=== PATIENT | male | born 1960 | race Caucasian/White ===

== ENCOUNTER → 2018-02-15 17:11 | Outpatient (REF) | payer MEDICARE, SELFPAY ==
[2018-02-15 19:05] LABS: Microalb ug/mg Crea 31.3 ug/mg Cr
== END ==
LOC: NCHCN 17:11
PROVIDERS: PCP Family Medicine; Visit Provider Family Medicine
DX: E11.9 Type 2 diabetes mellitus without complications (principal)
CPT/HCPCS: 82043; 82570

== ENCOUNTER 2018-12-16 14:02 | Outpatient (REF) | payer MEDICARE, MEDICAID, SELFPAY ==
[2018-12-16 18:29] LABS: HCT 45.8 % (40.0-50.0); HGB 15.9 g/dL (13.5-17.5); Mean Corp. HGB Concentration 34.7 g/dL (32.0-36.0); Mean Corpuscular Hemoglobin 29.3 pg (27.0-33.0); Mean Corpuscular Volume 84.3 fL (80-95); Mean Platelet Volume 11.3 fL (8.0-11.0); Platelet Count 185 x1000/uL (130-400); RBC 5.43 m/cumm (4.50-6.00); White Blood Cell Count 8.17 k/cumm (4.4-10.8)
[2018-12-16 18:45] LABS: ALT 53 U/L (12-78); AST 24 U/L (15-37); Albumin 3.6 g/dL (3.4-5.0); Alkaline Phosphatase 86 U/L (46-116); Anion Gap 10.3 mmol/L (3-11); BUN 19 mg/dL (7-18); Bilirubin, Total 0.3 mg/dL (0.2-1.0); CO2 30.7 mmol/L (21.0-32.0); CREATININE 0.88 mg/dL (0.70-1.30); Calcium 9.5 mg/dL (8.5-10.1); Chloride 99 mmol/L (98-107); Glucose 187 mg/dL (70-100); Potassium 4.5 mmol/L (3.5-5.1); Sodium 140 mmol/L (136-145); Total Protein 7.4 g/dL (6.4-8.2)
== END 2018-12-16 14:22 ==
LOC: NCHCN 14:02
PROVIDERS: PCP Family Medicine; Visit Provider Family Medicine
DX: R19.7 Diarrhea, unspecified (principal); R53.83 Other fatigue
CPT/HCPCS: 80053; 85027

== ENCOUNTER 2019-01-17 12:24 | Outpatient (REF) | payer MEDICARE, MEDICAID, SELFPAY ==
[2019-01-17 13:50] LABS: Hemoglobin A1C 7.6 % (4.5-6.2)
== END 2019-01-17 12:44 ==
LOC: NCHCN 12:24
PROVIDERS: PCP Family Medicine; Visit Provider Family Medicine
DX: E11.9 Type 2 diabetes mellitus without complications (principal)
CPT/HCPCS: 83036

== ENCOUNTER 2019-01-25 01:27 | Outpatient (CLI) | payer MEDICARE, MEDICAID, SELFPAY ==
--- NOTE | 2019-01-25 12:00 | DIABASSESS_ITS ---
DESCRIPTION/ASSESSMENT: Reese Muñiz presents for diabetes self management with focus on nutrition and weight loss. His weight goal is 250 pounds He states he doesn't feel good. He has a strong family history of diabetes. He states he has started to stay away from processed food. He is eating goat cheese, tuna, avocado, hamburg, brown rice, sweet potato, splenda, uses potassium salt substitute. He had shredded wheat for supper last night; peanut butter and bread for lunch; 2 glazed donuts for breakfast. States he sleeps poorly. He was up urinating 4 times last night. He enjoys walking and is looking forward to getting a bike next month when his check comes. His car is not inspected at this time so has no transportation. States he does suffer from depression secondary to family problems . He is not testing his blood sugar at this time. He is waiting for the mail order to be completed. INTERVENTION: Discussed food choices and reviewed diabetes food guide. Gave him information regarding [employer] but feels he can't get here easily. Discussed physical activity and his desire to get a bike and ride during the day. He also is willing to try waking at night. Discussed medication to help with weight loss and reviewed Trulicity and Victoza; brief description of SGLT2 inhibitors however he is not interested in increased urination. PLAN: Reese will begin walking at night. He will get a bike next month He will discuss additional medication to help with weight loss. He will increase meat and vegetables and decrease bread and potato. He will attempt to write his food down for 1 at least a couple of days He will call as soon as he gets his glucometer for instructions Individual MNT __4__ units billed TIME IN: OUT: No DM group education series being offered at this time.
== END 2019-01-25 01:47 ==
PROVIDERS: PCP Family Medicine; Visit Provider Dietitian, Registered
DX: E11.9 Type 2 diabetes mellitus without complications (principal); Z71.3 Dietary counseling and surveillance
CPT/HCPCS: 97802

== ENCOUNTER 2019-01-31 16:54 | Outpatient (REF) | payer MEDICARE, MEDICAID, SELFPAY ==
[2019-01-31 19:03] LABS: Microalb ug/mg Crea 11.8 ug/mg Cr
== END 2019-01-31 17:14 ==
LOC: NCHCN 16:54
PROVIDERS: PCP Family Medicine; Visit Provider Family Medicine
DX: E11.9 Type 2 diabetes mellitus without complications (principal)
CPT/HCPCS: 82043; 82570

== ENCOUNTER 2019-03-21 15:03 | Outpatient (REF) | payer MEDICARE, MEDICAID, SELFPAY ==
--- NOTE | 2019-03-21 14:36 | SKI_PTH ---
PATIENT: Reese Muñiz LOC: [facility] U#:[id number] AGE/SX: 59/M ROOM: RE03/21/[address]: Augusto Philippe DO : 1960 BED: DIS: 03/21/2019 SPEC #: [id number] RECD: 03/21/19 18:16 STATUS: FREIDA REQ #: [id number] SHAHLA: 03/21/19 14:[address]: Augusto Philippe DEPT: Surgical Specimen RECD BY: Marva Concepcion ENTERED: 03/21/19 18:16 SP TYPE: NAV OT DR: Tracey Mueller Tissues: 1 - SKIN BIOPSY(SHAVE/PUNCH) Procedures: SKIN LEVEL 4 Comments: [id number]
== END 2019-03-21 15:23 ==
LOC: LBN 15:03
PROVIDERS: PCP Family Medicine; Visit Provider Otolaryngology Otolaryngology/Facial Plastic Surgery
DX: L28.0 Lichen simplex chronicus (principal); L30.0 Nummular dermatitis
CPT/HCPCS: 88305

== ENCOUNTER 2019-05-10 13:50 | Emergency (ER) | payer MEDICARE, MEDICAID, SELFPAY ==
[2019-05-10 13:53] VITALS: BP 146/71; PULSE 76; RESP 18; TEMP 36.5; O2SAT 96
--- NOTE | 2019-05-10 14:06 | DI.RAD_ITS ---
EXAM: XR THUMB RT INDICATION: pain. COMPARISON: RIGHT HAND COMPLETE from 12/08/2012 TECHNIQUE: 2D digital imaging was performed. FINDINGS: No acute fracture or dislocation is present. There are mild degenerative changes seen in the right t humb. The bones are normally mineralized. The soft tissues are unremarkable. IMPRESSION: No acute abnormality.
--- NOTE | 2019-05-10 14:23 | ED.GENADUL_ITS ---
Discharge Plan Disposition Patient Disposition: HOME Condition: Good Discharge Details Chief Complaint: Orthopedic Clinical Impression: Thumb tendonitis Primary Care Provider: Tracey Mueller ED Provider: Zoë Beltre Home Meds and New Rx's Prescriptions: No Action losartan 25 MG tablet 50 mg PO DAILY RF: 0 bupropion HCl [Wellbutrin] 75 MG tablet 150 mg PO DAILY RF: 0 pantoprazole 40 MG tablet,delayed release (DR/EC) 40 mg PO DAILY RF: 0 acetaminophen [Mapap Extra Strength] 500 MG tablet 500 mg PO PRN PRNRF: 0 aspirin [Aspirin Low-Strength] 81 MG tablet,chewable 1 tab PO PRN PRNRF: 0 atorvastatin 40 mg Tablet 40 mg PO QHS RF: 0 triamcinolone acetonide 0.1 % Cream 1 applic TOPICAL BID RF: 0 nitroglycerin [Nitrostat] 0.4 mg Tablet, Sublingual 0.4 mg SUBLINGUAL Q5-15M PRNRF: 0 mupirocin 2 % Ointment 1 applic TOPICAL BID RF: 0 furosemide 20 mg Tablet 20 mg PO DAILY RF: 0 albuterol sulfate [ProAir HFA] 90 mcg/actuation Hfa Aerosol Inhaler 2 puff INHALATION Q6H PRNRF: 0 metformin 500 mg Tablet Extended Release 24hr 1,000 mg PO BID RF: 0 metoprolol succinate 25 mg Capsule,Sprinkle,Er 24hr 25 mg PO DAILY RF: 0 Discharge Instructions Instructions: Tendinitis (ED) Additional Instructions: Ice to your thumb 3-5 times a day for 5 to 15 minutes per icing. Rest activities as tolerated. Use your splint for 1 week for comfort. Tylenol for soreness if needed. Follow-up with orthopedic/hand specialist for reevaluation. Return for any worsening or concerns sooner if needed. Your x-ray results today are normal Referrals: Moises Coleman MD [ [facility] STAFF PHYSICIAN] - Medical Decision Making 59-year-old gentleman with complaints of left thumb pain. Patient reports he injured his thumb approximately 3 years ago. He has had intermittent issues with his thumb since. Patient describes what sounds like a trigger finger of his thumb where the thumb is in a flexed position is stuck and he has to forced extension. Patient reports jamming his thumb frequently which causes significant pain. Patient reports now appearing seeing a stiffness of his thumb with range of motion and limited due to pain. X-ray evaluation today reveals no significant abnormality FINDINGS: No acute fracture or dislocation is present. There are mild degenerative changes seen in the right thumb. The bones are normally mineralized. The soft tissues are unremarkable. IMPRESSION: No acute abnormality. Encouraged rice, conservative treatment and follow-up with orthopedic or hand specialist for further management of what is likely tendon related pain. The patient was stable and requested discharge. Prior to discharge, my usual and customary return precautions were reviewed with the patient - this included follow-up instructions and reasons to return to the Emergency Department if con ditions worsens, does not improve as expected, or other new concerns arise. HPI General Date/Time Provider Initiated Documentation: 05/10/19 13:59 . HPI Narrative: Patient presents for complaints of right thumb pain. Patient reports right thumb pain for the last several weeks which is worsening. Patient does report a history of a injury to his thumb approximately 3 years ago where he questions a dislocation of his thumb never evaluated by medical practitioners. Patient reports occasional pain, popping and snapping of his right thumb. Patient reports his thumb occasionally gets stuck in a flexed position and he has to force it straight which is quite painful. Sounds like he is describing a trigger thumb. Patient denies numbness, tingling or weakness. No open wounds. No redness or swelling. Related Data Home Medications Medication Instructions Recorded Confirmed bupropion HCl [Wellbutrin] 150 mg PO DAILY 10/14/12 05/10/19 losartan 50 mg PO DAILY 10/14/12 05/10/19 pantoprazole 40 mg PO DAILY 12/08/12 05/10/19 acetaminophen [Tylenol Extra 500 mg PO PRN PRN 02/11/13 05/10/19 Strength] aspirin [Aspirin Low-Strength] 1 tab PO PRN PRN 06/07/16 05/10/19 albuterol sulfate [ProAir HFA] 2 puff INHALATION Q6H PRN 05/10/19 05/10/19 atorvastatin 40 mg PO QHS 05/10/19 05/10/19 furosemide 20 mg PO DAILY 05/10/19 05/10/19 metformin 1,000 mg PO BID 05/10/19 05/10/19 metoprolol succinate 25 mg PO DAILY 05/10/19 05/10/19 mupirocin 1 applic TOPICAL BID 05/10/19 05/10/19 nitroglycerin [Nitrostat] 0.4 mg SUBLINGUAL Q5-15M PRN 05/10/19 05/10/19 triamcinolone acetonide 1 applic TOPICAL BID 05/10/19 05/10/19 Allergies Allergy/AdvReac Type Severity Reaction Status Date / Time Penicillins Allergy Unknown Hives Unverified 05/10/19 13:56 codeine AdvReac Mild Nausea Unverified 05/10/19 13:56 hydrocodone bitartrate AdvReac Mild Nausea Unverified 05/10/19 13:56 [From Vicodin] General Stated Complaint: Orthopedic LISANDRA: 4 Review of Systems All systems reviewed & are unremarkable except as noted in HPI and below Constitutional Constitutional: Denies chills and Denies fever(s) Musculoskeletal Musculoskeletal: Denies deformity, Reports limited range of motion, Denies numbness, Reports stiffness and Denies tingling Integumentary/Breasts Skin/Breast: Denies rash and Denies wounds Neurologic Neurologic: Denies numbness and Denies tingling [facility] Social History Smoking/Tobacco Use Status: Former Tobacco Use Alcohol Intake: former Drug use: Never Do you feel safe at home: Yes Do you feel safe in your relationship?: Yes Exam Narrative Exam Narrative: CONST: Healthy appearing patient, in no acute distress. Well hydrated. Alert and alert. MUSCULOSKELETAL: Normal Gait. Full elbow pain with palpation, forearm pain with palpation or wrist pain with palpation. Full range of motion of wrist. Patient has mild pain with palpation of the thenar eminence as well as at the IP joint of the thumb. Patient with limited flexion extension due to pain. No obvious swelling of the thumb or erythema. No indication of infection. SKIN: Normal. Dry. No rashes. NEURO: Alert and awake. Speech clear. PSYCH: Normal affect. Cooperative. Course Vital Signs Vital signs: Vital Signs Temperature 36.5 C 05/10/19 13:53 Pulse 76 05/10/19 13:53 Respiratory Rate 18 05/10/19 13:53 Blood Pressure 146/71 H 05/10/19 13:53 Pulse Oximetry 96 05/10/19 13:53 Temperature 36.5 C 05/10/19 13:53 Temperature Source Temporal Artery Scan 05/10/19 13:53 Pulse 76 05/10/19 13:53 Respiratory Rate 18 05/10/19 13:53 Respiratory Effort 05/10/19 13:55 Blood Pressure 146/71 H 05/10/19 13:53 Blood Pressure Position Sitting 05/10/19 13:53 Pulse Oximetry 96 05/10/19 13:53 Oxygen Delivery Method Room Air 05/10/19 13:53 Oxygen Flow Rate 0 05/10/19 13:53 Pain Level 8 05/10/19 13:53
== END 2019-05-10 15:20 | disposition home or self-care (01) ==
PROVIDERS: Emergency Provider Physician Assistant; PCP Family Medicine
DX: M65.311 Trigger thumb, right thumb (principal)
CPT/HCPCS: 99283; 73140; 99282

== ENCOUNTER 2019-08-09 13:57 | Outpatient (REF) | payer MEDICARE, MEDICAID, SELFPAY ==
[2019-08-09 14:31] LABS: ALT 35 U/L (16-63); AST 15 U/L (15-37); Albumin 3.7 g/dL (3.4-5.0); Alkaline Phosphatase 64 U/L (46-116); Anion Gap 11.7 mmol/L (3-11); BUN 14 mg/dL (7-18); Bilirubin, Total 0.4 mg/dL (0.2-1.0); CO2 26.3 mmol/L (21.0-32.0); CREATININE 0.86 mg/dL (0.70-1.30); Calcium 9.1 mg/dL (8.5-10.1); Calculated LDL 48 mg/dL (<100); Chloride 106 mmol/L (98-107); Cholesterol 118 mg/dL (<200); Glucose 131 mg/dL (74-106); HDL Cholesterol 44 mg/dL (40-60); Potassium 4.2 mmol/L (3.5-5.1); Sodium 144 mmol/L (136-145); Triglyceride 133 mg/dL (<150)
[2019-08-09 14:32] LABS: Hemoglobin A1C 6.1 % (3.8-5.6)
[2019-08-09 16:04] LABS: HCT 46.2 % (40.0-50.0); HGB 16.2 g/dL (13.5-17.5); Mean Corp. HGB Concentration 35.1 g/dL (32.0-36.0); Mean Corpuscular Hemoglobin 30.1 pg (27.0-33.0); Mean Corpuscular Volume 85.9 fL (80-95); Mean Platelet Volume 11.2 fL (8.0-11.0); Platelet Count 185 x1000/uL (130-400); RBC 5.38 m/cumm (4.50-6.00); RBC Distribution Width 12.8 % (11.8-14.1); White Blood Cell Count 8.52 k/cumm (4.4-10.8)
== END 2019-08-09 14:17 ==
LOC: NCHCN 13:57
PROVIDERS: PCP Family Medicine; Visit Provider Family Medicine
DX: E11.9 Type 2 diabetes mellitus without complications (principal); E78.5 Hyperlipidemia, unspecified; I10 Essential (primary) hypertension; I25.2 Old myocardial infarction
CPT/HCPCS: 80053; 80061; 85027; 83036

== ENCOUNTER 2019-08-15 13:41 | Outpatient (REF) | payer MEDICARE, MEDICAID, SELFPAY ==
[2019-08-15 18:46] LABS: Amylase 52 U/L (25-115); Lipase 121 U/L (73-393)
== END 2019-08-15 14:01 ==
LOC: NCHCN 13:41
PROVIDERS: PCP Family Medicine; Visit Provider Family Medicine
DX: R10.10 Upper abdominal pain, unspecified (principal); R11.0 Nausea
CPT/HCPCS: 83690; 82150

== ENCOUNTER 2019-10-24 16:20 | Outpatient (CLI) | payer MEDICARE, MEDICAID, SELFPAY ==
[2019-10-26 09:39] LABS: COVID-19 RT-PCR Result Not Detected (NotDetected)
== END 2019-10-24 16:40 ==
PROVIDERS: PCP Family Medicine; Visit Provider Nurse Practitioner Family
DX: R50.9 Fever, unspecified (principal)
CPT/HCPCS: U0003

== ENCOUNTER 2020-04-27 14:30 | Outpatient (REF) | payer MEDICARE, MEDICAID, SELFPAY ==
[2020-04-27 19:29] LABS: HCT 46.3 % (40.0-50.0); HGB 15.8 g/dL (13.5-17.5); MCH 29.5 pg (27.0-33.0); MCHC 34.1 % (32.0-36.0); MCV 86.5 fL (80-95); Platelet Count 172 10^3/uL (130-400); RBC 5.35 10^6/uL (4.36-5.78); RDW 12.6 % (11.8-14.1); WBC 7.09 10^3/uL (4.4-10.8)
[2020-04-27 19:55] LABS: Hemoglobin A1C 8.1 % (<5.7)
[2020-04-27 20:12] LABS: ALT 66 U/L (16-63); AST 34 U/L (15-37); Albumin 3.9 g/dL (3.4-5.0); Alkaline Phosphatase 69 U/L (46-116); BUN 16 mg/dL (7-18); Bilirubin, Total 0.3 mg/dL (0.2-1.0); CREATININE 0.91 mg/dL (0.70-1.30); Calcium 9.1 mg/dL (8.5-10.1); Chloride 101 mmol/L (98-107); Ferritin 246 ng/mL (26-388); Folate 12.7 ng/mL (8.6-20.0); Glucose 182 mg/dL (74-106); Magnesium 1.8 mg/dL (1.8-2.4); Sodium 140 mmol/L (136-145); TSH (W/Ref FT4) 1.71 uIU/mL (0.36-3.74); Total Protein 7.2 g/dL (6.4-8.2)
[2020-04-27 20:13] LABS: COMMENT (LAB VIEW ONLY) 46.62 mg/dL; Microalb ug/mg Crea 27.7 ug/mg Cr
== END 2020-04-27 14:50 ==
LOC: NCHCN 14:30
PROVIDERS: PCP Family Medicine; Visit Provider Family Medicine
DX: I10 Essential (primary) hypertension (principal); E11.9 Type 2 diabetes mellitus without complications; R63.5 Abnormal weight gain; R53.83 Other fatigue; R25.2 Cramp and spasm
CPT/HCPCS: 80053; 85027; 82043; 82570; 82728; 82746; 83036; 83735; 84443

== ENCOUNTER 2020-05-04 16:57 | Outpatient (REF) | payer MEDICARE, MEDICAID, SELFPAY ==
[2020-05-07 02:27] LABS: Patient Race White; SARS-CoV-2 RNA Undetected (Undetected); SARS-CoV-2 Specimen Source Nasal
== END 2020-05-04 17:17 ==
LOC: NCHCN 16:57
PROVIDERS: PCP Family Medicine; Visit Provider Nurse Practitioner Family
DX: Z11.59 Encounter for screening for other viral diseases (principal)
CPT/HCPCS: U0003

== ENCOUNTER 2021-02-11 15:15 | Outpatient (REF) | payer MEDICARE, MEDICAID, SELFPAY ==
[2021-02-11 17:28] LABS: Abs Immature Grans 0.09 10^3/uL (0.0-0.06); Absolute Basophil Count 0.05 10^3/uL (0.0-0.2); Absolute Eosinophil Count 0.12 10^3/uL (0.0-0.7); Absolute Lymphocyte Count 2.69 10^3/uL (1.2-3.4); Absolute Monocyte Count 0.59 10^3/uL (0.1-0.8); Absolute Neutrophil Count 6.53 10^3/uL (1.2-6.7); Basophils % 0.5; Eosinophils % 1.2; HCT 49.5 % (40.0-50.0); HGB 16.7 g/dL (13.5-17.5); Immature Grans % 0.9; Lymphocytes % 26.7; MCH 29.8 pg (27.0-33.0); MCHC 33.7 % (32.0-36.0); MCV 88.2 fL (80-95); MPV 10.5 fL (8.0-11.0); Monocytes % 5.9; Neutrophils % 64.8; Nucleated RBC 0 %; Platelet Count 243 10^3/uL (130-400); RBC 5.61 10^6/uL (4.36-5.78); RDW 12.3 % (11.8-14.1); RDW-SD 39.9 fL; WBC 10.07 10^3/uL (4.4-10.8)
[2021-02-11 17:33] LABS: ALT 51 U/L (16-63); AST 30 U/L (15-37); Alkaline Phosphatase 70 U/L (46-116); Anion Gap 13.7 mmol/L (3-11); BUN 12 mg/dL (7-18); Bilirubin, Total 0.5 mg/dL (0.2-1.0); CO2 24.3 mmol/L (21.0-32.0); CREATININE 0.9 mg/dL (0.70-1.30); Calcium 9.5 mg/dL (8.5-10.1); Chloride 101 mmol/L (98-107); Glucose 165 mg/dL (74-106); Potassium 4.2 mmol/L (3.5-5.1); Sodium 139 mmol/L (136-145); Total Protein 7.8 g/dL (6.4-8.2)
[2021-02-11 18:32] LABS: Hemoglobin A1C 7.6 % (<5.7)
== END 2021-02-11 15:16 | disposition home or self-care (01) ==
LOC: LBN 15:15
PROVIDERS: PCP Family Medicine; Visit Provider Nurse Practitioner Family
DX: I10 Essential (primary) hypertension (principal); E11.9 Type 2 diabetes mellitus without complications
CPT/HCPCS: 80053; 83036; 85025

== ENCOUNTER 2021-08-15 13:52 | Outpatient (REF) | payer MEDICARE, MEDICAID, SELFPAY ==
[2021-08-15 15:37] LABS: COMMENT (LAB VIEW ONLY) 9.75 mg/dL; Microalb ug/mg Crea 139.5 ug/mg Cr
== END 2021-08-15 13:53 | disposition home or self-care (01) ==
LOC: NCHCN 13:52
PROVIDERS: PCP Family Medicine; Visit Provider Family Medicine
DX: E11.9 Type 2 diabetes mellitus without complications (principal)
CPT/HCPCS: 82043; 82570

== ENCOUNTER 2021-11-29 06:25 | Emergency (ER) | payer MEDICARE, MEDICAID, SELFPAY ==
[2021-11-29] VITALS (30 sets, daily range): BP systolic 131–174; BP diastolic 67–100; PULSE 77–106; RESP 14–31; TEMP 37.3; O2SAT 83–95
--- NOTE | 2021-11-29 06:44 | ED.GENADUL_ITS ---
Discharge Plan Disposition Patient Disposition: HOME Condition: Improving Discharge Details Clinical Impression: Left lower lobe pneumonia Primary Care Provider: Tracey Mueller ED Provider: Hever Robertson Home Meds and New Rx's Prescriptions: New cefdinir 300 mg capsule 300 mg PO Q12H 10 Days Qty: 20 0RF Continued metformin 500 mg tablet extended release 24hr 500 mg PO BID Lantus Solostar U-100 Insulin 100 unit/mL (3 mL) insulin pen 20 unit subcut QPM Rx Instructions: inject 10-50 units subcutaneously once a day Victoza 2-Shad 0.6 mg/0.1 mL (18 mg/3 mL) pen injector 1.8 mg subcut Q24H naproxen 500 mg tablet 500 mg PO BID vitamin B complex Capsule 1 cap PO DAILY Marianne-C with Bioflavonoids 1,000-200 mg tablet 1 tab PO DAILY losartan 25 MG tablet 50 mg PO DAILY pantoprazole 40 MG tablet,delayed release (DR/EC) 40 mg PO DAILY acetaminophen [Mapap Extra Strength] 500 MG tablet 500 mg PO PRN PRN aspirin [Aspirin Low-Strength] 81 MG tablet,chewable 1 tab PO PRN PRN atorvastatin 40 mg Tablet 40 mg PO QHS triamcinolone acetonide 0.1 % Cream 1 applic TOPICAL BID nitroglycerin [Nitrostat] 0.4 mg Tablet, Sublingual 0.4 mg SUBLINGUAL Q5-15M PRN mupirocin 2 % Ointment 1 applic TOPICAL BID furosemide 20 mg Tablet 20 mg PO DAILY albuterol sulfate [ProAir HFA] 90 mcg/actuation Hfa Aerosol Inhaler 2 puff INHALATION Q6H PRN metoprolol succinate 25 mg Capsule,Sprinkle,Er 24hr 25 mg PO DAILY diclofenac sodium [Voltaren Arthritis Pain] 1 % Gel TOPICAL Discharge Instructions Instructions: Pneumonia (ED) Additional Instructions: A prescription for antibiotics was sent to your [facility] [place]. Please start this medication tomorrow morning as you received a dose of antibiotics for today in the ER. Continue small, frequent sips of fluids. You may use the provided Zofran if needed for distant nausea. Return to the ER if you feel you have worsened. As we discussed, your COVID, influenza, RSV swab was negative today. Continue your routine medications. Medical Decision Making <Levi Madison DO - Last Filed: 11/29/21 06:49> This is a 61-year-old male with a past medical history of appendectomy, reactive airway disease, insulin-dependent type 2 diabetic, fibromyalgia, GERD, previous NSTEMI, BMI of 49, who presents today for generalized feelings of unwellness and vomiting. Patient states that 1 to 2 weeks ago he had an episode of vomiting nausea and malaise, improved from that, and then for the last 2 days he again has felt notably poor, he has had cough, fever, multiple episodes of vomiting. He states he cannot keep any fluids down at all. He denies any diarrhea. He denies chest pain. Admits to generalized abdominal achiness. He denies any head or neck pain. He has not had his COVID- vaccine. He has not had his flu vaccine. He denies any other sick contacts. He states he feels very parched and dry. No other complaints at this time. No other modifying factors. Exam demonstrates notably dry mucous membranes, generalized achiness throughout the abdomen on palpation with no signs of an acute surgical abdomen. Patient does have scattered crackle and rhonchi's throughout his lung ahn. Differential is broad but includes COVID-pneumonia, influenza, gastroenteritis, or obstruction. We will rehydrate, get a CT scan for further assessment of his abdominal vomiting, evaluate radiographically his chest to rule out pneumonia, monitor closely and reassess. <Hever Robertson MD - Last Filed: 11/29/21 09:54> Medical Records Medical records reviewed: Yes I reviewed the patient's medical records. Medical records narrative: Received signout from Dr. Madison. Please see his note regarding details of the initial presentation, exam and plan of care. Patient's laboratories returned with reassuring CBC, chemistry is noted sodium 134, potassium 3.9, BUN 12, creatinine 1.0, glucose 201. LFTs unremarkable. Co. V2 SARS/influenza/RSV screen was negative. Patient CT scan does not show abdominal pathology but notes left lower lung infiltrate. The patient will note a recent cough and therefore was given ceftriaxone and was placed on oral cephalosporin. Improved after 2 L of fluid, able to eat toast with peanut butter. He was given his morning long-acting insulin and felt improved. Will offer ondansetron for home. We will ask that he follow-up for read improving. Lab Data Lab results reviewed: Yes I reviewed the patient's lab results. Lab results narrative: Laboratory Results - last 24 hr 11/29/21 11/29/21 11/29/21 06:40 06:45 06:45 WBC 8.90 RBC 5.33 Hgb 15.9 Hct 45.8 MCV 86 MCH 29.8 MCHC 34.7 RDW 12.4 Plt Count 181 MPV 9.9 Immature Gran % 0.3 Neutrophils % 77.4 Lymphocytes % 15.1 Monocytes % 6.9 Eosinophils % 0.1 Basophils % 0.2 Nucleated RBC % 0.0 Absolute Neutrophils 6.89 H Absolute Lymphocytes 1.34 Absolute Monocytes 0.61 Absolute Eosinophils 0.01 Absolute Basophils 0.02 VBG pH VBG pCO2 VBG pO2 VBG HCO3 VBG Total CO2 VBG O2 Saturation VBG Base Excess Sodium 134 L Potassium 3.9 Chloride 97 L Carbon Dioxide 26.3 Anion Gap 10.7 BUN 12 Creatinine 1.0 Estimated GFR/1.73 m2 >= 60.00 Glucose 201 H Calcium 8.5 Total Bilirubin 0.8 AST 16 ALT 38 Alkaline Phosphatase 70 Total Protein 7.7 Albumin 3.5 Lipase 46 COVID-19 Source Nasopharynx SARS-CoV-2 (PCR) Negative Influenza Type A (PCR) Negative Influenza Type B (PCR) Negative RSV (PCR) Negative 11/29/21 06:45 WBC RBC Hgb Hct MCV MCH MCHC RDW Plt Count MPV Immature Gran % Neutrophils % Lymphocytes % Monocytes % Eosinophils % Basophils % Nucleated RBC % Absolute Neutrophils Absolute Lymphocytes Absolute Monocytes Absolute Eosinophils Absolute Basophils VBG pH 7.43 H VBG pCO2 40 L VBG pO2 36 VBG HCO3 26 VBG Total CO2 23 L VBG O2 Saturation 68 VBG Base Excess 2 Sodium Potassium Chloride Carbon Dioxide Anion Gap BUN Creatinine Estimated GFR/1.73 m2 Glucose Calcium Total Bilirubin AST ALT Alkaline Phosphatase Total Protein Albumin Lipase COVID-19 Source SARS-CoV-2 (PCR) Influenza Type A (PCR) Influenza Type B (PCR) RSV (PCR) HPI <Levi Madison DO - Last Filed: 11/29/21 06:49> General Date/Time Provider Initiated Documentation: 11/29/21 06:27 . HPI Narrative: This is a 61-year-old male with a past medical history of reactive appendectomy, airway disease, insulin-dependent type 2 diabetic, fibromyalgia, G ERD, previous NSTEMI, BMI of 49, who presents today for generalized feelings of unwellness and vomiting. Patient states that 1 to 2 weeks ago he had an episode of vomiting nausea and malaise, improved from that, and then for the last 2 days he again has felt notably poor, he has had cough, fever, multiple episodes of vomiting. He states he cannot keep any fluids down at all. He denies any diarr hea. He denies chest pain. Admits to generalized abdominal achiness. He denies any head or neck pain. He has not had his COVID-vaccine. He has not had his flu vaccine. He denies any other sick contacts. He states he feels very parched and dry. No other complaints at this time. No other modifying factors. Related Data Home Medications Medication Instructions Recorded Confirmed losartan 25 mg tablet 50 mg PO DAILY 10/14/12 11/29/21 pantoprazole 40 mg tablet,delayed 40 mg PO DAILY 12/08/12 11/29/21 release acetaminophen 500 mg tablet (Mapap 500 mg PO PRN PRN 02/11/13 11/29/21 Extra Strength) aspirin 81 mg chewable tablet 1 tab PO PRN PRN 06/07/16 11/29/21 (Aspirin Low-Strength) albuterol sulfate 90 mcg/actuation 2 puff inhalation Q6H PRN 05/10/19 11/29/21 aerosol inhaler (ProAir HFA) atorvastatin 40 mg tablet 40 mg PO QHS 05/10/19 11/29/21 furosemide 20 mg tablet 20 mg PO DAILY 05/10/19 11/29/21 metoprolol succinate 25 mg capsule 25 mg PO DAILY 05/10/19 11/29/21 sprinkle, ext. release 24 hr mupirocin 2 % topical ointment 1 applic topical BID 05/10/19 05/10/19 nitroglycerin 0.4 mg sublingual 0.4 mg sublingual Q5-15M PRN 05/10/19 11/29/21 tablet (Nitrostat) triamcinolone acetonide 0.1 % 1 applic topical BID 05/10/19 05/10/19 topical cream ascorbate calcium-bioflavonoid 1 tab PO DAILY 08/29/21 11/29/21 1,000 mg-200 mg tablet (Marianne-C with Bioflavonoids) insulin glargine 100 unit/mL (3 20 unit subcut QPM 08/29/21 11/29/21 mL) subcutaneous pen (Lantus Solostar U-100 Insulin) liraglutide 0.6 mg/0.1 mL (18 mg/3 1.8 mg subcut Q24H 08/29/21 11/29/21 mL) subcutaneous pen injector (Victoza 2-Shad) metformin 500 mg tablet,extended 500 mg PO BID 08/29/21 11/29/21 release 24hr naproxen 500 mg tablet 500 mg PO BID 08/29/21 11/29/21 vitamin B complex 1 cap PO DAILY 08/29/21 11/29/21 cefdinir 300 mg capsule 300 mg PO Q12H 10 days #20 caps 11/29/21 diclofenac sodium 1 % topical gel topical 11/29/21 (Voltaren Arthritis Pain) Previous Rx's Medication Instructions Recorded cefdinir 300 mg capsule 300 mg PO Q12H 10 days #20 caps 11/29/21 Allergies Allergy/AdvReac Type Severity Reaction Status Date / Time Penicillins Allergy Unknown Hives Unverified 11/29/21 09:06 codeine AdvReac Mild Nausea Unverified 11/29/21 09:06 hydrocodone bitartrate AdvReac Mild Nausea Unverified 11/29/21 09:06 [From Vicodin] General Stated Complaint: Nausea/Vomit/Diar LISANDRA: 3 Review of Systems <Levi Madison DO - Last Filed: 11/29/21 06:49> All systems reviewed & are unremarkable except as noted in HPI and below PFSH <Levi Madison DO - Last Filed: 11/29/21 06:49> All Active Problems (Updated 11/29/21 @ 09:49 by Hever Robertson MD) Left lower lobe pneumonia (Acute) Hypertension (Chronic) Hyperlipidemia (Acute) Diabetes mellitus (Chronic) Diarrhea (Acute) Tinnitus, bilateral (Acute) Sensorineural hearing loss of both ears (Acute) Neoplasm of unspecified behavior of bone, soft tissue, and skin (Acute) Cellulitis (Acute) Medical History Abdominal pain Adenomatous colon polyp Edema Family history of colon cancer brother and sister Family history of colon cancer in mother Fibromyalgia GERD (gastroesophageal reflux disease) H/O lichenification and lichen simplex chronicus History of non-ST elevation myocardial infarction (NSTEMI) Insomnia Metabolic syndrome Morbid obesity Nausea Quit using tobacco in remote past Sarcoidosis Situational anxiety Social History Smoking/Tobacco Use Status: Former Tobacco Use Smoking risk assessment performed?: Yes Alcohol Intake: former Drug use: Never Do you feel safe at home: Yes Do you feel safe in your relationship?: Yes Exam <Levi Madison DO - Last Filed: 11/29/21 06:49> Narrative Exam Narrative: 1.Const: Well-nourished, Well-developed, appearing stated age 2.Eyes: PERRL, no conjunctival injection, and symmetrical lids. 3.ENT: Atraumatic external nose and ears. Notably dry MM. Neck: Symmetric, trachea midline, No thyromegaly. 4.CVS: +S1/S2, No murmurs or gallops. Peripheral pulses 2+ and equal in all extremities. Brisk capillary refill in all extremities. 5.RESP: Unlabored respiratory effort. Scattered crackles and rhonchi throughout 6.GI: Soft,Nondistended, generalized abdominal achiness on palpation. No hepatosplenomegaly. No guarding or rebound. No evidence of surgical abdomen 7.MSK: Normocephalic/Atraumatic, Extremities w/o deformity or ttp No cyanosis or clubbing, Normal movement of all extremities 8.Skin: Warm, Dry. No rashes or lesions. 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 Sensation grossly intact, no focal neurologic deficits. 10.Psych: (AAO) x3. Appropriate mood and affect Course <Levi Madison DO - Last Filed: 11/29/21 06:49> Vital Signs Vital signs: Vital Signs Temperature 37.3 C 11/29/21 06:35 Pulse 100 H 11/29/21 06:35 Respiratory Rate 22 11/29/21 06:35 Blood Pressure 131/73 11/29/21 06:35 Pulse Oximetry 93 11/29/21 06:35 Temperature 37.3 C 11/29/21 06:35 Temperature Source Skin 11/29/21 06:35 Pulse 100 H 11/29/21 06:35 Respiratory Rate 22 20/22 06:35 Respiratory Effort 11/29/21 06:40 Blood Pressure 131/73 11/29/21 06:35 Blood Pressure Position Supine 11/29/21 06:35 Pulse Oximetry 93 11/29/21 06:35 Oxygen Delivery Method Room Air 11/29/21 06:35 Oxygen Flow Rate 0 11/29/21 06:35 Pain Level 4 11/29/21 06:35 Sign Out <Levi Madison DO - Last Filed: 11/29/21 06:49> Sign Out Data: Sign Out Comment: Follow-up on labs and imaging. Vomiting, viral-like illness Last updated by Levi Madison DO at 11/29/21 07:16
[2021-11-29] MEDS: Normal Saline 1,000 ML 1000 ML IV ×2 (06:55→08:18)
[2021-11-29] MEDS: Ondansetron 4 MG/2 ML VIAL IVP (06:55)
[2021-11-29 07:03] LABS: BE (Venous) 2 mmol/L (-2-3); HCO3 (Venous) 26 mmol/L (23-28); O2 Sat (Venous) 68 %; TCO2 (Venous) 23 mmol/L (24-29); pCO2 (Venous) 40 mmHg (41-51); pH (Venous) 7.43 (7.31-7.41); pO2 (Venous) 36 mmHg
[2021-11-29 07:04] LABS: Abs Immature Grans 0.03 10^3/uL (0.0-0.06); Absolute Basophil Count 0.02 10^3/uL (0.0-0.2); Absolute Eosinophil Count 0.01 10^3/uL (0.0-0.7); Absolute Lymphocyte Count 1.34 10^3/uL (1.2-3.4); Absolute Monocyte Count 0.61 10^3/uL (0.1-0.8); Absolute Neutrophil Count 6.89 10^3/uL (1.2-6.7); Basophils % 0.2; Eosinophils % 0.1; HCT 45.8 % (40.0-50.0); HGB 15.9 g/dL (13.5-17.5); Immature Grans % 0.3; Lymphocytes % 15.1; MCH 29.8 pg (27.0-33.0); MCHC 34.7 % (32.0-36.0); MCV 86 fL (80-95); MPV 9.9 fL (8.0-11.0); Monocytes % 6.9; Neutrophils % 77.4; Platelet Count 181 10^3/uL (130-400); RBC 5.33 10^6/uL (4.36-5.78); RDW 12.4 % (11.8-14.1); RDW-SD 38.5 fL
[2021-11-29 07:19] LABS: ALT 38 U/L (16-63); AST 16 U/L (15-37); Albumin 3.5 g/dL (3.4-5.0); Alkaline Phosphatase 70 U/L (46-116); Anion Gap 10.7 mmol/L (3-11); BUN 12 mg/dL (7-18); Bilirubin, Total 0.8 mg/dL (0.2-1.0); CO2 26.3 mmol/L (21.0-32.0); Calcium 8.5 mg/dL (8.5-10.1); Chloride 97 mmol/L (98-107); Glucose 201 mg/dL (74-106); Lipase 46 U/L (73-393); Potassium 3.9 mmol/L (3.5-5.1); Sodium 134 mmol/L (136-145); Total Protein 7.7 g/dL (6.4-8.2)
[2021-11-29 07:36] LABS: COVID-19 PCR Negative (Negative); Influenza A PCR Negative (Negative); Influenza B PCR Negative (Negative); RSV PCR Negative (Negative)
[2021-11-29 07:37] LABS: Source Nasopharynx
--- NOTE | 2021-11-29 07:37 | DI.CT_ITS ---
Exam(s) CT CHEST/ABD/PEL WO EXAM: CT CHEST/ABD/PEL WO CLINICAL HISTORY: vomiting, epigastric abd pain,cough, sob, fever TECHNIQUE: Imaging Protocol: Axial computed tomography images with coronal and sagittal reformatted images were created and reviewed COMPARISON: CT CHEST WITH CONTRAST from 07/24/2010 FINDINGS: The examination is limited due to patient motion artifact. CHEST: Tracheobronchial tree: Patent where visualized. Pulmonary parenchyma: There is a reticular nodular infiltrate in left upper and left lower lobes. Th ere is a small linear area of consolidation in the left lower lobe. No architectural distortion. Mediastinum and Bobbi: No dominant adenopathy or fluid collection. The esophagus is unremarkable. Thyroid gland: Unremarkable. Pleura: No effusion or pneumothorax. Heart: The heart is not dilated. Coronary artery calcifications are present. No pericardial effusion . Aorta: Thoracic aorta non-dilated. Mild atherosclerosis. Lymph nodes: Within normal limits. Bones:Within normal limits for the patient's age. Soft tissues: Unremarkable. ABDOMEN: Liver: Normal density. No measurable mass. The liver measures a 20 cm in length. Gallbladder and Biliary Tract: No radiodense calculus or dilation. Pancreas: Normal density, no abnormal calcifications or inflammatory process. Spleen: Normal. Adrenals: No masses seen. Kidneys: Normal size, contour and axis. No radiodense stones or obstructive uropathy. No masses seen. Abdominal Aorta: Abdominal portion non-dilated. Mild atherosclerosis. Bowel: No obstruction or bowel wall thickening. No evidence of appendicitis. Peritoneal Cavity: No ascites, collection or mesenteric inflammatory response. No free air. Lymph Nodes: Within normal limits. Bones: Unremarkable. Soft Tissues: Unremarkable. PELVIS: Bladder: Symmetric distention, no gross wall thickening. Reproductive Organs: Unremarkable as visualized. Lymph Nodes: Within normal limits. Bones: Within normal limits. IMPRESSION: 1. There is a reticular nodular infiltrate seen in the left lower lobe and left upper lobe suspicious for pneumonia. Please correlate clinically. A follow-up chest x-ray may be obtained for to documen t resolution. 2. No acute abdominal or pelvic process. 3. Results of this exam have been verbally communicated with provider. RADIATION DOSE DELIVERED: 2,314.36mGy.cm Total DLP DATA REPOSITORY: All CT scans at this facility are submitted to the National Radiology Data Registry (NRDR) Dose Index Registry (DIR) with the [employer] ([employer]). RADIATION OPTIMIZATION: All CT scans at this facility use at least one of these dose optimization te chniques: automated exposure control; mA and/or kV adjustment per patient size (includes targeted exa ms where dose is matched to clinical indication); or iterative reconstruction.
[2021-11-29] MEDS: Insulin Glargine 100 UNITS/ML UNIT 10 UNITS SC (09:05)
[2021-11-29] MEDS: cefTRIAXone 1 GM/50 ML BAG IVPB (10:00)
[2021-11-29] MEDS: Ondansetron O.D.T. 4 MG TABEF, 3 TABS/BTL PO (10:34)
== END 2021-11-29 10:34 | disposition home or self-care (01) ==
PROVIDERS: Student in an Organized Health Care Education/Training Program; Emergency Provider Emergency Medicine; PCP Family Medicine
DX: J18.9 Pneumonia, unspecified organism (principal); R06.02 Shortness of breath; R50.9 Fever, unspecified; R10.13 Epigastric pain; Z20.822 Contact with and (suspected) exposure to COVID-19
CPT/HCPCS: 36415; 71250; 80053; 82805; 83690; 87637; 96361; 96365; 96375; 99284; 74176; 85025; J0696; J1815; J2405

== ENCOUNTER 2022-01-01 11:42 | Emergency (ER) | payer MEDICARE, MEDICAID, SELFPAY ==
[2022-01-01 11:50] VITALS: BP 140/77; PULSE 71; RESP 20; TEMP 36.6; O2SAT 95
--- NOTE | 2022-01-01 12:00 | DI.RAD_ITS ---
Exam(s) XR PORTABLE CHEST AP EXAM: XR PORTABLE CHEST AP CLINICAL HISTORY: Cough, recent PNA TECHNIQUE: 2D digital imaging was performed of the chest. One image was obtained. An AP view was ob tained. COMPARISON: CR CHEST 2 VIEWS PA,LAT from 06/07/2016 CR LEFT SHOULDER COMPLETE from 07/17/2017 FINDINGS: MEDIASTINUM: Normal. HEART: Normal. PULMONARY VASCULATURE: Normal. LUNGS: Clear. PLEURAL SPACE: No pleural effusion or pneumothorax. BONE:Within normal limits for the patient's age. OTHER FINDINGS:Normal. IMPRESSION: No acute pulmonary findings. DATA REPOSITORY: RADIATION DOSE DELIVERED:
--- NOTE | 2022-01-01 12:14 | ED.GENADUL_ITS ---
Discharge Plan Disposition Patient Disposition: HOME Condition: Improving Discharge Details Clinical Impression: Cough, persistent Primary Care Provider: Tracey Mueller ED Provider: Hever Robertson Home Meds and New Rx's Prescriptions: New doxycycline hyclate 100 mg capsule 100 mg PO BID 10 Days Qty: 20 0RF famotidine 20 mg tablet 20 mg PO DAILY 14 Days Qty: 14 0RF Continued insulin glargine [Lantus Solostar U-100 Insulin] 100 unit/mL (3 mL) insulin pen 20 unit subcut QPM Rx Instructions: inject 10-50 units subcutaneously once a day Victoza 2-Shad 0.6 mg/0.1 mL (18 mg/3 mL) pen injector 1.8 mg subcut Q24H naproxen 500 mg tablet 500 mg PO BID vitamin B complex Capsule 1 cap PO DAILY Marianne-C with Bioflavonoids 1,000-200 mg tablet 1 tab PO DAILY losartan 25 MG tablet 50 mg PO DAILY pantoprazole 40 MG tablet,delayed release (DR/EC) 40 mg PO DAILY acetaminophen [Mapap Extra Strength] 500 MG tablet 500 mg PO PRN PRN aspirin [Aspirin Low-Strength] 81 MG tablet,chewable 1 tab PO PRN PRN atorvastatin 40 mg Tablet 40 mg PO QHS triamcinolone acetonide 0.1 % Cream 1 applic TOPICAL BID nitroglycerin [Nitrostat] 0.4 mg Tablet, Sublingual 0.4 mg SUBLINGUAL Q5-15M PRN mupirocin 2 % Ointment 1 applic TOPICAL BID furosemide 20 mg Tablet 20 mg PO DAILY albuterol sulfate [ProAir HFA] 90 mcg/actuation Hfa Aerosol Inhaler 2 puff INHALATION Q6H PRN metoprolol succinate 25 mg Capsule,Sprinkle,Er 24hr 25 mg PO DAILY diclofenac sodium [Voltaren Arthritis Pain] 1 % Gel TOPICAL Discharge Instructions Instructions: Acute Cough (ED) Additional Instructions: Continue your routine medications. As discussed, please complete the course of antibiotics. The medication doxycycline can make you sensitive to the sun so be wary of sun exposure/burn while on this medication. Please take famotidine for 2 weeks as prescribed. Follow-up regular doctor if not improved in 10 days time Medical Decision Making This is a pleasant 61-year-old male who was evaluated in emergency room at the end of November for pneumonia for which he was placed on cefdinir. He completed treatment approximately 1 week ago. Now with recurrent cough and congestion, stated worried that he fears his pneumonia is recurrent. Note of negative COVID testing at the time of the previous visit on November 29. Patient arrives to the ER afebrile and oxygenating normally. His exam is reassuring. Patient referred for follow-up chest x-ray: No acute finding. Patient may have a persistent cough or atypical infection. I will place him on further anti biotics to cover for atypical infection. I do feel he benefit from some mild increase in antacid and will add to his PPI. Patient stable for outpatient management HPI General Mode of arrival: ambulatory . Date/Time Provider Initiated Documentation: 01/01/22 11:43 . Limitations to Documentation: no limitations . Information obtained by: patient . History of Present Illness 61 year old M presents to the emergency department with the chief complaint of Cough, recent pneumonia, described as mild and similar to prior episodes, and is localized to the chest. Patient reports no radiation. Patient started experiencing this day(s) and it has been intermittent. No relieving factors improve symptom(s), No exacerbating factors reported . Patient notes denies fever/chills, nausea/vomiting, shortness of breath, syncope and weakness. Patient did receive the following treatments prior to arrival, none Related Data Home Medications Medication Instructions Recorded Confirmed losartan 25 mg tablet 50 mg PO DAILY 10/14/12 01/01/22 pantoprazole 40 mg tablet,delayed 40 mg PO DAILY 12/08/12 01/01/22 release acetaminophen 500 mg tablet (Mapap 500 mg PO PRN PRN 02/11/13 01/01/22 Extra Strength) aspirin 81 mg chewable tablet 1 tab PO PRN PRN 06/07/16 01/01/22 (Aspirin Low-Strength) albuterol sulfate 90 mcg/actuation 2 puff inhalation Q6H PRN 05/10/19 01/01/22 aerosol inhaler (ProAir HFA) atorvastatin 40 mg tablet 40 mg PO QHS 05/10/19 01/01/22 furosemide 20 mg tablet 20 mg PO DAILY 05/10/19 01/01/22 metoprolol succinate 25 mg capsule 25 mg PO DAILY 05/10/19 01/01/22 sprinkle, ext. release 24 hr mupirocin 2 % topical ointment 1 applic topical BID 05/10/19 05/10/19 nitroglycerin 0.4 mg sublingual 0.4 mg sublingual Q5-15M PRN 05/10/19 01/01/22 tablet (Nitrostat) triamcinolone acetonide 0.1 % 1 applic topical BID 05/10/19 01/01/22 topical cream ascorbate calcium-bioflavonoid 1 tab PO DAILY 08/29/21 01/01/22 1,000 mg-200 mg tablet (Marianne-C with Bioflavonoids) insulin glargine 100 unit/mL (3 20 unit subcut QPM 08/29/21 01/01/22 mL) subcutaneous pen (Lantus Solostar U-100 Insulin) liraglutide 0.6 mg/0.1 mL (18 mg/3 1.8 mg subcut Q24H 08/29/21 01/01/22 mL) subcutaneous pen injector (Symetricaza 2-Shad) naproxen 500 mg tablet 500 mg PO BID 08/29/21 01/01/22 vitamin B complex 1 cap PO DAILY 08/29/21 01/01/22 diclofenac sodium 1 % topical gel topical 11/29/21 (Voltaren Arthritis Pain) doxycycline hyclate 100 mg capsule 100 mg PO BID 10 days #20 caps 01/01/22 famotidine 20 mg tablet 20 mg PO DAILY 2 weeks #14 tabs 01/01/22 Previous Rx's Medication Instructions Recorded doxycycline hyclate 100 mg capsule 100 mg PO BID 10 days #20 caps 01/01/22 famotidine 20 mg tablet 20 mg PO DAILY 2 weeks #14 tabs 01/01/22 Allergies Allergy/AdvReac Type Severity Reaction Status Date / Time Penicillins Allergy Unknown Hives Unverified 01/01/22 11:55 codeine AdvReac Mild Nausea Unverified 01/01/22 11:55 hydrocodone bitartrate AdvReac Mild Nausea Unverified 01/01/22 11:55 [From Vicodin] General Stated Complaint: RespSymp LISANDRA: 4 Review of Systems Narrative: Notes mild GERD symptoms. Finished antibiotics approximately 1 week ago. Eating and drinking normally. Otherwise well. Some production of sputum. 8 systems reviewed and otherwise negative PFSH All Active Problems (Updated 01/01/22 @ 12:57 by Hever Robertson MD) Cough, persistent (Acute) Hypertension (Chronic) Hyperlipidemia (Acute) Diabetes mellitus (Chronic) Diarrhea (Acute) Tinnitus, bilateral (Acute) Sensorineural hearing loss of both ears (Acute) Neoplasm of unspecified behavior of bone, soft tissue, and skin (Acute) Cellulitis (Acute) Medical History Abdominal pain Adenomatous colon polyp Edema Family history of colon cancer brother and sister Family history of colon cancer in mother Fibromyalgia GERD (gastroesophageal reflux disease) H/O lichenification and lichen simplex chronicus History of non-ST elevation myocardial infarction (NSTEMI) Insomnia Metabolic syndrome Morbid obesity Nausea Quit using tobacco in remote past Sarcoidosis Situational anxiety Social History Smoking/Tobacco Use Status: Former Tobacco Use Smoking risk assessment performed?: Yes Alcohol Intake: former Drug use: Never Substance use type: does not use Do you feel safe at home: Yes Do you feel safe in your relationship?: Yes Exam Narrative Exam Narrative: GEN: awake, alert, oriented 3. Pleasant, well groomed, interactive. HEAD: Normocephalic, atraumatic ENT: Mucous membranes moist, oropharynx unremarkable, External ear exam unremarkable EYES: PERRL, EOMI NECK: Full ROM, no LG, no menigismus CHEST/RESP: Distant sounds, nontender, clear to auscultation bilateral, cough noted CARDIOVASCULAR: RRR, no murmur, rub erendira. 2+ Rad pulse bilateral ABDOMEN: Soft, nontender, no mass. +Bowel sounds EXT: Full ROM, no edema, no rash Neuro: Grossly normal neurologic exam, conversant, interactive. Psych: Speech fluent, thoughts congruent, affect normal Course Vital Signs Vital signs: Vital Signs Temperature 36.6 C 01/01/22 11:50 Pulse 71 01/01/22 11:50 Respiratory Rate 20 01/01/22 11:50 Blood Pressure 140/77 01/01/22 11:50 Pulse Oximetry 95 01/01/22 11:50 Temperature 36.6 C 01/01/22 11:50 Temperature Source Temporal Artery Scan 01/01/22 11:50 Pulse 71 01/01/22 11:50 Respiratory Rate 20 01/01/22 11:50 Respiratory Effort 01/01/22 11:58 Respiratory Depth Normal 01/01/22 11:58 Blood Pressure 140/77 01/01/22 11:50 Blood Pressure Position Sitting 01/01/22 11:50 Pulse Oximetry 95 01/01/22 11:50 Oxygen Delivery Method Room Air 01/01/22 11:50 Oxygen Flow Rate 0 01/01/22 11:50 Pain Level 5 01/01/22 11:50
== END 2022-01-01 13:02 | disposition home or self-care (01) ==
PROVIDERS: Emergency Provider Emergency Medicine; PCP Family Medicine
DX: R05.3 Chronic cough (principal)
CPT/HCPCS: 99283; 71045

== ENCOUNTER 2022-05-23 16:25 | Outpatient (REF) | payer MEDICARE, MEDICAID, SELFPAY ==
[2022-05-23 20:01] LABS: COMMENT (LAB VIEW ONLY) 14.24 mg/dL; Microalb ug/mg Crea 12.6 ug/mg Cr
== END 2022-05-23 16:26 | disposition home or self-care (01) ==
LOC: NCHCN 16:25
PROVIDERS: PCP Family Medicine; Visit Provider Family Medicine
DX: E11.9 Type 2 diabetes mellitus without complications (principal)
CPT/HCPCS: 82043; 82570

== ENCOUNTER 2022-06-17 08:42 | Emergency (ER) | payer MEDICARE, MEDICAID, SELFPAY ==
[2022-06-17 08:50] VITALS: BP 145/114; PULSE 54; RESP 18; TEMP 37; O2SAT 97
--- NOTE | 2022-06-17 09:05 | ED.GENADUL_ITS ---
Discharge Plan Disposition Patient Disposition: Home Discharge Details Clinical Impression: Sinusitis, Upper respiratory infection Primary Care Provider: Tracey Mueller ED Provider: Arjun Richardson Home Meds and New Rx's Prescriptions: New doxycycline hyclate 100 mg tablet 100 mg PO BID Qty: 20 0RF Continued insulin glargine [Lantus Solostar U-100 Insulin] 100 unit/mL (3 mL) insulin pen 20 unit subcut QPM Rx Instructions: inject 10-50 units subcutaneously once a day Victoza 2-Shad 0.6 mg/0.1 mL (18 mg/3 mL) pen injector 1.8 mg subcut Q24H naproxen 500 mg tablet 500 mg PO BID vitamin B complex Capsule 1 cap PO DAILY Marianne-C with Bioflavonoids 1,000-200 mg tablet 1 tab PO DAILY losartan 25 MG tablet 50 mg PO DAILY pantoprazole 40 MG tablet,delayed release (DR/EC) 40 mg PO DAILY acetaminophen [Mapap Extra Strength] 500 MG tablet 500 mg PO PRN PRN aspirin [Aspirin Low-Strength] 81 MG tablet,chewable 1 tab PO PRN PRN atorvastatin 40 mg Tablet 40 mg PO QHS triamcinolone acetonide 0.1 % Cream 1 applic TOPICAL BID nitroglycerin [Nitrostat] 0.4 mg Tablet, Sublingual 0.4 mg SUBLINGUAL Q5-15M PRN mupirocin 2 % Ointment 1 applic TOPICAL BID furosemide 20 mg Tablet 20 mg PO DAILY albuterol sulfate [ProAir HFA] 90 mcg/actuation Hfa Aerosol Inhaler 2 puff INHALATION Q6H PRN metoprolol succinate 25 mg Capsule,Sprinkle,Er 24hr 25 mg PO DAILY diclofenac sodium [Voltaren Arthritis Pain] 1 % Gel TOPICAL Discharge Instructions Instructions: Sinusitis (ED), Upper Respiratory Infection (ED) Additional Instructions: follow up with your primary care provider within 1 week if you feel more ill, have worsening trouble breathing or persistent vomiting return to the emergency department Medical Decision Making 62 yo male with hx of dm, previous smoker that has used albuterol intermittently in the past, htn, who comes in with 2 weeks of sinus pressure, cough and low grade fevers to 100. HE denies chest pain/pressure, headache, abdomen pain, n/v, rashes. He arrives appearing well speaking in full sentences in no respiratory distress. He has clear rhinorrhea, apical wheezing bilaterally otherwise clear lungs, normal posterior pharynx and normal tm's, no abdomen tenderness, no jvd, no leg swelling, no murmurs. Given his well appearance and reassuring exam doubt sepsis and do not feel blood work indicated. Will treat his cough and wheezing with neb and prednisone, and also obtain cxr and fluvid test. He also states 3 days ago he was opening a door and his right arm slipped and he hit his posterior right elbow on a wall and has had pain since. He has no visible or palpable deformity of the elbow, full rom, normal intact distal sensation and pulses, does have pain with palpation to the olecranon, will obtain xray to further evaluate, suspect contusion pt declined to have neb or prednisone and has decision making capacity, fluvid and imaging negative. He is stable for d/c, will streat for possible bacterial sinusitis given 2 weeks of symptoms with doxy given penicillin allergy. He declines prednisone prescription. He is going to f/u with his pcp, return precautions given Differential Diagnosis Differential Diagnosis: copd, asthma, sinusitis, pneumonia Medical Records Medical records reviewed: Yes I reviewed the patient's medical records. Imaging Data Radiologic Study: Attestation: I personally reviewed and interpreted this imaging study as follows: Imaging: X-Ray My impression: negative elbow xray Radiologic Study #2: Attestation: I personally reviewed and interpreted this imaging study as follows: Imaging: X-Ray My impression: negative chest xray Sign Out No HPI General Mode of arrival: ambulatory . Date/Time Provider Initiated Documentation: 06/17/22 08:43 . Limitations to Documentation: no limitations . Information obtained by: patient . History of Present Illness 62 year old M presents to the emergency department with the chief complaint of cough, described as moderate, Patient started experiencing this week(s) (2) and it has been intermittent. No relieving factors improve symptom(s), No exacerbating factors reported . Patient notes other (nasal congestion). Patient did receive the following treatments prior to arrival, none Related Data Home Medications Medication Instructions Recorded Confirmed losartan 25 mg tablet 50 mg PO DAILY 10/14/12 06/17/22 pantoprazole 40 mg tablet,delayed 40 mg PO DAILY 12/08/12 06/17/22 release acetaminophen 500 mg tablet (Mapap 500 mg PO PRN PRN 02/11/13 06/17/22 Extra Strength) aspirin 81 mg chewable tablet 1 tab PO PRN PRN 06/07/16 06/17/22 (Aspirin Low-Strength) albuterol sulfate 90 mcg/actuation 2 puff inhalation Q6H PRN 05/10/19 06/17/22 aerosol inhaler (ProAir HFA) atorvastatin 40 mg tablet 40 mg PO QHS 05/10/19 06/17/22 furosemide 20 mg tablet 20 mg PO DAILY 05/10/19 06/17/22 metoprolol succinate 25 mg capsule 25 mg PO DAILY 05/10/19 06/17/22 sprinkle, ext. release 24 hr mupirocin 2 % topical ointment 1 applic topical BID 05/10/19 06/17/22 nitroglycerin 0.4 mg sublingual 0.4 mg sublingual Q5-15M PRN 05/10/19 06/17/22 tablet (Nitrostat) triamcinolone acetonide 0.1 % 1 applic topical BID 05/10/19 06/17/22 topical cream ascorbate calcium-bioflavonoid 1 tab PO DAILY 08/29/21 06/17/22 1,000 mg-200 mg tablet (Marianne-C with Bioflavonoids) insulin glargine 100 unit/mL (3 20 unit subcut QPM 08/29/21 06/17/22 mL) subcutaneous pen (Lantus Solostar U-100 Insulin) liraglutide 0.6 mg/0.1 mL (18 mg/3 1.8 mg subcut Q24H 08/29/21 06/17/22 mL) subcutaneous pen injector (Victoza 2-Shad) naproxen 500 mg tablet 500 mg PO BID 08/29/21 06/17/22 vitamin B complex 1 cap PO DAILY 08/29/21 06/17/22 diclofenac sodium 1 % topical gel topical 11/29/21 (Voltaren Arthritis Pain) doxycycline hyclate 100 mg tablet 100 mg PO BID #20 tabs 06/17/22 Previous Rx's Medication Instructions Recorded doxycycline hyclate 100 mg tablet 100 mg PO BID #20 tabs 06/17/22 Allergies Allergy/AdvReac Type Severity Reaction Status Date / Time Penicillins Allergy Unknown Hives Unverified 06/17/22 08:53 codeine AdvReac Mild Nausea Unverified 06/17/22 08:53 hydrocodone bitartrate AdvReac Mild Nausea Unverified 06/17/22 08:53 [From Vicodin] General Stated Complaint: RespSymp LISANDRA: 3 Review of Systems All systems reviewed & are unremarkable except as noted in HPI and below Constitutional Constitutional: Denies chills and Denies weakness ENT Ears, Nose, Mouth, and Throat: Denies change in voice Cardiovascular Cardiovascular: Denies chest pain and Denies dyspnea Respiratory Respiratory: Denies dyspnea Gastrointestinal Gastrointestinal: Denies abdominal pain, Denies nausea and Denies vomiting Integumentary/Breasts Skin/Breast: Denies rash Neurologic Neurologic: Denies weakness PFSH All Active Problems (Updated 06/17/22 @ 10:24 by Arjun Richardson MD) Sinusitis (Acute) Upper respiratory infection (Acute) Morbid obesity (Acute) History of non-ST elevation myocardial infarction (NSTEMI) (Acute) Family history of colon cancer in mother (Acute) Adenomatous colon polyp (Acute) Family history of colon cancer (Acute) brother and sister Diabetes mellitus (Chronic) Diarrhea (Acute) Medical History (Updated 06/17/22 @ 10:24 by Arjun Richardson MD) Abdominal pain Cellulitis Cough, persistent Edema Fibromyalgia GERD (gastroesophageal reflux disease) H/O lichenification and lichen simplex chronicus Hyperlipidemia Hypertension Insomnia Metabolic syndrome Nausea Neoplasm of unspecified behavior of bone, soft tissue, and skin Quit using tobacco in remote past Sarcoidosis Sensorineural hearing loss of both ears Situational anxiety Tinnitus, bilateral Social History Smoking/Tobacco Use Status: Former Tobacco Use Smoking risk assessment performed?: Yes Alcohol Intake: former Drug use: Never Substance use type: does not use Do you feel safe at home: Yes Do you feel safe in your relationship?: Yes Exam Const General: no acute distress Orientation: alert HENMT Head: normal to inspection Ears: external ears normal General nose exam: external nose normal Mouth: moist mucous membranes Eyes General: appearance normal, both eyes and all related structures Neck Neck: normal visual inspection Resp Effort & Inspection: normal respiratory effort, able to speak in complete sentences and cough Cardio Rate: regular rate Heart Sounds: no murmurs Skin General skin exam: no rashes or lesions noted Neuro General: patient alert and patient oriented x3 Extrem General: normal to inspection Psych Mental Status: mental status grossly normal Course Vital Signs Vital signs: Vital Signs Temperature 37.0 C 06/17/22 08:50 Pulse 54 L 06/17/22 08:50 Respiratory Rate 18 06/17/22 08:50 Blood Pressure 145/114 H 06/17/22 08:50 Pulse Oximetry 97 06/17/22 08:50 Temperature 37.0 C 06/17/22 08:50 Pulse 54 L 06/17/22 08:50 Respiratory Rate 18 06/17/22 08:50 Respiratory Effort Non-Labored 06/17/22 08:54 Blood Pressure 145/114 H 06/17/22 08:50 Blood Pressure Position Sitting 06/17/22 08:50 Pulse Oximetry 97 06/17/22 08:50 Oxygen Delivery Method Room Air 06/17/22 08:50 Oxygen Flow Rate 0 06/17/22 08:50
--- NOTE | 2022-06-17 09:50 | DI.RAD_ITS ---
Exam(s) XR ELBOW RT COMPLETE EXAM: XR ELBOW RT COMPLETE CLINICAL HISTORY: pain s/p hitting it 3 days ago. TECHNIQUE: 2D digital imaging was performed of the left elbow. Four images were obtained. AP, late ral and oblique views were obtained. COMPARISON: No exams were available for comparison FINDINGS: BONES: No acute fracture is present. No bony destructive lesion is seen. There are well corticated os seous densities associated with both the lateral epicondyle and the tip of the olecranon which appear chronic. There is a tiny chronic spur at the triceps insertion site. JOINTS: The elbow is normally aligned. No joint effusion is seen. SOFT TISSUE: Normal. IMPRESSION: No acute fracture or dislocation. DATA REPOSITORY: RADIATION DOSE DELIVERED:
--- NOTE | 2022-06-17 09:50 | DI.RAD_ITS ---
Exam(s) XR PORTABLE CHEST AP EXAM: XR PORTABLE CHEST AP CLINICAL HISTORY: cough TECHNIQUE: 2D digital imaging was performed of the chest. Two images were obtained. AP views were obtained. COMPARISON: CR XR PORTABLE CHEST AP from 01/01/2022 FINDINGS: MEDIASTINUM: Normal. HEART: Normal. PULMONARY VASCULATURE: Normal. LUNGS: Clear. PLEURAL SPACE: No pleural effusion or pneumothorax. BONE:Within normal limits for the patient's age. OTHER FINDINGS:Normal. IMPRESSION: No acute pulmonary findings. DATA REPOSITORY: RADIATION DOSE DELIVERED:
[2022-06-17 10:09] LABS: COVID-19 PCR Negative (Negative); Influenza A PCR Negative (Negative); Influenza B PCR Negative (Negative); RSV PCR Negative (Negative)
[2022-06-17 10:16] LABS: Source Nasopharynx
== END 2022-06-17 10:34 | disposition home or self-care (01) ==
PROVIDERS: Emergency Provider Emergency Medicine; PCP Family Medicine
DX: J01.90 Acute sinusitis, unspecified (principal); E11.9 Type 2 diabetes mellitus without complications; I10 Essential (primary) hypertension; Z87.891 Personal history of nicotine dependence; Z79.82 Long term (current) use of aspirin; Z79.4 Long term (current) use of insulin; Z20.822 Contact with and (suspected) exposure to COVID-19
CPT/HCPCS: 87637; 99284; 71045; 73080

== ENCOUNTER 2023-07-31 15:32 | Outpatient (REF) | payer MEDICARE, MEDICAID, SELFPAY ==
[2023-07-31 16:22] LABS: ALT 58 U/L (16-63); AST 27 U/L (15-37); Albumin 3.4 g/dL (3.4-5.0); Alkaline Phosphatase 65 U/L (46-116); Anion Gap 11.5 mmol/L (3-11); BUN 10 mg/dL (7-18); Bilirubin, Total 0.5 mg/dL (0.2-1.0); CO2 26.5 mmol/L (21.0-32.0); CREATININE 0.9 mg/dL (0.70-1.30); Calcium 8.9 mg/dL (8.5-10.1); Calculated LDL 64 mg/dL (<100); Chloride 104 mmol/L (98-107); Cholesterol 161 mg/dL (<200); Estimated GFR 95.97 (mL/min/1.73m2); Glucose 191 mg/dL (74-106); HDL Cholesterol 47 mg/dL (40-60); Potassium 4.5 mmol/L (3.5-5.1); Sodium 142 mmol/L (136-145); Total Protein 6.7 g/dL (6.4-8.2); Triglyceride 254 mg/dL (<150)
== END 2023-07-31 15:33 | disposition home or self-care (01) ==
LOC: NCHCN 15:32
PROVIDERS: PCP Family Medicine; Visit Provider Family Medicine
DX: E11.9 Type 2 diabetes mellitus without complications (principal); E78.5 Hyperlipidemia, unspecified
CPT/HCPCS: 80053; 80061; 83036

== ENCOUNTER 2023-09-01 15:52 | Outpatient (CLI) | payer MEDICARE, MEDICAID, SELFPAY ==
--- NOTE | 2023-09-01 09:45 | DI.RAD_ITS ---
Exam(s) XR SHOULDER RT COMPLETE 2+V EXAM: XR SHOULDER RT COMPLETE 2+V CLINICAL HISTORY: RIGHT SHOULDER PAIN. TECHNIQUE: 2D digital imaging was performed. COMPARISON: CR XR SHOULDER LT COMPLETE 2+V from 09/01/2023 FINDINGS: Two views. No evidence of fracture or dislocation nor diminution of the sub acromial space and there are no calc ific density seen within the subacromial space. No degenerative changes in the glenohumeral joint. AC joint mild degenerative changes. Bone density normal. No osseous lesions. IMPRESSION: No significant radiographic findings. DATA REPOSITORY: RADIATION DOSE DELIVERED:
--- NOTE | 2023-09-01 09:45 | DI.RAD_ITS ---
Exam(s) XR SHOULDER LT COMPLETE 2+V EXAM: XR SHOULDER LT COMPLETE 2+V CLINICAL HISTORY: LEFT SHOULDER PAIN. TECHNIQUE: 2D digital imaging was performed. COMPARISON: CR XR SHOULDER RT COMPLETE 2+V from 09/01/2023 FINDINGS: Two views. No evidence of fracture or dislocation nor diminution of the subacromial space. No soft tissue calci fications evident. Minimal degenerative changes. IMPRESSION: No significant osseous findings in the left shoulder. DATA REPOSITORY: RADIATION DOSE DELIVERED:
== END 2023-09-01 15:53 | disposition home or self-care (01) ==
LOC: DIORS 15:52
PROVIDERS: PCP Family Medicine; Referring Provider Family Medicine; Visit Provider Student in an Organized Health Care Education/Training Program
DX: M75.51 Bursitis of right shoulder; M75.52 Bursitis of left shoulder
CPT/HCPCS: 99213; 73030

== ENCOUNTER 2023-12-01 11:12 | Emergency (ER) | payer MEDICARE, MEDICAID, SELFPAY ==
[2023-12-01 11:14] VITALS: BP 131/71; PULSE 58; RESP 24; TEMP 36.8; O2SAT 96
[2023-12-01 11:20] VITALS: BP 131/71; PULSE 58; RESP 24; TEMP 36.8; O2SAT 96
--- NOTE | 2023-12-01 11:44 | ED.GENADUL_ITS ---
Discharge Plan Disposition Patient Disposition: Home Condition: Improving Discharge Details Chief Complaint: RespSymp Clinical Impression: Viral illness Primary Care Provider: Tracey Mueller ED Provider: Leon Gutierrez Home Meds and New Rx's Prescriptions: No Action sertraline 25 mg tablet 25 mg PO DAILY cholecalciferol (vitamin D3) 25 mcg (1,000 unit) capsule 25 mcg PO DAILY insulin glargine [Basaglar KwikPen U-100 Insulin] 100 unit/mL (3 mL) insulin pen 20 unit subcut QAM losartan 25 MG tablet 50 mg PO DAILY pantoprazole 40 MG tablet,delayed release (DR/EC) 40 mg PO DAILY acetaminophen [Mapap Extra Strength] 500 MG tablet 500 mg PO PRN PRN aspirin [Aspirin Low-Strength] 81 MG tablet,chewable 1 tab PO PRN PRN atorvastatin 40 mg Tablet 40 mg PO QHS triamcinolone acetonide 0.1 % Cream 1 applic TOPICAL BID nitroglycerin [Nitrostat] 0.4 mg Tablet, Sublingual 0.4 mg SUBLINGUAL Q5-15M PRN furosemide 20 mg Tablet 20 mg PO DAILY albuterol sulfate [ProAir HFA] 90 mcg/actuation Hfa Aerosol Inhaler 2 puff INHALATION Q6H PRN metoprolol succinate 25 mg Capsule,Sprinkle,Er 24hr 25 mg PO DAILY diclofenac sodium [Voltaren Arthritis Pain] 1 % Gel 2 g TOPICAL PRN Discharge Instructions Instructions: Viral Syndrome (ED) HPI General Date/Time Provider Initiated Documentation: 12/01/23 11:16 . HPI Narrative: 63-year-old male history of diabetes presents feeling generally unwell endorses body aches and chills at home nausea no vomiting does have some loose stool over the past couple of days. Denies cough or shortness of breath. No chest pain. Related Data Home Medications Medication Instructions Recorded Confirmed losartan 25 mg tablet 50 mg PO DAILY 10/14/12 12/01/23 pantoprazole 40 mg tablet,delayed 40 mg PO DAILY 12/08/12 12/01/23 release acetaminophen 500 mg tablet (Mapap 500 mg PO PRN PRN 02/11/13 12/01/23 Extra Strength) aspirin 81 mg chewable tablet 1 tab PO PRN PRN 06/07/16 12/01/23 (Aspirin Low-Strength) albuterol sulfate 90 mcg/actuation 2 puff inhalation Q6H PRN 05/10/19 12/01/23 aerosol inhaler (ProAir HFA) atorvastatin 40 mg tablet 40 mg PO QHS 05/10/19 12/01/23 furosemide 20 mg tablet 20 mg PO DAILY 05/10/19 12/01/23 metoprolol succinate 25 mg capsule 25 mg PO DAILY 05/10/19 12/01/23 sprinkle, ext. release 24 hr nitroglycerin 0.4 mg sublingual 0.4 mg sublingual Q5-15M PRN 05/10/19 12/01/23 tablet (Nitrostat) triamcinolone acetonide 0.1 % 1 applic topical BID 05/10/19 12/01/23 topical cream diclofenac sodium 1 % topical gel 2 g topical PRN 11/29/21 09/01/23 (Voltaren Arthritis Pain) insulin glargine 100 unit/mL (3 20 unit subcut QAM 08/12/23 12/01/23 mL) subcutaneous pen (Basaglar KwikPen U-100 Insulin) cholecalciferol (vitamin D3) 25 25 mcg PO DAILY 09/01/23 12/01/23 mcg (1,000 unit) capsule sertraline 25 mg tablet 25 mg PO DAILY 09/01/23 12/01/23 Allergies Allergy/AdvReac Type Severity Reaction Status Date / Time Penicillins Allergy Unknown Hives Unverified 12/01/23 11:19 codeine AdvReac Mild Nausea Unverified 12/01/23 11:19 hydrocodone bitartrate AdvReac Mild Nausea Unverified 12/01/23 11:19 [From Vicodin] General Stated Complaint: RespSymp LISANDRA: 3 Review of Systems Narrative: Review of Systems Constitutional: negative Eyes: negative ENT: negative Cardiovascular: negative Respiratory: negative Gastrointestinal: Nausea, diarrhea : negative Musculoskeletal: negative Skin: negative Neurologic: negative Psych: negative Exam Narrative Exam Narrative: Physical Examination General: alert, awake, cooperative, resting comfortably, no acute distress HEENT: normocephalic, atraumatic; PERRL, EOM intact, conjunctiva normal; no nasal discharge; moist mucous membranes, oral and pharyngeal mucosa normal, tolerating secretions Neck: supple, trachea midline; full ROM Chest: normal to inspection Respiratory: normal respiratory effort, speaking in full sentences, clear to auscultation, no wheezing, rales or rhonchi Cardiac: regular rate, regular rhythm, S1S2 intact, no murmurs rubs or gallops GI: abdomen soft, non-tender, non-distended; no palpable mass or hepatosplenomegaly Skin: no lesions, rashes or trauma appreciated Neuro: AAOx3, normal speech, moving all extremities Psych: Appropriate mood and affect Course Vital Signs Vital signs: Vital Signs Temperature 36.8 C 12/01/23 11:14 Pulse 58 L 12/01/23 11:14 Respiratory Rate 24 12/01/23 11:14 Blood Pressure 131/71 12/01/23 11:14 Pulse Oximetry 96 12/01/23 11:14 Temperature 36.8 C 12/01/23 11:20 Temperature Source Tympanic 12/01/23 11:20 Pulse 58 L 12/01/23 11:20 Respiratory Rate 24 12/01/23 11:20 Respiratory Effort Normal 12/01/23 11:20 Respiratory Depth Normal 12/01/23 11:20 Blood Pressure 131/71 12/01/23 11:20 Pulse Oximetry 96 12/01/23 11:20 Oxygen Delivery Method Room Air 12/01/23 11:20 Oxygen Flow Rate 0 12/01/23 11:20 Pain Level 0 12/01/23 11:20 Medical Decision Making 63-year-old male presents feeling generally unwell, nausea diarrhea body aches chills. History of diabetes. Hemodynamically stable no acute distress. Consider viral illness versus foodborne illness. Must also consider pneumonia. Lower suspicion for ACS PE or aortic pathology. Patient does not have any abdominal pain no vomiting no fever. Patient has history of appendectomy. Low suspicion for cholecystitis. Lower suspicion for diverticulitis. Will obtain screening labs viral screen, fluids antiemetics tick panel as patient endorses he has had tick bites in the recent past. 14: 38 patient resting actively no acute distress. Labs and imaging unremarkable. Quality:SDOH Health Related Social Needs: No Data to Display PFSH All Active Problems (Updated 12/01/23 @ 14:39 by Leon Gutierrez MD) Viral illness (Acute) Bilateral shoulder bursitis (Acute) Sensorineural hearing loss of both ears (Acute) Morbid obesity (Acute) History of non-ST elevation myocardial infarction (NSTEMI) (Acute) Family history of colon cancer in mother (Acute) Adenomatous colon polyp (Acute) Family history of colon cancer (Acute) brother and sister Diabetes mellitus (Chronic) Diarrhea (Acute) Medical History (Updated 12/01/23 @ 14:39 by Leon Gutierrez MD) Cough, persistent Quit using tobacco in remote past Metabolic syndrome Fibromyalgia Insomnia Sarcoidosis H/O lichenification and lichen simplex chronicus Situational anxiety Edema Hypertension Hyperlipidemia Nausea Abdominal pain GERD (gastroesophageal reflux disease) Tinnitus, bilateral Neoplasm of unspecified behavior of bone, soft tissue, and skin Cellulitis Social History Smoking/Tobacco Use Status: Former Tobacco Use Smoking risk assessment performed?: Yes Alcohol Intake: former Drug use: Never Substance use type: does not use Do you feel safe at home: Yes Do you feel safe in your relationship?: Yes
[2023-12-01] MEDS: Ondansetron 4 MG/2 ML VIAL IVP (11:52)
[2023-12-01] MEDS: Normal Saline 1,000 ML 1000 ML IV (11:52)
[2023-12-01 12:02] LABS: Abs Immature Grans 0.02 10^3/uL (0.0-0.06); Absolute Basophil Count 0.03 10^3/uL (0.0-0.2); Absolute Eosinophil Count 0.11 10^3/uL (0.0-0.7); Absolute Lymphocyte Count 2.21 10^3/uL (1.2-3.4); Absolute Monocyte Count 0.78 10^3/uL (0.1-0.8); Absolute Neutrophil Count 4.52 10^3/uL (1.2-6.7); Basophils % 0.4 %; Eosinophils % 1.4 %; HGB 15.1 g/dL (13.5-17.5); Immature Grans % 0.3 %; Lymphocytes % 28.8 %; MCH 29.9 pg (27.0-33.0); MCHC 34.3 % (32.0-36.0); MCV 87 fL (80-95); Monocytes % 10.2 %; Neutrophils % 58.9 %; Platelet Count 147 10^3/uL (130-400); RBC 5.05 10^6/uL (4.36-5.78); RDW 12.3 % (11.8-14.1); RDW-SD 39.4 fL; WBC 7.67 10^3/uL (4.4-10.8)
--- NOTE | 2023-12-01 12:05 | DI.RAD_ITS ---
Exam(s) XR CHEST 2V PA LATERAL EXAM: XR CHEST 2V PA LATERAL CLINICAL HISTORY: fever chills, nausea TECHNIQUE: 2D digital imaging was performed. Two views. COMPARISON: CR XR PORTABLE CHEST AP from 06/17/2022 FINDINGS: HEART: Normal size. Aorta: Not dilated. PULMONARY VASCULATURE: Normal. LUNGS: Clear. PLEURAL SPACE: No pleural effusion or pneumothorax. BONE:Unremarkable for age. Soft tissues: Unremarkable. IMPRESSION: No acute abnormality. DATA REPOSITORY: RADIATION DOSE DELIVERED:
[2023-12-01 12:19] LABS: ALT 31 U/L (16-63); AST 15 U/L (15-37); Albumin 3.2 g/dL (3.4-5.0); Alkaline Phosphatase 56 U/L (46-116); Anion Gap 6.8 mmol/L (3-11); BUN 13 mg/dL (7-18); Bilirubin, Total 0.6 mg/dL (0.2-1.0); CO2 29.2 mmol/L (21.0-32.0); Calcium 8.8 mg/dL (8.5-10.1); Chloride 103 mmol/L (98-107); Estimated GFR 84.57 (mL/min/1.73m2); Glucose 190 mg/dL (74-106); Lipase 19 U/L (16-77); Potassium 3.6 mmol/L (3.5-5.1); Sodium 139 mmol/L (136-145); Total Protein 7.2 g/dL (6.4-8.2)
[2023-12-01 12:38] LABS: COVID-19 PCR Negative (Negative); Influenza A PCR Negative (Negative); Influenza B PCR Negative (Negative); RSV PCR Negative (Negative)
[2023-12-01 12:39] LABS: Source Nasopharynx
[2023-12-01 14:41] VITALS: BP 127/59; PULSE 62; RESP 16; TEMP 36.9; O2SAT 98
[2023-12-02 10:41] LABS: Lyme Ab w Rflx to Lyme Confirm Negative (Negative)
[2023-12-03 21:49] LABS: Anaplasma phagocytophilum Negative (Negative); B. miyamotoi PCR Negative (Negative); Babesia divergens/MO-1 Negative (Negative); Babesia duncani Negative (Negative); Babesia microti Negative (Negative); Ehrlichia chaffeensis Negative (Negative); Ehrlichia ewingii/canis Negative (Negative); Ehrlichia muris eauclairensis Negative (Negative)
== END 2023-12-01 14:41 | disposition home or self-care (01) ==
PROVIDERS: Emergency Provider Emergency Medicine; PCP Family Medicine
DX: R11.0 Nausea (principal); R19.7 Diarrhea, unspecified; R52 Pain, unspecified; R53.83 Other fatigue; B34.9 Viral infection, unspecified
CPT/HCPCS: 36415; 80053; 83690; 87637; 87798; 96361; 96374; 99284; 71046; 85025; 86618; 99283; J2405

== ENCOUNTER 2023-12-14 18:36 | Outpatient (REF) | payer MEDICARE, MEDICAID, SELFPAY ==
[2023-12-14 19:58] LABS: COMMENT (LAB VIEW ONLY) 57.18 mg/dL; Microalb ug/mg Crea 29.9 ug/mg Cr
== END 2023-12-14 18:37 | disposition home or self-care (01) ==
LOC: NCHCN 18:36
PROVIDERS: PCP Family Medicine; Visit Provider Family Medicine
DX: E11.9 Type 2 diabetes mellitus without complications (principal)
CPT/HCPCS: 82043; 82570

== ENCOUNTER 2024-04-30 10:36 | Emergency (ER) | payer MEDICARE, MEDICAID, SELFPAY ==
--- OUTSIDE RECORDS SUMMARY | 2024-04-30 10:43 | XMS_ITS | Clinical Summary ---
Author Organization [facility] Address [address] [place] [address] Care Team Providers Care Print Developer Name Role Phone Tracey Mueller MD Primary Care Provider [phone] Social History Tobacco Use Types Packs/Day Years Used Date Smoking Tobacco: Never Assessed Interpersonal Safety Answer Date Record ed Physically Hurt Never 02/12/2020 Verbally Threaten Not on file 02/12/2020 Sex and Gender Information Value Date Recorded Sex Assigned at Not on file Gender Identity Not on file Sexual Orientation Not on file Plan of Treatment Health Maintenance Due Date Last Done Comments Hepatitis C Screen 1960 RSV Immunization ( o r 60+ Years) (1 - 1-dose 60+ series) 2020 COVID-19 Vaccine ( season) 2023 Care Teams Print Developer Relationship Specialty Start Date End Date Tracey Mueller MD [facility] [address] [phone] PCP - General 12/17/09
--- OUTSIDE RECORDS SUMMARY | 2024-04-30 10:43 | XMS_ITS | Encounter Summary ---
Author Organization [facility] Address [address] [place] [address] Care Team Providers Care Supervisor Steel Division Name Role Phone Tracey Mueller MD Primary Care Provider [phone] Encounter Details Date Type Department Care Team (Late st Contact Info) Description 10/24/2019 Lab Requisition [facility] Pathology & Laboratory Medicine - [facility] [address] [place] [address] Rina Gonzalez, PLASTICS BENCH MECHANIC [address] [place] [phone] Encounter for other general examination Social History Tobacco Use Types Packs/Day Years Used Date Smoking Tobacco: Never Assessed Sex and Gender Information Value Date Recorded Sex Assigned at Not on file Gender Identity Not on file Sexual Orientation Not on file documented as of this encounter Plan of Treatment Not on file documented as of this encounter Procedures Procedure Name Priority Date/Time Associated Diagnosis Comments COVID-19 TESTING Today 10/24/2019 13:2 5 EDT Encounter for other general examination documented in this encounter Results * COVID-19 TESTING (10/24/2019 13:25 EDT) COVID-19 Result Not Detected 10/26/2019 10:37 EDT [facility] Comment:Assayed by [facility], [place], [place] Swab ENTIRE NASOPHARYNX / Unknown 10/24/2019 13:25 EDT 10/24/2019 20:30 EDT Rina Vitale PLASTICS BENCH MECHANIC MICROBIOLOGY - GENERAL ORDERABLES [facility] [address] [place] [address] documented in this encounter Visit Diagnoses Diagnosis Encounter for other general examination documented in this encounter Care Teams Supervisor Steel Division Relationship Specialty Start Date End Date Tracey Mueller MD [address] [place] [phone] PCP - General 12/17/09 documented as of this encounter
--- OUTSIDE RECORDS SUMMARY | 2024-04-30 10:43 | XMS_ITS | Encounter Summary ---
Author Organization [facility] [place] [address] Care Team Providers Care Electric Organ Inspector And Repairer Name Role Phone Tracey Mueller MD Primary Care Provider [phone] Reason for Visit * Reason Comments Other 5 teeth bothering, h x infections, last took antibx 2wk ago * Consultation (Routine) - Closed Specialty Diagnoses / Procedures Referred By Ashleigh keller Referred To Contact Maxillofacial Surgery Diagnoses evaluate 12 18 for extractions Decay/Abscess Procedures evaluate 12 15 18 for extractions Decay/Abscess [place] [address] [facility] [address] [place] [phone] Referral ID Status Reason Start Date Expiration Date Visits Re quested Visits Authorized [id number] Closed 07/27/2019 07/26/2020 1 1 Encounter Details Date Type Department Care Team (Late st Contact Info) Description 08/31/2019 11:30 AM EST Office Visit [place] [address] Henry Shepherd MD [facility] [place] [address] Dental caries Social History Tobacco Use Types Packs/Day Years Used Date Smoking Tobacco: Former Cigarettes Q uit: 2016 Smokeless Tobacco: Former Chew Sex and Gender Information Value Date Recorded Sex Assigned at Not on file Gender Identity Not on file Sexual Orientation Not on file documented as of this encounter Last Filed Vital Signs Vital Sign Reading Time Taken Comments Blood Pressure - - Pulse - - Temperature - - Respiratory Rate - - Oxygen Saturation - - Inhaled Oxygen Concentration - - Weight 147 kg (324 lb) 08/31/2019 11:19 AM EST Height 175.3 cm (5' 9) 08/31/2019 11:19 AM EST Body Mass Index 47.85 08/31/2019 11:19 AM EST documented in this encounter Progress Notes * Henry Shepherd MD - 08/31/2019 11:30 AM EST Images from the original note were not included. Oral & Maxillofacial Surgery Extraction Consult Reese Muñiz is a 59 y.o. male who is referred to us for consultation regarding dental extractions. A complete history of the Reese 's symptoms and physical signs were reviewed with attention to initial findings and progression, pain, bleeding, swelling, lumps, bumps, drainage, dysphagia, odynophagia, paresthesia, dysarthria and systemic effects. Pertinent notations from today's history: ?? He states he needs 5 teeth removed ?? All of the remaining upper teeth and one lower left molar ?? Having some discomfort with these teeth particularly the lower left molar in the upper left molar ?? At some point wants to get a full upper denture Past Medical and Dental History: No past medical history on file. Patient Active Problem List Diagnosis Code ??? NSTEMI (non-ST elevated myocardial infarction) I21.4 ??? metFORMIN (Glucophage) 500 mg Tablet ??? naproxen sodium (ALEVE) 220 mg Capsule ??? clopidogrel (PLAVIX) 75 mg Tablet ??? acetaminophen (TYLENOL) 325 mg Tablet ??? aspirin 81 mg Tablet, Chewable ??? atorvastatin (LIPITOR) 40 mg Tablet ??? nitroGLYcerin (NITROSTAT) 0.4 mg Tablet, Sublingual ??? meTOPROLOL succinate (TOPROL-XL) 25 mg Tablet Sustained Release 24 hr ??? furosemide (LASIX) 20 mg Tablet ??? buPROPion (WELLBUTRIN XL) 300 mg Tablet Sustained Release 24 hr ??? pantoprazole (PROTONIX) 40 mg Tablet, Delayed Release (E.C.) ??? losartan (COZAAR) 50 mg Tablet States his A1c is down to 6.1 Allergies Allergen Reactions ??? Penicillins ROS with attention to cardiac, pulmonary, hepatic, renal, neurologic and dermatologic systems reviewed with relevant findings as noted. Physical Exam: Extraoral exam conducted including facial symmetry, sensory and motor function, alertness and appropriateness to questions and commands, range of jaw motion, TMJ function and skeletal architecture. Neck exam conducted with attention to normal musculature, vasculature and potential adenopathy. Intraoral exam including evaluation of tongue surface and consistency, floor of mouth, buccal and labial mucosa as well as maxillary and mandibular vestibules, hard and soft palate including soft palate elevation and oropharynx as well as dentition, dental arches, occlusion and salivary flow. Pertinent and remarkable findings include: ??? Carious root tips #12, 13 with caries of 15, 18 ??? Fractured, attrition of tooth #11 with minimal clinical crown otherwise rest of the maxilla is edentulous ??? No oral lesions no lymphadenopathy ??? Radiographic Examination: Panorex reviewed from July 2019 from dentist Caries as mentioned above and attrition of tooth #11, root tip 12, 13, caries 15, 18 Impression: Nonrestorable 11, 12, 13, 15, 18 Recommendations and Plans: We will extract these teeth with local anesthesia the next visit As a precaution since he has used antibiotics prior to dental work will give him clindamycin 600 mgto take 1 hour prior to procedure. I did staff genetic counselor him that he has no cardiac indication to get antibiotic prophylaxis in the future. Anticipated benefits and potential risks of the surgical intervention discussed were carefully reviewed with the patient and including but not limited to bleeding, infection, soft tissue dehiscence, delayed wound healing, nerve paresthesias and palsies, sinus injuries, injuries to adjacent tissues both hard and soft including jaw fracture and possible need for additional surgery. Questions regarding the proposed intervention were encouraged and answered. Henry Shepherd MD, DMD, FACS thex documented in this encounter Plan of Treatment Not on file documented as of this encounter Visit Diagnoses Diagnosis Dental caries Unspecified dental caries documented in this encounter Care Teams Electric Organ Inspector And Repairer Relationship Specialty Start Date End Date Tracey Mueller MD [address] [place] [address] PCP - General 06/04/10 documented as of this encounter
--- OUTSIDE RECORDS SUMMARY | 2024-04-30 10:43 | XMS_ITS | Encounter Summary ---
[place] [address] Care Team Providers Care Embossing Toolsetter Name Role Phone Tracey Mueller MD Primary Care Provider [phone] Encounter Details Date Type Department Care Team (Late st Contact Info) Description 08/15/2019 Telephone [place] [address] Maty Thompson Social History Tobacco Use Types Packs/Day Years Used Date Smoking Tobacco: Never Assessed Sex and Gender Information Value Date Recorded Sex Assigned at Not on file Gender Identity Not on file Sexual Orientation Not on file documented as of this encounter Miscellaneous Notes * Telephone Encounter - Maty Thompson - 08/15/2019 12:34 PM EST Patient called and said he went to ER and that his doctor the ER and his referring dentist won't do nothin' so... after a long conversation of repetition, I tried to communicate with him that this is the best that we can do to have moved him up to 08/26 and that he needs to reach out to his referring dentist for managed care and he wouldn't hear about it and hung up and rudely. documented in this encounter Plan of Treatment Not on file documented as of this encounter Visit Diagnoses Not on filedocumented in this encounter Care Teams Embossing Toolsetter Relationship Specialty Start Date End Date Tracey Mueller MD [address] [place] [address] PCP - General 06/04/10 documented as of this encounter
--- OUTSIDE RECORDS SUMMARY | 2024-04-30 10:43 | XMS_ITS | Encounter Summary ---
Author Organization [facility] Address [address] [place] [address] Care Team Providers Care Senior Clinical Sas Programmer Name Role Phone Tracey Ruiz MD Primary Care Provider [phone] Encounter Details Date Type Department Care Team (Late st Contact Info) Description 03/21/2019 Results Only [facility] [phone] Johanna Gillette, [address] [place] [address] Social History Tobacco Use Types Packs/Day Years Used Date Smoking Tobacco: Never Assessed Sex and Gender Information Value Date Recorded Sex Assigned at Not on file Gender Identity Not on file Sexual Orientation Not on file documented as of this encounter Plan of Treatment Not on file documented as of this encounter Procedures Procedure Name Priority Date/Time Associated Diagnosis Comments SURGICAL PATHOLOGY Routine 03/21/2019 22 :40 EDT documented in this encounter Results * SURGICAL PATHOLOGY (03/21/2019 22:40 EDT) Pathology Report: SURGICAL PATHOLOGY REPORT Reports generated via electronic interface contain original data; however they are lacking the format of the original report. Caution should be taken when reading/interpreting unformatted reports. Name: ? DENILSON HUNTER ? Accession #: ? [id number] ? : ? 1960 (Age: 59) ??M ? Collect Date: ? 03/21/2019 ? Location: ? [facility] ? Receive Date: ? 03/21/2019 ? Provider: JOHANNA GILLETTE DO Copy to: TRACEY RUIZ MD ? Final Pathologic Diagnosis: SKIN OF PRETIBIAL REGION, LEFT PROXIMAL, SHAVE BIOPSY: - Lichen simplex chronicus/prurigo nodularis. ??See comment. Comment: The biopsy primarily shows features of lichenification with epidermal hyperplasia, hyperkeratosis and thickened collagen bundles. ??There is a moderately dense infiltrate with areas of spongiosis. ??Therefore, forms of eczema, including nummular eczema, are also a consideration. ??There is no evidence of malignancy. ??(Dr. Elizondo)/[facility] Microscopic Description: Sections consist of a shave biopsy of skin that transects the lower epidermis and papillary dermis. ??There is marked hyperkeratosis with parakeratosis and scale crust. ??The epidermis is markedly acanthotic with elongate and thickened rete ridges. ??There is a variable degree of spongiosis with lymphocytic exocytosis. ??Focal areas of epidermal ulceration are present. ??The dermis is expanded by a moderately dense lymphomononuclear infiltrate. ??There are occasional eosinophils. ??The papillae have thick bundles of collagen and reactive vessels. ??(Dr. Elizondo)/[facility] Document reviewed and electronically signed by: RICCI ELIZONDO MD Report ??Date: 03/22/2019 21:44 By the signature above, the attending physician certifies that he/she has personally conducted a gross and/or microscopic examination of the described specimens and rendered or confirmed the above diagnosis. Specimen(s) Received: Left proximal pretibial Clinical History: Clinical diagnosis code: ??D49.2 Gross Description: ? Received in formalin labelled with proper patient identification (initials W, S) and left proximal pretibial is a shave biopsy of an irregular colon-white and brown crusted skin lesion (1.1 x 0.9 x 0.1 cm). The margin is inked blue. Trisected and submitted in 1. Austin Snow 03/22/2019 7:[address] [facility] 03/21/2019 22:4 0 EDT 03/21/2019 22:40 EDT Johanna Gillette DO PATHOLOGY ORDER ANTOINETTE [facility] [address] [place] [address] documented in this encounter Visit Diagnoses Not on filedocumented in this encounter Care Teams Senior Clinical Sas Programmer Relationship Specialty Start Date End Date Tracey Ruiz MD [address] [place] [phone] PCP - General 12/17/09 documented as of this encounter
--- OUTSIDE RECORDS SUMMARY | 2024-04-30 10:43 | XMS_ITS | Encounter Summary ---
[place] [address] Care Team Providers Care Corn Sheller Name Role Phone Tracey Mueller MD Primary Care Provider [phone] Encounter Details Date Type Department Care Team (Late st Contact Info) Description 11/06/2021 Telephone Cardiology at [address] [phone] Whitney Warren LNA Social History Tobacco Use Types Packs/Day Years Used Date Smoking Tobacco: Former Cigarettes Q uit: 2016 Smokeless Tobacco: Former Chew Sex and Gender Information Value Date Recorded Sex Assigned at Not on file Gender Identity Not on file Sexual Orientation Not on file documented as of this encounter Miscellaneous Notes * Telephone Encounter - Whitney Warren LNA - 11/07/2021 9:43 AM EDT *Left message asking patient to bring an updated medication list for their upcoming Clinic Visit on11/13/[address] Horn & Dr. Berumen. *Also, if any recent lab work has been completed to please give me a call. *A1c available in notes in Media. documented in this encounter Plan of Treatment Not on file documented as of this encounter Visit Diagnoses Not on filedocumented in this encounter Care Teams Corn Sheller Relationship Specialty Start Date End Date Tracey Mueller MD [address] [place] [address] PCP - General 06/04/10 documented as of this encounter
--- OUTSIDE RECORDS SUMMARY | 2024-04-30 10:43 | XMS_ITS | Encounter Summary ---
Author Organization [facility] Address [address] [place] [address] Care Team Providers Care Prescription Benefit Specialist Name Role Phone Tracey Ruiz MD Primary Care Provider [phone] Encounter Details Date Type Department Care Team (Late st Contact Info) Description 11/13/2004 Results Only [facility] [address] [place] [address] Familia Ackerman MD [address] [place] [phone] Social History Tobacco Use Types Packs/Day Years Used Date Smoking Tobacco: Never Assessed Sex and Gender Information Value Date Recorded Sex Assigned at Not on file Gender Identity Not on file Sexual Orientation Not on file documented as of this encounter Plan of Treatment Not on file documented as of this encounter Procedures Procedure Name Priority Date/Time Associated Diagnosis Comments SURGICAL PATHOLOGY Routine 11/13/2004 0:00 EDT documented in this encounter Results * SURGICAL PATHOLOGY (11/13/2004 0:00 EDT) Pathology Report: SURGICAL PATHOLOGY REPORT Reports generated via electronic interface contain original data; however they are lacking the format of the original report. Caution should be taken when reading/interpreti ng unformatted reports. Name: ? DENILSON HUNTER ? Accession #: ? [id number] ? : ? 1960 (Age: 44) ??M ? Collect Date: ? 11/13/2004 ? Location: ? [facility] ? Receive Date: ? 11/13/2004 ? Provider: MARY ACKERMAN MD Copy to: TRACEY RUIZ MD ? Final Pathologic Diagnosis: A. ?Colon, transverse (left), biopsy: 1. ?Tubular adenoma. B. ?Rectum, biopsy: 1. ?Hyperplastic polyp. Document reviewed and electronically signed by: PIERRE ESTRELLA MD Report ??Date: 11/16/2004 10:25 By the signature above, the attending physician certifies that he/she has personally conducted a gross and/or microscopic examination of the described specimens and rendered or confirmed the above diagnosis. Specimen(s) Received: A. ?Transverse colon bx (left) (#1) B. ?Rectum bx (#2) Clinical History: ? Colonoscopy; PMH, family hx colon Ca; pt rectal bleeding Gross Description: ? Received in [employer] fixative labelled Whitcher and transverse colon bx (left) is a 0.5 x 0.4 x 0.3 cm colon-pink, polypoid soft tissue, bisected and entirely submitted as (A). Received in [employer] fixative labelled Whitcher and rectum bx is a 0.4 x 0.2 x 0.2 cm colon-pink, polypoid soft tissue, submitted in toto as (B). ??(King Marinelli)/lorena End of Report [facility] 11/13/2004 11/13/2004 15: 36 EDT Familia Ackerman MD PATHOLOGY ORDERABLES [facility] [address] [place] [address] documented in this encounter Visit Diagnoses Not on filedocumented in this encounter Care Teams Prescription Benefit Specialist Relationship Specialty Start Date End Date Tracey Ruiz MD [address] [place] [phone] PCP - General 12/17/09 documented as of this encounter
--- OUTSIDE RECORDS SUMMARY | 2024-04-30 10:43 | XMS_ITS | Encounter Summary ---
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 Any of these could cause you to bleed more. You should remain at home, rest, and avoid alcoholic beverages. Discomfort: It is not uncommon for you to have some discomfort following a surgical procedure. Thisdiscomfort may last for three days or more. Pain relievers such as ibuprofen or Tylenol (acetaminophen) may be taken - please follow the directions on the bottle. If a narcotic is prescribed, take this only as needed. Narcotic drugs may cause nausea. DO NOT take them on an empty stomach, and DO NOTdrive or consume alcohol while on narcotics. If prescribed Vicodin, usual dosage is 1-2 tablets every 4-6 hours as needed for pain. Total daily dosage SHOULD NOT EXCEED 8 tablets. If you decide to take the Vicodin, do not take Tylenol (acetaminophen) with it as Vicodin contains Tylenol. Other discomforts you may experience include: slight earache, sore throat, numbness or tingling in the lips or chin, aches in other teeth, and tightness of the jaw muscles. Bleeding: It is normal for the extraction site to bleed post-operatively. If bleeding continues, place gauze directly over the socket and bite down gently, but firmly, for 20 minutes. Repeat this process as needed. If bleeding is heavy, keep head elevated or sit upright, avoid exercise, hot liquids, smoking, and drinking from straws. If the bleeding does not stop with pressure, try a lukewarm, damp tea bag in place of the gauze for another 20 minutes. The tea bag will help to form blood clotsand stop the bleeding. If bleeding continues, call your doctor. Swelling: To reduce immediate swelling after your procedure, apply an ice pack, with pressure, to the face over the area of the procedure. Ice should be applied for 15-20 minutes at a time, for the first 24 hours. After 24 hours, a moist warm compress may be helpful. Most swelling will occur [id number] hours following the procedure. Mouth Rinse: Vigorous mouth washing may cause bleeding to begin again if clots are not formed. DO NOT RINSE on the day of surgery. Begin rinsing one day after the procedure very gently with warm saltwater (1/2 teaspoon per 8 oz. warm water). Continue rinsing 3-6 times a day for several days. This will keep surgical sites clean and will help with healing. Diet: It is best to eat light, soft foods, and drink plenty of liquids following a surgical procedure. Foods like, yogurt, pasta, eggs, soups, and ice cream are good choices. Avoid hot liquids for 24hours after tooth extraction. Avoid foods that are difficult to chew. Once chewing becomes easier, you may return to your normal diet. In General: If stitches are used, they will dissolve or unravel in about three days to one week. Avoid strenuous exercise, such as jogging and contact sports for at least one week following surgery. Swelling is usually most extensive 24- 48 hours following surgery, and usually takes 4-5 days to subside. Sockets can take 4-6 weeks to heal, and often heal from the inside out. It may take 10-14 days before you feel like your normal self again. Infection: Can occur at any time, but it is evident more often 4-7 days after a procedure. Please contact us at the numbers below if you have one or more of the following: ? Temperature elevation greater than 100.5 ? Worsening swelling after the initial 48 hour period ? Severe and worsening pain ? Pus or other foul drainage from the extraction site ? Foul smell or taste coming from the extraction site ? Generalized body chills or fever Dr. Shepherd can be reached at [phone] between the hours of 5PM-10PM and on weekends. During business hours 8am-5pm M-F please call our office at [phone]. documented in this encounter Progress Notes * Henry Shepherd MD - 11/07/2019 11:00 AM EDT Clinic Extraction Procedure of Multiple Teeth Surgical Procedure: Reese Muñiz presents for the scheduled extraction of teeth # 11,12,13,15 with local anesthesia. The patient was brought to the office and the treatment plan, history, and consent was reviewed. Idiscussed with the patient regarding tooth #18 but he only wished to do the upper teeth for now. Indications for procedure: After appropriate topical and local anesthesia was administered the patient underwent the extraction. SURGICAL EXTRACTION requiring incision of surrounding gingiva and reflection of mucoperiosteum flaptogether with removal of bone on all teeth #11, 12, 13, 15 and sectioning of tooth #15 to facilitate their removal. Multiple 3-0 chromic sutures were used There was no evidence of injury to adjacent teeth, nerves or sinuses and hemostasis was obtained. The patient tolerated the procedure well, a complete set of instructions both written and verbal werereviewed with the patient. They were instructed to contact the clinic in the interm if there was any question or concern during the post operative period. Local Anesthesia: 2cc's 4% Septocaine with 1:100k epi given locally 2cc's and 2% Lidocaine with 1:100k epi Postop Medications: Vicodin 5/325 # 15+ Peridex. Use OTC NSAID/Tylenol first being mindful of the Tylenol limits. Follow-up: prn. Patient will discuss moving lower teeth at a later date and consider this. 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
--- OUTSIDE RECORDS SUMMARY | 2024-04-30 10:43 | XMS_ITS | Encounter Summary ---
[place] [address] Care Team Providers Care Boat Canvas Maker And Installer Name Role Phone Tracey Mueller MD Primary Care Provider [phone] Encounter Details Date Type Department Care Team (Late st Contact Info) Description 07/15/2019 Telephone [place] [address] Maty Thompson Social History Tobacco Use Types Packs/Day Years Used Date Smoking Tobacco: Never Assessed Sex and Gender Information Value Date Recorded Sex Assigned at Not on file Gender Identity Not on file Sexual Orientation Not on file documented as of this encounter Miscellaneous Notes * Telephone Encounter - Maty Thompson - 07/15/2019 10:42 AM EST Patient called about cracked teeth needing multiple ext and told him to get general dentist to sendus referral and we will proceed to schedule. documented in this encounter Plan of Treatment Not on file documented as of this encounter Visit Diagnoses Not on filedocumented in this encounter Care Teams Boat Canvas Maker And Installer Relationship Specialty Start Date End Date Tracey Mueller MD [address] [place], [place] [phone] PCP - General 06/04/10 documented as of this encounter
--- OUTSIDE RECORDS SUMMARY | 2024-04-30 10:43 | XMS_ITS | Encounter Summary ---
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 Tachycardic when exercises. Tracey Mueller MD [address] [place] [address] [facility] [address] [place] [phone] Referral ID Status Reason Start Date Expiration Date V isits Requested Visits Authorized [id number] Closed Consult, Test & Treat 10/22/2021 10/22/2022 6 6 Encounter Details Date Type Department Care Team (Latest Contact Info) Description 10/22/2021 Transcribe Orders eDH Incoming Referrals [phone] Tracey Mueller MD [address] [place] [address] Old myocardial infarction Social History Tobacco Use Types Packs/Day Years Used Date Smoking Tobacco: Former Cigarettes Q uit: 2016 Smokeless Tobacco: Former Chew Sex and Gender Information Value Date Recorded Sex Assigned at Not on file Gender Identity Not on file Sexual Orientation Not on file documented as of this encounter Plan of Treatment Scheduled Referrals Name Type Priority Associated Diagnoses Order Schedule Referral to Cardiology Outpatient Referral Routine Old myocardial infarction Ordered: 10/22/2021 documented as of this encounter Visit Diagnoses Diagnosis Old myocardial infarction documented in this encounter Care Teams Mineralogy Professor Relationship Specialty Start Date End Date Tracey Mueller MD [facility] [address] [facility] [address] [place] [address] PCP - General 06/04/10 documented as of this encounter
--- OUTSIDE RECORDS SUMMARY | 2024-04-30 10:43 | XMS_ITS | Encounter Summary ---
Author Organization [facility] [place] [address] Care Team Providers Care Multimedia Educational Specialist Name Role Phone Tracey Mueller MD Primary Care Provider [phone] Encounter Details Date Type Department Care Team (Late st Contact Info) Description 08/11/2019 Telephone [place] [address] Maty Thompson Social History Tobacco Use Types Packs/Day Years Used Date Smoking Tobacco: Never Assessed Sex and Gender Information Value Date Recorded Sex Assigned at Not on file Gender Identity Not on file Sexual Orientation Not on file documented as of this encounter Miscellaneous Notes * Telephone Encounter - Maty Thompson - 08/11/2019 9:13 AM EST Images from the original note were not included. Henry Shepherd MD [place]ga, Mia J ?? Hi, ??no emergency - and if he has pain or swelling then he can go to his dentist or try to look for more local oral surgeon to help him. ??If he wants it done with local anesthesia only you could find him a consult, exraction appt on the same day. ?? The appt on 10/30 at 10:30 - is that to do the procedure or just a consult? ??If he shows up for a consult only at that appt will he be delayed again for months for anesthesia? Thanks. Previous Messages ----- Message ----- From: Maty Thompson Sent: 08/03/2019 ?? 4:30 PM EST To: Henry Shepherd MD, [facility] Maxillofacial Nurse Subject: urgent case? please review & advice me ? Pt referral: Evaluate 06 26 18 for extractions. Decay/Abscess. Pt scheduled for next avail. On schedule which is 10/31/19 @1030am. Let me know if this is an emergency or not and I will follow up with patient. Thank you! documented in this encounter Plan of Treatment Not on file documented as of this encounter Visit Diagnoses Not on filedocumented in this encounter Care Teams Multimedia Educational Specialist Relationship Specialty Start Date End Date Tracey Mueller MD [facility] [address] [place] [address] PCP - General 06/04/10 documented as of this encounter
--- OUTSIDE RECORDS SUMMARY | 2024-04-30 10:43 | XMS_ITS | Encounter Summary ---
Author Organization [facility] Address [address] [place] [address] Care Team Providers Care Principal Accounts Clerk Name Role Phone Tracey Mueller MD Primary Care Provider [phone] Encounter Details Date Type Department Care Team (Late st Contact Info) Description 12/01/2023 Lab Requisition [facility] - [address] [address] Outr Resulting Lab, Provider Social History Tobacco Use Types Packs/Day Years [...] Procedure Name Priority Date/Time Associated Diagnosis Comments LYME AB Routine 12/01/2023 11:54 EDT documented in this encounter Results * LYME AB (12/01/2023 11:54 EDT) Lyme Ab Negative Negative 12/02/2023 10:36 EDT [facility] Blood VENOUS BLOOD / Unknown 12/01/2023 11:54 EDT 12/01/2023 21:46 EDT Provider Outr Resulting Lab IMMUNOLOGY A ND SEROLOGY ORDERABLES [facility] [address] [place] [address] documented in this encounter Visit Diagnoses Not on filedocumented in this encounter Care Teams Principal Accounts Clerk Relationship Specialty Start Date End Date Tracey Mueller MD [address] [place] [phone] PCP - General 12/17/09 documented as of this encounter
--- OUTSIDE RECORDS SUMMARY | 2024-04-30 10:43 | XMS_ITS | Encounter Summary ---
Author Organization [facility] Address [address] [place] [address] Care Team Providers Care Mixer Driver Name Role Phone Unavailable Primary Care Provider Unavailabl e Encounter Details Date Type Department Care Team ([facility] st Contact Info) Description 12/13/2009 Results Only [facility] [place] [address] [place], [place] [address] Anoop Tamez MD [address] [place] [phone] Social History Tobacco Use Types Packs/Day Years Used Date Smoking Tobacco: Never Assessed Sex and Gender Information Value Date Recorded Sex Assigned at Not on file Gender Identity Not on file Sexual Orientation Not on file documented as of this encounter Plan of Treatment Not on file documented as of this encounter Procedures Procedure Name Priority Date/Time Associated Diagnosis Comments SURGICAL PATHOLOGY Routine 12/13/2009 0:00 EDT documented in this encounter Results * SURGICAL PATHOLOGY (12/13/2009 0:00 EDT) Pathology Report: SURGICAL PATHOLOGY REPORT ? Reports generated via electronic interface contain original data; ? however they are lacking the format of the original report. ? Caution should be taken when reading/interpreting unformatted reports. ? Name: ? DALE, DENILSON ? Accession #: ? [id number] ? : ? 1960 (Age: 49) ??M ? Collect Date: ? 12/13/2009 ? Location: ? [facility] ? Receive Date: ? 12/13/2009 ? Provider: ANOOP TAMEZ MD ? Copy to: JOSE RUIZ MD ? Final Pathologic Diagnosis: ? A. ?Colon, 120 cm, polyp, biopsy: ? 1. ?Inflammatory polyp. ? B. ?Duodenum, biopsies: ? 1. ?Duodenal mucosa with no specific pathologic features. ? C. ?Esophagus, 40 cm, biopsies: ? 1. ?Squamous mucosa with rare intraepithelial eosinophils (less than ? five per high power field), consistent with reflux esophagitis. ??See comment. ?? 2. ? Gastric type mucosa with mild chronic and focal acute inflammation. ? 3. ? No Helicobacter pylori microorganisms are identified by ? immunohistochemistry. ??See comment. ? Comment: ? Immunohistochemical staining was performed on the esophageal biopsy ? (specimen C). ??Positive and negative controls stained appropriately. ? Home Office Claims Examiner sections of this case have been reviewed at the intradepartmental consultation conference. ??(Dr. Scott)/mckennan ? Block ?Antibody (Clone) ? Result ? C1, C2 ?H. pylori (polyclonal, [facility]) ?Negative ? NOTE: ??One or more of the reagents used in immunohistochemical testing in this case may not have been cleared or approved by the U.S. Food and Drug ? Administration (FDA). ??The FDA has determined that such clearance or approval is not necessary. ??These tests are used for clinical purposes. ??They should not be regarded as investigational or for research. ??These reagents' ??performance ? characteristics have been determined by [facility]. ??This ? laboratory is certified under the Clinical Laboratory Improvement Amendments of 1988 (CLIA-88) as qualified to perform high complexity clinical laboratory ? testing. ? Document reviewed and electronically signed by: ? LINA SCOTT MD ? Report ??Date: 12/18/2009 15:44 ? By the signature above, the attending physician certifies that he/she has ? personally conducted a gross and/or microscopic examination of the described ? specimens and rendered or confirmed the above diagnosis. ? Specimen(s) Received: ? A. ?Polyp 120 cm ? B. ? Bx duodenum ? C. ? Bx esophagus 40 cm ? Clinical History: ? A ??colo; B+C ??EGD; hx polyps; abd cramps, GERD ? Gross Description: ? Received in [place]'s fixative labelled Denilson Muñiz and #1 polyp ?? 120 cm is a 1.1 x 0.5 x 0.2 cm firm, sessile polyp, which is black inked along a narrow, slit-like resection margin. ??The specimen is sectioned into five ? sections and submitted entirely as (A1) (two pieces with black inked margin) and (A2) remaining three pieces (do not include margin). ? Received in [facility]'s fixative labelled Denilson Muñiz and #2 bx duodenum are three pieces of tissue which range from 0.4 x 0.3 x 0.2 cm to 0.2 x 0.2 x ?? 0.2 cm. ??The specimens are submitted intact as (B). ? Received in [facility]'s fixative labelled Denilson Muñiz and #3 bx esophagus 40 cm are four pieces of tissue which range from 0.3 x 0.3 x 0.2 cm to 0.2 x ?? 0.2 x 0.1 cm. ??Two are submitted as (C1) and the remaining two as (C2). ??(J. ? Tessitornydia)/mckennan ? End of Report ? [facility] 12/13/2009 12/13/2009 16: 37 EDT Anoop Tamez MD PATHOLOGY ORDERABLE S [facility] [address] [place] [address] documented in this encounter Visit Diagnoses Not on filedocumented in this encounter
--- OUTSIDE RECORDS SUMMARY | 2024-04-30 10:43 | XMS_ITS | Encounter Summary ---
Author Organization [facility] Address [address] [place] [address] Care Team Providers Care Waiter/Waitress Head Name Role Phone Tracey Mueller MD Primary Care Provider Encounter Details Date Type Department Care Team (Latest Contact Info) Description 03/21/2019 10:04 EDT - 03/21/2019 23:59 EDT Hospital Encounter [address] [address] Unknown, Provider, Discharge Disposition: Home or Self Care Social History Tobacco Use Types Packs/Day Years Used Date Smoking Tobacco: Never Assessed Sex and Gender Information Value Date Recorded Sex Assigned at Not on file Gender Identity Not on file Sexual Orientation Not on file documented as of this encounter Discharge Disposition Disposition Code Departure Means Destination Home or Self [facility] documented in this encounter Plan of Treatment Not on file documented as of this encounter Visit Diagnoses Not on filedocumented in this encounter Care Teams Waiter/Waitress Head Relationship Specialty Start Date End Date Tracey Mueller MD [address] [place] [phone] PCP - General 12/17/09 documented as of this encounter
--- OUTSIDE RECORDS SUMMARY | 2024-04-30 10:43 | XMS_ITS | Clinical Summary ---
[facility] Address [facility] [place] [address] Care Team Providers Care Jewish History Professor Name Role Phone Tracey Mueller MD Primary Care Provider [phone] Allergies Active Allergy Reactions Criticality Noted Date Comments Codeine Nausea Only 11/07/2019 Penicillins 06/10/2016 Medications Medication Sig Dispensed Refills Start Date End Date Status buPROPion (WELLBUTRIN XL) 300 mg Tablet Sustained Release 24 hr Take 300 mg by mouth daily. Active pantoprazole (PROTONIX) 40 mg Tablet, Delayed Release (E.C.) Take 40 mg by mouth daily. Active losartan (COZAAR) 50 mg Tablet Take 50 mg by mouth daily. Active clopidogrel (PLAVIX) 75 mg Tablet Take 1 tablet by mouth daily. 30 tablet 12 06/11/2016 Active acetaminophen (TYLENOL) 325 mg Tablet Take 2 tablets by mouth every 4 hours as needed for Pain. Do not take more than 4g in a day. 30 tablet 1 06/11/2016 Active aspirin 81 mg Tablet, Chewable Take 81 mg by mouth daily. 30 tablet 12 06/11/2016 Active atorvastatin (LIPITOR) 40 mg Tablet Take 1 tablet by mouth every evening. 30 tablet 3 06/11/2016 Active nitroGLYcerin (NITROSTAT) 0.4 mg Tablet, Sublingual Place 1 tablet under the tongue every 5 minutes as needed for Chest pain. 30 tablet 06/11/2016 Active meTOPROLOL succinate (TOPROL-XL) 25 mg Tablet Sustained Release 24 hr Take 1 tablet by mouth daily. 30 tablet 12 06/11/2016 Active furosemide (LASIX) 20 mg Tablet Take 1 tablet by mouth daily. 30 tablet 06/11/2016 Active metFORMIN (Glucophage) 500 mg Tablet Take 1,500 mg by mouth 2 times daily (with meals). Active naproxen sodium (ALEVE) 220 mg Capsule Take by mouth as needed. Active clindamycin (Cleocin) 150 mg CapsuleIndications: Caries involving multiple surfaces of tooth Take one hour before procedure 4 capsule 08/31/2019 Active Additional Information Patient not taking.Reported on 11/07/2019 metFORMIN XR (Glucophage XR) 500 mg Tablet Sustained Release 24 hr TAKE 2 TABLETS BY MOUTH TWICE A DAY 08/11/2019 Active HYDROcodone-acetami nophen (Pigeon) 5-325 mg Tablet Take 1 tablet by mouth every 6 hours as needed. 15 tablet 11/07/2019 Active Active Problems Problem Noted Date Diagnosed Date Old TX (myocardial infarction) 06/09/2016 Social History Tobacco Use Types Packs/Day Years Used Date Smoking Tobacco: Former Cigarettes Q uit: 2016 Smokeless Tobacco: Former Chew Sex and Gender Information Value Date Recorded Sex Assigned at Not on file Gender Identity Not on file Sexual Orientation Not on file Last Filed Vital Signs Vital Sign Reading Time Taken Comments Blood Pressure 148/80 06/11/2016 12:25 PM EST Pulse 71 06/11/2016 12:25 PM EST Temperature 37.1 ??C (98.8 ??F) 06/11/2016 12:[address] Respiratory Rate 21 06/11/2016 12:25 PM EST Oxygen Saturation 97% 06/11/2016 12:25 PM EST Inhaled Oxygen Concentration - - Weight 151.5 kg (334 lb) 11/07/2019 10:51 AM EDT Height 175.3 cm (5' 9) 11/07/2019 10:51 AM EDT Body Mass Index 49.32 11/07/2019 10:51 AM EDT Plan of Treatment Health Maintenance Due Date Last Done Comments CT Colonography 1960 Colonoscopy 1960 Colorectal Cancer Screening 1960 FIT DNA 1960 FIT 1960 Sigmoidoscopy (10 year) with FIT yearly 1960 Sigmoidoscopy 1960 HIV screen 02/07/1978 Hepatitis C Screening 02/07/1978 Tetanus/Diphtheria/Pertussis Vaccines (1 - Tdap) 02/07/1979 Zoster vaccine (1 of 2) 02/07/2010 Advance Directive 02/07/2015 Covid-19 Vaccine (2022-2 4 season) 2024 Influenza (Flu) vaccine (1 o f 1 - Influenza standard series) 03/13/2024 Diabetes Screening (HgbA1C o r Glucose) Discontinued 06/11/2016, 06/10/2016, 06/09/2016 Procedures Procedure Name Priority Date/Time Associated Diagnosis Comments BASIC METABOLIC PANEL Routine 06/11/2016 3:49 AM EST from Last 3 Months or Most Recently Relevant to Health Maintenance Results * Basic Metabolic Panel (non-fasting) (06/11/2016 3:49 AM EST) Glucose 112 65 - 199 mg/dL [facility] Comment:Diabetes: >=200 mg/d L plus symptoms Blood Urea Nitrogen 11 10 - 20 mg/dL [facility] Creatinine 0.90 0.80 - 1.50 mg/dL [facility] Comment: Please note that the pediatric reference intervals supplied above were not validated at [facility]. Results from pediatric patients should be interpreted in conjunction to the patient's age, height and muscle mass. Sodium 139 135 - 145 mmol/L [facility] Potassium 3.8 3.5 - 5.0 mmol/L [facility] Comment: Please note: ??Patients with WBC >100,000 may have falsely elevated Potassium levels. ??For accurate Potassium quantification in these patients send serum separator tube (gold top) for subsequent determinations. ??Contact the Clinical Chemistry Laboratory if there are any questions. Chloride 100 98 - 107 mmol/L [facility] Carbon Dioxide 24 22 - 31 mmol/L [facility] Anion Gap 15 5 - 15 mmol/L [facility] Calcium 8.9 8.5 - 10.5 mg/dL [facility] Est Glomerular Filtration Rate >60 >=60 [facility] Comment: This estimated GFR (eGFR) value was calculated using the MDRD equation which has been validated on patients between the ages of 18 and 70. The MDRD should not be used to assess kidney function in patients < 18 years of age or in patients with extremes of body mass, or in patients with acute kidney failure. This value should be multiplied by 1.2 for patients. For further information please copy and paste the following links into your internet browser. [email or web address] Blood specimen (specimen) 06/11/2016 3:49 AM EST 06/11/2016 3:59 AM EST Narrative Resulting Agency Comment Spec In Lab Fidel Barakat MD CHEMISTRY ORDERABLE S [facility] [place] [phone] from Last 3 Months or Most Recently Relevant to Health Maintenance Advance Directives * Full Code (Latest Code Status on File) Date Activated Date Inactivated Comments 06/09/2016 4:51 PM 06/11/2016 6:14 PM Question Answer Comments Does patient have capacity to make decision: Yes Care Teams Jewish History Professor Relationship Specialty Start Date End Date Tracey Mueller MD [address] [place] [address] PCP - General 06/04/10
--- OUTSIDE RECORDS SUMMARY | 2024-04-30 10:43 | XMS_ITS | Referral Summary ---
Author Organization [facility] Address [address] [place] [address] Care Team Providers Care Door Technician Name Role Phone Tracey Mueller MD Primary Care Provider [phone] Social History Tobacco Use Types Packs/Day Years Used Date Smoking Tobacco: Never Assessed Interpersonal Safety Answer Date Record ed Physically Hurt Never 02/12/2020 Verbally Threaten Not on file 02/12/2020 Sex and Gender Information Value Date Recorded Sex Assigned at Not on file Gender Identity Not on file Sexual Orientation Not on file Plan of Treatment Not on file Care Teams Door Technician Relationship Specialty Start Date End Date Tracey Mueller MD [phone] [id number] PCP - General 12/17/09
--- OUTSIDE RECORDS SUMMARY | 2024-04-30 10:43 | XMS_ITS | Encounter Summary ---
[place] [address] Care Team Providers Care Aerospace Medicine Physician Name Role Phone Tracey Mueller MD Primary Care Provider [phone] Encounter Details Date Type Department Care Team (Late st Contact Info) Description 08/31/2019 Orders [place] [address] Dorothy Brandt, RN Caries involving multiple surfaces of tooth Social History Tobacco Use Types Packs/Day Years Used Date Smoking Tobacco: Former Cigarettes Q uit: 2016 Smokeless Tobacco: Former Chew Sex and Gender Information Value Date Recorded Sex Assigned at Not on file Gender Identity Not on file Sexual Orientation Not on file documented as of this encounter Plan of Treatment Not on file documented as of this encounter Visit Diagnoses Diagnosis Caries involving multiple surfaces of tooth Other dental caries documented in this encounter Care Teams Aerospace Medicine Physician Relationship Specialty Start Date End Date Tracey Mueller MD [address] [place], [place] [id number] PCP - General 06/04/10 documented as of this encounter
--- OUTSIDE RECORDS SUMMARY | 2024-04-30 10:44 | XMS_ITS | Encounter Summary ---
Author Organization [facility] [place] [address] Care Team Providers Care Manager Location Name Role Phone Tracey Mueller MD Primary Care Provider Reason for Referral * Consultation (Routine) - Specialty Diagnoses / Procedures Referred By Contact Referred To Contact Cardiac Rehabilitation Diagnoses NSTEMI (non-ST elevated myocardial infarction) Fidel Barakat MD [facility] [place] [address] Cardiac Rehab, [address] [place] [address] Referral ID Status Reason Start Date Expiration Date V isits Requested Visits Authorized [id number] Consult, Test & Treat 06/11/2016 12/08/2016 36 36 Reason for Visit * Auth/Cert Specialty Diagnoses / Procedures Referred By Contac t Referred To Contact Diagnoses NSTEMI (non-ST elevated myocardial infarction) CHEST PAIN ?CAD Procedures CARDIAC CATHETERIZATION Referral ID Status Reason Start Date Expiration Date Visits Re quested Visits Authorized [id number] 1 1 Encounter Details Date Type Department Care Team (Late st Contact Info) Description 06/09/2016 4:30 PM EST - 06/11/2016 4:14 PM EST Hospital Encounter Intermediate [place] [address] Arjun Espinosa MD [facility] [place] [address] Fidel Barakat MD [facility] [place] [address] Non-ST elevation myocardial infarction (NSTEMI); NSTEMI (non-ST elevated myocardial infarction) Discharge Disposition: Home Social History Tobacco Use Types Packs/Day Years [...] EST Temperature 37.1 ??C (98.8 ??F) 06/11/2016 1 2:25 PM EST Respiratory Rate 21 06/11/2016 12:2 5 PM EST Oxygen Saturation 97% 06/11/2016 12: 25 PM EST Inhaled Oxygen Concentration - - Weight 147.2 kg (324 lb 8.3 oz) 06/11/2016 6:52 AM EST Height 175.3 cm (5' 9) 06/09/2016 4:40 PM EST Body Mass Index 47.92 06/09/2016 4:40 PM EST documented in this encounter Discharge Summaries * Mallika Edwards MD - 06/11/2016 1:31 PM EST Discharge Summary Patient Name: Denilson Hunter Patient Age: 56 y.o. Language: Prydeinig Race: White Ethnicity: Not nor Admit date: 06/09/2016 Discharge date and time: 06/11/2016 Attending Physician: No att. providers found Discharge Physician: MALLIKA EDWARDS MD (Resident) Follow-up Recommendations for Providers: [ ] PCP: Please check BMP at first hospital discharge follow up appointment due to ARB (losartan) resuming in the setting of recent contrast from cardiac cath. [ ] Follow up peripheral edema. We continued furosemide for patient. LVEDP was elevated suggesting possible diastolic dysfunction. Consider increased dose of furosemide as tolerated and/or compression stockings for peripheral edema. [ ] Discuss with home theater experience expert regarding nabumetone and elevated cardiac risk in the post-NH period. We have told the patient to stop this medication and resume when PCP OR Wire Stripper tells him it is safe. [ ][place] Med Changes: -Aspirin: 81mg daily for life -Metoprolol: 25mg XL daily -Plavix: newly prescribed (needs for at least 1 year) -KAY/ARB: OK to resume losartan Thursday -Atorvastatin: already on adequate dose -SL NTG: newly prescribed for PRN chest pain -Others: discontinued nabumetone #Monitoring: - Monitor for tighter glucose control - Encourage smoking cessation - Aim for BP goal < 130/80 - Encourage diet/exercise/rehab regimen - Encourage weight loss - Watch for recurrent coronary symptoms, heart failure symptoms Inpatient Provider Contact Information: For questions regarding this document or issues relating to this hospitalization, please contact your regular System Sales Consultant or [facility] Cardiology clinic. Issues after hours and on weekends will be handled by the Stonemason Supervisor on-call ([phone] then ask for on-call shirt marker). Discharge Diagnoses (Hospital Problems) and Secondary Diagnoses (Chronic Problems): Active Hospital Problems Diagnosis ??? NSTEMI (non-ST elevated myocardial infarction) Resolved Hospital Problems Diagnosis Date Resolved No resolved problems to display. There are no active non-hospital problems to display for this patient. Operations/Major Procedures: Operations: Procedure(s): CARDIAC CATHETERIZATION 06/10/2016 Other Major Procedures: None History of Presentation (per Dr. Mendoza's Admission H&P on 06/09/2016): Denilson Hunter is a 56 y.o. male with a past medical history significant for HTN, HLD, GERD, DM II, sarcoidosis (last treated with prednisone in ), arthritis who presents as transfer from [facility] ([facility], [place], [place]) for concern of acute coronary syndrome (NSTEMI). ?? He states he was hunting 3 days ago (06/06), and while walking suddenly experienced a sharp squeezing pain, 3/10, located in the right lower sternal border w/o radiation. The episode was transient lasting about 2-3 minutes before spontaneously resolving. At the time, he was not physically exerting himself. He endorses fatigue afterwards but otherwise denied associated dyspnea, lightheadedness, headache, palpitations, N/V. ?? The following day 06/07, he went out hunting once again. He experienced another episode of chest pain, this time 10/10, with radiation to his neck and right arm with associated numbness and tingling.This episode lasted 5 minutes before spontaneously resolving. He returned home, where he had another similar episode, 10/10, radiating to neck and right arm with associated paresthesia, also lasting about 5 minutes. ?? He presented to [facility] ED where he was found to have a normal ECG and troponin of 0.03. He was discharged with no new medications and instructions to contact his PCP to schedule a stress test as an outpatient. The following morning, 06/08 (thursday), around 7:30 am, as he was sitting down at his computer with a cup of coffee, he had another episode of 10/10 chest pain, radiating to the right arm and lasting for 10 minutes. During this episode, he endorses some nausea, which had not been present on prior episodes. ?? He returned to [facility] ED where his ECG was once again unremarkable, but his troponins were noted haverisen to 0.07 with repeat four hours later at 0.08. He was admitted for ACS and started on loading doses of aspirin and Plavix. He was also started on IV heparin, given oral metoprolol and continued on his home dose of losartan. He had a brief episode of chest discomfort overnight but otherwise remained asymptomatic since. [facility] had risen to 0.22. He states he didnot receive sublingual nitroglycerin throughout these events. He was transferred to [facility] for cardiac catheterization. ?? Of note, patient states his legs occasionally get swollen but resolve with elevation. He endorses snoring but has never been evaluated for CORINA. He denies orthopnea or PND. ?? Recent sick contact: niece who has ear infection No recent travel history. ?? Diagnostics at [facility]: Sequential troponins: 0.03 (06/07), 0.07 to 0.08 (06/08), 0.22 (06/09) BUN 14, Cr 0.86, Ca 9.0 Total cholesterol 187, LDL 110, HDL 39, triglycerides 238 Hemoglobin A1c 5.6% INR pretreatment with heparin 1.0 D-Dimer 327 ?? WBC 7200, Hgb 16.4, Hct 45.8, Plt 164K ECG: sinus rhythm, no ischemic of ST-T changes CXR Impression (06/07): Normal CXR Therapy: loading dose ASA, Plavix, Heparin gtt, metoprolol (po), losartan Hospital Course: #NSTEMI Denilson Hunter was admitted to the Cardiac Service on 06/09/2016 in stable condition without complaint of chest pain or shortness of breath with heparin drip infusing. He was placed on telemetry and cardiac enzymes cycled. Cardiac enzymes remained flat. EKG did not demonstrate any ST segment changes. Given the patient's risk factors, positive biomarkers at outside hospital, the patient was taken to cath on 06/10/16. Cath showed long segmental stenosis of 95% in the mid-segment of the LCX lesion (see report below) and LILLIAM x 1 was placed. Post- procedure course was uncomplicated. Cardioprotective med regimen initiated which included metoprolol, clopidogrel, aspirin, atorvastatin. TTE was normal with EF 62% and absence of wall motion abnormalities (see full report below). Smoking cessation was advised & discussed, patient was very interested in quitting smoking and was seen by smokingcessation team during inpatient stay. The patient was evaluated by the cardiac rehab team. The patient tolerated supervised ambulation in the hallway and up/downstairs with no anginal symptoms. It was recommended that the patient return home and participate in a supervised cardiac rehab program. Importance of medication adherence, daily exercise, and good diet were emhasized prior to discharge. Vital Signs at Discharge: BP: 148/80, Heart Rate: 71, Temp: 37.1 ??C (98.8 ??F), Resp: 21, BMI (Calculated): 48.6 Height: 175.3 cm (5' 9) (06/09/16 1640) Weight - Scale: (!) 147.2 kg (324 lb 8.3 oz) (06/11/16 0652) Functional and Cognitive Status: Unchanged from baseline, functional status limited at baseline dueto disability from arthritis, cognitive status normal Important Studies and Lab Data: Labs: Last 3 wbc, hgb, hct plt Recent Labs 06/11/16 0349 06/10/16 0300 WBC 9.3 6.7 HGB 15.4 15.3 HCT 44.2 42.8 PLATELET 139* 151 Last 3 Lytes Recent Labs 06/11/16 0349 06/10/16 0300 NA 139 140 K 3.8 3.8 CL 100 102 CO2 24 23 BUN 11 14 CREATININE 0.90 0.92 Last 3 Coags Recent Labs 06/10/16 1055 06/10/16 0300 06/09/162012 PTT 86* 102* 39* Last 3 ProBNP, Trop, CK Recent Labs 06/11/16 0349 06/10/16 1055 06/10/16 0607 CK 37 40 43 TROPONINT <0.03 <0.03 <0.03 Last 3 TFT Recent Labs 06/10/16 0300 TSH 1.82 Last 3 Lipids Recent Labs 06/10/16 0300 CHLPL 181 HDL 35* LDLCHOL 88 TRIG 291* Last 3 HgbA1C Recent Labs 06/09/162012 HA1C 5.8* Studies: Transthoracic Echocardiogram 06/10/16: SUMMARY: 1. Technically difficult study. Optison contrast (one 3 ml vial) was used to enhance endocardial definition. 2. There is normal global left ventricular systolic function. The quantitative left ventricular ejection fraction by biplane Berg's method is 62%. There are no left ventricular segmental wall motion abnormalities. 3. The right ventricle is probably normal in size. Right ventricular global systolic function is normal. 4. Valvular structures were poorly visualized. There is no Doppler evidence of hemodynamically significant valvular disease. 5. See remainder of report for additional findings. Cardiac Cath 06/10/16: Hemodynamics: LVEDP: 25 ? Coronary Angiography: Dominance: Right ? Left Main - There was mild diffuse disease of the entire vessel segment of the left main artery. The left main was large. ? Left Anterior Descending - There was moderate diffuse disease of the entire vessel segment of the left anterior descending artery (LAD). The LAD was large. There was mild diffuse disease of the entire vessel segment of the first diagonal branch (Diagonal 1) of the LAD. The Diagonal 1 was large. This lesion involved bifurcation. ? Left Circumflex - There was a 95% long segmental stenosis of the mid segment of the left circumflexartery (LCX). The LCX was moderate in size. This lesion involved bifurcation. Distal flow was decreased. There was severe diffuse disease of the entire vessel segment of the first obtuse marginal branch (OM1) of the LCX. The OM1 was small. There was an 85% single discrete stenosis of the ostial segment of the second obtuse marginal branch (OM2) of the LCX. The OM2 was small. Distal flow was decreased. ? Right Coronary Artery - There was mild diffuse disease of the entire vessel segment of the right coronary artery (RCA). The RCA was large. ? Indication for Intervention: Coronary intervention was indicated for treatment of a critical lesionpost a myocardial infarction. Left ventricular Ejection Fraction was estimated at 60 percent. The priority for the procedure was Urgent. The NCDR indication for the procedure was PCI for high risk Non-STEMI or unstable angina. ? Intervention Summary: Left Circumflex Artery - Mid 95% Stent insertion was performed on the 95% stenosis in the mid segment of the LCX. This was a de novolesion. According to the ACC/AHA classification system, this lesion was a type B2 moderate risk lesion. Primary prevention of restenosis was the indication for stent insertion. This was the culprit lesion. Vessel flow pre intervention was JAYLEEN 3. The lesion involves a bifurcation with the OM2. This bifurcation lesion was treated with a single stent, side branch jailed and not treated technique. ? Stent insertion was accomplished through a 6 Fr. EBU 3.5 guide. The lesion was predilated with a 2.00mm EUPHORA 15 MM balloon with a maximum inflation pressure of 12 atmospheres. A premounted 2.25 x 20 mm Promus Premier (LILLIAM) was deployed with a maximum inflation pressure of 18 atmospheres. ? The final outcome was defined as successful. There was no residual stenosis following this intervention. The final JAYLEEN flow was 3. ? Conclusions: * Two vessel coronary artery disease (LAD and LCX) * Elevated left ventricular end diastolic pressure * Successful stent insertion of the mid LCX lesion * Drug eluting stent. ? Complications/Events: The patient had no complications during these procedures. ? Recommendations: Based upon the results of this procedure, it was recommended that the patient have a stent inserted. The patient's medical regimen was changed as follows: Drug eluting stent implanted in treatment ofacute coronary syndrome (ACS) or STEMI. Clopidogrel loaded prior to the medical lab technologist. Recommend continued dual antiplatelet therapy (DAPT) with low dose aspirin (81 mg daily) and clopidogrel 75 mg daily for a minimum 12 months. If overt bleeding or high bleeding risk, it may be reasonable to stop clopidogrel after 6 months. Low dose aspirin to be continued indefinitely unless contraindicated. ? Comments: Right radial artery cannulated with good pulsatile flow but guide wire could not be advanced proximally elected to proceed via right femoral approach. Pending Studies and Lab Data: None Discharge Conditions/Prognosis: good Discharge to: home without services Updated Allergies/ADRs: Allergies Allergen Reactions ??? Penicillins Immunizations Given this Hospitalization: There is no immunization history on file for this patient. Discharge Medications: Your Medications New Medications Dose Details acetaminophen 325 mg Tab Commonly known as: TYLENOL Take 2 tablets by mouth every 4 hours as needed for Pain. Do not take more than 4g in a day. 650 mg Quantity: 30 tablet Refills: 1 aspirin 81 mg Chew Take 81 mg by mouth daily. 81 mg Quantity: 30 tablet Refills: 12 atorvastatin 40 mg Tab Commonly known as: LIPITOR Take 1 tablet by mouth every evening. 40 mg Quantity: 30 tablet Refills: 3 clopidogrel 75 mg Tab Commonly known as: PLAVIX Take 1 tablet by mouth daily. 75 mg Quantity: 30 tablet Refills: 12 furosemide 20 mg Tab Commonly known as: LASIX Take 1 tablet by mouth daily. 20 mg Quantity: 30 tablet Refills: 0 meTOPROLOL succinate 25 mg Tablet sr Commonly known as: TOPROL-XL Take 1 tablet by mouth daily. 25 mg Quantity: 30 tablet Refills: 12 nitroGLYcerin 0.4 mg Subl Commonly known as: NITROSTAT Place 1 tablet under the tongue every 5 minutes as needed for Chest pain. 0.4 mg Quantity: 30 tablet Refills: 0 Continued medications, unchanged Dose Details buPROPion 300 mg Tablet sr Commonly known as: WELLBUTRIN XL Take 300 mg by mouth daily. 300 mg Refills: 0 losartan 50 mg Tab Commonly known as: COZAAR Take 50 mg by mouth daily. 50 mg Refills: 0 pantoprazole 40 mg Tbec Commonly known as: PROTONIX Take 40 mg by mouth daily. 40 mg Refills: 0 STOPPED Medications nabumetone 500 mg Tab Commonly known as: RELAFEN Smoking Status at Discharge: History Smoking Status ??? Not on file Smokeless Tobacco ??? Not on file Instructions Given to Patient at Discharge: Patient Instructions Why you were hospitalized: You were admitted with signs and symptoms indicative of a heart attack or a myocardial infarction. Call your doctor or report to the nearest Emergency Department: if you have chest pain or pressure or symptoms similar or worse to that which initially brought you in to the hospital. If you begin sweating for no reason, have nausea/vomiting, headaches, blurred vision, lightheadedness/ fainting spells, or bleeding from the access site please call your doctor and/or call EMS. Activity: If you are very physically active, then take it easy for the next month, until you are seen in cardiology follow up or given permission by your primary care doctor. It will take time for your heart to recover, so while cardiovascular activity is highly encouraged, over working the heart too soon can be dangerous. Also do not do any heavy lifting for the next 7-10 days, as we accessed your heart via the high pressure femoral artery. We do not want you to begin bleeding. If you do so, apply much pressure and report to the nearest emergency department. Driving: Please refrain from driving for 48 hours after your procedure, as the access site is an area of high pressure and abrupt automobile accident can result in excessive bleeding. Also, it would be difficult to place pressure at the catheterization site if it began to bleed as you were driving. Diet: heart healthy diet including low carbohydrates/refined sugars, and much vegetables, fruits, lean protein and whole grains. Bathing: Showers are ok. Do not submerge your wound into a bath or hot tub for about 7-10 days in order to prevent infection. Sexual activity: You should refrain from sexual activity for 1 month following a heart attack. Wound care: since your femoral artery is in an area of high pressure, if it begins to bleed at all,please place a lot of pressure on this and report to the nearest emergency department. Return to Work: You were hospitalized for a heart attack. It is very important that you abide by the instructions above with regards to activity, and this applies to work. You can return to do desk work within the next 7- 10 days after discharge, but please refrain from intense physical activity for one month and even then after permission from your physician. The importance of your medications: 1. Metoprolol, a beta jolie, lowers your heart rate and blood pressure and is known to decrease mortality rates in the acute post-heart attack setting. 2. Losartan, an ARB, lowers your blood pressure, is anti-inflammatory, and promotes remodeling of the heart which prevents dilation of the gary of your heart. 3. Atorvastatin, a statin, is a lipid-lowering drug. It is also anti- inflammatory and studies show intensive lipid lowering therapy decreases the rate of myocardial events after a heart attack. 4. Aspirin, an anti-platelet drug, is protective against future thrombus formation, especially in the stent. 5. Plavix or clopidogrel, is also an anti-platelet drug, is protective against future thrombus formation, especially in the stent. It is important to take this medication exactly as prescribed. Do not take any omeprazole, lansoprazole or esomeprazole while on this medication as all of these medications can interfere with the ability of plavix to thin the blood adequately. If you need a PPI for GERD, the only safe option is pantoprazole, as it will not interfere with plavix. 6. Sublingual Nitroglycerine, an anti-anginal medication, is to be used only if you have recurrent chest pain; if you use this med, SEEK MEDICAL ATTENTION FOLLOW-UP APPOINTMENTS: Primary care provider- You have an appointment scheduled with Dr. Mueller. Date: Saturday, June 18, 2016 Time: 1:00 pm Location: [place], [place]) System Sales Consultant- You have an appointment scheduled with Dr. Barakat Date: June Time: 12:45 pm Location: [facility] ([place], [place]) Your Inpatient Doctor(s) at [facility] at discharge: Dr. Barakat (attending System Sales Consultant) Dr. Piper (Stonemason Supervisor) Dr. Mendoza (Internal Medicine Residents) General Instructions None Future Appointments and Orders Future Appointments Provider Department Dept Phone 07/10/2016 1:00 PM Fidel Barakat MD Cardiology [phone] Future Orders Complete By Expires Referral to Cardiac Rehab [[id number] Custom] As directed Process Instructions: If no progress note charted, please enter Clinical details in comments. Scheduling Instructions: Questions: My question or request is: NSTEMI, PCI- cardiac rehab at [facility] Discharge References/Attachments None documented in this encounter Discharge Instructions * Patient Instructions* Celestine Mendoza MD - 06/11/2016 11:46 AM EST Why you were hospitalized: You were admitted with signs and symptoms indicative of a heart attack or a myocardial infarction. Call your doctor or report to the nearest Emergency Department: if you have chest pain or pressure or symptoms similar or worse to that which initially brought you in to the hospital. If you begin sweating for no reason, have nausea/vomiting, headaches, blurred vision, lightheadedness/ fainting spells, or bleeding from the access site please call your doctor and/or call EMS. Activity: If you are very physically active, then take it easy for the next month, until you are seen in cardiology follow up or given permission by your primary care doctor. It will take time for your heart to recover, so while cardiovascular activity is highly encouraged, over working the heart too soon can be dangerous. Also do not do any heavy lifting for the next 7-10 days, as we accessed your heart via the high pressure femoral artery. We do not want you to begin bleeding. If you do so, apply much pressure and report to the nearest emergency department. Driving: Please refrain from driving for 48 hours after your procedure, as the access site is an area of high pressure and abrupt automobile accident can result in excessive bleeding. Also, it would be difficult to place pressure at the catheterization site if it began to bleed as you were driving. Diet: heart healthy diet including low carbohydrates/refined sugars, and much vegetables, fruits, lean protein and whole grains. Bathing: Showers are ok. Do not submerge your wound into a bath or hot tub for about 7-10 days in order to prevent infection. Sexual activity: You should refrain from sexual activity for 1 month following a heart attack. Wound care: since your femoral artery is in an area of high pressure, if it begins to bleed at all,please place a lot of pressure on this and report to the nearest emergency department. Return to Work: You were hospitalized for a heart attack. It is very important that you abide by the instructions above with regards to activity, and this applies to work. You can return to do desk work within the next 7- 10 days after discharge, but please refrain from intense physical activity for one month and even then after permission from your physician. The importance of your medications: 1. Metoprolol, a beta jolie, lowers your heart rate and blood pressure and is known to decrease mortality rates in the acute post-heart attack setting. 2. Losartan, an ARB, lowers your blood pressure, is anti-inflammatory, and promotes remodeling of the heart which prevents dilation of the gary of your heart. 3. Atorvastatin, a statin, is a lipid-lowering drug. It is also anti- inflammatory and studies show intensive lipid lowering therapy decreases the rate of myocardial events after a heart attack. 4. Aspirin, an anti-platelet drug, is protective against future thrombus formation, especially in the stent. 5. Plavix or clopidogrel, is also an anti-platelet drug, is protective against future thrombus formation, especially in the stent. It is important to take this medication exactly as prescribed. Do not take any omeprazole, lansoprazole or esomeprazole while on this medication as all of these medications can interfere with the ability of plavix to thin the blood adequately. If you need a PPI for GERD, the only safe option is pantoprazole, as it will not interfere with plavix. 6. Sublingual Nitroglycerine, an anti-anginal medication, is to be used only if you have recurrent chest pain; if you use this med, SEEK MEDICAL ATTENTION FOLLOW-UP APPOINTMENTS: Primary care provider- You have an appointment scheduled with Dr. Mueller. Date: Saturday, June 18, 2016 Time: 1:00 pm Location: [facility] ([place], [place]) System Sales Consultant- You have an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 given anticipated contrast exposure tomorrow # FEN/PPX -Fluid/lytes: as needed for NPO status -Diet: cardiac diet, NPO at midnight -DVT ppx: on heparin gtt -GI ppx: Pantoprazole, 40 mg, po, daily Dispo: ICCU Code Status: Full code Celestine Mendoza MD PGY-1, Internal Medicine Cardiology Service, Pager #[phone] Cardiology Staff - Admission Note This patient was seen and examined upon arrival to (around 5pm). I agree with the findings and plan of care per Dr. Mendoza (medical housestaff). Please refer to his note above for details. Mack[place] aspects of care and updates are as noted below: 56 year old obese male SMOKER with type 2 DM admitted with a NSTEMI #NSTEMI -no cardiac history -borderline positive cardiac enzymes, normal ECG -stuttering chest pain x 1 week -loaded with plavix Patient arrives in transfer from [facility] chest pain free on IV heparin. Has been having episodes of chest pain at rest. Two visits to the ER recently. He is on group home disability due to arthritis. He is morbidly obese with a BMI of 48. Mild edema. Plan for cardiac cath for further risk evaluation on Thursday. Smoking cessation strongly advised. Other details as above. documented in this encounter Miscellaneous Notes * Consult Note - Lexi Burch RN - 06/11/2016 11:18 AM EST Cardiac Rehabilitation Inpatient Evaluation Primary Cardiac Diagnosis: NSTEMI, PCI Cardiac Risk Factors: Smoking: yes Overweight: yes Hyperlipidemia: yes Sedentary: yes HTN: yes Family history: yes DM: yes Stress: yes Patient Education: Reviewed cardiac cath findings, implications of coronary artery disease, managing angina and risk factor modification. Denilson has many risk factors for CAD. He admits that he is addicted to nicotine. He primarily chews but just started smoking ~ 8 weeks ago. He quit chewing for 2 years by using grape leaves. He is working with a tobacco counselor at [facility] and is currently wearinga patch. Enc him to continue to work with his counselor. Discussed weight management. He has poor eating habits and would benefit from more extensive nutrition counseling given his newly diagnosed DM. He will follow up with this in cardiac rehab. Mediterranean diet guidelines briefly reviewed. Given parameters for home exercise. Reviewed managing angina /use of sl nitroglycerin. Phase II Referral: Participation in the outpatient cardiac rehabilitation program at [facility] was discussed. Patient agrees to a referral to this program. The referral will be sent at discharge and the patient should be contacted by the Program within 1- 2 weeks from discharge. Activity Summary: By discharge, patient will be able to perform self care, walk 5-7 minutes and go up and down stairs without signs or symptoms of ischemia. Activity Baseline Response Symptoms/Comments Walk/stairs HR 84 105 Conrad ambulation well ~7 min BP 133/70 146/75 Enc more walks while in house O2 Sat 95% 97% ECG SR SR * Plan of Care - Oscar Tejada RN - 06/11/2016 5:44 AM EST Problem: Patient Care Overview Goal: Plan of Care Review Outcome: Ongoing (Interventions Implemented as Appropriate) 06/10/161999 Coping/Psychosocial Plan Of Care Reviewed With patient OUTCOME EVALUATION NOTE: OUTCOME SUMMARY: Pt had uneventful night. VS WDL, see flow sheet. Denies SOB but some discomfort on cath site, resolved with Tylenol. Small drainage on cath site dressing remained unchanged., no hematoma noted. Tele on SR. Received 40mg IV Lasix. PLAN MOVING FORWARD: Cardiac consult, walk on stairs prior discharge. INDIVIDUALIZED FALL PREVENTION INTERVENTIONS: Patient-specific fall risk factors per assessment: [current deficits]: Assistance [level of assistance required for transfers and ambulation]: Ind Supervision [direct monitoring required during toileting and ADLs]: Ind, call acosta within reach Surveillance [continuous indirect monitoring]: Tele, hourly rounding Patient-specific fall prevention interventions for sensory deficits provided, if applicable: n/a CPG GOAL OUTCOME EVALUATION: ongoing Goal: Fall Prevention-Safe Patient Handling Outcome: Ongoing (Interventions Implemented as Appropriate) 06/10/16 0900 06/10/161999 Gallego Fall Risk History of Falling -- 0 Secondary Diagnosis -- 15 Ambulatory Aids -- 0 Intravenous Therapy/Heparin/Saline Lock -- 20 Gait/Transferring -- 0 Mental Status -- 0 Score -- 35 Activity and Safety Assistive Device None -- OTHER Gallego Fall Risk -- Med Restraint Interventions Safety Promotion/Fall Prevention -- activity supervised;nonskid shoes/slippers when out of bed;safety round/check completed Positioning Body Position -- supine Goal: Infection Control Outcome: Ongoing (Interventions Implemented as Appropriate) 06/10/161999 Safety Interventions Isolation Precautions standard precautions maintained Infection Prevention rest/sleep promoted Coping Strategies Supportive Measures active listening utilized;goal setting facilitated;verbalization of feelings encouraged;self-responsibility promoted;self-care encouraged;positive reinforcement provided * Plan of Care - Ree Jacob RN - 06/10/2016 4:03 PM EST Problem: Patient Care Overview Goal: Plan of Care Review Outcome: Ongoing (Interventions Implemented as Appropriate) 06/10/16753 Coping/Psychosocial Plan Of Care Reviewed With patient OUTCOME EVALUATION NOTE: OUTCOME SUMMARY:Uneventful day. Pt c/o fleeting episode of chest discomfort when getting from the chair to the bed for an echo. Resolved without any intervention. Currently in medical lab technologist. PLAN MOVING FORWARD: Awaiting results of echo and cath INDIVIDUALIZED FALL PREVENTION INTERVENTIONS: Patient-specific fall risk factors per assessment: [current deficits]: IV tubing Assistance [level of assistance required for transfers and ambulation]: independent Supervision [direct monitoring required during toileting and ADLs]: call acosta within reach Surveillance [continuous indirect monitoring]: hourly rounds/ bed side reporting Patient-specific fall prevention interventions for sensory deficits provided, if applicable: CPG GOAL OUTCOME EVALUATION: Goal: Fall Prevention-Safe Patient Handling Outcome: Ongoing (Interventions Implemented as Appropriate) 06/10/1675306/10/16 0900 Gallego Fall Risk History of Falling 0 -- Secondary Diagnosis 15 -- Ambulatory Aids 0 -- Intravenous Therapy/Heparin/Saline Lock 20 -- Gait/Transferring 0 -- Mental Status 0 -- Score 35 -- Activity and Safety Assistive Device -- None OTHER Gal[place]o Fall Risk Med -- Restraint Interventions Safety Promotion/Fall Prevention activity supervised;fall prevention program maintained;muscle strengthening facilitated;nonskid shoes/slippers when out of bed;safety round/check completed -- Positioning Body Position up in chair -- Goal: Infection Control Outcome: Ongoing (Interventions Implemented as Appropriate) 06/10/16753 Safety Interventions Isolation Precautions standard precautions maintained Infection Prevention environmental surveillance performed;rest/sleep promoted;single patient room provided Coping Strategies Supportive Measures self-care encouraged;decision-making supported;relaxation techniques promoted;active listening utilized Goal: Discharge Needs Assessment Outcome: Ongoing (Interventions Implemented as Appropriate) 06/10/16 0114 Discharge Needs Assessment Concerns To Be Addressed denies needs/concerns at this time Readmission Within The Last 30 Days no previous admission in last 30 days Equipment Needed After Discharge none Discharge Disposition home or self-care Current Health Anticipated Changes Related to Illness none Activity/Self Care Review of Systems Equipment Currently Used at Home none Living Environment Transportation Available car;family or friend will provide * Initial Assessments - Kulwant Vu - 06/10/2016 3:30 PM EST Office of Care Management Initial Assessment Kulwant Vu RN reviewed record and discussed patient with Care Team. Source of Information: Per chart review, pt is in medical lab technologist Reason for Hospitalization: NSTEMI No past medical history on file. Hospitalizations Within the Past 30 Days: Pt was transferred to [facility] from [facility] Anticipated Length Of Stay (If known): 2-3 days Current Decision-Making Capacity: Alert and Oriented prior to procedure Advance Care Planning: Not on file at this time Current Coping/Education/Information Needs: Understood need for cardiac cath Current Functional Ability: Independent prior to procedure. Functional Status Prior to Admission: Independent. Pt was hunting when chest pain first occurred. Home Environment: Home environment unknown at this time. Pt is listed as single and living in [facility] Social & Family Supports/Community Resources: Family listed as support Behavioral Health History: Anxiety treated with Buproprion XL Substance Use/Abuse: Has recently started smoking again (07/16 ppd), chews tobacco, quit drinking ETOH in 1992 Other Pertinent/Service Specific Information: None identified at this time Health/Prescription Coverage: Primary Insurance: Medicare A&B Secondary Insurance: Medicaid Prescription Coverage: Yes Preferred Pharmacy: Unknown at this time Other: n/a Primary Care Provider: Tracey Mueller MD [phone] Patient/Caregiver Goals of Treatment: To be determined Potential Needs for Transition of Care: Rehab/SNF: not likely Home Health: Need is to be determined DME: unknown at this time Dialysis: n/a Community Resources: n/a Transportation: Family to transport? Other: n/a Anticipated Barriers to Discharge/Special Considerations: None identified at this time. Will continue to follow. Plan: Steelscope Operator spoke with this afternoon who feels as though pt will likely return home post discharge without any additional needs. A member of the Care Management team will continue to monitor progress, follow for continuity of care and assist with transition of care planning. Kulwant Vu RN Pager: [phone] * Plan of Care - Landon Gonzalez RN - 06/10/2016 1:36 AM EST Problem: Patient Care Overview Goal: Plan of Care Review Outcome: Ongoing (Interventions Implemented as Appropriate) 06/09/161944 Coping/Psychosocial Plan Of Care Reviewed With patient OUTCOME EVALUATION NOTE: OUTCOME SUMMARY: Pt denies SOB or CP. VSS on RA. Pt NSR on tele. Heparin running at 1250 at start of shift. 1999 pttdrawn early and was subtherapeutic. Spoke with MD Nowak r/t orders. Heparin increased to 1750 and bolused per orders. Continued with protocol. Pt remained NPO overnight PLAN MOVING FORWARD: Cath in AM INDIVIDUALIZED FALL PREVENTION INTERVENTIONS: nonskid socks, call acosta within reach Patient-specific fall risk factors per assessment: [current deficits]: Wires, hx of arthritis, unfamiliar environment. Assistance [level of assistance required for transfers and ambulation]: Ind Supervision [direct monitoring required during toileting and ADLs]: Ind Surveillance [continuous indirect monitoring]: Tele, purposeful hourly rounding Patient-specific fall prevention interventions for sensory deficits provided, if applicable: n/a CPG GOAL OUTCOME EVALUATION: Ongoing Goal: Fall Prevention-Safe Patient Handling Outcome: Ongoing (Interventions Implemented as Appropriate) 06/09/161944 Gallego Fall Risk History of Falling 0 Secondary Diagnosis 15 Ambulatory Aids 0 Intravenous Therapy/Heparin/Saline Lock 20 Gait/Transferring 0 Mental Status 0 Score 35 OTHER Gallego Fall Risk Med Restraint Interventions Safety Promotion/Fall Prevention activity supervised;fall prevention program maintained;muscle strengthening facilitated;nonskid shoes/slippers when out of bed;safety round/check completed Positioning Body Position up in chair Goal: Infection Control Outcome: Ongoing (Interventions Implemented as Appropriate) 06/09/161944 Safety Interventions Isolation Precautions standard precautions maintained Infection Prevention rest/sleep promoted;single patient room provided;personal protective equipmentutilized;environmental surveillance performed Coping Strategies Supportive Measures self-care encouraged;decision-making supported;active listening utilized;counseling provided Goal: Discharge Needs Assessment Outcome: Ongoing (Interventions Implemented as Appropriate) 06/10/16113 Discharge Needs Assessment Concerns To Be Addressed denies needs/concerns at this time Readmission Within The Last 30 Days no previous admission in last 30 days Equipment Needed After Discharge none Discharge Disposition home or self-care Current Health Anticipated Changes Related to Illness none Activity/Self Care Review of Systems Equipment Currently Used at Home none Living Environment Transportation Available car;family or friend will provide Goal: Interdisciplinary Rounds/Family Conf Outcome: Ongoing (Interventions Implemented as Appropriate) 06/10/16113 Interdisciplinary Rounds/Family Conf Participants nursing;patient;physician Problem: Pain, Acute (Adult) Goal: Identify Related Risk Factors and Signs and Symptoms Related risk factors and signs and symptoms are identified upon initiation of Human Response Clinical Practice Guideline (CPG) Outcome: Ongoing (Interventions Implemented as Appropriate) 06/10/16113 Pain, Acute Signs and Symptoms (Acute Pain) verbalization of pain descriptors Goal: Acceptable Pain Control/Comfort Level Patient will demonstrate the desired outcomes by discharge/transition of care. Outcome: Ongoing (Interventions Implemented as Appropriate) 06/10/16113 Pain, Acute (Adult) Acceptable Pain Control/Comfort Level making progress toward outcome * Plan of Care - Ree Jacob RN - 06/09/2016 5:48 PM EST Problem: Patient Care Overview Goal: Plan of Care Review Outcome: Ongoing (Interventions Implemented as Appropriate) 06/09/16 3468 Coping/Psychosocial Plan Of Care Reviewed With patient OUTCOME EVALUATION NOTE: OUTCOME SUMMARY: Pt.admitted from [facility]- currently without c/o pain/discomfort. Heparin gtt infusing. PLAN MOVING FORWARD: Cycle enzymes. Echo. NPO after MN for cath INDIVIDUALIZED FALL PREVENTION INTERVENTIONS: Patient-specific fall risk factors per assessment: [current deficits]: IV tubing Assistance [level of assistance required for transfers and ambulation]: independent Supervision [direct monitoring required during toileting and ADLs]: call acosta within reach Surveillance [continuous indirect monitoring]: Hourly rounds/ bedside report Patient-specific fall prevention interventions for sensory deficits provided, if applicable: CPG GOAL OUTCOME EVALUATION: documented in this encounter Plan of Treatment Scheduled Referrals Name Type Priority Associated Diagnoses Orde r Schedule Referral to Cardiac Rehab Outpatient Referral Routine NSTEMI (non-ST elevated myocardial infarction) Ordered: 06/11/2016 documented as of this encounter Procedures Procedure Name Priority Date/Time Associated Diagnosis Comments IMPLANTABLE DEVICES SCAN 06/12/2016 12:00 AM EST SUPPLIER RELATIONSHIP DIRECTOR SCAN 06/12/2016 12:00 AM EST CARDIAC CATH SCAN 06/12/2016 12: 00 AM EST HEMOGRAM Routine 06/11/2016 3:49 AM EST DIFFERENTIAL, AUTOMATED Routine 06/11/20 16 3:49 AM EST CARDIAC ENZYMES ([facility]) Routine 06/11/2016 3:49 AM EST CBC (WITH DIFF) Routine 06/11/2016 3:49 AM EST BASIC METABOLIC PANEL Routine 06/11/2016 3:49 AM EST EKG 12-LEAD Routine 06/10/2016 5:46 PM EST Non-ST elevation myocardial infarction (NSTEMI) CARDIAC CATHETERIZATION Routine 06/10/20 16 5:14 PM EST EKG 12-LEAD STAT 06/10/2016 12:21 PM EST Non-ST elevation myocardial infarction (NSTEMI) CARDIAC ENZYMES ([facility]P) Routine 06/10/2016 10:55 AM EST APTT Routine 06/10/2016 10:55 AM EST ECHO COMPLETE W CONTRAST Routine 06/10/2016 8:41 AM EST NSTEMI (non-ST elevated myocardial infarction) CARDIAC ENZYMES ([facility]P) Routine 06/10/2016 6:07 AM EST HEMOGRAM Routine 06/10/2016 3:00 AM EST DIFFERENTIAL, AUTOMATED Routine 06/10/20 16 3:00 AM EST APTT Routine 06/10/2016 3:00 AM EST CBC (WITH DIFF) Routine 06/10/2016 3:00 AM EST TSH Routine 06/10/2016 3:00 AM EST T4, FREE Routine 06/10/2016 3:00 AM EST LIPID PANEL (REFLEX DIRECT LDL) Routine 06/10/2016 3:00 AM EST BASIC METABOLIC PANEL Routine 06/10/2016 3:00 AM EST CARDIAC ENZYMES ([facility]) Routine 06/09/2016 11:41 PM EST APTT STAT 06/09/2016 8:13 PM EST HEMOGLOBIN A1C Routine 06/09/2016 8:13 PM EST documented in this encounter Results * SCAN DOC: IMPLANTABLE DEVICES (06/12/2016 12:00 AM EST) Scanning Provider MEDIA MGR SCAN EXT O RDR/RSLT * SCAN DOC: CARDIAC CATH (06/12/2016 12:00 AM EST) Anatomical Region Laterality Modality Cardiac Other Scanning Provider MEDIA MGR SCAN EXT O RDR/RSLT * SCAN DOC: SUPPLIER RELATIONSHIP DIRECTOR (06/12/2016 12:00 AM EST) Anatomical Region Laterality Modality Other Scanning Provider MEDIA MGR SCAN EXT O RDR/RSLT * Cardiac Enzymes (06/11/2016 3:49 AM EST) Troponin-T <0.03 <=0.03 ng/mL [facility] Comment: 0.03 ng/mL: Represents the 99th percentile upper reference limit for normals. >0.03 ng/mL: Elevated cardiac troponin T level indicative of myocardial damage. Diagnosis of acute, evolving or recent NH requires a typical rise and gradual fall of cTnT with at least ONE of the following: a) Ischemic symptoms b) Development of pathologic Q waves on the ECG c) ECG changes indicative of eschemia (S-T segment elevation/depression) d) Coronary artery intervention Serial bloods should be obtained for testing on admission, at 6 to 9 hrs and again at 12 to 24 hrs if earlier samples are negative and the clinical index of suspicion is high. Reference: [Myocardial infarction redefined? a consensus document of the Joint Society of Cardiology/[place] College of Cardiology Committee for the redefinition of myocardial infarction. ??Journal of the [place] College of Cardiology 2000; 36: 959-969] Creatine Kinase 37 0 - 200 unit/L [facility] Blood specimen (specimen) Venous Draw / Unknown 06/11/2016 3:49 AM EST 06/11/2016 3:59 AM EST Narrative Resulting Agency Comment Spec In Lab Fidel Barakat MD CHEMISTRY ORDERABLE S Performing Organization Address City/State/[facility] Co de Phone Number [facility] [place] [address] * (ABNORMAL) Differential, Automated (06/11/2016 3:49 AM EST) Neutrophil % 76.1 % [facility] Neutrophil Absolute 7.10(H) 1.70 - 6.10 x10(3)/mc L [facility] Lymph % 16.6 % [facility] Lymphocytes Abs 1.6 0.9 - 3.2 x10(3)/mc L [facility] Monocyte % 6.1 % [facility] Monocyte Abs 0.6 0.3 - 0.9 x10(3)/mc L [facility] Eos % 0.7 % [facility] Eosinophils Abs 0.1 0.0 - 0.4 x10(3)/mc L [facility] Basophil % 0.2 % [facility] Baso Absolute 0.0 0.0 - 0.1 x10(3)/ L [facility] Immature Gran % 0.30 % [facility] Comment: Immature granulocytes(IG's)percentage and absolute count will include metamyelocytes, myelocytes, and promyelocytes. Blood smears from CBCs yielding IG's will be scanned manually for concordance. If this scan disagrees with the automated IG or if promyelocytes are noted, a manual differential will be performed. Immature Gran Absolute 0.03 0.00 - 0.04 x10(3)/mc L [facility] Blood specimen (specimen) 06/11/2016 3:49 AM EST 06/11/2016 3:59 AM EST Narrative Resulting Agency Comment Spec In Lab Fidel Barakat MD HEMATOLOGY ORDERABL ES [facility] [place] [address] * (ABNORMAL) Hemogram (06/11/2016 3:49 AM EST) White Blood Cell 9.3 4.0 - 9.5 x10(3)/ L [facility] Red Blood Cell 5.18 4.58 - 5.54 x10(6)/mc L [facility] Hemoglobin 15.4 13.7 - 16.5 gm/dL [facility] Hematocrit 44.2 40.5 - 48.5 % [facility] Mean Cell Volume 85.3 82.9 - 93.1 fL [facility] Mean Cell Hemoglobin 29.7 27.5 - 32.1 pg [facility] Mean Cell Hemoglobin Concentration 34.8 32.0 - 35.7 gm/dL [facility] Platelet 139(L) 145 - 357 x10(3)/ L [facility] RDW Standard Deviation 38.4 36.0 - 45.0 fL [facility] RDW coefficient of variation 12.3 11.4 - 13.8 % [facility] Mean Platelet Volume 10.9 7.6 - 12.9 fL [facility] NRBC% auto 0.0 % [facility] NRBC Absolute 0.000 0.000 - 0.000 x10(3)/mc L [facility] Blood specimen (specimen) 06/11/2016 3:49 AM EST 06/11/2016 3:59 AM EST Narrative Resulting Agency Comment Spec In Lab Fidel Barakat MD HEMATOLOGY ORDERABL ES [facility] [place] [address] * Basic Metabolic Panel (non-fasting) (06/11/2016 3:49 AM EST) Glucose 112 65 - 199 mg/dL [facility] Comment:Diabetes: >=200 mg/d L plus symptoms Blood Urea Nitrogen 11 10 - 20 mg/dL [facility] Creatinine 0.90 0.80 - 1.50 mg/dL [facility] Comment: Please note that the pediatric reference intervals supplied above were not validated at [facility]. Results from pediatric patients should be interpreted in conjunction to the patient's age, height and muscle mass. Sodium 139 135 - 145 mmol/L [facility] Potassium 3.8 3.5 - 5.0 mmol/L [facility] Comment: Please note: ??Patients with WBC >100,000 may have falsely elevated Potassium levels. ??For accurate Potassium quantification in these patients send serum separator tube (gold top) for subsequent determinations. ??Contact the Clinical Chemistry Laboratory if there are any questions. Chloride 100 98 - 107 mmol/L [facility] Carbon Dioxide 24 22 - 31 mmol/L [facility] Anion Gap 15 5 - 15 mmol/L [facility] Calcium 8.9 8.5 - 10.5 mg/dL [facility] Est Glomerular Filtration Rate >60 >=60 [facility] Comment: This estimated GFR (eGFR) value [...] the following links into your internet browser. [email or web address] Blood specimen (specimen) 06/11/2016 3:49 AM EST 06/11/2016 3:59 AM EST Narrative Resulting Agency Comment Spec In Lab Fidel Barakat MD CHEMISTRY ORDERABLE S Performing Organization Address [facility] Co de Phone Number [facility] [place] [phone] * EKG 12 Lead (06/10/2016 5:46 PM EST) Ventricular rate 56 BPM MUSE SYSTEM Atrial Rate 56 BPM MUSE SYSTEM P-R Interval 164 ms MUSE SYSTEM QRS Duration 86 ms MUSE SYSTEM Q-T Interval 454 ms MUSE SYSTEM QTC Calculated (Bezet) 438 ms MUSE SYSTEM Calculated P [place] 57 degrees MUSE SYSTEM Calculated R [place] 41 degrees MUSE SYSTEM Calculated T [place] 56 degrees MUSE SYSTEM INTERPRETATION Sinus bradycardia Low voltage QRS Borderline ECG When compared with ECG of 10-JUN-2016 12:21, No significant change was found Confirmed by MD Carl, Connor ([id number]) on 06/11/2016 6:05:02 PM MUSE SYSTEM 06/10/2016 5:46 PM EST 06/11/2016 6:05 PM EST Fidel Barakat MD ECG ORDERABLES Performing Organization Address [facility] Co de Phone Number MUSE SYSTEM * CARDIAC CATHETERIZATION (06/10/2016 5:14 PM EST) Anatomical Region Laterality Modality Other Narrative 06/10/2016 5:43 PM EST ?[facility] ? Cardiac Catheterization/Intervention Report ? Patient Name: Denilson Hunter. ? Procedure Date: 06/10/2016 ? A #: [id number] ? Primary Physician: Riley, Ulisses Peterson ? Case #: [id number] ? File Name: [id number] ? Catheterization Order Number: [id number] ? [facility] ? Final Report [place], [place] ? Patient Name: ? Denilson Hunter ?ID#: ?[id number] ? : ?1960 ? Procedure Date: ? June 10, 2016 ?Case #: ? [id number] ? Room: ? 6 ? Case Physician: ? Ulisses Lni M.D. ? Start: ?14:54 ?Fellow: ? Alyssa Diaz M.D. ? Admission: ??06/09/2016 ? Referring ? Jonathan Miranda M.D. ? Physicians: ?Tracey Mueller M.D. ? Procedures: ?* Coronary Angiography ?* Left Heart Catheterization ?* Coronary Stent Insertion ?* Vascular Closure Device Deployment ?* Access Site Angiography ? History ?Denilson Hunter is a 56 year old man. He has hypertension, a family ?history of coronary artery disease and morbid obesity. The patient has a ?history of smoking and is still smoking. He has untreated ?hypercholesterolemia. The patient has untreated diabetes. He has unstable ?angina, positive troponin and a history of chest pain. The patient is ?also status post a recent non-ST elevation myocardial infarction. Prior ?to the initiation of this procedure, the patient was designated as ASA ?Class III. ? Patient Status at Catheterization: ?The patient presented with: non-STEMI (w/i 7 days). [place] ?Cardiovascular Society angina class was III. This patient was on beta ?blockers prior to the procedure. No stress or imaging studies were ?performed prior to this procedure ? Technique: ?A 6Fr sheath was inserted in the right femoral artery utilizing the ?Seldinger technique. The left coronary artery was injected utilizing a ?5Fr JL 4 catheter. A 5Fr JR 4 catheter was used to inject the right ?coronary artery. Left ventricular pressure was performed with a 5Fr ?Angled pigtail catheter. Coronary stent insertion was performed and the ?equipment utilized will be described in the intervention summary section. ?10,000 units of heparin were administered. A total of 200cc of Omnipaque ?were opened, 135cc of Omnipaque were administered and 65cc of Omnipaque ?were wasted. Radiation: Fluoro time was 11.4 minutes, dose area product ?was 119,782 mGYcm2 and air kerma was 1,829 mGY. ?The patient received the following medications prior to and during the ?procedure: Aspirin (any), Clopidogrel and Unfractionated Heparin (any). ? Hemodynamics: ?Left Heart Pressures ? Resting: ? Syst Diast ? EDP ?a ?v ? m ?Ao 110 ?? 69 ?88 ?LV 127 ? 25 ? Post Contrast: ? Syst Diast ? EDP ?a ?v ? m ?Ao 134 ?? 76 ?100 ?LV 134 ? 21 ? Coronary Angiography: ?Dominance: Right ?Left Main ? There was mild diffuse disease of the entire vessel segment of the ? left main artery. ??The left main was large. ?Left Anterior Descending ? There was moderate diffuse disease of the entire vessel segment of ? the left anterior descending artery (LAD). ??The LAD was large. ? There was mild diffuse disease of the entire vessel segment of the ? first diagonal branch (Diagonal 1) of the LAD. ??The Diagonal 1 was ? large. ??This lesion involved bifurcation. ?Left Circumflex ? There was a 95% long segmental stenosis of the mid segment of the ? left circumflex artery (LCX). ??The LCX was moderate in size. ??This ? lesion involved bifurcation. Distal flow was decreased. ? There was severe diffuse disease of the entire vessel segment of the ? first obtuse marginal branch (OM1) of the LCX. ??The OM1 was small. ? There was an 85% single discrete stenosis of the ostial segment of ? the second obtuse marginal branch (OM2) of the LCX. ??The OM2 was ? small. ??Distal flow was decreased. ?Right Coronary Artery ? There was mild diffuse disease of the entire vessel segment of the ? right coronary artery (RCA). ??The RCA was large. ? Indication for Intervention: ?Coronary intervention was indicated for treatment of a critical lesion ?post a myocardial infarction. Left ventricular Ejection Fraction was ?estimated at 60 percent. The priority for the procedure was Urgent. The ?NCDR indication for the procedure was PCI for high risk Non-STEMI or ?unstable angina. ? Intervention Summary: ?Left Circumflex Artery ? Mid 95% ? Stent insertion was performed on the 95% stenosis in the mid ? segment of the LCX. This was a de shad lesion. According to ? the ACC/AHA classification system, this lesion was a type B2 ? moderate risk lesion. Primary prevention of restenosis was the ? indication for stent insertion. This was the culprit lesion. ? Vessel flow pre intervention was JAYLEEN 3. The lesion involves a ? bifurcation with the OM2. This bifurcation lesion was treated ? with a single stent, side branch jailed and not treated ? technique. ? Stent insertion was accomplished through a 6 Fr. EBU 3.5 ? guide. ??The lesion was predilated with a 2.00mm EUPHORA 15 MM ? balloon with a maximum inflation pressure of 12 atmospheres. ? A premounted 2.25 x 20 mm Promus Premier (LILLIAM) was deployed ? with a maximum inflation pressure of 18 atmospheres. ? The final outcome was defined as successful. There was no ? residual stenosis following this intervention. The final JAYLEEN ? flow was 3. ? Vascular Access: ?Vascular Access Angiogram: ? A selective angiogram at the right femoral artery revealed no ? significant obstructive disease. ?Vascular Access Management: ? A 6 Fr Perclose was deployed at the right femoral artery access ? site. This device was successful. ? Conclusions: ?* Two vessel coronary artery disease (LAD and LCX) ?* Elevated left ventricular end diastolic pressure ?* Successful stent insertion of the mid LCX lesion ?* Drug eluting stent. ? Complications/Events: ?The patient had no complications during these procedures. ? Recommendations: ?Based upon the results of this procedure, it was recommended that the ?patient have a stent inserted. The patient's medical regimen was changed ?as follows: Drug eluting stent implanted in treatment of acute coronary ?syndrome (ACS) or STEMI. Clopidogrel loaded prior to the medical lab technologist. ?Recommend continued dual antiplatelet therapy (DAPT) with low dose ?aspirin (81 mg daily) and clopidogrel 75 mg daily for a minimum 12 ?months. If overt bleeding or high bleeding risk, it may be reasonable to ?stop clopidogrel after 6 months. ??Low dose aspirin to be continued ?indefinitely unless contraindicated. ? Comments: ?Right radial artery cannulated wiht good pulsatile flow but guide wire ?could not be advanced proximally elected to proceed via right femoral ?approach, ?The attending physician was present for the entire procedure. ?Dr. Ulisses Lin M.D. performed the coronary angiography, left heart ?catheterization, stent insertion-coronary, access site angiography and ?vascular closure device. ? Ulisses Lin M.D. ? Electronically Signed by: Ulisses Lin M.D. ? Report Finalized: 06/10/2016 ??17:35 ? Procedure Note Ulisses Lin MD - 06/10/2016 [facility] Cardiac Catheterization/Intervention Report Patient Name: Denilson Hunter Procedure Date: 06/10/2016 A #: [id number] Primary Physician: Ulisses Lin Case #: [id number] File Name: [id number] Catheterization Order Number: [id number] [facility] FinalReport [place], [place] Patient Name: Denilson Hunter ID#:[id number] :1960 Procedure Date: June 10, 2016 Case #: [id number] Room: 6 Case Physician: Ulisses Lin M.D. Start: 14:54 Fellow: Alyssa Diaz M.D. Admission:06/09/2016 Referring Jonathan Miranda M.D. Physicians: Tracey Mueller M.D. Procedures: * Coronary Angiography * Left Heart Catheterization * Coronary Stent Insertion * Vascular Closure Device Deployment * Access Site Angiography History Denilson Hunter is a 56 year old man. He has hypertension, afamily history of coronary artery disease and morbid obesity. The patienthas a history of smoking and is still smoking. He has untreated hypercholesterolemia. The patient has untreated diabetes. He hasunstable angina, positive troponin and a history of chest pain. The patientis also status post a recent non-ST elevation myocardial infarction.Prior to the initiation of this procedure, the patient was designated asASA Class III. Patient Status at Catheterization: The patient presented with: non-STEMI (w/i 7 days). [place] Cardiovascular Society angina class was III. This patient was onbeta blockers prior to the procedure. No stress or imaging studies were performed prior to this procedure Technique: A 6Fr sheath was inserted in the right femoral artery utilizing the Seldinger technique. The left coronary artery was injected utilizinga 5Fr JL 4 catheter. A 5Fr JR 4 catheter was used to inject the right coronary artery. Left ventricular pressure was performed with a 5Fr Angled pigtail catheter. Coronary stent insertion was performed andthe equipment utilized will be described in the intervention summarysection. 10,000 units of heparin were administered. A total of 200cc ofOmnipaque were opened, 135cc of Omnipaque were administered and 65cc ofOmnipaque were wasted. Radiation: Fluoro time was 11.4 minutes, dose areaproduct was 119,782 mGYcm2 and air kerma was 1,829 mGY. The patient received the following medications prior to and duringthe procedure: Aspirin (any), Clopidogrel and Unfractionated Heparin(any). Hemodynamics: Left Heart Pressures Resting: Syst Diast EDP a v m Ao 110 69 88 LV 127 25 Post Contrast: Syst Diast EDP a v m Ao 134 76 100 LV 134 21 Coronary Angiography: Dominance: Right Left Main There was mild diffuse disease of the entire vessel segment ofthe left main artery. The left main was large. Left Anterior Descending There was moderate diffuse disease of the entire vessel segmentof the left anterior descending artery (LAD). The LAD was large. There was mild diffuse disease of the entire vessel segment ofthe first diagonal branch (Diagonal 1) of the LAD. The Diagonal 1was large. This lesion involved bifurcation. Left Circumflex There was a 95% long segmental stenosis of the mid segment ofthe left circumflex artery (LCX). The LCX was moderate in size.This lesion involved bifurcation. Distal flow was decreased. There was severe diffuse disease of the entire vessel segmentof the first obtuse marginal branch (OM1) of the LCX. The OM1 wassmall. There was an 85% single discrete stenosis of the ostial segmentof the second obtuse marginal branch (OM2) of the LCX. The OM2was small. Distal flow was decreased. Right Coronary Artery There was mild diffuse disease of the entire vessel segment ofthe right coronary artery (RCA). The RCA was large. Indication for Intervention: Coronary intervention was indicated for treatment of a criticallesion post a myocardial infarction. Left ventricular Ejection Fraction was estimated at 60 percent. The priority for the procedure was Urgent.The NCDR indication for the procedure was PCI for high risk Non-STEMI or unstable angina. Intervention Summary: Left Circumflex Artery Mid 95% Stent insertion was performed on the 95% stenosis in themid segment of the LCX. This was a de shad lesion. Accordingto the ACC/AHA classification system, this lesion was a typeB2 moderate risk lesion. Primary prevention of restenosiswas the indication for stent insertion. This was the culpritlesion. Vessel flow pre intervention was JAYLEEN 3. The lesioninvolves a bifurcation with the OM2. This bifurcation lesion wastreated with a single stent, side branch jailed and not treated technique. Stent insertion was accomplished through a 6 Fr. EBU 3.5 guide. The lesion was predilated with a 2.00mm [id number] MM balloon with a maximum inflation pressure of 12atmospheres. A premounted 2.25 x 20 mm Promus Premier (LILLIAM) wasdeployed with a maximum inflation pressure of 18 atmospheres. The final outcome was defined as successful. There was no residual stenosis following this intervention. The finalTIMI flow was 3. Vascular Access: Vascular Access Angiogram: A selective angiogram at the right femoral artery revealed no significant obstructive disease. Vascular Access Management: A 6 Fr Perclose was deployed at the right femoral artery access site. This device was successful. Conclusions: * Two vessel coronary artery disease (LAD and LCX) * Elevated left ventricular end diastolic pressure * Successful stent insertion of the mid LCX lesion * Drug eluting stent. Complications/Events: The patient had no complications during these procedures. Recommendations: Based upon the results of this procedure, it was recommended thatthe patient have a stent inserted. The patient's medical regimen waschanged as follows: Drug eluting stent implanted in treatment of acutecoronary syndrome (ACS) or STEMI. Clopidogrel loaded prior to the medical lab technologist. Recommend continued dual antiplatelet therapy (DAPT) with low dose aspirin (81 mg daily) and clopidogrel 75 mg daily for a minimum 12 months. If overt bleeding or high bleeding risk, it may bereasonable to stop clopidogrel after 6 months. Low dose aspirin to be continued indefinitely unless contraindicated. Comments: Right radial artery cannulated wiht good pulsatile flow but guidewire could not be advanced proximally elected to proceed via rightfemoral approach, The attending physician was present for the entire procedure. Dr. Ulisses Lin M.D. performed the coronary angiography, leftheart catheterization, stent insertion-coronary, access site angiography and vascular closure device. Ulisses Lin M.D. Electronically Signed by: Ulisses Lin M.D. Report Finalized: 06/10/2016 17:35 Ulisses Lin MD CARDIAC CATH ORDERAB LES * EKG 12 Lead (06/10/2016 12:21 PM EST) Ventricular rate 60 BPM MUSE SYSTEM Atrial Rate 60 BPM MUSE SYSTEM P-R Interval 164 ms MUSE SYSTEM QRS Duration 88 ms MUSE SYSTEM Q-T Interval 444 ms MUSE SYSTEM QTC Calculated (Bezet) 444 ms MUSE SYSTEM Calculated P [place] 57 degrees MUSE SYSTEM Calculated R [place] 36 degrees MUSE SYSTEM Calculated T [place] 40 degrees MUSE SYSTEM INTERPRETATION Normal sinus rhythm Normal ECG No previous ECGs available Confirmed by MD Carl, Connor ([id number]) on 06/11/2016 6:04:59 PM MUSE SYSTEM 06/10/2016 12:2 1 PM EST 06/11/2016 6:04 PM EST Arjun Espinosa MD ECG ORDERABLES MUSE SYSTEM * Cardiac Enzymes (06/10/2016 10:55 AM EST) Troponin-T <0.03 <=0.03 ng/mL [facility] Comment: 0.03 ng/mL: Represents the 99th percentile upper reference limit for normals. >0.03 ng/mL: Elevated cardiac troponin T level indicative of myocardial damage. Diagnosis of acute, evolving or recent NH requires a typical rise and gradual fall of cTnT with at least ONE of the following: a) Ischemic symptoms b) Development of pathologic Q waves on the ECG c) ECG changes indicative of eschemia (S-T segment elevation/depression) d) Coronary artery intervention Serial bloods should be obtained for testing on admission, at 6 to 9 hrs and again at 12 to 24 hrs if earlier samples are negative and the clinical index of suspicion is high. Reference: [Myocardial infarction redefined? a consensus document of the Joint Society of Cardiology/[place] College of Cardiology Committee for the redefinition of myocardial infarction. ??Journal of the [place] College of [employer]iology 2000; 36: 959-969] Creatine Kinase 40 0 - 200 unit/L [facility] Blood specimen (specimen) 06/10/2016 10:55 AM EST 06/10/2016 11:14 AM EST Narrative Resulting Agency Comment Spec In Lab Fidel Barakat MD CHEMISTRY ORDERABLE S Performing Organization Address City/[facility]/ZIP Co de Phone Number [facility] [place] [address] * (ABNORMAL) APTT (06/10/2016 10:55 AM EST) Partial Thromboplastin Time 86(H) 25 - 35 sec [facility] Comment: The recommended therapeutic range for full dose, unfractionated heparin at [facility] is 80 ? 114 seconds. The use of the anti-Xa (heparin) level rather than the PTT is recommended for monitoring anticoagulation intensity in critically ill patients receiving unfractionated heparin by continuous IV infusion. Blood specimen (specimen) 06/10/2016 10:55 AM EST 06/10/2016 11:14 AM EST Narrative Resulting Agency Comment Spec In Lab Fidel Barakat MD HEMATOLOGY ORDERABL ES Performing Organization Address [facility]/State/ZIP Co de Phone Number [facility] [place] [address] * ECHO COMPLETE W CONTRAST (06/10/2016 8:41 AM EST) EF 62 HEARTLAB SYSTEM Anatomical Region Laterality Modality Other 06/10/2016 Narrative 06/10/2016 9:02 AM EST Procedure: ?Transthoracic Echocardiogram Patient: ?DALE OREILLY E ?(Age): 1960(56y) Med Rec#: ? [id number] ?Sex: ?M ? Site Loc: ? [facility] ?Ht / Wt: ??175(cm)/150(kg) Pt. Loc: ?Adult Floor ? BSA: ?2.56 Study Date: ?? 06/10/2016 ?Pt. Type: Inpatient Tape: ? Referring: Jonathan Miranda Referring: Arjun Espinosa ([id number]) Reading: Jonathan Colón ([id number]) Leather Staker: Debra Thomas Diagnosis: *ICD-10-PCS Non-ST elevation (NSTEMI) myocardial infarction (I21.4) CPT Codes: *Echo Full (32253) *Spectral Doppler (44779) *Color Doppler (77491) *Optison (67660UP) BP: ? 127/80 SUMMARY: 1. Technically difficult study. ??Optison contrast (one 3 ml vial) was used to enhance endocardial definition. 2. There is normal global left ventricular systolic function. ??The quantitative left ventricular ejection fraction by biplane Berg's method is 62%. ??There are no left ventricular segmental wall motion abnormalities. 3. The right ventricle is probably normal in size. ??Right ventricular global systolic function is normal. 4. Valvular structures were poorly visualized. ??There is no Doppler evidence of hemodynamically significant valvular disease. 5. See remainder of report for additional findings. Findings ? : Study Quality: ? Technically limited Left Ventricle: ? The left ventricular chamber size is normal. ?Left ventricular wall thickness is normal. ?There is no evidence of LVOT obstruction. ?There is normal global left ventricular systolic function. ?The quantitative left ventricular ejection fraction by biplane Berg's method is 62%. ?There are no left ventricular segmental wall motion abnormalities. ?Doppler assessment is consistent with normal left sided filling pressure. Left Atrium: ? The left atrium is normal in size. 34 ml/m2 by volume index. Right Ventricle: ? The right ventricle is probably normal in size. ?Right ventricular global systolic function is normal. ?The estimated pulmonary artery systolic pressure is 26 mmHg. + RAP. Right Atrium: ? The right atrium appears normal. Aortic Valve: ? The aortic valve is not well visualized. ?The aortic valve is probably tricuspid. ?There is no evidence of aortic valve stenosis. ?There is no evidence of aortic regurgitation. Mitral Valve: ? The mitral valve is not well visualized. ?The mitral valve is probably normal. ?There is trace mitral regurgitation present. Tricuspid Valve: ? The tricuspid valve is not well visualized. ?There is trace tricuspid regurgitation present. Pulmonic Valve: ? The pulmonic valve is not well visualized. Pericardium: ? The pericardium appears normal and there is no evidence of a pericardial effusion. Aorta: ? The aortic root was not well visualized. ?The ascending aorta was not well visualized. Pulmonary Artery: ? The main pulmonary artery is not well visualized. Venous: ? The inferior vena cava is poorly visualized. Misc: ? Technically difficult study. ?See remainder of report for additional findings. ?Two-dimensional echo, spectral Doppler and color Doppler performed. ?Optison contrast (one 3 ml vial) was used to enhance endocardial definition. Excess contrast was discarded. Chambers 2D ?Value ?Units (Range) ? IVSd (2D) ? 0.9 ?cm ? LVPWd (2D) ?1.1 ?cm ? IVS:LVPW ratio (2D) 0.9 ?ratio ? LVIDd (2D) ?5.2 ?cm ? LVIDs (2D) ?3.8 ?cm ? LVIDd (2D) index ?2 ?cm/m2 ? LVIDs (2D) index ?1.5 ?cm/m2 ? LV FS (2D) ?28 ? % ? EF Teichholz (2D) ?? 54 ? % ? Volumes/Mass ?Value ?Units (Range) ? LA Area 4 CH ?24 ? cm2 (<21) ? LA ESV BP (A/L) inde34.3 ? ml/m2 ? RA AREA 4CH ? 14 ? cm2 ? LA ESV SP 4CH (MOD) 77.8 ? ml ? LA ESV SP 2CH (MOD) 83.5 ? ml ? LV ESV SP 4CH (MOD) 42.9 ? ml ? LV ESV SP 2CH (MOD) 53.5 ? ml ? LV EDV BP ? 128.4 ?ml ? LV ESV BP ? 48.7 ? ml ? BP EF (MOD) ? 62 ? % ? LV mass (2D) ?194.4 ?g ? LV mass (2D) index ??75.9 ? g/m2 ? Diastolic/Systolic Function ?Value ?Units (Range) ? MV E-wave Vmax ?0.8 ?m/sec ? MV deceleration ggfx882.6 ?msec ? MV A-wave Vmax ?0.5 ?m/sec ? MV E:A ratio ?1.8 ?ratio ? LV septal e' Vmax ?? 0.1 ?m/sec ? LV lateral e' Vmax ??0.1 ?m/sec ? LV average e' Vmax ??0.1 ?m/sec ? LV E:e' septal ratio7.1 ?ratio ? LV E:e' lateral rati7.7 ?ratio ? LV average E:e' rati7.1 ?ratio ? Tricuspid Valve ?Value ?Units (Range) ? TR Vmax ? 2.5 ?m/sec ? TR peak gradient ?25.5 ? mmHg ? RVSP ?26 ? mmHg ? Measurement Trending Name ? 06/10/2016 ? LV EDV BP ?128.36 LVIDd (2D) ? 5.22 LV ESV BP ?48.71 LVIDs (2D) ? 3.76 Wall Motion: Segment Name ?Rest ? Base-Anteroseptal ?? Normal ? Base-Anterior ? Normal ? Base-Anterolateral ??Normal ? Base-Posterolateral Normal ? Base-Inferior ? Normal ? Base-Inferoseptal ?? Normal ? Mid-Anteroseptal ?Normal ? Mid-Anterior ?Normal ? Mid-Anterolateral ?? Normal ? Mid-Posterolateral ??Normal ? Mid-Inferior ?Normal ? Mid-Inferoseptal ?Normal ? [place]-Septal ? Normal ? [place]-Anterior ? Normal ? [place]-Lateral ?Normal ? [place]-Inferior ? Normal ? [place]-Tip ?Normal ? This report has been electronically signed by: Jonathan Colón M.D. ? 06/10/2016 09:02:12 Images reviewed and interpretation verified [facility] Cardiac Ultrasound Laboratory Procedure Note Jonathan Colón MD - 06/10/2016 Procedure: Transthoracic Echocardiogram Patient: DALE Lagos DOB(Age): 1960(56y) Med Rec#: [id number] Sex: M Site Loc: [facility] Ht / Wt: 175(cm)/150(kg) Pt. Loc: Adult Floor BSA: 2.56 Study Date: 06/10/2016 Pt. Type: Inpatient Tape: Referring: Jonathan Miranda Referring: Arjun Espinosa ([id number]) Reading: Jonathan Colón ([id number]) Leather Staker: Debra Thomas Diagnosis: *ICD-10-PCS Non-ST elevation (NSTEMI) myocardial infarction (I21.4) CPT Codes: *Echo Full (52089) *Spectral Doppler (52155) *Color Doppler (27009) *Optison (98138SU) BP: 127/80 SUMMARY: 1. Technically difficult study. Optison contrast (one 3 ml vial) was used to enhance endocardial definition. 2. There is normal global left ventricular systolic function. The quantitative left ventricular ejection fraction by biplane Berg's method is 62%. There are no left ventricular segmental wall motion abnormalities. 3. The right ventricle is probably normal in size. Right ventricular global systolic function is normal. 4. Valvular structures were poorly visualized. There is no Doppler evidence of hemodynamically significant valvular disease. 5. See remainder of report for additional findings. Findings : Study Quality: Technically limited Left Ventricle: The left ventricular chamber size is normal. Left ventricular wall thickness is normal. There is no evidence of LVOT obstruction. There is normal global left ventricular systolic function. The quantitative left ventricular ejection fraction by biplane Berg's method is 62%. There are no left ventricular segmental wall motion abnormalities. Doppler assessment is consistent with normal left sided filling pressure. Left Atrium: The left atrium is normal in size. 34 ml/m2 by volume index. Right Ventricle: The right ventricle is probably normal in size. Right ventricular global systolic function is normal. The estimated pulmonary artery systolic pressure is 26 mmHg. + RAP. Right Atrium: The right atrium appears normal. Aortic Valve: The aortic valve is not well visualized. The aortic valve is probably tricuspid. There is no evidence of aortic valve stenosis. There is no evidence of aortic regurgitation. Mitral Valve: The mitral valve is not well visualized. The mitral valve is probably normal. There is trace mitral regurgitation present. Tricuspid Valve: The tricuspid valve is not well visualized. There is trace tricuspid regurgitation present. Pulmonic Valve: The pulmonic valve is not well visualized. Pericardium: The pericardium appears normal and there is no evidence of a pericardial effusion. Aorta: The aortic root was not well visualized. The ascending aorta was not well visualized. Pulmonary Artery: The main pulmonary artery is not well visualized. Venous: The inferior vena cava is poorly visualized. Misc: Technically difficult study. See remainder of report for additional findings. Two-dimensional echo, spectral Doppler and color Doppler performed. Optison contrast (one 3 ml vial) was used to enhance endocardial definition. Excess contrast was discarded. Chambers 2D Value Units (Range) IVSd (2D) 0.9 cm LVPWd (2D) 1.1 cm IVS:LVPW ratio (2D) 0.9 ratio LVIDd (2D) 5.2 cm LVIDs (2D) 3.8 cm LVIDd (2D) index 2 cm/m2 LVIDs (2D) index 1.5 cm/m2 LV FS (2D) 28 % EF Teichholz (2D) 54 % Volumes/Mass Value Units (Range) LA Area 4 CH 24 cm2 (<21) LA ESV BP (A/L) inde34.3 ml/m2 RA AREA 4CH 14 cm2 LA ESV SP 4CH (MOD) 77.8 ml LA ESV SP 2CH (MOD) 83.5 ml LV ESV SP 4CH (MOD) 42.9 ml LV ESV SP 2CH (MOD) 53.5 ml LV EDV BP 128.4 ml LV ESV BP 48.7 ml BP EF (MOD) 62 % LV mass (2D) 194.4 g LV mass (2D) index 75.9 g/m2 Diastolic/Systolic Function Value Units (Range) MV E-wave Vmax 0.8 m/sec MV deceleration clwq000.6 msec MV A-wave Vmax 0.5 m/sec MV E:A ratio 1.8 ratio LV septal e' Vmax 0.1 m/sec LV lateral e' Vmax 0.1 m/sec LV average e' Vmax 0.1 m/sec LV E:e' septal ratio7.1 ratio LV E:e' lateral rati7.7 ratio LV average E:e' rati7.1 ratio Tricuspid Valve Value Units (Range) TR Vmax 2.5 m/sec TR peak gradient 25.5 mmHg RVSP 26 mmHg Measurement Trending Name 06/10/2016 LV EDV BP 128.36 LVIDd (2D) 5.22 LV ESV BP 48.71 LVIDs (2D) 3.76 Wall Motion: Segment Name Rest Base-Anteroseptal Normal Base-Anterior Normal Base-Anterolateral Normal Base-Posterolateral Normal Base-Inferior Normal Base-Inferoseptal Normal Mid-Anteroseptal Normal Mid-Anterior Normal Mid-Anterolateral Normal Mid-Posterolateral Normal Mid-Inferior Normal Mid-Inferoseptal Normal [place]-Septal Normal [place]-Anterior Normal [place]-Lateral Normal [place]-Inferior Normal [place]-Tip Normal This report has been electronically signed by: Jonathan Colón M.D. 06/10/2016 09:02:12 Images reviewed and interpretation verified [facility] Cardiac Ultrasound Laboratory Arjun Espinosa MD ECHO ORDERABLES * Cardiac Enzymes (06/10/2016 6:07 AM EST) Troponin-T <0.03 <=0.03 ng/mL [facility] Comment: 0.03 ng/mL: Represents the 99th percentile upper reference limit for normals. >0.03 ng/mL: Elevated cardiac troponin T level indicative of myocardial damage. Diagnosis of acute, evolving or recent NH requires a typical rise and gradual fall of cTnT with at least ONE of the following: a) Ischemic symptoms b) Development of pathologic Q waves on the ECG c) ECG changes indicative of eschemia (S-T segment elevation/depression) d) Coronary artery intervention Serial bloods should be obtained for testing on admission, at 6 to 9 hrs and again at 12 to 24 hrs if earlier samples are negative and the clinical index of suspicion is high. Reference: [Myocardial infarction redefined? a consensus document of the Joint Society of Cardiology/[place] [employer] Committee for the redefinition of myocardial infarction. ??Journal of the [place] College [employer]iology 2000; 36: 959-969] Creatine Kinase 43 0 - 200 unit/L [facility] Blood specimen (specimen) 06/10/2016 6:07 AM EST 06/10/2016 6:14 AM EST Narrative Resulting Agency Comment Spec In Lab Fidel Barakat MD CHEMISTRY ORDERABLE S Performing Organization Address City/[facility] Co de Phone Number [facility] [place] [address] * Differential, Automated (06/10/2016 3:00 AM EST) Neutrophil % 57.5 % [facility] Neutrophil Absolute 3.87 1.70 - 6.10 x10(3)/[facility] Lymph % 31.1 % [facility] Lymphocytes Abs 2.1 0.9 - 3.2 x10(3)/[facility] Monocyte % 8.3 % [facility] Monocyte Abs 0.6 0.3 - 0.9 x10(3)/[facility] Eos % 2.4 % [facility] Eosinophils Abs 0.2 0.0 - 0.4 x10(3)/[facility] Basophil % 0.4 % [facility] Baso Absolute 0.0 0.0 - 0.1 x10(3)/[facility] Immature Gran % 0.30 % [facility] Comment: Immature granulocytes(IG's)percentage and absolute count will include metamyelocytes, myelocytes, and promyelocytes. Blood smears from CBCs yielding IG's will be scanned manually for concordance. If this scan disagrees with the automated IG or if promyelocytes are noted, a manual differential will be performed. Immature Gran Absolute 0.02 0.00 - 0.04 x10(3)/[facility] Blood specimen (specimen) 06/10/2016 3:00 AM EST 06/10/2016 3:17 AM EST Narrative Resulting Agency Comment Spec In Lab Fidel Barakat MD HEMATOLOGY ORDERABL ES [facility] [place] [address] * Hemogram (06/10/2016 3:00 AM EST) [facility] White Blood Cell 6.7 4.0 - 9.5 x10(3)/[facility] Red Blood Cell 4.93 4.58 - 5.54 x10(6)/[facility] Hemoglobin 15.3 13.7 - 16.5 gm/dL [facility] Hematocrit 42.8 40.5 - 48.5 % [facility] Mean Cell Volume 86.8 82.9 - 93.1 fL [facility] Mean Cell Hemoglobin 31.0 27.5 - 32.1 pg [facility] Mean Cell Hemoglobin Concentration 35.7 32.0 - 35.7 gm/dL [facility] Platelet 151 145 - 357 x10(3)/[facility] RDW Standard Deviation 39.4 36.0 - 45.0 [facility] RDW coefficient of variation 12.5 11.4 - 13.8 % [facility] Mean Platelet Volume 10.9 7.6 - 12.9 [facility] NRBC% auto 0.0 % [facility] NRBC Absolute 0.000 0.000 - 0.000 x10(3)/[facility] Blood specimen (specimen) 06/10/2016 3:00 AM EST 06/10/2016 3:17 AM EST Narrative Resulting Agency Comment Spec In Lab Fidel Barakat MD HEMATOLOGY ORDERABL ES [facility] [place] [address] * Basic Metabolic Panel (non-fasting) (06/10/2016 3:00 AM EST) Pathologist [facility] Glucose 108 65 - 199 mg/dL [facility] Comment:Diabetes: >=200 mg/d L plus symptoms Blood Urea Nitrogen 14 10 - 20 mg/dL [facility] Creatinine 0.92 0.80 - 1.50 mg/dL [facility] Comment: Please note that the pediatric reference intervals supplied above were not validated at [facility]. Results from pediatric patients should be interpreted in conjunction to the patient's age, height and muscle mass. Sodium 140 135 - 145 mmol/L [facility] Potassium 3.8 3.5 - 5.0 mmol/L [facility] Comment: Please note: ??Patients with WBC >100,000 may have falsely elevated Potassium levels. ??For accurate Potassium quantification in these patients send serum separator tube (gold top) for subsequent determinations. ??Contact the Clinical Chemistry Laboratory if there are any questions. Chloride 102 98 - 107 mmol/L [facility] Carbon Dioxide 23 22 - 31 mmol/L [facility] Anion Gap 15 5 - 15 mmol/L [facility] Calcium 8.8 8.5 - 10.5 mg/dL [facility] Est Glomerular Filtration Rate >60 >=60 [facility] Comment: This estimated GFR (eGFR) value [...] the following links into your internet browser. [email or web address] Blood specimen (specimen) 06/10/2016 3:00 AM EST 06/10/2016 3:17 AM EST Narrative Resulting Agency Comment Spec In Lab Fidel Barakat MD CHEMISTRY ORDERABLE S [facility] [place] [address] * (ABNORMAL) APTT (06/10/2016 3:00 AM EST) Partial Thromboplastin Time 102(H) 25 - 35 sec [facility] Comment: The recommended therapeutic range for full dose, unfractionated heparin at [facility] is 80 ? 114 seconds. The use of the anti-Xa (heparin) level rather than the PTT is recommended for monitoring anticoagulation intensity in critically ill patients receiving unfractionated heparin by continuous IV infusion. Blood specimen (specimen) 06/10/2016 3:00 AM EST 06/10/2016 3:17 AM EST Narrative Resulting Agency Comment Spec In Lab Fidel Barakat MD HEMATOLOGY ORDERABL ES Performing Organization Address City/[facility]/ZIP Co de Phone Number [facility] [place] [address] * T4, free (06/10/2016 3:00 AM EST) Free T4 1.42 0.93 - 1.70 ng/dL [facility] Blood specimen (specimen) 06/10/2016 3:00 AM EST 06/10/2016 3:17 AM EST Narrative Resulting Agency Comment Spec In Lab Fidel Barakat MD CHEMISTRY ORDERABLE S Performing Organization Address [facility]/ZIP Co de Phone Number [facility] [place] [address] * TSH (06/10/2016 3:00 AM EST) Thyroid Stimulating Hormone 1.82 0.27 - 4.20 mcIU/mL [facility] Blood specimen (specimen) 06/10/2016 3:00 AM EST 06/10/2016 3:17 AM EST Narrative Resulting Agency Comment Spec In Lab Fidel Barakat MD CHEMISTRY ORDERABLE S Performing Organization Address [facility]/ZIP Co de Phone Number [facility] [place] [address] * (ABNORMAL) Lipid panel (fasting) (06/10/2016 3:00 AM EST) [facility] Signature Cholesterol, Total 181 <=199 mg/dL [facility] Comment: Recommendations of the NCEP Adult Treatment Panel for the following risk cutoff thresholds for the [place] population: Desirable: <200 mg/dL Borderline High: 200-239 mg/dL High: > or = 240 mg/dL Triglyceride 291(H) <=149 mg/dL [facility] Comment: Reference Range: Normal triglycerides: ??<150 mg/dL Borderline high: ??150-199 mg/dL High: ??200-499 mg/dL Very high: ??>sb=531 mg/dL AKASH 2001; 285(19):0893-0607 HDL Cholesterol 35(L) >=40 mg/dL [facility] Comment: Reference range: ??Low HDL: ?? < 40 mg/dL ??Normal: ?40-60 mg/dL ??Desirable: > 60 mg/dL AKASH 2001; 285(19):1923-3281 LDL Cholesterol 88 <=99 mg/dL [facility] Comment: Reference range: ?? Optimal: ?<100 mg/dL ?? Near Optimal/Above Optimal: ?? 100-129 mg/dL ?? Borderline high: ?130-159 mg/dL ?? High: ? 160-189 mg/dL ?? Very high: ?>si=218 mg/dL AKASH 2001: 285(19):0635-5967 Cholesterol/HDL Ratio 5.2 ratio [facility] Comment: A Cholesterol to HDL ratio below 4:1 is desirable. ??Studies suggest that increased CAD risk occurs at ratios above 5 for females and above 6 for men. ? [place] [employer] Association ??(http://www.americanheart.org) ? Dominique Int Med, 1994; 121:641 ? AM J Med, 1998; 105(1A):48S Blood specimen (specimen) 06/10/2016 3:00 AM EST 06/10/2016 3:17 AM EST Narrative Resulting Agency Comment Spec In Lab Fidel Barakat MD CHEMISTRY ORDERABLE S Performing Organization Address [facility] Co de Phone Number [facility] [place] [address] * Cardiac Enzymes (06/09/2016 11:41 PM EST) Pathologist [facility] Troponin-T <0.03 <=0.03 ng/mL [facility] Comment: 0.03 ng/mL: Represents the 99th percentile upper reference limit for normals. >0.03 ng/mL: Elevated cardiac troponin T level indicative of myocardial damage. Diagnosis of acute, evolving or recent NH requires a typical rise and gradual fall of cTnT with at least ONE of the following: a) Ischemic symptoms b) Development of pathologic Q waves on the ECG c) ECG changes indicative of eschemia (S-T segment elevation/depression) d) Coronary artery intervention Serial bloods should be obtained for testing on admission, at 6 to 9 hrs and again at 12 to 24 hrs if earlier samples are negative and the clinical index of suspicion is high. Reference: [Myocardial infarction redefined? a consensus document of the Joint Society of Cardiology/[place] [employer]iology Committee for the redefinition of myocardial infarction. ??Journal of the [place] College of Cardiology 2000; 36: 959-969] Creatine Kinase 49 0 - 200 unit/L [facility] Blood specimen (specimen) 06/09/2016 11:41 PM EST 06/09/2016 11:50 PM EST Narrative Resulting Agency Comment Spec In Lab Fidel Barakat MD CHEMISTRY ORDERABLE S Performing Organization Address [facility] Co de Phone Number [facility] [place] [address] * (ABNORMAL) APTT (06/09/2016 8:13 PM EST) Partial Thromboplastin Time 39(H) 25 - 35 sec [facility] Comment: The recommended therapeutic range for full dose, unfractionated heparin at [facility] is 80 ? 114 seconds. The use of the anti-Xa (heparin) level rather than the PTT is recommended for monitoring anticoagulation intensity in critically ill patients receiving unfractionated heparin by continuous IV infusion. Blood specimen (specimen) 06/09/2016 8:13 PM EST 06/09/2016 8:28 PM EST Narrative Resulting Agency Comment Spec In Lab Fidel Barakat MD HEMATOLOGY ORDERABL ES [facility] [place] [address] * (ABNORMAL) Hemoglobin A1c (06/09/2016 8:13 PM EST) Hemoglobin A1c 5.8(H) 4.3 - 5.6 % [facility] Comment: Reference Range: 4.3 - 5.6% 5.7 - 6.4% - Increased Risk of Developing Diabetes Mellitus >= 6.5% - Consistent with diagnosis of Diabetes Mellitus In the absence of hyperglycemia (i.e. plasma glucose > 200 mg/dL) or classic symptoms of hyperglycemia a repeat measurement of HbA1c should be performed on a separate sample to confirm the diagnosis. Diagnosis and Classification of Diabetes Mellitus, Diabetes Care 2013; 36: Suppl. 1, S67-72 Estimated Average Glucose 120 mg/dL [facility] Comment: eAG equivalents for HbA1c percentages: HbA1c(%) ?eAG(mg/dL) 6.0 ?126 6.5 ?140 7.0 ?154 7.5 ?169 8.0 ?183 8.5 ?197 9.0 ?212 9.5 ?226 10.0 ? 240 Limitations: The eAG calculation has not been validated on women, individuals below 18 years old and above 70 years old, and individuals with hemoglobinopathies. Additional resources are available on the ADA website: http://[email or web address] Tutu MILLS, Melany J, Pravin R, et al. ??Translating the A1C assay into estimated average glucose values. ??Diabetes Care 2008:31(8):1396-3393. Blood specimen (specimen) 06/09/2016 8:13 PM EST 06/09/2016 8:28 PM EST Narrative Resulting Agency Comment Spec In Lab Fidel Barakat MD CHEMISTRY ORDERABLE S Performing Organization Address City/State/[facility] Co de Phone Number [facility] [place] [address] documented in this encounter Visit Diagnoses Diagnosis Non-ST elevation myocardial infarction (NSTEMI) Acute myocardial infarction, subendocardial infarction, episode of care unspecified NSTEMI (non-ST elevated myocardial infarction) Acute myocardial infarction, subendocardial infarction, episode of care unspecified NSTEMI (non-ST elevated myocardial infarction) Acute myocardial infarction, subendocardial infarction, episode of care unspecified documented in this encounter Admitting Diagnoses Diagnosis NSTEMI (non-ST elevated myocardial infarction) Acute myocardial infarction, subendocardial infarction, episode of care unspecified documented in this encounter Administered Medications Inactive Administered Medications - up to 3 most recent administrations Medication Order MAR Action Action Date Dose Rate Site acetaminophen (TYLENOL) tablet 650 mg 650 mg, Oral, EVERY 4 HOURS PRN, Starting on Thu06/10/16 at 2103, Until Thu06/11/16 at 1814, Pain, Maximum dose of acetaminophen is 4000 mg from all sources in 24 hours., Routine Given 06/11/2016 3:55 AM EST 650 mg Given 06/10/2016 9:23 PM EST 650 mg aspirin chewable tablet 81 mg 81 mg, Oral, DAILY, First dose on Thu06/10/16 at 0900, Until Discontinued, Routine Given 06/11/2016 10: 18 AM EST 81 mg Given 06/10/2016 9:06 AM EST 81 mg atorvastatin (LIPITOR) tablet 40 mg 40 mg, Oral, EVERY EVENING, First dose on Thu06/09/16 at 1900, Until Discontinued, Routine Given 06/09/2016 6:50 PM EST 40 mg buPROPion (WELLBUTRIN XL) XL tablet 300 mg 300 mg, Oral, DAILY, First dose on Thu06/09/16 at 2030, Until Discontinued, DO NOT CRUSH OR OPEN, Routine Given 06/11/2016 10:19 AM EST 300 mg Given 06/10/2016 11:20 AM EST 300 mg clopidogrel (PLAVIX) tablet 75 mg 75 mg, Oral, DAILY, First dose on Thu06/10/16 at 0900, Until Discontinued, Routine Given 06/11/2016 10: 46 AM EST 75 mg Given 06/10/2016 9:09 AM EST 75 mg diaZEPam (VALIUM) tablet 5 mg 5 mg, Oral, ONCE, 1 dose, On Thu06/10/16 at 1445, Cath (Day of Procedure), Routine Given 06/10/2016 2:25 PM EST 5 mg diphenhydrAMINE (BENADRYL) capsule 25 mg 25 mg, Oral, ONCE, 1 dose, On Thu06/10/16 at 1445, Cath (Day of Procedure), Routine Given 06/10/2016 2:25 PM EST 25 mg furosemide (LASIX) injection 40 mg 40 mg, Intravenous, ONCE, 1 dose, On Thu06/10/16 at 2100, Routine Given 06/10/2016 9:26 PM EST 40 mg furosemide (LASIX) injection 40 mg 40 mg, Intravenous, ONCE, 1 dose, On Thu06/11/16 at 0800, Routine Given 06/11/2016 10:18 AM EST 40 mg heparin (porcine) 25,000 unit/500 mL (50 unit/mL) infusion 1 dose, Starting on Thu06/09/16 at 1631, Until Thu06/09/16 at 1812, DEON DUTTON: cabinet override heparin (porcine) injection 0-8,000 Units 0-8,000 Units, Intravenous, BOLUS PER HEPARIN PROTOCOL, Starting on Thu06/09/16 at 1858, Until Thu06/11/16 at 1814, Per Protocol, START ADJUSTMENT SCHEDULE 6 HOURS AFTER STARTING INFUSION aPTT Between 60 - 79 seconds: Bolus 4,000 units aPTT Less than 60 seconds: Bolus 8,000 units Increase infusion and recheck aPTT in 6 hours. , Routine Given 06/09/2016 9:22 PM EST 8,000 Units heparin 25,000 units in dextrose 5% 500 mL infusion 0-5,000 Units/hr (0-100 mL/hr), Intravenous, CONTINUOUS, Starting on Thu06/09/16 at 1915, Until Thu06/11/16 at 1814, Begin infusion at 1,750 units per hr (15 units/kg/hr). MAX INITIAL infusion rate is 1,750 units/hr Target aPTT = 80 - 114 seconds Start adjustment schedule 6 hours after starting infusion. If aPTT is: - Less than 60 seconds, administer PRN bolus and increase rate by 450 units per hr (4 units/kg/hr) - 60-79 seconds, administer PRN bolus AND increase rate by 250 units per hr (2 units/kg/hr) - 80-114 seconds, no change - 115-129 seconds, decrease rate by 100 units per hr (1 unit/kg/hr) - 130-145 seconds, stop infusion for 30 minutes then decrease rate by 250 units per hr (2 units/kg/hr) - Greater than 145 seconds, stop infusion for 60 minutes then decrease rate by 350 units per hour (3 units/kg/hr) Repeat aPTT 6 hours after initiating heparin. Then 6 hours after each dose adjustment. When 2 consecutive aPTT within target range of 80 - 114 seconds, change aPTT to once every 24 hours with A.M. labs while on heparin. RN to order required aPTT - Per Protocol, Routine, Indication: ACS (STEMI vs NSTEMI vs UA) Rate/Dose Verify 06/10/2016 12:00 PM EST 1,750 Units/hr 35 mL/hr New Bag 06/10/2016 6:47 AM EST 1,750 Units/hr 35 mL/hr Rate/Dose Verify 06/10/2016 3:40 AM EST 1,750 Units/hr 35 mL/hr losartan (COZAAR) tablet 50 mg 50 mg, Oral, DAILY, First dose on Thu06/11/16 at 1100, Until Discontinued, Routine Given 06/11/2016 10:19 AM EST 50 mg meTOPROLOL (LOPRESSOR) tablet 12.5 mg 12.5 mg, Oral, EVERY 12 HOURS SCHEDULED (2 times per day), First dose on Thu06/09/16 at 2100, Until Discontinued, Hold for BP < 90/60, HR <50, Routine Given 06/11/2016 10:32 AM EST 12.5 mg Given 06/10/2016 9:22 PM EST 12.5 mg Given 06/10/2016 9:11 AM EST 12.5 mg nicotine (NICODERM CQ) 14 mg/24 hr patch 14 mg 14 mg, Transdermal, Administer over 24 Hours, DAILY, First dose on Thu06/10/16 at 1300, Until Discontinued, Routine Given 06/11/2016 10:21 AM EST 14 mg 06- Back Upper (Righ t) Given 06/10/2016 2:14 PM EST 14 mg 10 - Arm Upper (Right) nicotine (NICODERM CQ) 14 mg/24 hr patch Patch Removal Transdermal, DAILY, First dose on Thu06/11/16 at 0900, Until Discontinued, Remove nicotine 14 mg/24 hr patch nicotine (NICODERM CQ) 14 mg/24 hr patch Patch Verification Transdermal, 2 TIMES DAILY, First dose on Thu06/11/16 at 0000, Until Discontinued, Verify nicotine 14 mg/24 hr patch. nicotine polacrilex (COMMIT) lozenge 4 mg 4 mg, Buccal, EVERY 2 HOURS PRN, Starting on Thu06/09/16 at 1928, Until Thu06/11/16 at 1814, Smoking cessation, Do not chew or swallow. Place in mouth and allow to slowly dissolve., Routine Given 06/11/2016 10:40 AM EST 4 mg Given 06/10/2016 9:13 AM EST 4 mg pantoprazole (PROTONIX) tablet 40 mg 40 mg, Oral, DAILY, First dose on Thu06/09/16 at 2015, Until Discontinued, DO NOT CRUSH OR OPEN Given 06/11/2016 10:18 AM EST 40 mg Given 06/10/2016 9:14 AM EST 40 mg Given 06/09/2016 8:40 PM EST 40 mg perflutren protein-A microspheres (OPTISON) 0.22 mg/mL injection 1.2 mL 1.2 mL, Intravenous, ONCE PRN, 1 dose, Starting on Thu06/10/16 at 0841, Until Thu06/10/16 at 0815, Per Protocol, Routine Given 06/10/2016 8:15 AM EST 1.2 mLs potassium chloride (K-DUR/KLOR-CON) extended release tablet 40 mEq 40 mEq, Oral, ONCE, 1 dose, On Thu06/11/16 at 1100, 20 mEq tablet may be dissolved in water for administration, Routine Given 06/11/2016 10:45 AM EST 40 mEq sodium chloride 0.9 % flush 5 mL 5 mL, Intravenous, 2 TIMES DAILY, First dose on Thu06/09/16 at 2100, Until Discontinued, Routine Given 06/11/2016 10:19 AM EST 10 mLs Given 06/10/2016 9:27 PM EST 5 mLs Given 06/10/2016 9:15 AM EST 5 mLs sodium chloride 0.9% infusion 100 mL/hr, Intravenous, CONTINUOUS, Starting on Thu06/09/16 at 1815, Until Thu06/10/16 at 1716, Cath (Day of Procedure) Rate/Dose Verify 06/10/2016 9:28 AM EST 100 mL/hr 100 mL/hr New Bag 06/10/2016 7:30 AM EST 100 mL/hr 100 mL/hr sodium chloride 0.9% infusion 100 mL/hr, Intravenous, CONTINUOUS, Starting on Thu06/10/16 at 1745, Until Thu06/11/16 at 1814, Recovery (Recovery-Hospital Unit) New Bag 06/10/2016 5:35 PM EST 100 mL/hr 100 mL /hr documented in this encounter Active and Recently Administered Medications Times are shown in EST. Scheduled Medication Order 06/09/2016 06/10/2016 06/11/2016 aspirin chewable tablet 81 mg 81 mg, Oral, DAILY, First dose on Thu06/10/16 at 0900, Until Discontinued, Routine 0906 (Given - Provider: Ree Jacob RN)1435 (SEP Hold - Provider: Admin Adt - Reason: Transfer to a Procedural area)1813 (SEP Unhold - Provider: Admin Adt) 1018 (Given - Provider: Iram Mendoza RN) atorvastatin (LIPITOR) tablet 40 mg 40 mg, Oral, EVERY EVENING, First dose on Thu06/09/16 at 1900, Until Discontinued, Routine 1850 (Given - Provider: Ree Jacob RN) 1435 (SEP Hold - Provider: Admin Adt - Reason: Transfer to a Procedural area)1700 (Automatically Held - Provider: Admin Adt)1813 (MAR Unhold - Provider: Admin Adt) buPROPion (WELLBUTRIN XL) XL tablet 300 mg 300 mg, Oral, DAILY, First dose on Thu06/09/16 at 2030, Until Discontinued, DO NOT CRUSH OR OPEN, Routine 2030 (Not Given - Provider: Landon Gonzalez RN - Reason: See comment - Comment: Pt states he got that this morning at other hospital) 1120 (Given - Provider: Ree Jacob RN)1435 (SEP Hold - Provider: Admin Adt - Reason: Transfer to a Procedural area)1813 (MAR Unhold - Provider: Admin Adt) 1019 (Given - Provider: Iram Mendoza RN) clopidogrel (PLAVIX) tablet 75 mg 75 mg, Oral, DAILY, First dose on Thu06/10/16 at 0900, Until Discontinued, Routine 0909 (Given - Provider: Ree Jacob RN)1435 (MAR Hold - Provider: Admin Adt - Reason: Transfer to a Procedural area)1813 (MAR Unhold - Provider: Admin Adt) 1046 (Given - Provider: Iram Mendoza RN) diaZEPam (VALIUM) tablet 5 mg (COMPLETED) 5 mg, Oral, ONCE, 1 dose, On Thu06/10/16 at 1445, Cath (Day of Procedure), Routine 1425 (Given - Provider: Ree Jacob RN) diphenhydrAMINE (BENADRYL) capsule 25 mg (COMPLETED) 25 mg, Oral, ONCE, 1 dose, On Thu06/10/16 at 1445, Cath (Day of Procedure), Routine 1425 (Given - Provider: Ree Jacob RN) furosemide (LASIX) injection 40 mg (COMPLETED) 40 mg, Intravenous, ONCE, 1 dose, On Thu06/10/16 at 2100, Routine 2126 (Given - Provider: Oscar Tejada RN) furosemide (LASIX) injection 40 mg (COMPLETED) 40 mg, Intravenous, ONCE, 1 dose, On Thu06/11/16 at 0800, Routine 1018 (Given - Provider: Iram Mendoza RN) losartan (COZAAR) tablet 50 mg 50 mg, Oral, DAILY, First dose on Thu06/11/16 at 1100, Until Discontinued, Routine 1019 (Given - Provider: Iram Mendoza, RN) meTOPROLOL (LOPRESSOR) tablet 12.5 mg 12.5 mg, Oral, EVERY 12 HOURS SCHEDULED (2 times per day), First dose on Thu06/09/16 at 2100, Until Discontinued, Hold for BP < 90/60, HR <50, Routine 2038 (Given - Provider: Landon Gonzalez RN) 0911 (Given - Provider: Ree Jacob, MERY)1435 (SEP Hold - Provider: Admin Adt - Reason: Transfer to a Procedural area)1812 ([facility] Unhold - Provider: Admin Adt)2121 (Given - Provider: Oscar Tejada RN) 103 (Given - Provider: Iram Mendoza RN) nicotine (NICODERM CQ) 14 mg/24 hr patch 14 mg(Linked Group 1) 14 mg, Transdermal, Administer over 24 Hours, DAILY, First dose on Thu06/10/16 at 1300, Until Discontinued, Routine 1414 (Given - Provider: Ree Jacob RN)1435 ([facility] Hold - Provider: Admin Adt - Reason: Transfer to a Procedural area)181 ([facility] Unhold - Provider: Admin Adt) 1021 (Given - Provider: Iram Mendoza RN) nicotine (NICODERM CQ) 14 mg/24 hr patch Patch Removal(Linked Group 1) Transdermal, DAILY, First dose on Thu06/11/16 at 0900, Until Discontinued, Remove nicotine 14 mg/24 hr patch 1435 ([facility] Hold - Provider: Admin Adt - Reason: Transfer to a Procedural area)1812 ([facility] Unhold - Provider: Admin Adt) 0900 (Patch Removed - Provider: Iram Mendoza RN) nicotine (NICODERM CQ) 14 mg/24 hr patch Patch Verification(Linked Group 1) Transdermal, 2 TIMES DAILY, First dose on Thu06/11/16 at 0000, Until Discontinued, Verify nicotine 14 mg/24 hr patch. 1435 ([facility] Hold - Provider: Admin Adt - Reason: Transfer to a Procedural area)181 ([facility] Unhold - Provider: Admin Adt) 0000 (Patch (dose and location) verified - Provider: Oscar Tejada RN)0900 (Patch (dose and location) verified - Provider: Iram Mendoza, MERY) pantoprazole (PROTONIX) tablet 40 mg 40 mg, Oral, DAILY, First dose on Thu06/09/16 at 2015, Until Discontinued, DO NOT CRUSH OR OPEN 2039 (Given - Provider: Landon Gonzalez, MERY) 0914 (Given - Provider: Ree Jacob, RN)1435 (MAR Hold - Provider: Admin Adt - Reason: Transfer to a Procedural area)181 (MAR Unhold - Provider: Admin Adt) 1018 (Given - Provider: Iram Mendoza, MERY) potassium chloride (K-DUR/KLOR-CON) extended release tablet 40 mEq (COMPLETED) 40 mEq, Oral, ONCE, 1 dose, On Thu06/11/16 at 1100, 20 mEq tablet may be dissolved in water for administration, Routine 104 (Given - Provider: Iram Mendoza, MERY) sodium chloride 0.9 % flush 5 mL 5 mL, Intravenous, 2 TIMES DAILY, First dose on Thu06/09/16 at 2100, Until Discontinued, Routine 2041 (Given - Provider: Landon Gonzalez RN) 0915 (Given - Provider: Ree Jacob, MERY)1435 (MAR Hold - Provider: Admin Adt - Reason: Transfer to a Procedural area)1812 (MAR Unhold - Provider: Admin Adt)2126 (Given - Provider: Oscar Tejada RN) 1019 (Given - Provider: Iram Mendoza RN) Continuous Medication Order 06/09/2016 06/10/2016 06/11/2016 heparin 25,000 units in dextrose 5% 500 mL infusion(Linked Group 2) 0-5,000 Units/hr (0-100 mL/hr), Intravenous, CONTINUOUS, Starting on Thu06/09/16 at 1915, Until Thu06/11/16 at 1814, Begin infusion at 1,750 units per hr (15 units/kg/hr). MAX INITIAL infusion rate is 1,750 units/hr Target aPTT = 80 - 114 seconds Start adjustment schedule 6 hours after starting infusion. If aPTT is: - Less than 60 seconds, administer PRN bolus and increase rate by 450 units per hr (4 units/kg/hr) - 60-79 seconds, administer PRN bolus AND increase rate by 250 units per hr (2 units/kg/hr) - 80-114 seconds, no change - 115-129 seconds, decrease rate by 100 units per hr (1 unit/kg/hr) - 130-145 seconds, stop infusion for 30 minutes then decrease rate by 250 units per hr (2 units/kg/hr) - Greater than 145 seconds, stop infusion for 60 minutes then decrease rate by 350 units per hour (3 units/kg/hr) Repeat aPTT 6 hours after initiating heparin. Then 6 hours after each dose adjustment. When 2 consecutive aPTT within target range of 80 - 114 seconds, change aPTT to once every 24 hours with A.M. labs while on heparin. RN to order required aPTT - Per Protocol, Routine, Indication: ACS (STEMI vs NSTEMI vs UA) 1812 (New Bag - Provider: Ree Jacob RN)1900 (Rate/Dose Verify - Provider: Landon Gonzalez RN - Comment: rate running at 1250- rate from outside hospital)2117 (Rate/Dose Change - Provider: Landon Gonzalez RN - Comment: Per MD [place]- increase rate to 1750.) 0002 (Rate/Dose Verify - Provider: Landon Gonzalez RN)0340 (Rate/Dose Verify - Provider: Landon Gonzalez RN)0647 (New Bag - Provider: Landon Gonzalez RN)1200 (Rate/Dose Verify - Provider: Ree Jacob RN)1435 (SEP Hold - Provider: Admin Adt - Reason: Transfer to a Procedural area)1813 (SEP Unhold - Provider: Admin Adt) sodium chloride 0.9% infusion (CANCELED) 100 mL/hr, Intravenous, CONTINUOUS, Starting on Thu06/09/16 at 1815, Until Thu06/10/16 at 1716, Cath (Day of Procedure) 0730 (New Bag - Provider: Ree Jacob RN - Comment: to change order)0928 (Rate/Dose Verify - Provider: Ree Jacob RN) sodium chloride 0.9% infusion 100 mL/hr, Intravenous, CONTINUOUS, Starting on Thu06/10/16 at 1745, Until Thu06/11/16 at 1814, Recovery (Recovery-Hospital Unit) 1735 (New Bag - Provider: Jennifer Perez RN) PRN Medication Order 06/09/2016 06/10/2016 06/11/2016 acetaminophen (TYLENOL) tablet 650 mg 650 mg, Oral, EVERY 4 HOURS PRN, Starting on Thu06/10/16 at 2103, Until Thu06/11/16 at 1814, Pain, Maximum dose of acetaminophen is 4000 mg from all sources in 24 hours., Routine 2122 (Given - Provider: Oscar Tejada RN) 0355 (Given - Provider: Oscar Tejada RN) clopidogrel (PLAVIX) tablet (CANCELED) ONCE PRN, Starting on Thu06/10/16 at 1630, Until Thu06/10/16 at 1711, Intra-Operative (Intra-Procedure), Routine 1630 (Given - Provider: Loan Bhandari RN) fentaNYL 50 mcg/mL multi-dose injection (CANCELED) ONCE PRN, Starting on Thu06/10/16 at 1450, Until Thu06/10/16 at 1711, Cath (Intra-Procedure), Routine 1450 (Given - Provider: Loan Bhandari RN)1514 (Given - Provider: Loan Bhandari RN)1558 (Given - Provider: Loan Bhandari RN)1701 (Given - Provider: Loan Bhandari RN) heparin (porcine) injection 0-8,000 Units(Linked Group 2) 0-8,000 Units, Intravenous, BOLUS PER HEPARIN PROTOCOL, Starting on Thu06/09/16 at 1858, Until Thu06/11/16 at 1814, Per Protocol, START ADJUSTMENT SCHEDULE 6 HOURS AFTER STARTING INFUSION aPTT Between 60 - 79 seconds: Bolus 4,000 units aPTT Less than 60 seconds: Bolus 8,000 units Increase infusion and recheck aPTT in 6 hours. , Routine 2121 (Given - Provider: Landon Gonzalez RN) 1435 (SEP Hold - Provider: Admin Adt - Reason: Transfer to a Procedural area)1813 (SEP Unhold - Provider: Admin Adt) heparin (porcine) injection (CANCELED) ONCE PRN, Starting on Thu06/10/16 at 1626, Until Thu06/10/16 at 1711, Cath (Intra-Procedure), Routine 1626 (Given - Provider: Loan Bhandari RN) heparin (porcine) injection (CANCELED) ONCE PRN, Starting on Thu06/10/16 at 1602, Until Thu06/10/16 at 1713, Cath (Intra-Procedure), Routine 1602 (Given - Provider: Loan Bhandari RN) iohexol (OMNIPAQUE) 350 mg/mL solution (CANCELED) ONCE PRN, Starting on Thu06/10/16 at 1704, Until Thu06/10/16 at 1711, Cath (Intra-Procedure), Routine 1704 (Given - Provider: Ulisses Lin MD) lidocaine (XYLOCAINE) 10 mg/mL (1 %) injection 3 mg 3 mg (0.3 mL), Subcutaneous, ONCE PRN, 1 dose, Starting on Thu06/09/16 at 1658, Until Thu06/11/16 at 1814, for discomfort with PIV insertion, Routine 1435 (MAR Hold - Provider: Admin Adt - Reason: Transfer to a Procedural area)181 (MAR Unhold - Provider: Admin Adt) midazolam (PF) (VERSED) 1 mg/mL multi-dose injection (CANCELED) ONCE PRN, Starting on Thu06/10/16 at 1450, Until Thu06/10/16 at 1711, Cath (Intra-Procedure), Routine 1450 (Given - Provider: Loan Bhandari RN)1514 (Given - Provider: Loan Bhandari RN)1558 (Given - Provider: Loan Bhandari RN)1701 (Given - Provider: Loan Bhandari RN) nicotine polacrilex (COMMIT) lozenge 4 mg 4 mg, Buccal, EVERY 2 HOURS PRN, Starting on Thu06/09/16 at 1928, Until Thu06/11/16 at 1814, Smoking cessation, Do not chew or swallow. Place in mouth and allow to slowly dissolve., Routine 0913 (Given - Provider: Ree Jacob RN)1435 (MAR Hold - Provider: Admin Adt - Reason: Transfer to a Procedural area)1813 (MAR Unhold - Provider: Admin Adt) 1040 (Given - Provider: Iram Mendoza RN) nitroGLYcerin (NITROSTAT) SL tablet 0.4 mg 0.4 mg, Sublingual, EVERY 5 MIN PRN, Starting on Thu06/09/16 at 1658, Until Thu06/11/16 at 1814, Chest pain, May repeat every 5 minutes for a total of three doses. Notify provider if chest pain not relieved with nitroglycerin. Do not administer nitroglycerin if the patinet has received or taken phosphodiesterase (PDE-5) inhibitors such as sildenafil, tadalafil or vardenafil within the last 24 to 72 hours., Routine 1435 (SEP Hold - Provider: Admin Adt - Reason: Transfer to a Procedural area)1812 (SEP Unhold - Provider: Admin Adt) nitroGLYcerin 100 mcg/mL intracoronary dilution (CANCELED) ONCE PRN, Starting on Thu06/10/16 at 1649, Until Thu06/10/16 at 1711, Cath (Intra-Procedure), Routine 1649 (Given - Provider: Ulisses Lin MD) perflutren protein-A microspheres (OPTISON) 0.22 mg/mL injection 1.2 mL (COMPLETED) 1.2 mL, Intravenous, ONCE PRN, 1 dose, Starting on Thu06/10/16 at 0841, Until Thu06/10/16 at 0815, Per Protocol, Routine 0815 (Given - Provider: Debra Thomas) sodium chloride 0.9 % flush 5-20 mL 5-20 mL, Intravenous, EVERY 1 MIN PRN, Starting on Thu06/09/16 at 1658, Until Thu06/11/16 at 1814, flush, Flush pertains to all indwelling lines. Flush per protocol found in the job aid using the link provided on this medication record., Routine 1435 (SEP Hold - Provider: Admin Adt - Reason: Transfer to a Procedural area)1812 (SEP Unhold - Provider: Admin Adt) Linked Groups Order Group 1: nicotine (NICODERM CQ) 14 mg/24 hr patch 14 mgJump to med 14 mg, Transdermal, Administer over 24 Hours, DAILY, First dose on Thu06/10/16 at 1300, Until Discontinued, Routine And nicotine (NICODERM CQ) 14 mg/24 hr patch Patch VerificationJump to med Transdermal, 2 TIMES DAILY, First dose on Thu06/11/16 at 0000, Until Discontinued, Verify nicotine 14 mg/24 hr patch. And nicotine (NICODERM CQ) 14 mg/24 hr patch Patch RemovalJump to med Transdermal, DAILY, First dose on Thu06/11/16 at 0900, Until Discontinued, Remove nicotine 14 mg/24 hr patch Group 2: heparin (porcine) injection 0-8,000 UnitsJump to med 0-8,000 Units, Intravenous, BOLUS PER HEPARIN PROTOCOL, Starting on Thu06/09/16 at 1858, Until Thu06/11/16 at 1814, Per Protocol, START ADJUSTMENT SCHEDULE 6 HOURS AFTER STARTING INFUSION aPTT Between 60 - 79 seconds: Bolus 4,000 units aPTT Less than 60 seconds: Bolus 8,000 units Increase infusion and recheck aPTT in 6 hours. , Routine And heparin 25,000 units in dextrose 5% 500 mL infusionJump to med 0-5,000 Units/hr (0-100 mL/hr), Intravenous, CONTINUOUS, Starting on Thu06/09/16 at 1915, Until Thu06/11/16 at 1814, Begin infusion at 1,750 units per hr (15 units/kg/hr). MAX INITIAL infusion rate is 1,750 units/hr Target aPTT = 80 - 114 seconds Start adjustment schedule 6 hours after starting infusion. If aPTT is: - Less than 60 seconds, administer PRN bolus and increase rate by 450 units per hr (4 units/kg/hr) - 60-79 seconds, administer PRN bolus AND increase rate by 250 units per hr (2 units/kg/hr) - 80-114 seconds, no change - 115-129 seconds, decrease rate by 100 units per hr (1 unit/kg/hr) - 130-145 seconds, stop infusion for 30 minutes then decrease rate by 250 units per hr (2 units/kg/hr) - Greater than 145 seconds, stop infusion for 60 minutes then decrease rate by 350 units per hour (3 units/kg/hr) Repeat aPTT 6 hours after initiating heparin. Then 6 hours after each dose adjustment. When 2 consecutive aPTT within target range of 80 - 114 seconds, change aPTT to once every 24 hours with A.M. labs while on heparin. RN to order required aPTT - Per Protocol, Routine, Indication: ACS (STEMI vs NSTEMI vs UA) documented in this encounter Care Teams Manager Location Relationship Specialty Start Date End Date Tracey Mueller MD [address] [place] [address] PCP - General 06/04/10 documented as of this encounter
--- OUTSIDE RECORDS SUMMARY | 2024-04-30 10:44 | XMS_ITS | Encounter Summary ---
Author Organization [facility] [place] [address] Care Team Providers Care Home Stereo Equipment Installer Name Role Phone Tracey Mueller MD Primary Care Provider [phone] Encounter Details Date Type Department Care Team (Latest Contact Info) Description 06/07/2016 - 06/07/2016 11:59 PM EST Hospital Encounter Radiology Library at [facility] [place] [id number] Arjun Espinosa MD [facility] [place] [address] Pain Discharge Disposition: Home Social History Tobacco Use Types Packs/Day Years Used Date Smoking Tobacco: Never Assessed Sex and Gender Information Value Date Recorded Sex Assigned at Not on file Gender Identity Not on file Sexual Orientation Not on file documented as of this encounter Medications at Time of Discharge Medication Sig Dispensed Refills Start Date End Date amoxicillin-clavulanate (AUGMENTIN) 500-125 mg per tablet 1 Tablet(s), PO, bid 10/20/2002 06/09/2016 documented as of this encounter Plan of Treatment Not on file documented as of this encounter Procedures Procedure Name Priority Date/Time Associated Diagnosis Comments FILM LIBRARY STORAGE ONLY DX CHEST Routine 06/07/2016 12:00 AM EST Pain documented in this encounter Results * Film Library- Storage Only DX Chest (06/07/2016 12:00 AM EST) Narrative [facility] - 06/09/2016 3:18 PM EST This exam is for storage only and is auto-finalizing. Arjun Espinosa MD IMG FILM LIBRARY ORDERABLES [place], [place] documented in this encounter Visit Diagnoses Diagnosis Pain Generalized pain documented in this encounter Care Teams Home Stereo Equipment Installer Relationship Specialty Start Date End Date Tracey Mueller MD [facility] [address] [facility] [address] [place] [address] PCP - General 06/04/10 documented as of this encounter
--- OUTSIDE RECORDS SUMMARY | 2024-04-30 10:44 | XMS_ITS | Encounter Summary ---
Author Organization Formerly [facility] [place] [address] Care Team Providers Care Landcare Facilitator Name Role Phone Tracey Mueller MD Primary Care Provider [phone] Reason for Visit * Auth/Cert Specialty Diagnoses / Procedures Referred By Ashleigh keller Referred To Contact Diagnoses NSTEMI (non-ST elevated myocardial infarction) CHEST PAIN ?CAD Procedures CARDIAC CATHETERIZATION Referral ID Status Reason Start Date Expiration Date Visits Re quested Visits Authorized [id number] 1 1 Encounter Details Date Type Department Care Team (Late st Contact Info) Description 06/10/2016 1:00 PM EST - 06/10/2016 2:00 PM EST Surgery [place] [address] Ulisses Lin MD [facility] [place] [address] CARDIAC CATHETERIZATION Social History Tobacco Use Types Packs/Day Years [...] Denilson Hunter Patient Age: 56 y.o. Language: Uzbek Race: White Ethnicity: Not nor Admit date: [...] for peripheral edema. [ ] Discuss with dye worker regarding nabumetone and elevated cardiac risk in the post-NM period. We have told the patient to stop this medication and resume when PCP OR Retail Account Specialist tells him it is safe. [ ]Mackay [...] to this hospitalization, please contact your regular Machine Scallop Cutter or [facility] clinic. Issues after hours and on weekends will be handled by the Technology Teacher on-call ([phone] then ask for on-call scarfing machine operator). Discharge Diagnoses (Hospital Problems) and Secondary Diagnoses [...] ), arthritis who presents as transfer from [facility] ([facility], [place], [place]) for concern of acute coronary syndrome [...] about 5 minutes. ?? He presented to [facility] ED where he was found to have [...] on prior episodes. ?? He returned to [facility] ED where his ECG was once again [...] remained asymptomatic since. [facility]. He states he didnot receive sublingual nitroglycerin throughout these events. He was transferred to [facility] for cardiac catheterization. ?? Of note, patient states his legs occasionally get swollen but resolve with elevation. He endorses snoring but has never been evaluated for CORINA. He denies orthopnea or PND. ?? Recent sick contact: niece who has ear infection No recent travel history. ?? Diagnostics at [facility]: Sequential troponins: 0.03 (06/07), 0.07 to 0.08 [...] TRIG 291* Last 3 HgbA1C Recent Labs 06/09/16 2013 HA1C 5.8* Studies: Transthoracic Echocardiogram 06/10/16: SUMMARY: [...] or STEMI. Clopidogrel loaded prior to the rn lab. Recommend continued dual antiplatelet therapy (DAPT) with [...] June 18, 2016 Time: 1:00 pm Location: [place], [place]) Machine Scallop Cutter- You have an appointment scheduled with Dr. Barakat Date: June Time: 12:45 pm Location: [facility] ([place], [place]) Your Inpatient Doctor(s) at [facility] at discharge: Dr. Barakat (attending Machine Scallop Cutter) Dr. Piper (Technology Teacher) Dr. Mendoza (Internal Medicine Residents) General Instructions None Future Appointments and Orders Future Appointments Provider Department Dept Phone 07/10/2016 1:00 PM Fidel Barakat MD Cardiology [phone] Future Orders Complete By Expires Referral to Cardiac Rehab [[id number] Custom] As directed Process Instructions: If no progress note charted, please enter Clinical details in comments. Scheduling Instructions: Questions: My question or request is: NSTEMI, PCI- cardiac rehab at [facility] Discharge References/Attachments None documented in this encounter [...] June 18, 2016 Time: 1:00 pm Location: [facility] ([place], [place]) Machine Scallop Cutter- You have an appointment scheduled with Dr. Barakat Date: June Time: 12:45 pm Location: [facility] ([place], [place]) Your Inpatient Doctor(s) at [facility] at discharge: Dr. Barakat (attending Machine Scallop Cutter) Dr. Piper (Technology Teacher) Dr. Mendoza (Internal Medicine Residents) documented in [...] patient home. Wheeled to family vehicle by SURFACER. * Fidel Barakat MD - 06/11/2016 11:55 AM EST Inpatient Cardiology Progress Note Patient Name: Denilson Hunter Date of Admission: 06/09/2016 ( Hospital Day 2 days ) Service: S2 ID: Denilson Hunter is a 56 y.o. male with no prior cardiac history, PMH of HTN, HLD, GERD, DM II (diet controlled), sarcoidosis (last treated with prednisone in ), retirement disability due to arthritis, active smoker presenting [...] cessation. Currently working with smoking counselor at [facility] - Cardiac rehab inpt marcal performed - Patient preference for outpatient cardiac rehab program at [facility]. Telemetry: NSR ??? losartan 50 mg Oral [...] Labs 06/10/16 0300 TSH 1.82 Results for DALE DENILSON E ( ) as of 06/10/2016 12:10 Ref. [...] DM II, GERD, morbid obesity (BMI 48), retirement disability due to arthritis, active smoker presenting [...] months. He will pursue cardiac rehab programat [facility]. Plan: ?? #NSTEMI, now s/p cardiac cath [...] Code Celestine Mendoza MD Cardiology S2 (pgr. 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 Ld Nowak MD Cardiology S2 Pager [phone] * Fidel Barakat MD - 06/10/2016 7:46 AM EST Inpatient Cardiology Progress Note Patient Name: Denilson Hunter Date of Admission: 06/09/2016 ( Hospital Day 1 day ) Service: S2 ID: Denilson Hunter is a 56 y.o. 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 Patient arrives in transfer from [facility] chest pain free on IV heparin. Has been having episodes of chest pain at rest. Two visits to the ER recently. ?? 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 He is morbidly [...] in ), arthritis presenting as transfer from [facility] for chest pain at rest, elevated troponins (0.22) suggestive of NSTEMI CC: chest pain HPI (obtained from patient and OSH records) Denilson Hunter is a 56 y.o. male with a past medical history significant for HTN, HLD, GERD, DM II, sarcoidosis (last treated with prednisone in ), arthritis who presents as transfer from [facility] ([facility], [place], [place]) for concern of acute coronary syndrome [...] lasting about 5 minutes. He presented to [facility] ED where he was found to have [...] present on prior episodes. He returned to [facility] ED where his ECG was once again [...] remained asymptomatic since. [facility] to [facility]. He states he didnot receive sublingual nitroglycerin throughout these events. He was transferred to [facility] for cardiac catheterization. Of note, patient states his legs occasionally get swollen but resolve with elevation. He endorses snoring but has never been evaluated for CORINA. He denies orthopnea or PND. Recent sick contact: niece who has ear infection No recent travel history. 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 Quit. Restarted over last 2 months, 1/ ppd. Also chews tobacco. - Alcohol: quit in 1992. Prior 15+ years, heaviest use period 07/17 liquor + multiple beers 3 days/week - Illicit drug use: denies Family History - Father: rheumatic fever, [place] - Mother: [place] - Sisters: colon cancer, breast cancer - [...] in morning. Plan: #Admit to Cardiology S2 (#4725) #NSTEMI (JAYLEEN 4) - Elevated cardiac enzymes, [...] MD PGY-1, Internal Medicine Cardiology Service, Pager #[phone] Cardiology Staff - Admission Note This patient [...] with plavix Patient arrives in transfer from [facility] chest pain free on IV heparin. Has been having episodes of chest pain at rest. Two visits to the ER recently. 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 He is morbidly [...] is working with a tobacco counselor at [facility] and is currently wearinga patch. Enc him [...] in the outpatient cardiac rehabilitation program at [facility] was discussed. Patient agrees to a referral [...] Review Outcome: Ongoing (Interventions Implemented as Appropriate) 06/10/16 0754 Coping/Psychosocial Plan Of Care Reviewed With patient OUTCOME EVALUATION NOTE: OUTCOME SUMMARY:Uneventful day. Pt c/o fleeting episode of chest discomfort when getting from the chair to the bed for an echo. Resolved without any intervention. Currently in rn lab. PLAN MOVING FORWARD: Awaiting results of echo [...] Outcome: Ongoing (Interventions Implemented as Appropriate) 06/10/16 0754 06/10/16 0900 Gallego Fall Risk History of Falling [...] Control Outcome: Ongoing (Interventions Implemented as Appropriate) 06/10/16 0754 Safety Interventions Isolation Precautions standard precautions maintained [...] Information: Per chart review, pt is in rn lab Reason for Hospitalization: NSTEMI No past medical history on file. Hospitalizations Within the Past 30 Days: Pt was transferred to [facility] from [facility] Anticipated Length Of Stay (If known): 2-3 [...] is listed as single and living in [facility] Social & Family Supports/Community Resources: Family listed [...] n/a Primary Care Provider: Tracey Mueller MD [phone] Patient/Caregiver Goals of Treatment: To be determined Potential Needs for Transition of Care: Rehab/SNF: not likely Home Health: Need is to be determined DME: unknown at this time Dialysis: n/a Community Resources: n/a Transportation: Family to transport? Other: n/a Anticipated Barriers to Discharge/Special Considerations: None identified at this time. Will continue to follow. Plan: Supervisor Major Appliance Assembly spoke with this afternoon who feels as though pt will likely return home post discharge without any additional needs. A member of the Care Management team will continue to monitor progress, follow for continuity of care and assist with transition of care planning. Kulwant Vu RN Pager: [phone] * Plan of Care - Landon Gonzalez [...] care. Outcome: Ongoing (Interventions Implemented as Appropriate) 06/10/16 0114 Pain, Acute (Adult) Acceptable Pain Control/Comfort Level making progress toward outcome * Plan of Care - Ree Jacob RN - 06/09/2016 5:48 PM EST Problem: Patient Care Overview Goal: Plan of Care Review Outcome: Ongoing (Interventions Implemented as Appropriate) 06/09/16 1743 Coping/Psychosocial Plan Of Care Reviewed With patient OUTCOME EVALUATION NOTE: OUTCOME SUMMARY: Pt.admitted from [facility]- currently without c/o pain/discomfort. Heparin gtt infusing. [...] IMPLANTABLE DEVICES SCAN 06/12/2016 12:00 AM EST HEADING UP MACHINE OPERATOR SCAN 06/12/2016 12:00 AM EST CARDIAC CATH SCAN 06/12/2016 12: 00 AM EST HEMOGRAM Routine 06/11/2016 3:49 AM EST DIFFERENTIAL, AUTOMATED Routine 06/11/20 16 3:49 AM EST CARDIAC ENZYMES ([facility]P) Routine 06/11/2016 3:49 AM EST CBC (WITH DIFF) Routine 06/11/2016 3:49 AM EST BASIC METABOLIC PANEL Routine 06/11/2016 3:49 AM EST EKG 12-LEAD Routine 06/10/2016 5:46 PM EST Non-ST elevation myocardial infarction (NSTEMI) CARDIAC CATHETERIZATION Routine 06/10/20 16 5:14 PM EST EKG 12-LEAD STAT 06/10/2016 12:21 PM EST Non-ST elevation myocardial infarction (NSTEMI) CARDIAC ENZYMES ([facility]) Routine 06/10/2016 10:55 AM EST APTT Routine [...] Routine 06/10/2016 3:00 AM EST CARDIAC ENZYMES ([facility]) Routine 06/09/2016 11:41 PM EST APTT STAT [...] SCAN EXT O RDR/RSLT * SCAN DOC: HEADING UP MACHINE OPERATOR (06/12/2016 12:00 AM EST) Anatomical Region Laterality Modality Other Scanning Provider MEDIA MGR SCAN EXT O RDR/RSLT * Cardiac Enzymes (06/11/2016 3:49 AM EST) Troponin-T <0.03 <=0.03 ng/mL [facility] Comment: 0.03 ng/mL: Represents the 99th percentile upper reference limit for normals. >0.03 ng/mL: Elevated cardiac troponin T level indicative of myocardial damage. Diagnosis of acute, evolving or recent NM requires a typical rise and gradual fall [...] consensus document of the Joint Society of Cardiology/[place] College of Cardiology Committee for the redefinition of myocardial infarction. ??Journal of the [place] College of Cardiology 2000; 36: 959-969] Creatine Kinase 37 0 - 200 unit/L [facility] Blood specimen (specimen) Venous Draw / Unknown 06/11/2016 3:49 AM EST 06/11/2016 3:59 AM EST Narrative Resulting Agency Comment Spec In Lab Fidel Barakat MD CHEMISTRY ORDERABLE S Performing Organization Address City/[facility]/[place] [address] * (ABNORMAL) Differential, Automated (06/11/2016 3:49 AM EST) Neutrophil % 76.1 % [facility] Neutrophil Absolute 7.10(H) 1.70 - 6.10 x10(3)/mc L [facility] Lymph % 16.6 % [facility] Lymphocytes Abs 1.6 0.9 - 3.2 x10(3)/mc L [facility] Monocyte % 6.1 % [facility] Monocyte Abs 0.6 0.3 - 0.9 x10(3)/mc L [facility] Eos % 0.7 % [facility] Eosinophils Abs 0.1 0.0 - 0.4 x10(3)/mc L [facility] Basophil % 0.2 % [facility] Baso Absolute 0.0 0.0 - 0.1 x10(3)/mc L [facility] Immature Gran % 0.30 % [facility] Comment: Immature granulocytes(IG's)percentage and absolute count will include metamyelocytes, myelocytes, and promyelocytes. Blood smears from CBCs yielding IG's will be scanned manually for concordance. If this scan disagrees with the automated IG or if promyelocytes are noted, a manual differential will be performed. Immature Gran Absolute 0.03 0.00 - 0.04 x10(3)/mc L [facility] Blood specimen (specimen) 06/11/2016 3:49 AM EST 06/11/2016 3:59 AM EST Narrative Resulting Agency Comment Spec In Lab Fidel Barakat MD HEMATOLOGY ORDERABL ES Performing Organization Address City/[facility]/ZIP Co de Phone Number [facility] [place] [address] * (ABNORMAL) Hemogram (06/11/2016 3:49 AM EST) White Blood Cell 9.3 4.0 - 9.5 x10(3)/mc L [facility] Red Blood Cell 5.18 4.58 - 5.54 x10(6)/mc L [facility] Hemoglobin 15.4 13.7 - 16.5 gm/dL [facility] Hematocrit 44.2 40.5 - 48.5 % [facility] Mean Cell Volume 85.3 82.9 - 93.1 fL [facility] Mean Cell Hemoglobin 29.7 27.5 - 32.1 pg [facility] Mean Cell Hemoglobin Concentration 34.8 32.0 - 35.7 gm/dL [facility] Platelet 139(L) 145 - 357 x10(3)/ L [facility] RDW Standard Deviation 38.4 36.0 - 45.0 [facility] RDW coefficient of variation 12.3 11.4 - 13.8 % [facility] Mean Platelet Volume 10.9 7.6 - 12.9 fL [facility] NRBC% auto 0.0 % [facility] NRBC Absolute 0.000 0.000 - 0.000 x10(3)/ L [facility] Blood specimen (specimen) 06/11/2016 3:49 AM EST 06/11/2016 3:59 AM EST Narrative Resulting Agency Comment Spec In Lab Fidel Barakat MD HEMATOLOGY ORDERABL ES [facility] [place] [address] * Basic Metabolic Panel (non-fasting) (06/11/2016 3:49 AM EST) Glucose 112 65 - 199 mg/dL [facility] Comment:Diabetes: >=200 mg/d L plus symptoms Blood Urea Nitrogen 11 10 - 20 mg/dL [facility] Creatinine 0.90 0.80 - 1.50 mg/dL [facility] Comment: Please note that the pediatric reference intervals supplied above were not validated at [facility]. Results from pediatric patients should be interpreted in conjunction to the patient's age, height and muscle mass. Sodium 139 135 - 145 mmol/L [facility] Potassium 3.8 3.5 - 5.0 mmol/L [facility] Comment: Please note: ??Patients with WBC >100,000 may have falsely elevated Potassium levels. ??For accurate Potassium quantification in these patients send serum separator tube (gold top) for subsequent determinations. ??Contact the Clinical Chemistry Laboratory if there are any questions. Chloride 100 98 - 107 mmol/L [facility] Carbon Dioxide 24 22 - 31 mmol/L [facility] Anion Gap 15 5 - 15 mmol/L [facility] Calcium 8.9 8.5 - 10.5 mg/dL [facility] Est Glomerular Filtration Rate >60 >=60 [facility] Comment: This estimated GFR (eGFR) [...] the following links into your internet browser. [email or web address] Blood specimen (specimen) 06/11/2016 3:49 AM EST 06/11/2016 3:59 AM EST Narrative Resulting Agency Comment Spec In Lab Fidel Barakat MD CHEMISTRY ORDERABLE S [facility] [place] [address] * EKG 12 Lead (06/10/2016 5:46 PM EST) Ventricular rate 56 BPM MUSE SYSTEM Atrial Rate 56 BPM MUSE SYSTEM P-R Interval 164 ms MUSE SYSTEM QRS Duration 86 ms MUSE SYSTEM Q-T Interval 454 ms MUSE SYSTEM QTC Calculated (Bezet) 438 ms MUSE SYSTEM Calculated P Pearl 57 degrees MUSE SYSTEM Calculated R Pearl 41 degrees MUSE SYSTEM Calculated T Pearl 56 degrees MUSE SYSTEM INTERPRETATION Sinus bradycardia Low voltage QRS Borderline ECG When compared with ECG of 10-JUN-2016 12:21, No significant change was found Confirmed by MD Carl, Connor ([id number]) on 06/11/2016 6:05:02 PM MUSE SYSTEM 06/10/2016 5:46 PM EST 06/11/2016 6:05 PM EST Fidel Barakat MD ECG ORDERABLES MUSE SYSTEM * CARDIAC CATHETERIZATION (06/10/2016 5:14 PM EST) Anatomical Region Laterality Modality Other Narrative 06/10/2016 5:43 PM EST ?[facility] ? Cardiac Catheterization/Intervention Report ? Patient Name: Dale Huntergrey [place]. ? Procedure Date: 06/10/2016 ? A #: [id number] ? Primary Physician: Riley, Ulisses Peterson ? Case #: [id number] ? File Name: [id number] ? Catheterization Order Number: [id number] ? [facility] ? Final Report [place], [place] ? Patient Name: ? Denilson Hunter ?ID#: ?[id number] ? : ?1960 ? Procedure Date: ? June 10, 2016 ?Case #: ? [id number] ? Room: ? 6 ? Case Physician: ? Ulisses Lin M.D. ? Start: ?14:54 ?Fellow: ? Alyssa [...] patient presented with: non-STEMI (w/i 7 days). [place] ?Cardiovascular Society angina class was III. This [...] or STEMI. Clopidogrel loaded prior to the rn lab. ?Recommend continued dual antiplatelet therapy (DAPT) with [...] angiography and ?vascular closure device. ? Ulisses Lin, M.D. ? Electronically Signed by: Ulisses Lin M.D. ? Report Finalized: 06/10/2016 ??17:35 ? Procedure Note Ulisses Lin MD - 06/10/2016 [facility] Cardiac Catheterization/Intervention Report Patient Name: Denilson Hunter Procedure Date: 06/10/2016 A #: [id number] Primary Physician: Ulisses Lin Case #: [id number] File Name: [id number] Catheterization Order Number: [id number] [facility] FinalReport [place], [place] Patient Name: Denilson Hunter ID#:[id number] :1960 Procedure Date: June 10, 2016 Case [...] patient presented with: non-STEMI (w/i 7 days). [place] Cardiovascular Society angina class was III. This [...] The lesion was predilated with a 2.00mm [id number] MM balloon with a maximum inflation pressure [...] or STEMI. Clopidogrel loaded prior to the rn lab. Recommend continued dual antiplatelet therapy (DAPT) with [...] EKG 12 Lead (06/10/2016 12:21 PM EST) [facility] Ventricular rate 60 BPM MUSE SYSTEM Atrial Rate 60 BPM MUSE SYSTEM P-R Interval 164 ms MUSE SYSTEM QRS Duration 88 ms MUSE SYSTEM Q-T Interval 444 ms MUSE SYSTEM QTC Calculated (Bezet) 444 ms MUSE SYSTEM Calculated P Pearl 57 degrees MUSE SYSTEM Calculated R Pearl 36 degrees MUSE SYSTEM Calculated T Pearl 40 degrees MUSE SYSTEM INTERPRETATION Normal sinus rhythm Normal ECG No previous ECGs available Confirmed by MD Carl, Connor ([id number]) on 06/11/2016 6:04:59 PM MUSE SYSTEM 06/10/2016 12:2 1 PM EST 06/11/2016 6:04 PM EST Arjun Espinosa MD ECG ORDERABLES MUSE SYSTEM * Cardiac Enzymes (06/10/2016 10:55 AM EST) [facility] Troponin-T <0.03 <=0.03 ng/mL [facility] Comment: 0.03 ng/mL: Represents the 99th percentile upper reference limit for normals. >0.03 ng/mL: Elevated cardiac troponin T level indicative of myocardial damage. Diagnosis of acute, evolving or recent NM requires a typical rise and gradual fall [...] consensus document of the Joint Society of Cardiology/[place] College of Cardiology Committee for the redefinition of myocardial infarction. ??Journal of the [place] College of Cardiology 2000; 36: 959-969] Creatine Kinase 40 0 - 200 unit/L [facility] Blood specimen (specimen) 06/10/2016 10:55 AM EST 06/10/2016 11:14 AM EST Narrative Resulting Agency Comment Spec In Lab iFdel Barakat MD CHEMISTRY ORDERABLE S Performing Organization Address [facility] Phone Number [facility] [place] [address] * (ABNORMAL) APTT (06/10/2016 10:55 AM EST) Partial Thromboplastin Time 86(H) 25 - 35 sec [facility] Comment: The recommended therapeutic range for full dose, unfractionated heparin at [facility] is 80 ? 114 seconds. The use of the anti-Xa (heparin) level rather than the PTT is recommended for monitoring anticoagulation intensity in critically ill patients receiving unfractionated heparin by continuous IV infusion. Blood specimen (specimen) 06/10/2016 10:55 AM EST 06/10/2016 11:14 AM EST Narrative Resulting Agency Comment Spec In Lab Fidel Barakat MD HEMATOLOGY ORDERABL ES Performing Organization Address [facility] de Phone Number [facility] [place] [address] * ECHO COMPLETE W CONTRAST (06/10/2016 8:41 AM EST) EF 62 HEARTLAB SYSTEM Anatomical Region Laterality Modality Other 06/10/2016 Narrative 06/10/2016 9:02 AM EST Procedure: ?Transthoracic Echocardiogram Patient: ?DALE OREILLY E ?(Age): 1960(56y) Med Rec#: ? [id number] ?Sex: ?M ? Site Loc: ? [facility] ?Ht / Wt: ??175(cm)/150(kg) Pt. Loc: ?Adult Floor ? BSA: ?2.56 Study Date: ?? 06/10/2016 ?Pt. Type: Inpatient Tape: ? Referring: Jonathan Miranda Referring: Arjun Espinosa ([id number]) Reading: Jonathan Colón ([id number]) Dining Host: Debra Thomas Diagnosis: *ICD-10-PCS Non-ST elevation (NSTEMI) myocardial infarction (I21.4) CPT Codes: *Echo Full (50705) *Spectral Doppler (35428) *Color Doppler (67361) *Optison (39750DZ) BP: ? 127/80 SUMMARY: 1. Technically difficult [...] E-wave Vmax ?0.8 ?m/sec ? MV deceleration cpts642.6 ?msec ? MV A-wave Vmax ?0.5 ?m/sec [...] ? Mid-Inferior ?Normal ? Mid-Inferoseptal ?Normal ? [place]-Septal ? Normal ? [place]-Anterior ? Normal ? [place]-Lateral ?Normal ? [place]-Inferior ? Normal ? [place]-Tip ?Normal ? This report has been electronically signed by: Jonathan Colón M.D. ? 06/10/2016 09:02:12 Images reviewed and interpretation verified [facility] Cardiac Ultrasound Laboratory Procedure Note Jonathan Colón MD - 06/10/2016 Procedure: Transthoracic Echocardiogram Patient: DALE [place] DOB(Age): 1960(56y) Med Rec#: [id number] Sex: M Site Loc: [facility] Ht / Wt: 175(cm)/150(kg) Pt. Loc: Adult Floor BSA: 2.56 Study Date: 06/10/2016 Pt. Type: Inpatient Tape: Referring: Jonathan Miranda Referring: Arjun Espinosa ([id number]) Reading: Jonathan Colón ([id number]) Dining Host: Debra Thomas Diagnosis: *ICD-10-PCS Non-ST elevation (NSTEMI) myocardial infarction (I21.4) CPT Codes: *Echo Full (84251) *Spectral Doppler (16858) *Color Doppler (56724) *Optison ([id number]) BP: 127/80 SUMMARY: 1. Technically difficult study. [...] MV E-wave Vmax 0.8 m/sec MV deceleration [id number] msec MV A-wave Vmax 0.5 m/sec MV [...] Normal Mid-Posterolateral Normal Mid-Inferior Normal Mid-Inferoseptal Normal [place]-Septal Normal [place]-Anterior Normal [place]-Lateral Normal [place]-Inferior Normal [place]-Tip Normal This report has been electronically signed by: Jonathan Colón M.D. 06/10/2016 09:02:12 Images reviewed and interpretation verified [facility] Cardiac Ultrasound Laboratory Arjun Espinosa MD ECHO ORDERABLES * Cardiac Enzymes (06/10/2016 6:07 AM EST) [facility] Troponin-T <0.03 <=0.03 ng/mL [facility] Comment: 0.03 ng/mL: Represents the 99th percentile upper reference limit for normals. >0.03 ng/mL: Elevated cardiac troponin T level indicative of myocardial damage. Diagnosis of acute, evolving or recent NM requires a typical rise and gradual fall [...] consensus document of the Joint Society of Cardiology/[place] College of Cardiology Committee for the redefinition of myocardial infarction. ??Journal of the [place] College of Cardiology 2000; 36: 959-969] Creatine Kinase 43 0 - 200 unit/L [facility] Blood specimen (specimen) 06/10/2016 6:07 AM EST 06/10/2016 6:14 AM EST Narrative Resulting Agency Comment Spec In Lab Fidel Barakat MD CHEMISTRY ORDERABLE S Performing Organization Address City/State/[facility] Co de Phone Number [facility] [place] [address] * Differential, Automated (06/10/2016 3:00 AM EST) [facility] Neutrophil % 57.5 % [facility] Neutrophil Absolute 3.87 1.70 - 6.10 x10(3)/[facility] LABORAT[facility] Lymph % 31.1 % [facility] Lymphocytes Abs 2.1 0.9 - 3.2 x10(3)/[facility]OR[facility] Monocyte % 8.3 % [facility] Monocyte Abs 0.6 0.3 - 0.9 x10(3)/[facility]OR[facility] Eos % 2.4 % [facility] Eosinophils Abs 0.2 0.0 - 0.4 x10(3)/[facility] Basophil % 0.4 % [facility] Baso Absolute 0.0 0.0 - 0.1 x10(3)/[facility] LABORATORY Immature Gran % 0.30 % [facility] Comment: Immature granulocytes(IG's)percentage and absolute count will include metamyelocytes, myelocytes, and promyelocytes. Blood smears from CBCs yielding IG's will be scanned manually for concordance. If this scan disagrees with the automated IG or if promyelocytes are noted, a manual differential will be performed. Immature Gran Absolute 0.02 0.00 - 0.04 x10(3)/[facility] Blood specimen (specimen) 06/10/2016 3:00 AM EST 06/10/2016 3:17 AM EST Narrative Resulting Agency Comment Spec In Lab Fidel Barakat MD HEMATOLOGY ORDERABL ES Performing Organization Address City/State/[facility] Co de Phone Number [facility] [place] [address] * Hemogram (06/10/2016 3:00 AM EST) White Blood Cell 6.7 4.0 - 9.5 x10(3)/[facility] Red Blood Cell 4.93 4.58 - 5.54 x10(6)/[facility] Hemoglobin 15.3 13.7 - 16.5 gm/dL [facility] Hematocrit 42.8 40.5 - 48.5 % [facility] Mean Cell Volume 86.8 82.9 - 93.1 fL [facility] Mean Cell Hemoglobin 31.0 27.5 - 32.1 pg [facility] Mean Cell Hemoglobin Concentration 35.7 32.0 - 35.7 gm/dL [facility] Platelet 151 145 - 357 x10(3)/[facility]ATORY RDW Standard Deviation 39.4 36.0 - 45.0 [facility]ATORY RDW coefficient of variation 12.5 11.4 - 13.8 % [facility] Mean Platelet Volume 10.9 7.6 - 12.9 [facility] NRBC% auto 0.0 % [facility] NRBC Absolute 0.000 0.000 - 0.000 x10(3)/mcL [facility] Blood specimen (specimen) 06/10/2016 3:00 AM EST 06/10/2016 3:17 AM EST Narrative Resulting Agency Comment Spec In Lab Fidel Barakat MD HEMATOLOGY ORDERABL ES [facility] [place] [id number] * Basic Metabolic Panel (non-fasting) (06/10/2016 3:00 AM EST) Glucose 108 65 - 199 mg/dL [facility] Comment:Diabetes: >=200 mg/d L plus symptoms Blood Urea Nitrogen 14 10 - 20 mg/dL [facility] Creatinine 0.92 0.80 - 1.50 mg/dL [facility] Comment: Please note that the pediatric reference intervals supplied above were not validated at [facility]. Results from pediatric patients should be interpreted in conjunction to the patient's age, height and muscle mass. Sodium 140 135 - 145 mmol/L [facility] Potassium 3.8 3.5 - 5.0 mmol/L [facility] Comment: Please note: ??Patients with WBC >100,000 may have falsely elevated Potassium levels. ??For accurate Potassium quantification in these patients send serum separator tube (gold top) for subsequent determinations. ??Contact the Clinical Chemistry Laboratory if there are any questions. Chloride 102 98 - 107 mmol/L [facility] Carbon Dioxide 23 22 - 31 mmol/L [facility] Anion Gap 15 5 - 15 mmol/L [facility] Calcium 8.8 8.5 - 10.5 mg/dL [facility] Est Glomerular Filtration Rate >60 >=60 [facility] Comment: This estimated GFR (eGFR) [...] the following links into your internet browser. [email or web address] Blood specimen (specimen) 06/10/2016 3:00 AM EST 06/10/2016 3:17 AM EST Narrative Resulting Agency Comment Spec In Lab Fidel Barakat MD CHEMISTRY ORDERABLE S Performing Organization Address [facility] Co de Phone Number [facility] [place] [address] * (ABNORMAL) APTT (06/10/2016 3:00 AM EST) [facility] Partial Thromboplastin Time 102(H) 25 - 35 sec [facility] Comment: The recommended therapeutic range for full dose, unfractionated heparin at [facility] is 80 ? 114 seconds. The use of the anti-Xa (heparin) level rather than the PTT is recommended for monitoring anticoagulation intensity in critically ill patients receiving unfractionated heparin by continuous IV infusion. Blood specimen (specimen) 06/10/2016 3:00 AM EST 06/10/2016 3:17 AM EST Narrative Resulting Agency Comment Spec In Lab Fidel Barakat MD HEMATOLOGY ORDERABL ES Performing Organization Address [facility] Co de Phone Number [facility] [place] [address] * T4, free (06/10/2016 3:00 AM EST) Free T4 1.42 0.93 - 1.70 ng/dL [facility] Blood specimen (specimen) 06/10/2016 3:00 AM EST 06/10/2016 3:17 AM EST Narrative Resulting Agency Comment Spec In Lab Fidel Barakat MD CHEMISTRY ORDERABLE S Performing Organization Address [facility] Co de Phone Number [facility] [place] [address] * TSH (06/10/2016 3:00 AM EST) Thyroid Stimulating Hormone 1.82 0.27 - 4.20 mcIU/mL [facility] Blood specimen (specimen) 06/10/2016 3:00 AM EST 06/10/2016 3:17 AM EST Narrative Resulting Agency Comment Spec In Lab Fidel Barakat MD CHEMISTRY ORDERABLE S Performing Organization Address [facility] Co de Phone Number [facility] [place] [address] * (ABNORMAL) Lipid panel (fasting) (06/10/2016 3:00 AM EST) Cholesterol, Total 181 <=199 mg/dL [facility] Comment: Recommendations of the NCEP Adult Treatment Panel for the following risk cutoff thresholds for the [place] population: Desirable: <200 mg/dL Borderline High: 200-239 mg/dL High: > or = 240 mg/dL Triglyceride 291(H) <=149 mg/dL [facility] Comment: Reference Range: Normal triglycerides: ??<150 mg/dL Borderline high: ??150-199 mg/dL High: ??200-499 mg/dL Very high: ??>vs=652 mg/dL AKASH 2001; 285(19):5014-3964 HDL Cholesterol 35(L) >=40 mg/dL [facility] Comment: Reference range: ??Low HDL: ?? < 40 mg/dL ??Normal: ?40-60 mg/dL ??Desirable: > 60 mg/dL AKASH 2001; 285(19):9694-9865 LDL Cholesterol 88 <=99 mg/dL [facility] Comment: Reference range: ?? Optimal: ?<100 mg/dL ?? Near Optimal/Above Optimal: ?? 100-129 mg/dL ?? Borderline high: ?130-159 mg/dL ?? High: ? 160-189 mg/dL ?? Very high: ?>vd=259 mg/dL AKASH 2001: 285(19):1145-9182 Cholesterol/HDL Ratio 5.2 ratio [facility] Comment: A Cholesterol to HDL ratio below 4:1 is desirable. ??Studies suggest that increased CAD risk occurs at ratios above 5 for females and above 6 for men. ? [place] Heart Association ??(http://www.americanheart.org) ? Dominique Int Med, 1994; 121:641 ? AM J Med, 1998; 105(1A):48S Blood specimen (specimen) 06/10/2016 3:00 AM EST 06/10/2016 3:17 AM EST Narrative Resulting Agency Comment Spec In Lab Fidel aBrakat MD CHEMISTRY ORDERABLE S [facility] [place] [address] * Cardiac Enzymes (06/09/2016 11:41 PM EST) Troponin-T <0.03 <=0.03 ng/mL [facility] Comment: 0.03 ng/mL: Represents the 99th percentile upper reference limit for normals. >0.03 ng/mL: Elevated cardiac troponin T level indicative of myocardial damage. Diagnosis of acute, evolving or recent NM requires a typical rise and gradual fall [...] consensus document of the Joint Society of Cardiology/[place] College of Cardiology Committee for the redefinition of myocardial infarction. ??Journal of the [place] College of Cardiology 2000; 36: 959-969] Creatine Kinase 49 0 - 200 unit/L [facility] Blood specimen (specimen) 06/09/2016 11:41 PM EST 06/09/2016 11:50 PM EST Narrative Resulting Agency Comment Spec In Lab Fidel Barakat MD CHEMISTRY ORDERABLE S Performing Organization Address [facility] Co de Phone Number [facility] [place] [address] * (ABNORMAL) APTT (06/09/2016 8:13 PM EST) Partial Thromboplastin Time 39(H) 25 - 35 sec [facility] Comment: The recommended therapeutic range for full dose, unfractionated heparin at [facility] is 80 ? 114 seconds. The use of the anti-Xa (heparin) level rather than the PTT is recommended for monitoring anticoagulation intensity in critically ill patients receiving unfractionated heparin by continuous IV infusion. Blood specimen (specimen) 06/09/2016 8:13 PM EST 06/09/2016 8:28 PM EST Narrative Resulting Agency Comment Spec In Lab Fidel Barakat MD HEMATOLOGY ORDERABL ES Performing Organization Address [facility] Co de Phone Number [facility] [place] [address] * (ABNORMAL) Hemoglobin A1c (06/09/2016 8:13 PM EST) [facility] Signature Hemoglobin A1c 5.8(H) 4.3 - 5.6 % [facility] Comment: Reference Range: 4.3 - 5.6% [...] Mellitus, Diabetes Care 2013; 36: Suppl. 1, S67-19 Estimated Average Glucose 120 mg/dL [facility] Comment: eAG equivalents for HbA1c percentages: HbA1c(%) ?eAG(mg/dL) 6.0 ?126 6.5 ?140 7.0 ?154 7.5 ?169 8.0 ?183 8.5 ?197 9.0 ?212 9.5 ?226 10.0 ? 240 Limitations: The eAG calculation has not been validated on women, individuals below 18 years old and above 70 years old, and individuals with hemoglobinopathies. Additional resources are available on the ADA website: [email or web address] Tutu MILLS, Melany J, Pravin R, et al. ??Translating the A1C assay into estimated average glucose values. ??Diabetes Care 2008:31(8):9146-1651. Blood specimen (specimen) 06/09/2016 8:13 PM EST 06/09/2016 8:28 PM EST Narrative Resulting Agency Comment Spec In Lab Fidel Barakat MD CHEMISTRY ORDERABLE S [facility] [place] [address] documented in this encounter Visit Diagnoses Not on filedocumented in this encounter Admitting Diagnoses Diagnosis NSTEMI [...] Given 06/10/2016 9:09 AM EST 75 mg clopidogrel (PLAVIX) tablet ONCE PRN, Starting on Thu06/10/16 at 1630, Until Thu06/10/16 at 1711, Intra-Operative (Intra-Procedure), Routine Given 06/10/2016 4:30 PM EST 300 mg fentaNYL 50 mcg/mL multi-dose injection ONCE PRN, Starting on Thu06/10/16 at 1450, Until Thu06/10/16 at 1711, Cath (Intra-Procedure), Routine Given 06/10/2016 5:01 PM EST 25 mcg Given 06/10/2016 3:58 PM EST 25 mcg Given 06/10/2016 3:14 PM EST 25 mcg heparin (porcine) injection 0-8,000 Units 0-8,000 Units, [...] 06/09/2016 9:22 PM EST 8,000 Units heparin (porcine) injection ONCE PRN, Starting on Thu06/10/16 at 1626, Until Thu06/10/16 at 1711, Cath (Intra-Procedure), Routine Given 06/10/2016 4:26 PM EST 8,000 Units heparin (porcine) injection ONCE PRN, Starting on Thu06/10/16 at 1602, Until Thu06/10/16 at 1713, Cath (Intra-Procedure), Routine Given 06/10/2016 4:02 PM EST 2,000 Units heparin 25,000 units in dextrose 5% [...] 3:40 AM EST 1,750 Units/hr 35 mL/hr iohexol (OMNIPAQUE) 350 mg/mL solution ONCE PRN, Starting on Thu06/10/16 at 1704, Until Thu06/10/16 at 1711, Cath (Intra-Procedure), Routine Given 06/10/2016 5:04 PM EST 135 mLs losartan (COZAAR) tablet 50 mg 50 mg, [...] Given 06/10/2016 9:11 AM EST 12.5 mg midazolam (PF) (VERSED) 1 mg/mL multi-dose injection ONCE PRN, Starting on Thu06/10/16 at 1450, Until Thu06/10/16 at 1711, Cath (Intra-Procedure), Routine Given 06/10/2016 5:01 PM EST 1 mg Given 06/10/2016 3:58 PM EST 1 mg Given 06/10/2016 3:14 PM EST 1 mg nicotine (NICODERM CQ) 14 mg/24 hr [...] Given 06/10/2016 9:13 AM EST 4 mg nitroGLYcerin 100 mcg/mL intracoronary dilution ONCE PRN, Starting on Thu06/10/16 at 1649, Until Thu06/10/16 at 1711, Cath (Intra-Procedure), Routine Given 06/10/2016 4:49 PM EST 150 mcg pantoprazole (PROTONIX) tablet 40 mg 40 mg, Oral, DAILY, First dose on Thu06/09/16 at 2015, Until Discontinued, DO NOT CRUSH OR OPEN Given 06/11/2016 10:18 AM EST 40 mg Given 06/10/2016 9:14 AM EST 40 mg Given 06/09/2016 8:40 PM EST 40 mg sodium chloride 0.9 % flush 5 mL [...] Thu06/11/16 at 1814, Recovery (Recovery-Hospital Unit) [facility] 06/10/2016 5:35 PM EST 100 mL/hr 100 mL /hr documented in this encounter Active and Recently Administered Medications Times are shown in EST. Scheduled Medication Order 06/09/2016 06/10/2016 06/11/2016 aspirin chewable tablet 81 mg 81 mg, Oral, DAILY, First dose on Thu06/10/16 at 0900, Until Discontinued, Routine 0906 (Given - Provider: Ree Jacob RN)1435 ([facility] Hold - Provider: Admin Adt - Reason: Transfer to a Procedural area)1813 ([facility] Unhold - Provider: Admin Adt) 1018 (Given - Provider: Iram Mendoza, RN) atorvastatin (LIPITOR) tablet 40 mg 40 mg, Oral, EVERY EVENING, First dose on Thu06/09/16 at 1900, Until Discontinued, Routine 1850 (Given - Provider: Ree Jacob RN) 1435 ([facility] Hold - Provider: Admin Adt [...] 1120 (Given - Provider: Ree Jacob RN)1435 (MAR Hold - Provider: Admin Adt - Reason: Transfer to a Procedural area)181 ([facility] Unhold - Provider: Admin Adt) 1019 (Given - Provider: Iram Mendoza, MERY) clopidogrel (PLAVIX) tablet 75 mg 75 mg, Oral, DAILY, First dose on Thu06/10/16 at 0900, Until Discontinued, Routine 0909 (Given - Provider: Ree Jacob RN)1435 (MAR Hold - Provider: Admin Adt - Reason: Transfer to a Procedural area)1813 ([facility] Unhold - Provider: Admin Adt) 1046 (Given - Provider: Iram Mendoza, MERY) diaZEPam (VALIUM) tablet 5 mg (COMPLETED) 5 [...] 1 dose, On Thu06/10/16 at 2100, Routine 2125 (Given - Provider: Oscar Tejada RN) furosemide (LASIX) injection 40 mg (COMPLETED) 40 mg, Intravenous, ONCE, 1 dose, On Thu06/11/16 at 0800, Routine 1018 (Given - Provider: Iram Mendoza RN) losartan (COZAAR) tablet 50 mg 50 mg, Oral, DAILY, First dose on Thu06/11/16 at 1100, Until Discontinued, Routine 101 (Given - Provider: Iram Mendoza RN) meTOPROLOL (LOPRESSOR) tablet 12.5 mg 12.5 mg, Oral, EVERY 12 HOURS SCHEDULED (2 times per day), First dose on Thu06/09/16 at 2100, Until Discontinued, Hold for BP < 90/60, HR <50, Routine 2038 (Given - Provider: Landon Gonzalez RN) 0911 (Given - Provider: Ree Jacob RN)1435 ([facility] Hold - Provider: Admin Adt - Reason: Transfer to a Procedural area)1812 ([facility] Unhold - Provider: Admin Adt)2121 (Given - Provider: Oscar Tejada RN) 1032 (Given - Provider: Iram Mendoza RN) nicotine (NICODERM CQ) 14 mg/24 hr patch 14 mg(Linked Group 1) 14 mg, Transdermal, Administer over 24 Hours, DAILY, First dose on Thu06/10/16 at 1300, Until Discontinued, Routine 141 (Given - Provider: Ree Jacob RN)1435 (SEP Hold - Provider: Admin Adt - Reason: Transfer to a Procedural area)181 ([facility] Unhold - Provider: Admin Adt) 1021 (Given - Provider: Iram Mendoza RN) nicotine (NICODERM CQ) 14 mg/24 hr patch Patch Removal(Linked Group 1) Transdermal, DAILY, First dose on Thu06/11/16 at 0900, Until Discontinued, Remove nicotine 14 mg/24 hr patch 1434 (SEP Hold - Provider: Admin Adt - Reason: Transfer to a Procedural area)1812 ([facility] Unhold - Provider: Admin Adt) 0900 (Patch Removed - Provider: Iram Mendoza, RN) nicotine (NICODERM CQ) 14 mg/24 hr patch Patch Verification(Linked Group 1) Transdermal, 2 TIMES DAILY, First dose on Thu06/11/16 at 0000, Until Discontinued, Verify nicotine 14 mg/24 hr patch. 143 ([facility] Hold - Provider: Admin Adt - Reason: Transfer to a Procedural area)1812 ([facility] Unhold - Provider: Admin Adt) 0000 (Patch (dose and location) verified - Provider: Oscar Tejada RN)0900 (Patch (dose and location) verified - Provider: Iram Mendoza, MERY) pantoprazole (PROTONIX) tablet 40 mg 40 mg, Oral, DAILY, First dose on Thu06/09/16 at 2015, Until Discontinued, DO NOT CRUSH OR OPEN 2039 (Given - Provider: Landon Gonzalez, MERY) 09 (Given - Provider: Ree Jacob, MERY)1434 ([facility] Hold - Provider: Admin Adt - Reason: Transfer to a Procedural area)1812 ([facility] Unhold - Provider: Admin Adt) 1018 (Given [...] RN) 0915 (Given - Provider: Ree Jacob, MERY)143 ([facility] Hold - Provider: Admin Adt - Reason: Transfer to a Procedural area)1812 ([facility] Unhold - Provider: Admin Adt)2126 (Given - Provider: Oscar Tejada RN) 1019 (Given - Provider: Iram Mendoza RN) Continuous Medication Order 06/09/2016 06/10/2016 06/11/2016 heparin 25,000 units in dextrose 5% 500 mL infusion(Linked Group 2) 0-5,000 Units/hr (0-100 mL/hr), Intravenous, CONTINUOUS, Starting on 06/09/16 at 1915, Until Thu06/11/16 at 1814, Begin [...] (Rate/Dose Verify - Provider: Ree Jacob RN)1435 (MAR Hold [...] from all sources in 24 hours., Routine 2123 (Given - Provider: Oscar Tejada RN) 0355 [...] Loan Bhandari RN)1558 (Given - Provider: Loan Bhandrai RN)1701 (Given - Provider: Loan Bhandari RN) [...] Procedural area)1812 ([facility] Unhold - Provider: Admin Adt) heparin (porcine) [...] for discomfort with PIV insertion, Routine 1435 (SEP Hold - Provider: Admin Adt - Reason: Transfer to a Procedural area)1812 ([facility] Unhold - Provider: Admin Adt) midazolam [...] mouth and allow to slowly dissolve., Routine 09 (Given - Provider: Ree Jacob RN)1435 ([facility] Hold - Provider: Admin Adt - Reason: Transfer to a Procedural area)181 ([facility] Unhold - Provider: Admin Adt) 1040 (Given [...] last 24 to 72 hours., Routine 1435 ([facility] Hold - Provider: Admin Adt - Reason: Transfer to a Procedural area)181 ([facility] Unhold - Provider: Admin Adt) nitroGLYcerin 100 [...] area)1813 ([facility] Unhold - Provider: Admin Adt) Linked [...] on Thu06/09/16 at 1858, Until Thu06/11/16 at 181, Per Protocol, START ADJUSTMENT SCHEDULE 6 HOURS AFTER STARTING INFUSION aPTT Between 60 - 79 seconds: Bolus 4,000 units aPTT Less than 60 seconds: Bolus 8,000 units Increase infusion and recheck aPTT in 6 hours. , Routine And heparin 25,000 units in dextrose 5% 500 mL infusionJump to med 0-5,000 Units/hr (0-100 mL/hr), Intravenous, CONTINUOUS, Starting on Thu06/09/16 at 1915, Until Thu06/11/16 at 181, Begin infusion at 1,750 units per hr [...] UA) documented in this encounter Care Teams Landcare Facilitator Relationship Specialty Start Date End Date Tracey Mueller MD [address] [facility] [address] [place] [address] PCP - General 06/04/10 documented as of this encounter
--- OUTSIDE RECORDS SUMMARY | 2024-04-30 10:44 | XMS_ITS | Encounter Summary ---
Author Organization [facility] Address [facility] [place] [address] Care Team Providers Care Ferry Captain Name Role Phone Tracey Mueller MD Primary Care Provider [phone] Encounter Details Date Type Department Care Team (Late st Contact Info) Description 06/08/2016 [place] [phone] Matty López MD [facility] [place] [address] Social History Tobacco Use Types Packs/Day Years Used Date Smoking Tobacco: Never Assessed Sex and Gender Information Value Date Recorded Sex Assigned at Not on file Gender Identity Not on file Sexual Orientation Not on file documented as of this encounter Miscellaneous Notes * Telephone Encounter - Matty López MD - 06/08/2016 12:57 PM EST 56 male with HTN (on losartan) coming in with intermittent CP (r sided) from last 3-4 days. Seen inER yesterday and ruled out (trop 0.03) and was asked to follow-up with PCP for stress test. Came again today with same symptoms. No cough, no relation of pain to breathing and position. Now trop 0.07-->0.08. Some intermittent pain. Vitals: P 67, 160s/50s, 96/RA No CHF or murmur on exam Labs: WBCs 7, Hem 16, Plt 164, Cr 0.9, Trop 0.03-->0.08 EKG: non-ischemic and unchanged today (by report, not available at time of consult request) Plan: Treating as NSTEMI (ASA 325, plavix 600 and heparin gtt and metop). Given atypical CP and + trop suggested to check D-dimer to r/o PE. No beds except urgent/emergent procedures, so will accept in AM. Matty López MD Clerical Methods Analyst Pager # [phone] documented in this encounter Plan of Treatment Not on file documented as of this encounter Visit Diagnoses Not on filedocumented in this encounter Care Teams Ferry Captain Relationship Specialty Start Date End Date Tracey Mueller MD [address] [place] [address] PCP - General 06/04/10 documented as of this encounter
[2024-04-30 10:50] VITALS: BP 114/79; PULSE 71; RESP 18; TEMP 37; O2SAT 95
--- NOTE | 2024-04-30 11:21 | ED.GENADUL_ITS ---
Discharge Plan Disposition Patient Disposition: Home Condition: Stable Discharge Details Clinical Impression: Cellulitis, Diabetes mellitus, History of non-ST elevation myocardial infarction (NSTEMI) Primary Care Provider: Tracey Mueller ED Provider: Bettina Pearson Home Meds and New Rx's Prescriptions: New cephalexin 500 mg capsule 500 mg PO QID 5 Days Qty: 20 0RF No Action sertraline 25 mg tablet 25 mg PO DAILY cholecalciferol (vitamin D3) 25 mcg (1,000 unit) capsule 25 mcg PO DAILY insulin glargine [Basaglar KwikPen U-100 Insulin] 100 unit/mL (3 mL) insulin pen 20 unit subcut QAM losartan 25 MG tablet 50 mg PO DAILY pantoprazole 40 MG tablet,delayed release (DR/EC) 40 mg PO DAILY acetaminophen [Mapap Extra Strength] 500 MG tablet 500 mg PO PRN PRN aspirin [Aspirin Low-Strength] 81 MG tablet,chewable 1 tab PO PRN PRN atorvastatin 40 mg Tablet 40 mg PO QHS triamcinolone acetonide 0.1 % Cream 1 applic TOPICAL BID nitroglycerin [Nitrostat] 0.4 mg Tablet, Sublingual 0.4 mg SUBLINGUAL Q5-15M PRN furosemide 20 mg Tablet 20 mg PO DAILY albuterol sulfate [ProAir HFA] 90 mcg/actuation Hfa Aerosol Inhaler 2 puff INHALATION Q6H PRN metoprolol succinate 25 mg Capsule,Sprinkle,Er 24hr 25 mg PO DAILY diclofenac sodium [Voltaren Arthritis Pain] 1 % Gel 2 g TOPICAL PRN Discharge Instructions Instructions: Cellulitis (Skin Infection), Adult ED Additional Instructions: You were seen in the emergency department today for evaluation of the lower leg infection, consistent with cellulitis. In our department you had a full physical examination performed, had laboratory studies that were reassuring, and had a negative COVID and influenza test. It is safe for you to go home, and we have started you on antibiotics. Please take all of this medication until it is gone, even if you start to feel better. If you notice that your leg redness continues to spread, or if you develop fever, chills, or other concerning symptoms you need to be reevaluated by your primary care provider or return to the emergency department for reevaluation. If you are not entirely better at the end of your antibiotic course your primary care provider may choose to extend the duration of your antibiotics, or add another antibiotic. Thank you for allowing us to be part of your care. HPI General Mode of arrival: ambulatory . Date/Time Provider Initiated Documentation: 04/30/24 10:44 . Limitations to Documentation: no limitations . Information obtained by: patient and old records reviewed . HPI Narrative: HPI: This is a 64-year-old male patient with a past medical history significant for diabetes, NSTEMI, who is presenting for evaluation of lower extremity cellulitis. The patient reports that on Thursday he had a scab that got scratched off, states that that wound had been healing previously, but over the last 24 hours he has noted the development of redness in his left lower extremity. He marked the area, has noted 1 small area where the redness has extended past that marking since that time. He reports that he has been feeling systemically unwell for the last few days, noted general malaise, states that he has not measured any fevers, has been able to drink normally but has not had significant appetite and had an episode of nonbloody, nonbilious emesis. He reports that he had a family member who was sick with a GI illness earlier this week. He reports that he has had stuffy/runny nose, denies chest pain or shortness of breath. He noted that his urine appeared dark this morning, he did not have any dysuria. Has not had any diarrhea. The patient reports no personal history of MRSA, states that he has not taken antibiotics in the last several months. He has had no recent changes to his home medications. States that he is not experiencing any sensory deficits distal to his left lower extremity infection. Exam: Gen: Awake and alert, in no apparent distress HEENT: Non-icteric sclera, conjunctiva noninjected. Posterior pharynx without erythema, exudate, or asymmetry Neck: Supple Lungs: No apparent respiratory distress, normal respiratory effort. Lung sounds clear and equal bilaterally without wheezes, rhonchi, rales CV: Appears well perfused, strong distal pulses Abdomen: Non-distended MSK: Moves 4 extremities without apparent limitation in ROM. The left lower extremity has an area of redness, induration, and warmth, without palpable fluctuance. Strong DP pulses distal to this infection, no crepitus palpable Skin: Visualized skin without rashes, cyanosis. Neuro: Normal Gait, no obvious focal deficits or facial asymmetry. Speaks in full, clear sentences. Psych: Appropriate for situation. MDM: This is a 64-year-old male patient presenting for evaluation of general malaise, upper respiratory symptoms, vomiting, and left lower extremity cellulitic findings. My differential includes but is not limited to skin and soft tissue infection, likely cellulitis, considered abscess and necrotizing sk in soft tissue infection but this is less consistent with my history and physical examination. I considered viral upper respiratory infection, no shortness of breath, focal lung findings, or sputum change to suggest pneumonia. The patient has no abdominal tenderness though I did consider gastritis, gastroenteritis. No concerning findings on history or physical for pancreatitis, hepatitis, cholecystitis, appendicitis, bowel obstruction, perforation. I considered urinary tract infection, nephrolithiasis, as well as anemia, metabolic/electrolyte derangements, kidney injury. At this time, the patient does not have any sirs criteria findings that would increase my concern for serious bacterial infection such as sepsis, bacteremia. Bedside ultrasound as noted below, with diffuse cobblestoning concerning for cellulitis. The patient reports a history of penicillin allergy but reports that he has been able to tolerate ampicillin and has never had an anaphylactic reaction, and likely is safe for cephalosporin therapy. We will also obtain laboratory studies to include Fluvid, CBC, CMP, magnesium, lactate. ED Course: I independently interpreted the laboratory studies, which show no si gnificant leukocytosis, anemia, or thrombocytopenia. The chemistry panel is without evidence of electrolyte abnormality, kidney dysfunction, or liver injury. Urine noninfectious, lactate low. Fluvid negative. Given these findings, I provided the patient with his first dose of Keflex for nonpurulent cellulitis, provided him with a take-home pack and a prescription for same. I advised the patient that if his symptoms are not improving over the course of the antibiotics that he needs to be reevaluated as he may require extension of his antibiotic course or changing of antibiotics. At this time, the patient has had a full medical evaluation and is safe for discharge to home. They are hemodynamically stable, ambulatory, and tolerating PO. They are understanding of the follow-up plan and return precautions. They left our facility without incident. Bettina Pearson MD Related Data Home Medications ?Medication ?Instructions ?Recorded ?Confirmed losartan 25 mg tablet 50 mg PO DAILY 10/14/12 12/01/23 pantoprazole 40 mg tablet,delayed 40 mg PO DAILY 12/08/12 12/01/23 release acetaminophen 500 mg tablet (Mapap 500 mg PO PRN PRN 02/11/13 12/01/23 Extra Strength) aspirin 81 mg chewable tablet 1 tab PO PRN PRN 06/07/16 12/01/23 (Aspirin Low-Strength) albuterol sulfate 90 mcg/actuation 2 puff inhalation Q6H PRN 05/10/19 12/01/23 aerosol inhaler (ProAir HFA) atorvastatin 40 mg tablet 40 mg PO QHS 05/10/19 12/01/23 furosemide 20 mg tablet 20 mg PO DAILY 05/10/19 12/01/23 metoprolol succinate 25 mg capsule 25 mg PO DAILY 05/10/19 12/01/23 sprinkle, ext. release 24 hr nitroglycerin 0.4 mg sublingual 0.4 mg sublingual Q5-15M PRN 05/10/19 12/01/23 tablet (Nitrostat) triamcinolone acetonide 0.1 % 1 applic topical BID 05/10/19 12/01/23 topical cream diclofenac sodium 1 % topical gel 2 g topical PRN 11/29/21 09/01/23 (Voltaren Arthritis Pain) insulin glargine 100 unit/mL (3 20 unit subcut QAM 08/12/23 12/01/23 mL) subcutaneous pen (Basaglar KwikPen U-100 Insulin) cholecalciferol (vitamin D3) 25 25 mcg PO DAILY 09/01/23 12/01/23 mcg (1,000 unit) capsule sertraline 25 mg tablet 25 mg PO DAILY 09/01/23 12/01/23 cephalexin 500 mg capsule 500 mg PO QID 5 days #20 caps 04/30/24 Previous Rx's ?Medication ?Instructions ?Recorded cephalexin 500 mg capsule 500 mg PO QID 5 days #20 caps 04/30/24 Allergies Allergy/AdvReac Type Severity Reaction Status Date / Time Penicillins Allergy Unknown Hives Unverified 04/30/24 10:55 codeine AdvReac Mild Nausea Unverified 04/30/24 10:55 hydrocodone bitartrate (From AdvReac Mild Nausea Unverified 04/30/24 10:55 Vicodin) General Stated Complaint: Cellulitis LISANDRA: 3 Course Vital Signs Vital signs: Vital Signs Temperature 37.0 C 04/30/24 10:50 Pulse 71 04/30/24 10:50 Respiratory Rate 18 04/30/24 10:50 Blood Pressure 114/79 04/30/24 10:50 Pulse Oximetry 95 04/30/24 10:50 Temperature 37.0 C 04/30/24 10:50 Pulse 71 04/30/24 10:50 Respiratory Rate 18 04/30/24 10:50 Respiratory Effort Normal 04/30/24 11:11 Blood Pressure 114/79 04/30/24 10:50 Pulse Oximetry 95 04/30/24 10:50 Oxygen Delivery Method Room Air 04/30/24 10:50 Oxygen Flow Rate 0 04/30/24 10:50 Pain Level 5 04/30/24 10:50 Medical Decision Making Quality:SDOH Health Related Social Needs: No Data to Display PFSH All Active Problems (Updated 04/30/24 @ 12:36 by Bettina Pearson MD) Cellulitis (Acute) Bilateral shoulder bursitis (Acute) Sensorineural hearing loss of both ears (Acute) Morbid obesity (Acute) History of non-ST elevation myocardial infarction (NSTEMI) (Acute) Family history of colon cancer in mother (Acute) Adenomatous colon polyp (Acute) Family history of colon cancer (Acute) brother and sister Diabetes mellitus (Chronic) Diarrhea (Acute) Medical History (Updated 04/30/24 @ 12:36 by Bettina Pearson MD) Cough, persistent Quit using tobacco in remote past Metabolic syndrome Fibromyalgia Insomnia Sarcoidosis H/O lichenification and lichen simplex chronicus Situational anxiety Edema Hypertension Hyperlipidemia Nausea Abdominal pain GERD (gastroesophageal reflux disease) Tinnitus, bilateral Neoplasm of unspecified behavior of bone, soft tissue, and skin Cellulitis Social History Smoking/Tobacco Use Status: Former Tobacco Use Smoking risk assessment performed?: Yes Alcohol Intake: former Drug use: Never Substance use type: does not use Do you feel safe at home: Yes Do you feel safe in your relationship?: Yes POCUS Exam (ED) Limited Soft Tissue Exam DATE OF EXAM: 04/30/24 TIME OF EXAM: 11:00 PROVIDER THAT PERFORMED THE STUDY: Bettina Pearson IS THIS A REPEAT EXAM DURING THIS ENCOUNTER: No LOCATION OF EXAM: Lower extremity/left REASON FOR EXAM: Pain and Redness VISUALIZED STRUCTURES: Fascia, Skin and Subcutaneous tissue PERTINENT FINDINGS/IMPRESSION: Cellulitis Left lower leg and Cobblestoning Left lower leg . Exam Complete
[2024-04-30 11:36] LABS: Abs Immature Grans 0.02 10^3/uL (0.0-0.06); Absolute Basophil Count 0.02 10^3/uL (0.0-0.2); Absolute Eosinophil Count 0.06 10^3/uL (0.0-0.7); Absolute Lymphocyte Count 1.62 10^3/uL (1.2-3.4); Absolute Monocyte Count 0.58 10^3/uL (0.1-0.8); Absolute Neutrophil Count 5.38 10^3/uL (1.2-6.7); Basophils % 0.3 %; Eosinophils % 0.8 %; HCT 50.5 % (40.0-50.0); Immature Grans % 0.3 %; Lymphocytes % 21.1 %; MCH 29.6 pg (27.0-33.0); MCHC 33.7 % (32.0-36.0); MCV 88 fL (80-95); MPV 10.1 fL (8.0-11.0); Monocytes % 7.6 %; Neutrophils % 69.9 %; Platelet Count 157 10^3/uL (130-400); RBC 5.74 10^6/uL (4.36-5.78); RDW 12.9 % (11.8-14.1); RDW-SD 41.1 fL; WBC 7.68 10^3/uL (4.4-10.8)
[2024-04-30 11:37] LABS: Lactate 1.5 mmol/L (0.6-1.4)
[2024-04-30 12:01] LABS: ALT 27 U/L (16-63); AST 15 U/L (15-37); Albumin 3.4 g/dL (3.4-5.0); Alkaline Phosphatase 62 U/L (46-116); Anion Gap 10.1 mmol/L (3-11); BUN 12 mg/dL (7-18); Bilirubin, Total 0.67 mg/dL (0.2-1.0); CO2 27.9 mmol/L (21.0-32.0); Calcium 9.3 mg/dL (8.5-10.1); Chloride 104 mmol/L (98-107); Estimated GFR 84.05 (mL/min/1.73m2); Glucose 120 mg/dL (74-106); Potassium 3.8 mmol/L (3.5-5.1); Sodium 142 mmol/L (136-145); Total Protein 8.1 g/dL (6.4-8.2)
[2024-04-30 12:15] LABS: COVID-19 PCR Negative (Negative); Influenza A PCR Negative (Negative); Influenza B PCR Negative (Negative); RSV PCR Negative (Negative)
[2024-04-30 12:16] LABS: Source Nasopharynx
[2024-04-30 12:16] LABS: Bilirubin Negative (Negative); Blood Negative (Negative); Clarity Clear (Clear); Glucose >=1000 mg/dL (Negative); Ketones Negative (Negative); Leukocyte Esterase Trace (Negative); Nitrite Negative (Negative); Urobilinogen 0.2 mg/dL (Up to 0.2); pH 5.5 (5-8)
[2024-04-30 12:29] LABS: Bacteria Negative HPF (Negative); C & S Indicated? No; Casts Negative LPF (Negative); Crystals Negative HPF (Negative); Epithelial Cells Rare HPF (Negative); Mucus Negative (Negative); RBC Negative HPF (0-2)
[2024-04-30 12:49] VITALS: BP 146/87; PULSE 69; RESP 18; TEMP 37.1; O2SAT 99
[2024-04-30] MEDS: Cephalexin 500 MG CAP PO (12:49)
[2024-04-30] MEDS: Cephalexin 500 MG CAP, 4 CAPS/BTL PO (12:49)
== END 2024-04-30 12:51 | disposition home or self-care (01) ==
PROVIDERS: Emergency Provider Emergency Medicine; PCP Family Medicine
DX: L03.116 Cellulitis of left lower limb (principal); I10 Essential (primary) hypertension; E78.5 Hyperlipidemia, unspecified; E11.9 Type 2 diabetes mellitus without complications; I25.2 Old myocardial infarction; Z79.82 Long term (current) use of aspirin; Z79.4 Long term (current) use of insulin; Z87.891 Personal history of nicotine dependence
CPT/HCPCS: 36415; 76882; 80053; 87637; 99284; 81003; 81015; 83605; 83735; 85025; 99283

== ENCOUNTER 2024-06-16 08:11 | Emergency (ER) | payer MEDICARE, MEDICAID, SELFPAY ==
[2024-06-16 08:18] VITALS: BP 133/83; PULSE 73; RESP 18; TEMP 36.6; O2SAT 99
[2024-06-16 08:37] VITALS: PULSE 82; RESP 15; O2SAT 98
[2024-06-16 08:40] VITALS: PULSE 77; RESP 20; O2SAT 97
[2024-06-16 08:50] VITALS: PULSE 78; RESP 15; RESP 16; O2SAT 94
[2024-06-16] MEDS: Ondansetron O.D.T. 4 MG TABEF PO (08:56)
[2024-06-16] MEDS: Acetaminophen 500 MG TAB 1000 MG PO (08:56)
[2024-06-16] MEDS: Ketorolac 15 MG/ML VIAL IM (08:57)
--- NOTE | 2024-06-16 09:41 | ED.GENADUL_ITS ---
Discharge Plan Disposition Patient Disposition: Home Condition: Stable Discharge Details Clinical Impression: Fibromyalgia, Diabetes mellitus, History of non-ST elevation myocardial infarction (NSTEMI), Insomnia Primary Care Provider: Tracey Mueller ED Provider: Bettina Pearson Home Meds and New Rx's Prescriptions: No Action sertraline 25 mg tablet 25 mg PO DAILY cholecalciferol (vitamin D3) 25 mcg (1,000 unit) capsule 25 mcg PO DAILY insulin glargine [Basaglar KwikPen U-100 Insulin] 100 unit/mL (3 mL) insulin pen 20 unit subcut QAM losartan 25 MG tablet 50 mg PO DAILY pantoprazole 40 MG tablet,delayed release (DR/EC) 40 mg PO DAILY acetaminophen [Mapap Extra Strength] 500 MG tablet 500 mg PO PRN PRN aspirin [Aspirin Low-Strength] 81 MG tablet,chewable 1 tab PO PRN PRN ondansetron 4 mg tablet,disintegrating 4 mg PO Q8H PRN PRN Patient Comments: DISSOLVE 1 TABLET ON THE TONGUE EVERY 8 HOURS NEEDED Ozempic 1 mg/dose (4 mg/3 mL) pen injector 1 mg SUBCUT .weekly Patient Comments: INJECT 1 MG UNDER THE SKIN ONE DAY A WEEK (DME) pen needle, diabetic [BD Ultra-Fine Micro Pen Needle] 32 gauge x 1/4 needle MISCELLANEOUS Patient Comments: USE 1 NEEDLE ONCE DAILY dapagliflozin propanediol [Farxiga] 5 mg tablet 5 mg PO QAM Patient Comments: TAKE 1 TABLET BY MOUTH EVERY DAY FOR DIABETES atorvastatin 40 mg Tablet 40 mg PO QHS triamcinolone acetonide 0.1 % Cream 1 applic TOPICAL BID nitroglycerin [Nitrostat] 0.4 mg Tablet, Sublingual 0.4 mg SUBLINGUAL Q5-15M PRN furosemide 20 mg Tablet 20 mg PO DAILY albuterol sulfate [ProAir HFA] 90 mcg/actuation Hfa Aerosol Inhaler 2 puff INHALATION Q6H PRN metoprolol succinate 25 mg Capsule,Sprinkle,Er 24hr 25 mg PO DAILY diclofenac sodium [Voltaren Arthritis Pain] 1 % Gel 2 g TOPICAL QID PRN Discharge Instructions Instructions: Fibromyalgia (DC) Additional Instructions: You were seen in the emergency department today for generalized body pain, difficulty sleeping, and received some medications for treatment of the symptoms including Tylenol, Toradol (related to ibuprofen), and Zofran. You have prescriptions for Zofran which you should use at home anytime you start to feel nauseated, but no more frequently than every 6 hours. You should continue to take your Tylenol, and can occasionally use ibuprofen for severe pain, the certainly use caution as this medication can affect your stomach and your kidneys. As we discussed, you are going to need to follow-up with your outpatient providers to discuss any changes to your chronic medications, including those t hat manage your fibromyalgia. Please call their office to schedule this appointment today. You can also return to the emergency department if you have any concerns, especially if you develop fevers or chills, chest pain, shortness of breath, or change in responsiveness. Thank you for allowing us to be part of your care. HPI General Mode of arrival: ambulatory . Date/Time Provider Initiated Documentation: 06/16/24 08:23 . Limitations to Documentation: no limitations . Information obtained by: patient and old records reviewed . HPI Narrative: HPI: This is a 64-year-old male patient with a history of fibromyalgia, NSTEMI, diabetes, hypertension, hyperlipidemia who is presenting for evaluation of 1 to 2 months of body pain and insomnia. The patient reports that since April he has noted worsening of his generalized body pain, notes that his skin is tender whenever he touches it, and seems to have electric like pain whenever he rubs the sides of his legs. He also notes that he has not been getting enough sleep, states that he lays down and can only sleep for 2 or 3 hours before he has to get up. He states that he has had a significant amount of increased stress, specifically noting that his housing situation is strenuous and he has neighbors that are trying to get him evicted. He states that he is working with outpatient resources but is apprehensive to move at his age. The patient reports that he is taking his Tylenol as prescribed, as well as his sertraline, states that he has had some nausea for which she was prescribed Zofran but has not tried. States that he has a appointment scheduled with his primary care provider in the next few weeks, but felt frustrated by his symptoms, prompting his presentation to care. The patient reports that he has not had any recent illness or injuries, completed a course of antibiotics for cellulitis with resolution of his skin infections. States that he has not been eating as much as typical, citing poor appetite and nausea. Exam: Gen: Awake and alert, in no apparent distress HEENT: Non-icteric sclera Neck: Supple Lungs: No apparent respiratory distress, normal respiratory effort. Lung sounds clear and equal bilaterally CV: Appears well perfused, heart with regular rate and rhythm Abdomen: Non-distended, soft, nontender MSK: Moves 4 extremities without apparent limitation in ROM Skin: Visualized skin without rashes, cyanosis. Neuro: Normal Gait, no obvious focal deficits or facial asymmetry. Speaks in full, clear sentences. Psych: Appropriate for situation. MDM: This is a 64-year-old male patient presenting for evaluation of body aches. The patient reports that this pain is consistent with fibromyalgia flare, and given its prolonged duration and its association with stress I do feel that this is likely architectural representative of the patient's chronic pain sequelae. I certainly considered injury, trauma, though the history and physical examination is without concerning findings. No overlying skin changes to suggest rash such as herpes zoster. The patient cellulitis has resolved. The patient does not have evidence of akathisia or erratic body movements, though certainly I did consider restless leg syndrome and other movement disorders. The patient is hemodynamically appropriate, with no fever or localizing symptoms to suggest infection. We did shared decision-making conversation regarding the patient's goals, and he is hopeful for some symptom improvement, to allow him to make it to his primary care appointment. I reviewed his prior laboratory studies from a month ago, which revealed normal renal function. I do not see indication to repeat laboratory studies or obtain advanced imaging at this time. I will provide the patient with a dose of Toradol, Tylenol, and Zofran. ED Course: On reevaluation, the patient has had improvement in his symptoms. We did discuss outpatient management of medications, including his Tylenol, occasional ibuprofen for breakthrough pain, as well as Zofran for nausea. The patient needs to continue all of his home medications as prescribed, and he feels comfortable with the doses as they are. We did discuss sleeping medications, patient is hesitant to try something sedating and I agree that I would be hesitant to try this as a first-line agent. He is not interested in starting melatonin at this time. The patient feels comfortable with discharge and is hopeful to follow-up with his primary care department sooner, and at this time, the patient has had a full medical evaluation and is safe for discharge to home. They are hemodynamically stable, ambulatory, and tolerating PO. They are understanding of the follow-up plan and return precautions. They left our facility without incident. Bettina Pearson MD Related Data Home Medications ?Medication ?Instructions ?Recorded ?Confirmed losartan 25 mg tablet 50 mg PO DAILY 10/14/12 06/16/24 pantoprazole 40 mg tablet,delayed 40 mg PO DAILY 12/08/12 06/16/24 release acetaminophen 500 mg tablet (Mapap 500 mg PO PRN PRN 02/11/13 06/16/24 Extra Strength) aspirin 81 mg chewable tablet 1 tab PO PRN PRN 06/07/16 06/16/24 (Aspirin Low-Strength) albuterol sulfate 90 mcg/actuation 2 puff inhalation Q6H PRN 05/10/19 06/16/24 aerosol inhaler (ProAir HFA) atorvastatin 40 mg tablet 40 mg PO QHS 05/10/19 06/16/24 furosemide 20 mg tablet 20 mg PO DAILY 05/10/19 06/16/24 metoprolol succinate 25 mg capsule 25 mg PO DAILY 05/10/19 06/16/24 sprinkle, ext. release 24 hr nitroglycerin 0.4 mg sublingual 0.4 mg sublingual Q5-15M PRN 05/10/19 06/16/24 tablet (Nitrostat) triamcinolone acetonide 0.1 % 1 applic topical BID 05/10/19 06/16/24 topical cream diclofenac sodium 1 % topical gel 2 g topical QID PRN 11/29/21 06/16/24 (Voltaren Arthritis Pain) insulin glargine 100 unit/mL (3 20 unit subcut QAM 08/12/23 06/16/24 mL) subcutaneous pen (Basaglar KwikPen U-100 Insulin) cholecalciferol (vitamin D3) 25 25 mcg PO DAILY 09/01/23 06/16/24 mcg (1,000 unit) capsule sertraline 25 mg tablet 25 mg PO DAILY 09/01/23 06/16/24 dapagliflozin propanediol 5 mg 5 mg PO QAM 06/16/24 06/16/24 tablet (Farxiga) ondansetron 4 mg disintegrating 4 mg PO Q8H PRN PRN 06/16/24 06/16/24 tablet pen needle, diabetic 32 gauge x 06/16/24 06/16/24/ (BD Ultra-Fine Micro Pen Needle) semaglutide 1 mg/dose (4 mg/3 mL) 1 mg subcut .weekly 06/16/24 06/16/24 subcutaneous pen injector (Ozempic) Allergies Allergy/AdvReac Type Severity Reaction Status Date / Time Penicillins Allergy Unknown Hives Unverified 06/16/24 08:26 codeine AdvReac Mild Nausea Unverified 06/16/24 08:26 hydrocodone bitartrate (From AdvReac Mild Nausea Unverified 06/16/24 08:26 Vicodin) General Stated Complaint: GenMedical LISANDRA: 3 Course Vital Signs Vital signs: Vital Signs Temperature 36.6 C 06/16/24 08:18 Pulse 73 06/16/24 08:18 Respiratory Rate 18 06/16/24 08:18 Blood Pressure 133/83 06/16/24 08:18 Pulse Oximetry 99 06/16/24 08:18 Temperature 36.6 C 06/16/24 08:18 Temperature Source Temporal Artery Scan 06/16/24 08:18 Pulse 73 06/16/24 08:18 Pulse 78 06/16/24 08:50 Respiratory Rate 15 06/16/24 08:50 Respiratory Effort Normal, Non-Labored 06/16/24 08:50 Respiratory Depth Normal 06/16/24 08:50 Respiratory Pattern Normal 06/16/24 08:50 Blood Pressure 133/83 06/16/24 08:18 Blood Pressure Position Sitting 06/16/24 08:18 Pulse Oximetry 94 06/16/24 08:50 Oxygen Delivery Method Room Air 06/16/24 08:18 Oxygen Flow Rate 0 06/16/24 08:18 Pain Level 8 06/16/24 08:57 Medical Decision Making Quality:SDOH Health Related Social Needs: No Data to Display PFSH All Active Problems (Updated 06/16/24 @ 09:42 by Bettina Pearson MD) Insomnia (Acute) Fibromyalgia (Acute) Bilateral shoulder bursitis (Acute) Sensorineural hearing loss of both ears (Acute) Morbid obesity (Acute) History of non-ST elevation myocardial infarction (NSTEMI) (Acute) Family history of colon cancer in mother (Acute) Adenomatous colon polyp (Acute) Family history of colon cancer (Acute) brother and sister Diabetes mellitus (Chronic) Diarrhea (Acute) Medical History (Updated 06/16/24 @ 09:42 by Bettina Pearson MD) Cough, persistent Quit using tobacco in remote past Metabolic syndrome Fibromyalgia Insomnia Sarcoidosis H/O lichenification and lichen simplex chronicus Situational anxiety Edema Hypertension Hyperlipidemia Nausea Abdominal pain GERD (gastroesophageal reflux disease) Tinnitus, bilateral Neoplasm of unspecified behavior of bone, soft tissue, and skin Cellulitis Social History Smoking/Tobacco Use Status: Former Tobacco Use Smoking risk assessment performed?: Yes Alcohol Intake: former Drug use: Never Substance use type: does not use Housing: house Do you feel safe at home: Yes Do you feel safe in your relationship?: Yes
[2024-06-16 09:44] VITALS: BP 132/78; PULSE 75; RESP 18; TEMP 36.4; O2SAT 98
== END 2024-06-16 09:47 | disposition home or self-care (01) ==
PROVIDERS: Emergency Provider Emergency Medicine; PCP Family Medicine
DX: M79.7 Fibromyalgia (principal); G47.00 Insomnia, unspecified; E11.9 Type 2 diabetes mellitus without complications; I25.2 Old myocardial infarction; R11.0 Nausea
CPT/HCPCS: 96372; 99284; 99283; J1885

== ENCOUNTER 2024-06-30 08:01 | Emergency (ER) | payer MEDICARE, MEDICAID, SELFPAY ==
[2024-06-30 08:04] VITALS: BP 137/70; PULSE 64; RESP 16; TEMP 36.4; O2SAT 96
--- OUTSIDE RECORDS SUMMARY | 2024-06-30 08:10 | XMS_ITS | Encounter Summary ---
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 Most swelling will occur [id number] hours following the procedure. Mouth Rinse: Vigorous [...] ? Generalized body chills or fever Dr. Shpeherd can be reached at [phone] between the hours of 5PM-10PM and on weekends. During business hours 8am-5pm M-F please call our office at [phone]. documented in this encounter Progress Notes * [...] pulp documented in this encounter Care Teams Director Special Education Relationship Specialty Start Date End Date Tracey Mueller MD [address] [place] [address] PCP - General 06/04/10 documented as of this encounter
--- OUTSIDE RECORDS SUMMARY | 2024-06-30 08:10 | XMS_ITS | Encounter Summary ---
Author Organization [facility] Address [address] [place] [address] Care Team Providers Care Molding Line Operator Name Role Phone Tracey Ruiz MD Primary Care Provider [phone] Encounter Details Date Type Department Care Team (Late st Contact Info) Description 03/21/2019 Results Only [facility]- [facility] [phone] Johanna Gillette, [address] [place] [address] Social History Tobacco Use Types Packs/Day Years Used Date Smoking Tobacco: Never Assessed Sex and Gender Information Value Date Recorded Sex Assigned at Not on file Legal Sex Male 18:10 EST Gender Identity Not on file Sexual Orientation [...] ? DENILSON HUNTER ? Accession #: ? [id number] ? : ? 1960 (Age: 59) ??M [...] ??There is no evidence of malignancy. ??(Dr. Elizondo)/[facility] Microscopic Description: Sections consist of a shave [...] bundles of collagen and reactive vessels. ??(Dr. Elizondo)/[facility] Document reviewed and electronically signed by: RICCI [...] Snow 03/22/2019 7:30 AM End of Report [facility] 03/21/2019 22:4 0 EDT 03/21/2019 22:40 EDT us Johanna Gillette DO PATHOLOGY ORDERABLES Fi nal Result [facility] [address] [place] [address] documented in this encounter Visit Diagnoses Not on filedocumented in this encounter Care Teams Molding Line Operator Relationship Specialty Start Date End Date Tracey Ruiz MD [address] [place] [phone] PCP - General 12/17/09 documented as of this encounter
--- OUTSIDE RECORDS SUMMARY | 2024-06-30 08:10 | XMS_ITS | Clinical Summary ---
Author Organization [facility] Address [address] [place] [address] Care Team Providers Care Truck Trailer Mechanic Name Role Phone Tracey Mueller MD Primary Care Provider [phone] Social History Tobacco Use Types Packs/Day Years [...] Last Done Comments Hepatitis C Screen 1960 COVID-19 Vaccine ( season) 2024 RSV Immunization ( o r 60+ Years) (1 - 1-dose 75+ series) 02/07/2035 Care Teams Truck Trailer Mechanic Relationship Specialty Start Date End Date Tracey Mueller MD [address] [place] [phone] PCP - General 12/17/09
--- OUTSIDE RECORDS SUMMARY | 2024-06-30 08:10 | XMS_ITS | Encounter Summary ---
Author Organization [facility] Address [address] [place] [address] Care Team Providers Care Day Guard Name Role Phone Tracey Mueller MD Primary Care Provider [phone] Encounter Details Date Type Department Care Team (Late st Contact Info) Description 12/01/2023 Lab Requisition [facility] Pathology & Laboratory Medicine - [address] [id number] Outr Resulting Lab, Provider Social History Tobacco [...] Lyme Ab Negative Negative 12/02/2023 10:36 EDT [facility] Blood VENOUS BLOOD / Unknown 12/01/2023 11:54 EDT 12/01/2023 21:46 EDT us Provider Outr Resulting Lab IMMUNOLOGY AND SEROL OGY ORDERABLES Final Result [facility] [address] [place] [address] documented in this encounter Visit Diagnoses Not on filedocumented in this encounter Care Teams Day Guard Relationship Specialty Start Date End Date Tracey Mueller MD [address] [place] [phone] PCP - General 12/17/09 documented as of this encounter
--- OUTSIDE RECORDS SUMMARY | 2024-06-30 08:10 | XMS_ITS | Encounter Summary ---
[place] [address] Care Team Providers Care Cylinder Worker Name Role Phone Tracey Mueller MD Primary Care Provider [phone] Encounter Details Date Type Department Care Team (Late st Contact Info) Description 08/15/2019 Telephone [place]ill[place] [address] Maty Thompson Social History Tobacco Use Types [...] on filedocumented in this encounter Care Teams Cylinder Worker Relationship Specialty Start Date End Date Tracey Mueller MD [address] [place] [address] PCP - General 06/04/10 documented as of this encounter
--- OUTSIDE RECORDS SUMMARY | 2024-06-30 08:10 | XMS_ITS | Encounter Summary ---
[place] [address] Care Team Providers Care Art History Instructor Name Role Phone Tracey Mueller MD Primary Care Provider [phone] Encounter Details Date Type Department Care Team (Late st Contact Info) Description 07/15/2019 Telephone [place] [address] Maty Thompson Social History Tobacco Use Types [...] on filedocumented in this encounter Care Teams Art History Instructor Relationship Specialty Start Date End Date Tracey Mueller MD [address] [place], [place] [address] PCP - General 06/04/10 documented as of this encounter
--- OUTSIDE RECORDS SUMMARY | 2024-06-30 08:10 | XMS_ITS | Encounter Summary ---
Author Organization [facility] [place] [address] Care Team Providers Care Bilingual Sales Assistant Name Role Phone Tracey Mueller MD Primary Care Provider [phone] Encounter Details Date Type Department Care Team (Late st Contact Info) Description 08/11/2019 Telephone [place] [address] aMty Thompson Social History Tobacco Use Types Packs/Day [...] 4:30 PM EST To: Henry Shepherd [place], [facility] [place] Subject: urgent case? please review [...] on filedocumented in this encounter Care Teams Bilingual Sales Assistant Relationship Specialty Start Date End Date Tracey Mueller MD [facility] [address] [place] [address] PCP - General 06/04/10 documented as of this encounter
--- OUTSIDE RECORDS SUMMARY | 2024-06-30 08:10 | XMS_ITS | Clinical Summary ---
Author Organization [facility] Address [facility] [place] [address] Care Team Providers Care Wash Helper Name Role Phone Tracey Mueller MD Primary Care Provider Allergies Active Allergy Reactions Criticality Noted Date [...] TWICE A DAY 08/11/2019 Active HYDROcodone-acetami nophen (Byron) 5-325 mg Tablet Take 1 tablet by mouth every 6 hours as needed. 15 tablet 11/07/2019 Active Active Problems Problem Noted Date Diagnosed Date Old NC (myocardial infarction) 06/09/2016 Social History Tobacco Use [...] 2) 02/07/2010 Advance Directive 02/07/2015 Covid-19 Vaccine (1 - 2023-2 5 season) 2024 Influenza (Flu) vaccine (1 o [...] EST) Glucose 112 65 - 199 mg/dL [facility] Comment:Diabetes: >=200 mg/d L plus symptoms Blood Urea Nitrogen 11 10 - 20 mg/dL [facility] Creatinine 0.90 0.80 - 1.50 mg/dL [facility] Comment: Please note that the pediatric reference intervals supplied above were not validated at [facility]. Results from pediatric patients should be interpreted in conjunction to the patient's age, height and muscle mass. Sodium 139 135 - 145 mmol/L [facility] Potassium 3.8 3.5 - 5.0 mmol/L [facility] Comment: Please note: ??Patients with WBC >100,000 may have falsely elevated Potassium levels. ??For accurate Potassium quantification in these patients send serum separator tube (gold top) for subsequent determinations. ??Contact the Clinical Chemistry Laboratory if there are any questions. Chloride 100 98 - 107 mmol/L [facility] Carbon Dioxide 24 22 - 31 mmol/L [facility] Anion Gap 15 5 - 15 mmol/L [facility] Calcium 8.9 8.5 - 10.5 mg/dL [facility] Est Glomerular Filtration Rate >60 >=60 [facility] Comment: This estimated GFR (eGFR) [...] the following links into your internet browser. [email or web address] Blood specimen (specimen) 06/11/2016 3:49 AM EST 06/11/2016 3:59 AM EST Narrative Resulting Agency Comment Spec In Lab Fidel Barakat MD CHEMISTRY ORDERABLE S [facility] [place] [phone] from Last 3 Months or Most Recently Relevant to Health Maintenance Advance Directives * Full Code (Latest Code Status on File) Date Activated Date Inactivated Comments 06/09/2016 4:51 PM 06/11/2016 6:14 PM Question Answer Comments Does patient have capacity to make decision: Yes Care Teams Wash Helper Relationship Specialty Start Date End Date Tracey Mueller MD [address] [place] [address] PCP - General 06/04/10
--- OUTSIDE RECORDS SUMMARY | 2024-06-30 08:10 | XMS_ITS | Referral Summary ---
Author Organization [facility] Address [address] [place] [address] Care Team Providers Care Custodial Worker Name Role Phone Tracey Mueller MD Primary Care Provider [phone] Social History Tobacco Use Types Packs/Day Years [...] of Treatment Not on file Care Teams Custodial Worker Relationship Specialty Start Date End Date Tracey Mueller MD [address] [place] [phone] PCP - General 12/17/09
--- OUTSIDE RECORDS SUMMARY | 2024-06-30 08:10 | XMS_ITS | Encounter Summary ---
[place] [address] Care Team Providers Care Wicker Molded Candles Name Role Phone Tracey Mueller MD Primary Care Provider [phone] Encounter Details Date Type Department Care Team (Late st Contact Info) Description 11/06/2021 Telephone Cardiology at [address] [address] Whitney Warren LNA Social History Tobacco Use [...] on filedocumented in this encounter Care Teams Wicker Molded Candles Relationship Specialty Start Date End Date Tracey Mueller MD [address] [place] [address] PCP - General 06/04/10 documented as of this encounter
--- OUTSIDE RECORDS SUMMARY | 2024-06-30 08:10 | XMS_ITS | Encounter Summary ---
Author Organization [facility] Address [address] [place] [address] Care Team Providers Care Admin Prog Coord Name Role Phone Unavailable Primary Care Provider Unavailabl e Encounter Details Date Type Department Care Team ([facility] st Contact Info) Description 12/13/2009 Results Only [facility] - [facility] [address] [place], [place] [address] Anoop Tamez MD [address] [place] [address] Social History Tobacco Use Types Packs/Day Years [...] ? DALE, DENILSON ? Accession #: ? [id number] ? : ? 1960 (Age: 49) ??M [...] ??Positive and negative controls stained appropriately. ? Property Valuer sections of this case have been reviewed [...] ??performance ? characteristics have been determined by [facility]. ??This ? laboratory is [...] GERD ? Gross Description: ? Received in [place]'s fixative labelled Denilson Muñiz and #1 polyp ?? 120 cm is a 1.1 x 0.5 x 0.2 cm firm, sessile polyp, which is black inked along a narrow, slit-like resection margin. ??The specimen is sectioned into five ? sections and submitted entirely as (A1) (two pieces with black inked margin) and (A2) remaining three pieces (do not include margin). ? Received in [facility]'s fixative labelled Denilson Muñiz and #2 bx duodenum are three pieces of tissue which range from 0.4 x 0.3 x 0.2 cm to 0.2 x 0.2 x ?? 0.2 cm. ??The specimens are submitted intact as (B). ? Received in [facility]'s fixative labelled Denilson Muñiz and #3 bx esophagus 40 cm are four pieces of tissue which range from 0.3 x 0.3 x 0.2 cm to 0.2 x ?? 0.2 x 0.1 cm. ??Two are submitted as (C1) and the remaining two as (C2). ??(J. ? [employer])/mckennan ? End of Report ? [facility] 12/13/2009 12/13/2009 16: 37 EDT us Anoop Tamez MD PATHOLOGY ORDERABLES Final Result [facility] [address] [place] [address] documented in this encounter Visit Diagnoses Not on filedocumented in this encounter
--- OUTSIDE RECORDS SUMMARY | 2024-06-30 08:10 | XMS_ITS | Encounter Summary ---
Author Organization [facility] Address [address] [place] [address] Care Team Providers Care Instrumentation And Control Technician Name Role Phone Tracey Mueller MD Primary Care Provider [phone] Encounter Details Date Type Department Care Team (Latest Contact Info) Description 03/21/2019 10:04 EDT - 03/21/2019 23:59 EDT Hospital Encounter [address] [address] Unknown, Provider, MD Discharge Disposition: Home or Self Care Social History Tobacco Use Types Packs/Day Years Used Date Smoking Tobacco: Never Assessed Sex and Gender Information Value Date Recorded Sex Assigned at Not on file Legal Sex Male 18:10 EST Gender Identity Not on file Sexual Orientation Not on file documented as of this encounter Discharge Disposition Disposition Code Departure Means Destination Home or Self [facility]pc documented in this encounter Plan of Treatment Not on file documented as of this encounter Visit Diagnoses Not on filedocumented in this encounter Care Teams Instrumentation And Control Technician Relationship Specialty Start Date End Date Tracey Mueller MD [address] [place] [phone] PCP - General 12/17/09 documented as of this encounter
--- OUTSIDE RECORDS SUMMARY | 2024-06-30 08:10 | XMS_ITS | Encounter Summary ---
Author Organization [facility] [place] [address] Care Team Providers Care Cook Supervisor Name Role Phone Tracey Mueller MD Primary Care Provider [phone] Reason for Visit * Reason Comments Other 5 teeth bothering, h x infections, last took antibx 2wk ago * Consultation (Routine) - Closed Specialty Diagnoses / Procedures Referred By Ashleigh keller Referred To Contact Maxillofacial Surgery Diagnoses evaluate 12 18 for extractions Decay/Abscess Procedures evaluate 12 15 18 for extractions Decay/Abs[place] [address] [facility] [address] [place] [phone] Referral ID Status Reason Start Date Expiration Date Visits Re quested Visits Authorized [id number] Closed 07/27/2019 07/26/2020 1 1 Encounter Details Date Type Department Care Team (Late st Contact Info) Description 08/31/2019 11:30 AM EST Office Visit [place] [address] Henry Shepherd MD [facility] [place] [address] Dental caries Social History Tobacco Use Types [...] 1 hour prior to procedure. I did career and guidance counselor him that he has no cardiac [...] caries documented in this encounter Care Teams Cook Supervisor Relationship Specialty Start Date End Date Trcaey Mueller MD [address] [place] [address] PCP - General 06/04/10 documented as of this encounter
--- OUTSIDE RECORDS SUMMARY | 2024-06-30 08:10 | XMS_ITS | Encounter Summary ---
Author Organization [facility] Address [address] [place] [address] Care Team Providers Care Car Oiler Name Role Phone Tracey Mueller MD Primary Care Provider [phone] Encounter Details Date Type Department Care Team (Late st Contact Info) Description 10/24/2019 Lab Requisition [facility] Pathology & Laboratory Medicine - [facility] [address] [place] [address] Rina Gonzalez, USER INTERFACE DEVELOPER [address] [place] [address] Encounter for other general examination Social History [...] COVID-19 Result Not Detected 10/26/2019 10:37 EDT [facility] Comment:Assayed by [facility], [place], [place] Swab ENTIRE NASOPHARYNX / Unknown 10/24/2019 13:25 EDT 10/24/2019 20:30 EDT us Rina Vitale USER INTERFACE DEVELOPER MICROBIOLOGY - GENERA L ORDERABLES Final Result [facility] [address] [place] [address] documented in this encounter Visit Diagnoses Diagnosis Encounter for other general examination documented in this encounter Care Teams Car Oiler Relationship Specialty Start Date End Date Tracey Mueller MD [address] [place] [phone] PCP - General 12/17/09 documented as of this encounter
--- OUTSIDE RECORDS SUMMARY | 2024-06-30 08:10 | XMS_ITS | Encounter Summary ---
Author Organization [facility] [place] [address] Care Team Providers Care Scientist/Engineer Name Role Phone Tracey Mueller MD Primary Care Provider [phone] Reason for Referral * Consultation (Routine) - Closed Specialty Diagnoses / Procedures Referred By Milaac t Referred To Contact Cardiology Diagnoses Old myocardial infarction Old [place] (2016). Tachycardic when exercises. Tracey Mueller MD [address] [place] [address] [facility] [address] [place] [phone] Referral ID Status Reason Start Date Expiration Date V isits Requested Visits Authorized [id number] Closed Consult, Test & Treat 10/22/2021 10/22/2022 6 6 Encounter Details Date Type Department Care Team (Latest Contact Info) Description 10/22/2021 Transcribe Orders eDH Incoming Referrals [phone] Tracey Mueller MD [address] [place] [address] Old myocardial infarction Social History [...] infarction documented in this encounter Care Teams Scientist/Engineer Relationship Specialty Start Date End Date Tracey Mueller MD [facility] [address] [facility] [address] [place] [address] PCP - General 06/04/10 documented as of this encounter
--- OUTSIDE RECORDS SUMMARY | 2024-06-30 08:10 | XMS_ITS | Encounter Summary ---
Author Organization [facility] Address [address] [place] [address] Care Team Providers Care Customer Experience Strategist Name Role Phone Tracey Ruiz MD Primary Care Provider [phone] Encounter Details Date Type Department Care Team ([facility] st Contact Info) Description 11/13/2004 Results Only [facility] [place] [address] [place] [address] Familia Ackerman MD [address] [place] [phone] Social History Tobacco Use Types Packs/Day Years [...] ? DENILSON HUNTER ? Accession #: ? [id number] ? : ? 1960 (Age: 44) ??M [...] [facility] 11/13/2004 11/13/2004 15: 36 EDT us Familia Ackerman MD PATHOLOGY ORDERABLES Final Res ult [facility] [address] [place] [address] documented in this encounter Visit Diagnoses Not on filedocumented in this encounter Care Teams Customer Experience Strategist Relationship Specialty Start Date End Date Tracey Ruiz MD [address] [place] [phone] PCP - General 12/17/09 documented as of this encounter
--- OUTSIDE RECORDS SUMMARY | 2024-06-30 08:10 | XMS_ITS | Encounter Summary ---
Author Organization [facility] [place] [address] Care Team Providers Care Homoeopath Name Role Phone Tracey Mueller MD Primary Care Provider [phone] Reason for Referral * Consultation (Routine) - Specialty Diagnoses / Procedures Referred By Contact Referred To Contact Cardiac Rehabilitation Diagnoses NSTEMI (non-ST elevated myocardial infarction) Fidel Barakat MD [facility] [place] [address] Cardiac Rehab, [address] [place] [address] Referral ID Status Reason Start Date Expiration Date V isits Requested Visits Authorized [id number] Consult, Test & Treat 06/11/2016 12/08/2016 36 36 Reason for Visit * Auth/Cert Specialty Diagnoses / Procedures Referred By Contac t Referred To Contact Diagnoses NSTEMI (non-ST elevated myocardial infarction) CHEST PAIN ?CAD Procedures CARDIAC CATHETERIZATION Referral ID Status Reason Start Date Expiration Date Visits Re quested Visits Authorized [id number] 1 1 Encounter Details Date Type Department Care Team (Late st Contact Info) Description 06/09/2016 4:30 PM EST - 06/11/2016 4:14 PM EST Hospital Encounter Intermediate [place] [address] Arjun Espinosa MD Costa, Salvatore P, MD [facility] [place] [address] Non-ST elevation myocardial infarction (NSTEMI); NSTEMI (non-ST [...] Denilson Hunter Patient Age: 56 y.o. Language: Japanese Race: White Ethnicity: Not nor Admit date: [...] for peripheral edema. [ ] Discuss with filler wiper regarding nabumetone and elevated cardiac risk in the post-[place] period. We have told the patient to stop this medication and resume when PCP OR Lube Technician tells him it is safe. [ ]Mackay [...] to this hospitalization, please contact your regular Family Law Attorney or [facility] Cardiology clinic. Issues after hours and on weekends will be handled by the Master Printer on-call ([phone] then ask for on-call infant babysitter). Discharge Diagnoses (Hospital Problems) and Secondary Diagnoses [...] ), arthritis who presents as transfer from [facility] ([facility], [place], [place]) for concern of acute coronary syndrome [...] about 5 minutes. ?? He presented to [facility] ED where he was found to have [...] on prior episodes. ?? He returned to [facility] ED where his ECG was once again [...] remained asymptomatic since. [facility] had [facility] to 0.22. He states he didnot receive sublingual nitroglycerin throughout these events. He was transferred to [facility] for cardiac catheterization. ?? Of note, patient states his legs occasionally get swollen but resolve with elevation. He endorses snoring but has never been evaluated for CORINA. He denies orthopnea or PND. ?? Recent sick contact: niece who has ear infection No recent travel history. ?? Diagnostics at [facility]: Sequential troponins: 0.03 (06/07), 0.07 to 0.08 [...] priority for the procedure was Urgent. [facility] for [...] or STEMI. Clopidogrel loaded prior to the laboratory technology teacher. Recommend continued dual antiplatelet therapy (DAPT) with [...] June 18, 2016 Time: 1:00 pm Location: [place], [place]) Family Law Attorney- You have an appointment scheduled with Dr. Barakat Date: June Time: 12:45 pm Location: [facility] ([place], [place]) Your Inpatient Doctor(s) at [facility] at discharge: Dr. Barakat (attending Family Law Attorney) Dr. Piper (Master Printer) Dr. Mendoza (Internal Medicine Residents) General Instructions None Future Appointments and Orders Future Appointments Provider Department Dept Phone 07/10/2016 1:00 PM Fidel Barakat MD Cardiology [phone] Future Orders Complete By Expires Referral to Cardiac Rehab [[id number] Custom] As directed Process Instructions: If no progress note charted, please enter Clinical details in comments. Scheduling Instructions: Questions: My question or request is: NSTEMI, PCI- cardiac rehab at [facility] Discharge References/Attachments None documented in this encounter [...] June 18, 2016 Time: 1:00 pm Location: [place], [place]) Family Law Attorney- You have an appointment scheduled with Dr. Barakat Date: June Time: 12:45 pm Location: [facility] ([place], [place]) Your Inpatient Doctor(s) at [facility] at discharge: Dr. Barakat (attending Family Law Attorney) Dr. Piper (Master Printer) Dr. Mendoza (Internal Medicine Residents) documented in [...] patient home. Wheeled to family vehicle by LEAD WORKER OF HOUSEKEEPING AND LAUNDRY. * Fidel Barakat MD - 06/11/2016 11:55 AM EST Inpatient Cardiology Progress Note Patient Name: Denilson Hunter Date of Admission: 06/09/2016 ( Hospital Day 2 days ) Service: S2 ID: Denilson Hunter is a 56 y.o. male with no prior cardiac history, PMH of HTN, HLD, GERD, DM II (diet controlled), sarcoidosis (last treated with prednisone in ), nursing home disability due to arthritis, active smoker [...] cessation. Currently working with smoking counselor at [facility] - Cardiac rehab inpt eval performed - Patient preference for outpatient cardiac rehab program at [facility]. Telemetry: NSR ??? losartan 50 mg Oral [...] DM II, GERD, morbid obesity (BMI 48), nursing home disability due to arthritis, active smoker [...] months. He will pursue cardiac rehab programat [facility]. Plan: ?? #NSTEMI, now s/p cardiac cath [...] sarcoidosis (last treated with prednisone in ), nursing home disability due to arthritis, active smoker [...] note. Ld Nowak MD Cardiology S2 Pager [phone] * Fidel Barakat MD - 06/10/2016 7:46 AM EST Inpatient Cardiology Progress Note Patient Name: Denilson Hunter Date of Admission: 06/09/2016 ( Hospital Day 1 day ) Service: S2 ID: Denilson Hunter is a 56 y.o. male with no prior cardiac history, PMH of HTN, HLD, GERD, DM II (diet controlled), sarcoidosis (last treated with prednisone in ), nursing home disability due to arthritis, active smoker [...] DM II, GERD, morbid obesity (BMI 48), nursing home disability due to arthritis, active smoker [...] Code Celestine Mendoza MD Cardiology S2 (pgr. [id number]) Cardiology Staff - Admission Note ?? This [...] plavix ?? Patient arrives in transfer from [facility] chest pain free on IV heparin. Has been having episodes of chest pain at rest. Two visits to the ER recently. ?? 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 He is morbidly [...] in ), arthritis presenting as transfer from [facility] for chest pain at rest, elevated troponins (0.22) suggestive of NSTEMI CC: chest pain HPI (obtained from patient and OSH records) Denilson Hunter is a 56 y.o. male with a past medical history significant for HTN, HLD, GERD, DM II, sarcoidosis (last treated with prednisone in ), arthritis who presents as transfer from [facility] ([facility], [place], [place]) for concern of acute coronary syndrome [...] lasting about 5 minutes. He presented to [facility] ED where he was found to have [...] present on prior episodes. He returned to [facility] ED where his ECG was once again [...] remained asymptomatic since. [facility] had risen to 0.22. He states he didnot receive sublingual nitroglycerin throughout these events. He was transferred to [facility] for cardiac catheterization. Of note, patient states his legs occasionally get swollen but resolve with elevation. He endorses snoring but has never been evaluated for CORINA. He denies orthopnea or PND. Recent sick contact: niece who has ear infection No recent travel history. 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 Quit. Restarted over last 2 months, 1/4 ppd. Also chews tobacco. - Alcohol: quit in 1992. Prior 15+ years, heaviest use period 07/17 liquor + multiple beers 3 days/week - Illicit drug use: denies Family History - Father: rheumatic fever, [place] - Mother: [place] - Sisters: colon cancer, breast cancer - [...] in morning. Plan: #Admit to Cardiology S2 (#4708) #NSTEMI (JAYLEEN 4) - Elevated cardiac enzymes, [...] MD PGY-1, Internal Medicine Cardiology Service, Pager #[phone] Cardiology Staff - Admission Note This patient [...] with plavix Patient arrives in transfer from [facility] chest pain free on IV heparin. Has been having episodes of chest pain at rest. Two visits to the ER recently. He is on nursing home disability due to arthritis. He is [...] is working with a tobacco counselor at [facility] and is currently wearinga patch. Enc him [...] in the outpatient cardiac rehabilitation program at [facility] was discussed. Patient agrees to a referral [...] echo. Resolved without any intervention. 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 Hospitalizations Within the Past 30 Days: Pt was transferred to [facility] from [facility] Anticipated Length Of Stay (If known): 2-3 [...] is listed as single and living in [facility] Social & Family Supports/Community Resources: Family [...] n/a Primary Care Provider: Tracey Mueller MD [phone] Patient/Caregiver Goals of Treatment: To be determined Potential Needs for Transition of Care: Rehab/SNF: not likely Home Health: Need is to be determined DME: unknown at this time Dialysis: n/a Community Resources: n/a Transportation: Family to transport? Other: n/a Anticipated Barriers to Discharge/Special Considerations: None identified at this time. Will continue to follow. Plan: Rn Wound Care spoke with this afternoon who feels as though pt will likely return home post discharge without any additional needs. A member of the Care Management team will continue to monitor progress, follow for continuity of care and assist with transition of care planning. Kulwant Vu RN Pager: [phone] * Plan of Care - Landon Gonzalez [...] Outcome: Ongoing (Interventions Implemented as Appropriate) 06/09/16 174 Coping/Psychosocial Plan Of Care Reviewed With patient OUTCOME EVALUATION NOTE: OUTCOME SUMMARY: Pt.admitted from [facility]- currently without c/o pain/discomfort. Heparin gtt infusing. [...] IMPLANTABLE DEVICES SCAN 06/12/2016 12:00 AM EST BUCKLE SORTER SCAN 06/12/2016 12:00 AM EST CARDIAC CATH SCAN 06/12/2016 12: 00 AM EST HEMOGRAM Routine 06/11/2016 3:49 AM EST DIFFERENTIAL, AUTOMATED Routine 06/11/20 16 3:49 AM EST CARDIAC ENZYMES ([facility]) Routine 06/11/2016 3:49 AM EST CBC (WITH DIFF) Routine 06/11/2016 3:49 AM EST BASIC METABOLIC PANEL Routine 06/11/2016 3:49 AM EST EKG 12-LEAD Routine 06/10/2016 5:46 PM EST Non-ST elevation myocardial infarction (NSTEMI) CARDIAC CATHETERIZATION Routine 06/10/20 16 5:14 PM EST EKG 12-LEAD STAT 06/10/2016 12:21 PM EST Non-ST elevation myocardial infarction (NSTEMI) CARDIAC ENZYMES ([facility]) Routine 06/10/2016 10:55 AM EST APTT Routine 06/10/2016 10:55 AM EST ECHO COMPLETE W CONTRAST Routine 06/10/2016 8:41 AM EST NSTEMI (non-ST elevated myocardial infarction) CARDIAC ENZYMES ([facility]) Routine 06/10/2016 6:07 AM EST HEMOGRAM Routine [...] Routine 06/10/2016 3:00 AM EST CARDIAC ENZYMES ([facility]) Routine 06/09/2016 11:41 PM EST APTT STAT [...] SCAN EXT O RDR/RSLT * SCAN DOC: BUCKLE SORTER (06/12/2016 12:00 AM EST) Anatomical Region Laterality Modality Other Scanning Provider MEDIA MGR SCAN EXT O RDR/RSLT * Cardiac Enzymes (06/11/2016 3:49 AM EST) Troponin-T <0.03 <=0.03 ng/mL [facility] Comment: 0.03 ng/mL: Represents the 99th percentile upper reference limit for normals. >0.03 ng/mL: Elevated cardiac troponin T level indicative of myocardial damage. Diagnosis of acute, evolving or recent [place] requires a typical rise and gradual fall [...] consensus document of the Joint Society of Cardiology/Vincentian College of Cardiology Committee for the redefinition of myocardial infarction. ??Journal of the Vincentian College of Cardiology 2000; 36: 959-969] Creatine [...] Number [facility] [place] [address] * (ABNORMAL) Differential, Automated (06/11/2016 3:49 AM EST) Neutrophil % 76.1 % [facility] Neutrophil Absolute 7.10(H) 1.70 - 6.10 x10(3)/mc L [facility] Lymph % 16.6 % [facility] Lymphocytes Abs 1.6 0.9 - 3.2 x10(3)/mc L [facility] Monocyte % 6.1 % [facility] Monocyte Abs 0.6 0.3 - 0.9 x10(3)/mc L [facility] Eos % 0.7 % [facility] Eosinophils Abs 0.1 0.0 - 0.4 x10(3)/mc L [facility] Basophil % 0.2 % [facility] Baso Absolute 0.0 0.0 - 0.1 x10(3)/mc L [facility] [...] ES [facility] [place] [address] * (ABNORMAL) Hemogram (06/11/2016 3:49 AM EST) White Blood Cell 9.3 4.0 - 9.5 x10(3)/mc L [facility] [...] CENTER [facility]ORATORY Platelet 139(L) 145 - 357 x10(3)/mc L [facility] RDW Standard Deviation 38.4 36.0 - 45.0 fL [facility] RDW coefficient of variation 12.3 11.4 - 13.8 % [facility] Mean Platelet Volume 10.9 7.6 - 12.9 fL [facility] NRBC% auto 0.0 % [facility] NRBC Absolute 0.000 0.000 - 0.000 x10(3)/mc L [facility] Blood specimen (specimen) 06/11/2016 3:49 AM EST 06/11/2016 3:59 AM EST Narrative Resulting Agency Comment Spec In Lab Fidel Barakat MD HEMATOLOGY ORDERABL ES [facility] [place] [place] [address] * Basic Metabolic Panel (non-fasting) (06/11/2016 3:49 [...] intervals supplied above were not validated at [facility]. Results from pediatric patients should be interpreted [...] LABORATORY Est Glomerular Filtration Rate >60 >=60 [facility] Comment: This estimated GFR (eGFR) [...] the following links into your internet browser. [email or web address] Blood specimen (specimen) 06/11/2016 3:49 AM EST 06/11/2016 3:59 AM EST Narrative Resulting Agency Comment Spec In Lab Fidel Barakat MD CHEMISTRY ORDERABLE S Performing Organization Address [facility] Co de Phone Number [facility] [place] [place] [address] * EKG 12 Lead (06/10/2016 5:46 PM EST) Ventricular rate 56 BPM MUSE SYSTEM Atrial Rate 56 BPM MUSE SYSTEM P-R Interval 164 ms MUSE SYSTEM QRS Duration 86 ms MUSE SYSTEM Q-T Interval 454 ms MUSE SYSTEM QTC Calculated (Bezet) 438 ms MUSE SYSTEM Calculated P [place] 57 degrees MUSE SYSTEM Calculated R [place] 41 degrees MUSE SYSTEM Calculated T [place] 56 degrees MUSE SYSTEM INTERPRETATION Sinus bradycardia Low voltage QRS Borderline ECG When compared with ECG of 10-JUN-2016 12:21, No significant change was found Confirmed by MD Carl, Connor ([id number]) on 06/11/2016 6:05:02 PM MUSE SYSTEM 06/10/2016 5:46 PM EST 06/11/2016 6:05 PM EST Fidel Barakat MD ECG ORDERABLES Performing Organization Address [facility] Co de Phone Number MUSE SYSTEM * CARDIAC CATHETERIZATION (06/10/2016 5:14 PM EST) Anatomical Region Laterality Modality Other Narrative 06/10/2016 5:43 PM EST ?[facility] ? Cardiac Catheterization/Intervention Report ? Patient Name: Denilson Hunter. ? Procedure Date: 06/10/2016 ? A #: [id number] ? Primary Physician: Riley, Ulisses Peterson ? Case #: [id number] ? File Name: [id number] ? Catheterization Order Number: [id number] ? [facility] ? Final Report [place], [place] ? Patient Name: ? Denilson Hunter ?ID#: ?[id number] ? : ?1960 ? Procedure Date: ? [...] patient presented with: non-STEMI (w/i 7 days). Ethiopian ?Cardiovascular Society angina class was III. This [...] or STEMI. Clopidogrel loaded prior to the laboratory technology teacher. ?Recommend continued dual antiplatelet therapy (DAPT) with [...] Procedure Note Ulisses Lin MD - 06/10/2016 [facility] Cardiac Catheterization/Intervention Report Patient Name: Denilson Hunter Procedure Date: 06/10/2016 A #: [id number] Primary Physician: Ulisses Lin Case #: [id number] File Name: [id number] Catheterization Order Number: [id number] [facility] FinalReport [place], [place] Patient Name: Denilson Hunter ID#:[id number] :1960 Procedure Date: June 10, 2016 Case [...] patient presented with: non-STEMI (w/i 7 days). [place]ian Cardiovascular Society angina class was III. This [...] The lesion was predilated with a 2.00mm [id number] MM balloon with a maximum inflation pressure [...] or STEMI. Clopidogrel loaded prior to the laboratory technology teacher. Recommend continued dual antiplatelet therapy (DAPT) with [...] (Bezet) 444 ms MUSE SYSTEM Calculated P [place] 57 degrees MUSE SYSTEM Calculated R [place] 36 degrees MUSE SYSTEM Calculated T [place] 40 degrees MUSE SYSTEM INTERPRETATION Normal sinus [...] damage. Diagnosis of acute, evolving or recent [place] requires a typical rise and gradual fall [...] consensus document of the Joint Society of Cardiology/Vincentian College of Cardiology Committee for the redefinition of myocardial infarction. ??Journal of the Vincentian College of Cardiology 2000; 36: 959-969] Creatine Kinase 40 0 - 200 unit/L [facility] Blood specimen (specimen) 06/10/2016 10:55 AM EST 06/10/2016 11:14 AM EST Narrative Resulting Agency Comment Spec In Lab Fidel Barakat MD CHEMISTRY ORDERABLE S [facility] [place] [address] * (ABNORMAL) APTT (06/10/2016 10:55 AM EST) Partial Thromboplastin Time 86(H) 25 - 35 sec [facility] Comment: The recommended therapeutic range for full dose, unfractionated heparin at [facility] is 80 ? 114 seconds. The use of the anti-Xa (heparin) level rather than the PTT is recommended for monitoring anticoagulation intensity in critically ill patients receiving unfractionated heparin by continuous IV infusion. Blood specimen (specimen) 06/10/2016 10:55 AM EST 06/10/2016 11:14 AM EST Narrative Resulting Agency Comment Spec In Lab Fidel Barakat MD HEMATOLOGY ORDERABL ES [facility] [place] [address] * ECHO COMPLETE W CONTRAST (06/10/2016 8:41 AM EST) EF 62 HEARTLAB SYSTEM Anatomical Region Laterality Modality Other 06/10/2016 Narrative 06/10/2016 9:02 AM EST Procedure: ?Transthoracic Echocardiogram Patient: ?DALE OREILLY E ?(Age): 1960(56y) Med Rec#: ? [id number] ?Sex: ?M ? Site Loc: ? [facility] ?Ht / Wt: ??175(cm)/150(kg) Pt. Loc: ?Adult Floor ? BSA: ?2.56 Study Date: ?? 06/10/2016 ?Pt. Type: Inpatient Tape: ? Referring: Jonathan Miranda Referring: Arjun Espinosa ([id number]) Reading: Jonathan Colón ([id number]) Neck Band Operator: Debra Thomas Diagnosis: *ICD-10-PCS Non-ST elevation (NSTEMI) myocardial infarction (I21.4) CPT Codes: *Echo Full (37772) *Spectral Doppler (42866) *Color Doppler (33709) *Optison (02742CD) BP: ? 127/80 SUMMARY: 1. Technically difficult [...] E-wave Vmax ?0.8 ?m/sec ? MV deceleration tmyo831.6 ?msec ? MV A-wave Vmax ?0.5 ?m/sec [...] ? Mid-Inferior ?Normal ? Mid-Inferoseptal ?Normal ? Mertzon-Septal ? Normal ? Mertzon-Anterior ? Normal ? Mertzon-Lateral ?Normal ? Mertzon-Inferior ? Normal ? Mertzon-Tip ?Normal ? This report has been electronically signed by: Jonathan Colón M.D. ? 06/10/2016 09:02:12 Images reviewed and interpretation verified [facility] Cardiac Ultrasound Laboratory Procedure Note Jonathan Colón MD - 06/10/2016 Procedure: Transthoracic Echocardiogram Patient: DALE BUCIO(Age): 1960(56y) Med Rec#: [id number] Sex: M Site Loc: [facility] Ht / Wt: 175(cm)/150(kg) Pt. Loc: Adult Floor BSA: 2.56 Study Date: 06/10/2016 Pt. Type: Inpatient Tape: Referring: Jonathan Miranda Referring: Arjun Espinosa ([id number]) Reading: Jonathan Colón ([id number]) Neck Band Operator: Debra Thomas Diagnosis: *ICD-10-PCS Non-ST elevation (NSTEMI) myocardial infarction (I21.4) CPT Codes: *Echo Full (59307) *Spectral Doppler (49445) *Color Doppler (83171) *Optison (88299CF) BP: 127/80 SUMMARY: 1. Technically difficult study. [...] MV E-wave Vmax 0.8 m/sec MV deceleration vgmn103.6 msec MV A-wave Vmax 0.5 m/sec MV [...] Normal Mid-Posterolateral Normal Mid-Inferior Normal Mid-Inferoseptal Normal Mertzon-Septal Normal Mertzon-Anterior Normal Mertzon-Lateral Normal Mertzon-Inferior Normal Mertzon-Tip Normal This report has been electronically signed by: Jonathan Colón M.D. 06/10/2016 09:02:12 Images reviewed and interpretation verified [facility] Cardiac Ultrasound Laboratory Arjun Espinosa MD ECHO ORDERABLES * Cardiac Enzymes (06/10/2016 6:07 AM EST) Troponin-T <0.03 <=0.03 ng/mL [facility] Comment: 0.03 ng/mL: Represents the 99th percentile upper reference limit for normals. >0.03 ng/mL: Elevated cardiac troponin T level indicative of myocardial damage. Diagnosis of acute, evolving or recent [place] requires a typical rise and gradual fall [...] consensus document of the Joint Society of Cardiology/Vincent[place] College of Cardiology Committee for the redefinition of myocardial infarction. ??Journal of the Vincentian College of Cardiology 2000; 36: 959-969] Creatine Kinase 43 0 - 200 unit/L [facility] Blood specimen (specimen) 06/10/2016 6:07 AM EST 06/10/2016 6:14 AM EST Narrative Resulting Agency Comment Spec In Lab Fidel Barkaat MD CHEMISTRY ORDERABLE S Performing Organization Address City/[facility]/[place] [address] * Differential, Automated (06/10/2016 3:00 AM EST) Neutrophil % 57.5 % [facility] Neutrophil Absolute 3.87 1.70 - 6.10 x10(3)/[facility] Lymph % 31.1 % [facility] Lymphocytes Abs 2.1 0.9 - 3.2 x10(3)/[facility] Monocyte % 8.3 % [facility] Monocyte Abs 0.6 0.3 - 0.9 x10(3)/[facility] Eos % 2.4 % [facility] Eosinophils Abs 0.2 0.0 - 0.4 x10(3)/[facility] Basophil % 0.4 % [facility] Baso Absolute 0.0 0.0 - 0.1 x10(3)/[facility] Immature Gran % 0.30 [...] Immature Gran Absolute 0.02 0.00 - 0.04 x10(3)/[facility] Blood specimen (specimen) 06/10/2016 3:00 AM EST 06/10/2016 3:17 AM EST Narrative Resulting Agency Comment Spec In Lab Fidel Barakat MD HEMATOLOGY ORDERABL ES Performing Organization Address City/[facility]/ZIP Co de Phone Number [facility] [place] [address] * Hemogram (06/10/2016 3:00 AM EST) White Blood Cell 6.7 4.0 - 9.5 x10(3)/[facility] Red Blood Cell 4.93 4.58 - 5.54 x10(6)/[facility] [facility] LABORATORY Hemoglobin 15.3 13.7 - [...] CENTER LABORATORY Platelet 151 145 - 357 x10(3)/[facility] LABORATORY RDW Standard Deviation 39.4 36.0 - 45.0 [facility] LABORATORY RDW coefficient of variation 12.5 11.4 - 13.8 % [facility] LABORATORY Mean Platelet Volume 10.9 7.6 - 12.9 [facility] LABORATORY NRBC% auto 0.0 % [facility] LABORATORY NRBC Absolute 0.000 0.000 - 0.000 x10(3)/[facility] LABORATORY Blood specimen (specimen) 06/10/2016 3:00 AM EST 06/10/2016 3:17 AM EST Narrative Resulting Agency Comment Spec In Lab Fidel Barakat MD HEMATOLOGY ORDERABL ES [facility] [place] [place] [address] * Basic Metabolic Panel (non-fasting) (06/10/2016 3:00 AM EST) Glucose 108 65 - 199 mg/dL [facility] Comment:Diabetes: >=200 mg/d L plus symptoms Blood Urea Nitrogen 14 10 - 20 mg/dL [facility] Creatinine 0.92 0.80 - 1.50 mg/dL [facility] Comment: Please note that the pediatric reference intervals supplied above were not validated at [facility]. Results from pediatric patients should be interpreted [...] LABORATORY Est Glomerular Filtration Rate >60 >=60 [facility] LABORATORY Comment: This estimated GFR (eGFR) [...] the following links into your internet browser. [email or web address] Blood specimen (specimen) 06/10/2016 3:00 AM EST 06/10/2016 3:17 AM EST Narrative Resulting Agency Comment Spec In Lab Fidel Barakat MD CHEMISTRY ORDERABLE S [facility] [place] [place] [address] * (ABNORMAL) APTT (06/10/2016 3:00 AM EST) Partial Thromboplastin Time 102(H) 25 - 35 sec [facility] Comment: The recommended therapeutic range for full dose, unfractionated heparin at [facility] is 80 ? 114 seconds. The use of the anti-Xa (heparin) level rather than the PTT is recommended for monitoring anticoagulation intensity in critically ill patients receiving unfractionated heparin by continuous IV infusion. Blood specimen (specimen) 06/10/2016 3:00 AM EST 06/10/2016 3:17 AM EST Narrative Resulting Agency Comment Spec In Lab Fidel Barakat MD HEMATOLOGY ORDERABL ES Performing Organization Address [facility] Co pa Phone Number [facility] [place] [address] * T4, free (06/10/2016 3:00 AM EST) Free T4 1.42 0.93 - 1.70 ng/dL [facility] Blood specimen (specimen) 06/10/2016 3:00 AM EST 06/10/2016 3:17 AM EST Narrative Resulting Agency Comment Spec In Lab Fidel Barakat MD CHEMISTRY ORDERABLE S Performing Organization Address [facility] Phone Number [facility] [place] [place] [address] * TSH (06/10/2016 3:00 AM EST) Thyroid Stimulating Hormone 1.82 0.27 - 4.20 mcIU/mL [facility] Blood specimen (specimen) 06/10/2016 3:00 AM EST 06/10/2016 3:17 AM EST Narrative Resulting Agency Comment Spec In Lab Fidel Barakat MD CHEMISTRY ORDERABLE S Performing Organization Address [facility] Phone Number [facility] [place] [place] [address] * (ABNORMAL) Lipid panel (fasting) (06/10/2016 3:00 AM EST) Cholesterol, Total 181 <=199 mg/dL [facility] Comment: Recommendations of the NCEP Adult Treatment Panel for the following risk cutoff thresholds for the [place] population: Desirable: <200 mg/dL Borderline High: 200-239 mg/dL High: > or = 240 mg/dL Triglyceride 291(H) <=149 mg/dL [facility] Comment: Reference Range: Normal triglycerides: ??<150 mg/dL Borderline high: ??150-199 mg/dL High: ??200-499 mg/dL Very high: ??>aa=888 mg/dL AKASH 2001; 285(19):1289-4391 HDL Cholesterol 35(L) >=40 mg/dL [facility] Comment: Reference range: ??Low HDL: ?? < 40 mg/dL ??Normal: ?40-60 mg/dL ??Desirable: > 60 mg/dL AKASH 2001; 285(19):7988-9010 LDL Cholesterol 88 <=99 mg/dL [facility] Comment: Reference range: ?? Optimal: ?<100 mg/dL ?? Near Optimal/Above Optimal: ?? 100-129 mg/dL ?? Borderline high: ?130-159 mg/dL ?? High: ? 160-189 mg/dL ?? Very high: ?>hf=287 mg/dL AKASH 2001: 285(19):6049-2133 Cholesterol/HDL Ratio 5.2 ratio [facility] Comment: A Cholesterol to HDL ratio below 4:1 is desirable. ??Studies suggest that increased CAD risk occurs at ratios above 5 for females and above 6 for men. ? [place] [employer] Association ??(http://www.americanheart.org) ? Dominique Int Med, 1994; 121:641 ? AM J Med, 1998; 105(1A):48S Blood specimen (specimen) 06/10/2016 3:00 AM EST 06/10/2016 3:17 AM EST Narrative Resulting Agency Comment Spec In Lab Fidel Barakat MD CHEMISTRY ORDERABLE S Performing Organization Address [facility] Co de Phone Number [facility] [place] [place] [address] * Cardiac Enzymes (06/09/2016 11:41 PM EST) Troponin-T <0.03 <=0.03 ng/mL [facility] Comment: 0.03 ng/mL: Represents the 99th percentile upper reference limit for normals. >0.03 ng/mL: Elevated cardiac troponin T level indicative of myocardial damage. Diagnosis of acute, evolving or recent [place] requires a typical rise and gradual fall [...] consensus document of the Joint Society of Cardiology/[place] College [employer] Committee for the redefinition of myocardial infarction. ??Journal of the [place] College of [employer]iology 2000; 36: 959-969] Creatine Kinase 49 0 - 200 unit/L [facility] Blood specimen (specimen) 06/09/2016 11:41 PM EST 06/09/2016 11:50 PM EST Narrative Resulting Agency Comment Spec In Lab Fidel Barakat MD CHEMISTRY ORDERABLE S Performing Organization Address [facility]/ZIP Co de Phone Number [facility] [place] [address] * (ABNORMAL) APTT (06/09/2016 8:13 PM EST) Partial Thromboplastin Time 39(H) 25 - 35 sec [facility] Comment: The recommended therapeutic range for full dose, unfractionated heparin at [facility] is 80 ? 114 seconds. The use of the anti-Xa (heparin) level rather than the PTT is recommended for monitoring anticoagulation intensity in critically ill patients receiving unfractionated heparin by continuous IV infusion. Blood specimen (specimen) 06/09/2016 8:13 PM EST 06/09/2016 8:28 PM EST Narrative Resulting Agency Comment Spec In Lab Fidel Barakat MD HEMATOLOGY ORDERABL ES [facility] [place] [place] [address] * (ABNORMAL) Hemoglobin A1c (06/09/2016 8:13 PM [...] Mellitus, Diabetes Care 2013; 36: Suppl. 1, S67-90 Estimated Average Glucose 120 mg/dL [facility] [...] resources are available on the ADA website: http://Adsame.[employer]/DHMCadacalc Tutu MILLS, Melany J, Pravin R, et al. ??Translating the A1C assay into estimated average glucose values. ??Diabetes Care 2008:31(8):4611-8891. Blood specimen (specimen) 06/09/2016 8:13 PM EST 06/09/2016 8:28 PM EST Narrative Resulting Agency Comment Spec In Lab Fidel Barakat MD CHEMISTRY ORDERABLE S Performing Organization Address City/State/[facility] Co de Phone Number [facility] [place] [place] [address] documented in this encounter Visit Diagnoses Diagnosis [...] 4 mg, Buccal, EVERY 2 HOURS PRN, Smoking cessation, Starting on Thu06/09/16 at 1928, Until Thu06/11/16 at 1814, Do not chew or swallow. Place in mouth and allow to slowly dissolve. Given 06/11/2016 10:40 AM EST 4 mg [...] Discontinued, DO NOT CRUSH OR OPEN, Routine 2029 (Not Given - Provider: Landon Gonzalez RN - Reason: See comment - Comment: Pt states he got that this morning at other hospital) 1120 (Given - Provider: Ree Jacob RN)1435 ([facility] Hold - Provider: Admin Adt - Reason: Transfer to a Procedural area)1813 ([facility] Unhold - Provider: Admin Adt) 1019 (Given - Provider: Iram Mendoza, MERY) clopidogrel (PLAVIX) tablet 75 mg 75 mg, Oral, DAILY, First dose on Thu06/10/16 at 0900, Until Discontinued, Routine 09 (Given - Provider: Ree Jacob RN)1435 ([facility] Hold - Provider: Admin Adt - Reason: Transfer to a Procedural area)1813 ([facility] Unhold - Provider: Admin Adt) 1046 (Given [...] 1 dose, On Thu06/10/16 at 2100, Routine 212 (Given - Provider: Oscar Tejada RN) furosemide (LASIX) injection 40 mg (COMPLETED) 40 mg, Intravenous, ONCE, 1 dose, On Thu06/11/16 at 0800, Routine 1018 (Given - Provider: Iram Mendoza RN) losartan (COZAAR) tablet 50 mg 50 mg, Oral, DAILY, First dose on Thu06/11/16 at 1100, Until Discontinued, Routine 1019 (Given - Provider: Iram Mendoza RN) meTOPROLOL (LOPRESSOR) tablet 12.5 mg 12.5 mg, Oral, EVERY 12 HOURS SCHEDULED (2 times per day), First dose on Thu06/09/16 at 2100, Until Discontinued, Hold for BP < 90/60, HR <50, Routine 2038 (Given - Provider: Landon Gonzalez RN) 0911 (Given - Provider: Ree Jacob, RN)1435 ([facility] Hold - Provider: Admin Adt - Reason: Transfer to a Procedural area)1812 ([facility] Unhold - Provider: Admin Adt)2121 (Given - Provider: Oscar Tejada, MERY) 1032 (Given - Provider: Iram Mendoza RN) nicotine (NICODERM CQ) 14 mg/24 hr patch 14 mg(Linked Group 1) 14 mg, Transdermal, Administer over 24 Hours, DAILY, First dose on Thu06/10/16 at 1300, Until Discontinued, Routine 1414 (Given - Provider: Ree Jacob, MERY)143 ([facility] Hold - Provider: Admin Adt - Reason: Transfer to a Procedural area)1812 ([facility] Unhold - Provider: Admin Adt) 1021 (Given - Provider: Iram Mendoza RN) nicotine (NICODERM CQ) 14 mg/24 hr patch Patch Removal(Linked Group 1) Transdermal, DAILY, First dose on Thu06/11/16 at 0900, Until Discontinued, Remove nicotine 14 mg/24 hr patch 143 ([facility] Hold - Provider: Admin Adt - Reason: Transfer to a Procedural area)1812 ([facility] Unhold - Provider: Admin Adt) 0900 (Patch Removed - Provider: Iram Mendoza RN) nicotine (NICODERM CQ) 14 mg/24 hr patch Patch Verification(Linked Group 1) Transdermal, 2 TIMES DAILY, First dose on Thu06/11/16 at 0000, Until Discontinued, Verify nicotine 14 mg/24 hr patch. 143 ([facility] Hold - Provider: Admin Adt - Reason: Transfer to a Procedural area)1812 ([facility] Unhold - Provider: Admin Adt) 0000 (Patch (dose and location) verified - Provider: Oscar Tejada RN)0900 (Patch (dose and location) verified - Provider: Iram Mendoza RN) pantoprazole (PROTONIX) tablet 40 mg 40 mg, Oral, DAILY, First dose on Thu06/09/16 at 2015, Until Discontinued, DO NOT CRUSH OR OPEN 2039 (Given - Provider: Landon Gonzalez, MERY) 0914 (Given - Provider: Ree Jacob, MERY)1435 ([facility] Hold - Provider: Admin Adt - Reason: Transfer to a Procedural area)181 ([facility] Unhold - Provider: Admin Adt) 1018 (Given - Provider: Iram Mendoza, MERY) potassium chloride (K-DUR/KLOR-CON) extended release tablet 40 mEq (COMPLETED) 40 mEq, Oral, ONCE, 1 dose, On Thu06/11/16 at 1100, 20 mEq tablet may be dissolved in water for administration, Routine 1045 (Given - Provider: Iram Mendoza, RN) sodium chloride 0.9 % flush 5 mL 5 mL, Intravenous, 2 TIMES DAILY, First dose on Thu06/09/16 at 2100, Until Discontinued, Routine 2041 (Given - Provider: Landon Gonzalez RN) 0915 (Given - Provider: Ree Jacob RN)1435 ([facility] Hold - Provider: Admin Adt - Reason: Transfer to a Procedural area)181 ([facility] Unhold - Provider: Admin Adt)212 (Given - Provider: Oscar Tejada RN) 1019 (Given - Provider: Iram Mendoza, MERY) Continuous Medication Order 06/09/2016 06/10/2016 06/11/2016 heparin [...] Indication: ACS (STEMI vs NSTEMI vs UA) 181 (New Bag - Provider: Ree Jacob RN)1900 [...] Until Thu06/10/16 at 1711, Intra-Operative (Intra-Procedure), Routine 163 (Given - Provider: Loan Bhandari RN) fentaNYL [...] - Reason: Transfer to a Procedural area)181 ([facility] Unhold - Provider: Admin Adt) heparin [...] Loan Bhandari RN)1701 (Given - Provider: Loan Bhandari, MERY) nicotine polacrilex (COMMIT) lozenge 4 mg 4 mg, Buccal, EVERY 2 HOURS PRN, Smoking cessation, Starting on Thu06/09/16 at 1928, Until Thu06/11/16 at 1814, Do not chew or swallow. Place in mouth and allow to slowly dissolve. 0913 (Given - Provider: Ree Jacob RN)1435 [...] last 24 to 72 hours., Routine 1435 ([facility] Hold - Provider: Admin Adt - Reason: Transfer to a Procedural area)1812 ([facility] Unhold - Provider: Admin Adt) nitroGLYcerin 100 mcg/mL intracoronary dilution (CANCELED) ONCE PRN, Starting on Thu06/10/16 at 1649, Until Thu06/10/16 at 1711, Cath (Intra-Procedure), Routine 164 (Given - Provider: Ulisses Lin MD) perflutren protein-A microspheres (OPTISON) 0.22 mg/mL injection 1.2 mL (COMPLETED) 1.2 mL, Intravenous, ONCE PRN, 1 dose, Starting on Thu06/10/16 at 0841, Until Thu06/10/16 at 0815, Per Protocol, Routine 08 (Given - Provider: Debra Thomas) sodium chloride 0.9 % flush 5-20 mL 5-20 mL, Intravenous, EVERY 1 MIN PRN, Starting on Thu06/09/16 at 1658, Until Thu06/11/16 at 1814, flush, Flush pertains to all indwelling lines. Flush per protocol found in the job aid using the link provided on this medication record., Routine 143 ([facility] Hold - Provider: Admin Adt - Reason: Transfer to a Procedural area)1812 ([facility] Unhold - Provider: Admin Adt) Linked Groups [...] UA) documented in this encounter Care Teams Homoeopath Relationship Specialty Start Date End Date Tracey Mueller MD [facility] [address] [place] [address] PCP - General 06/04/10 documented as of this encounter
--- OUTSIDE RECORDS SUMMARY | 2024-06-30 08:10 | XMS_ITS | Encounter Summary ---
[place] [address] Care Team Providers Care Light [employer]ored Reconnaissance Officer Name Role Phone Tracey Mueller MD Primary Care Provider [phone] Encounter Details Date Type Department Care Team (Late st Contact Info) Description 08/31/2019 Orders Only [place] [address] Dorothy Brandt, RN Caries involving multiple surfaces [...] caries documented in this encounter Care Teams Light Armored Reconnaissance Officer Relationship Specialty Start Date End Date Tracey Mueller MD [facility] [address] [place], [place] [address] PCP - General 06/04/10 documented as of this encounter
--- OUTSIDE RECORDS SUMMARY | 2024-06-30 08:11 | XMS_ITS | Encounter Summary ---
[place] [address] Care Team Providers Care Piano Professor Name Role Phone Tracey Mueller MD Primary Care Provider [phone] Reason for Visit * Auth/Cert Specialty Diagnoses / Procedures Referred By Ashleigh keller Referred To Contact Diagnoses NSTEMI (non-ST elevated myocardial infarction) CHEST PAIN ?CAD Procedures CARDIAC CATHETERIZATION Referral ID Status Reason Start Date Expiration Date Visits Re quested Visits Authorized [id number] 1 1 Encounter Details Date Type Department Care Team (Late st Contact Info) Description 06/10/2016 1:00 PM EST - 06/10/2016 2:00 PM EST [place] [address] Ulisses Lin MD CARDIAC CATHETERIZATION Social History Tobacco Use Types [...] Denilson Hunter Patient Age: 56 y.o. Language: Ugandan Race: White Ethnicity: Not nor Admit date: [...] for peripheral edema. [ ] Discuss with adoption counselor regarding nabumetone and elevated cardiac risk in the post-NH period. We have told the patient to stop this medication and resume when PCP OR Health Screener tells him it is safe. [ ]Mackay [...] to this hospitalization, please contact your regular Mixed Crop [employer] Livestock Farmer or [facility] Cardiology clinic. Issues after hours and on weekends will be handled by the Technical Aid on-call ([phone] then ask for on-call napping machine operator). Discharge Diagnoses (Hospital Problems) and [...] ), arthritis who presents as transfer from [facility] ([facility], [place], [place]) for concern of acute coronary syndrome [...] about 5 minutes. ?? He presented to [facility] ED where he was found to [...] on prior episodes. ?? He returned to [facility] ED where his ECG was once [...] remained asymptomatic since. [facility] had risen to 0.22. He states he didnot receive sublingual nitroglycerin throughout these events. He was transferred to [facility] for cardiac catheterization. ?? Of note, patient states his legs occasionally get swollen but resolve with elevation. He endorses snoring but has never been evaluated for CORINA. He denies orthopnea or PND. ?? Recent sick contact: niece who has ear infection No recent travel history. ?? Diagnostics at [facility]: Sequential troponins: 0.03 (06/07), 0.07 to [...] or STEMI. Clopidogrel loaded prior to the manager cardiac cath. Recommend continued dual antiplatelet therapy (DAPT) with [...] June 18, 2016 Time: 1:00 pm Location: [facility] ([place], [place]) Mixed C[employer] And Livestock Farmer- You have an appointment scheduled with Dr. Barakat Date: June Time: 12:45 pm Location: [facility] ([place], [place]) Your Inpatient Doctor(s) at [facility] at discharge: Dr. Barakat (attending Mixed Crop And Livestock Farmer) Dr. Piper (Technical Aid) Dr. Mendoza (Internal Medicine Residents) General Instructions None Future Appointments and Orders Future Appointments Provider Department Dept Phone 07/10/2016 1:00 PM Fidel Barakat MD Cardiology [phone] Future Orders Complete By Expires Referral to Cardiac Rehab [[id number] Custom] As directed Process Instructions: If no progress note charted, please enter Clinical details in comments. Scheduling Instructions: Questions: My question or request is: NSTEMI, PCI- cardiac rehab at [facility] Discharge References/Attachments None documented in this [...] June 18, 2016 Time: 1:00 pm Location: [place], [place]) [employer] Livestock Farmer- You have an appointment scheduled with Dr. Barakat Date: June Time: 12:45 pm Location: [facility] ([place], [place]) Your Inpatient Doctor(s) at [facility] at discharge: Dr. Barakat (attending Mixed Crop And Livestock Farmer) Dr. Piper (Technical Aid) Dr. Mendoza (Internal Medicine Residents) documented in [...] as of this encounter Progress Notes * Iarm Mendoza RN - 06/11/2016 3:48 PM EST Patient stated understanding of discharge teaching. Discontinued from telemetry. IV pulled intact. Brother is driving patient home. Wheeled to family vehicle by HEEL CASER. * Fidel Barakat MD - 06/11/2016 11:55 AM EST Inpatient Cardiology Progress Note Patient Name: Denilson Hunter Date of Admission: 06/09/2016 ( Hospital Day 2 days ) Service: S2 ID: Denilson Hunter is a 56 y.o. 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 Currently working with smoking counselor at [facility] - Cardiac rehab inpt eval performed - Patient preference for outpatient cardiac rehab program at [facility]. Telemetry: NSR ??? losartan 50 mg [...] Labs 06/10/16 0300 TSH 1.82 Results for VANDAANNEL DENILSON E ( ) as of 06/10/2016 [...] DM II, GERD, morbid obesity (BMI 48), [place] [facility] [place] due to [place], active smoker presenting [...] months. He will pursue cardiac rehab programat [facility]. Plan: ?? #NSTEMI, now s/p cardiac [...] Code Celestine Mendoza MD Cardiology S2 (pgr. [id number]) Cardiology Staff - Progress Note This patient [...] sarcoidosis (last treated with prednisone in ), [place] [facility] disability due to arthritis, active smoker presenting [...] note. Ld Nowak MD Cardiology S2 Pager [phone] * Fidel Barakat MD - 06/10/2016 7:46 AM EST Inpatient Cardiology Progress Note Patient Name: Denilson Hunter Date of Admission: 06/09/2016 ( Hospital Day 1 day ) Service: S2 ID: Denilson Hunter is a 56 y.o. male with no prior cardiac history, PMH of HTN, HLD, GERD, DM II (diet controlled), sarcoidosis (last treated with prednisone in ), [place] [facility] disability due to arthritis, active smoker presenting [...] DM II, GERD, morbid obesity (BMI 48), [place] [facility] disability due to arthritis, active smoker presenting [...] Code Celestine Mendoza MD Cardiology S2 (pgr. [id number]) Cardiology Staff - Admission Note ?? This [...] plavix ?? Patient arrives in transfer from [facility] chest pain free on IV heparin. Has been having episodes of chest pain at rest. Two visits to the ER recently. ?? 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 He is morbidly [...] ), arthritis who presents as transfer from [facility] ([facility], [place], [place]) for concern of acute coronary syndrome [...] lasting about 5 minutes. He presented to [facility] ED where he was found to [...] present on prior episodes. He returned to [facility] ED where his ECG was once [...] remained asymptomatic since. [facility] however had risen to 0.22. He states he didnot receive sublingual nitroglycerin throughout these events. He was transferred to [facility] for cardiac catheterization. Of note, patient states his legs occasionally get swollen but resolve with elevation. He endorses snoring but has never been evaluated for CORINA. He denies orthopnea or PND. Recent sick contact: niece who has ear infection No recent travel history. 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 Plan: #Admit to Cardiology S2 (#4512) #NSTEMI (JAYLEEN 4) - Elevated cardiac enzymes, [...] MD PGY-1, Internal Medicine Cardiology Service, Pager #[phone] Cardiology Staff - Admission Note This patient [...] with plavix Patient arrives in transfer from [facility] chest pain free on IV heparin. Has been having episodes of chest pain at rest. Two visits to the ER recently. He is on [place] [facility] [place] due to arthritis. He is morbidly [...] is working with a tobacco counselor at [facility] and is currently wearinga patch. Enc [...] in the outpatient cardiac rehabilitation program at [facility] was discussed. Patient agrees to a [...] echo. Resolved without any intervention. Currently in manager cardiac cath. PLAN MOVING FORWARD: Awaiting results of echo [...] Information: Per chart review, pt is in manager cardiac cath Reason for Hospitalization: NSTEMI No past medical history on file. Hospitalizations Within the Past 30 Days: Pt was transferred to [facility] from [facility] Anticipated Length Of Stay (If known): [...] n/a Primary Care Provider: Tracey Mueller MD [phone] Patient/Caregiver Goals of Treatment: To be determined Potential Needs for Transition of Care: Rehab/SNF: not likely Home Health: Need is to be determined DME: unknown at this time Dialysis: n/a Community Resources: n/a Transportation: Family to transport? Other: n/a Anticipated Barriers to Discharge/Special Considerations: None identified at this time. Will continue to follow. Plan: Hydrodynamicist spoke with this afternoon who feels as though pt will likely return home post discharge without any additional needs. A member of the Care Management team will continue to monitor progress, follow for continuity of care and assist with transition of care planning. Kulwant Vu RN Pager: [phone] * Plan of Care - Landon Gonzalez [...] OUTCOME EVALUATION NOTE: OUTCOME SUMMARY: Pt.admitted from [facility]- currently without c/o pain/discomfort. Heparin gtt infusing. [...] IMPLANTABLE DEVICES SCAN 06/12/2016 12:00 AM EST MERCHANDISE COMPLAINT ADJUSTER SCAN 06/12/2016 12:00 AM EST CARDIAC CATH SCAN 06/12/2016 12: 00 AM EST HEMOGRAM Routine 06/11/2016 3:49 AM EST DIFFERENTIAL, AUTOMATED Routine 06/11/20 3:49 AM EST CARDIAC ENZYMES (MC/CGP) Routine 06/11/2016 3:49 AM EST CBC (WITH DIFF) Routine 06/11/2016 3:49 AM EST BASIC METABOLIC PANEL Routine 06/11/2016 3:49 AM EST EKG 12-LEAD Routine 06/10/2016 5:46 PM EST Non-ST elevation myocardial infarction (NSTEMI) CARDIAC CATHETERIZATION Routine 06/10/20 16 5:14 PM EST EKG 12-LEAD STAT 06/10/2016 12:21 PM EST Non-ST elevation myocardial infarction (NSTEMI) CARDIAC ENZYMES ([facility]/CGP) Routine 06/10/2016 10:55 AM EST APTT Routine 06/10/2016 10:55 AM EST ECHO COMPLETE W CONTRAST Routine 06/10/2016 8:41 AM EST NSTEMI (non-ST elevated myocardial infarction) CARDIAC ENZYMES ([facility]/CGP) Routine 06/10/2016 6:07 AM EST HEMOGRAM Routine [...] Routine 06/10/2016 3:00 AM EST CARDIAC ENZYMES ([facility]/CGP) Routine 06/09/2016 11:41 PM EST APTT STAT [...] SCAN EXT O RDR/RSLT * SCAN DOC: MERCHANDISE COMPLAINT ADJUSTER (06/12/2016 12:00 AM EST) Anatomical Region Laterality Modality Other Scanning Provider MEDIA MGR SCAN EXT O RDR/RSLT * Cardiac Enzymes (06/11/2016 3:49 AM EST) Troponin-T <0.03 <=0.03 ng/mL [facility] Comment: 0.03 ng/mL: Represents the [...] consensus document of the Joint Society of Cardiology/[place] College of Cardiology Committee for the redefinition of myocardial infarction. ??Journal of the [place] College of Cardiology 2000; 36: 959-969] Creatine Kinase 37 0 - 200 unit/L [facility] Blood specimen (specimen) Venous Draw / Unknown 06/11/2016 3:49 AM EST 06/11/2016 3:59 AM EST Narrative Resulting Agency Comment Spec In Lab Fidel Barakat MD CHEMISTRY ORDERABLE S [facility] [place] [address] * (ABNORMAL) Differential, Automated (06/11/2016 3:49 AM EST) Pathologist [facility] Neutrophil % 76.1 % [facility] Neutrophil Absolute 7.10(H) 1.70 - 6.10 x10(3)/mc L [facility] Lymph % 16.6 % [facility] Lymphocytes Abs 1.6 0.9 - 3.2 x10(3)/mc L [facility] Monocyte % 6.1 % [facility] Monocyte Abs 0.6 0.3 - 0.9 x10(3)/ L [facility] Eos % 0.7 % [facility] Eosinophils Abs 0.1 0.0 - 0.4 x10(3)/[facility] Basophil % 0.2 % [facility] Baso Absolute 0.0 0.0 - 0.1 x10(3)/ L [facility] Immature Gran % 0.30 % [facility] Comment: Immature granulocytes(IG's)percentage and absolute count will include metamyelocytes, myelocytes, and promyelocytes. Blood smears from CBCs yielding IG's will be scanned manually for concordance. If this scan disagrees with the automated IG or if promyelocytes are noted, a manual differential will be performed. Immature Gran Absolute 0.03 0.00 - 0.04 x10(3)/mc L [facility] Blood specimen (specimen) 06/11/2016 3:49 AM EST 06/11/2016 3:59 AM EST Narrative Resulting Agency Comment Spec In Lab Fidel Barakat MD HEMATOLOGY ORDERABL ES [facility] [place] [address] * (ABNORMAL) Hemogram (06/11/2016 3:49 AM EST) White Blood Cell 9.3 4.0 - 9.5 x10(3)/mc L [facility] Red Blood Cell 5.18 4.58 - 5.54 x10(6)/mc L [facility] Hemoglobin 15.4 13.7 - 16.5 gm/dL [facility] Hematocrit 44.2 40.5 - 48.5 % [facility] Mean Cell Volume 85.3 82.9 - 93.1 fL [facility] Mean Cell Hemoglobin 29.7 27.5 - 32.1 pg [facility] Mean Cell Hemoglobin Concentration 34.8 32.0 - 35.7 gm/dL [facility] Platelet 139(L) 145 - 357 x10(3)/ L [facility] RDW Standard Deviation 38.4 36.0 - 45.0 [facility] RDW coefficient of variation 12.3 11.4 - 13.8 % [facility] Mean Platelet Volume 10.9 7.6 - 12.9 [facility] NRBC% auto 0.0 % [facility] NRBC Absolute 0.000 0.000 - 0.000 x10(3)/[facility] Blood specimen (specimen) 06/11/2016 3:49 AM EST 06/11/2016 3:59 AM EST Narrative Resulting Agency Comment Spec In Lab Fidel Barakat MD HEMATOLOGY ORDERABL ES [facility] [place] [address] * Basic Metabolic Panel (non-fasting) (06/11/2016 3:49 AM EST) Glucose 112 65 - 199 mg/dL [facility] Comment:Diabetes: >=200 mg/d L plus symptoms Blood Urea Nitrogen 11 10 - 20 mg/dL [facility] Creatinine 0.90 0.80 - 1.50 mg/dL [facility] Comment: Please note that the pediatric reference intervals supplied above were not validated at [facility]. Results from pediatric patients should be interpreted [...] LABORATORY Est Glomerular Filtration Rate >60 >=60 [facility] Comment: This estimated GFR (eGFR) [...] the following links into your internet browser. [email or web address] Blood specimen (specimen) 06/11/2016 3:49 AM EST 06/11/2016 3:59 AM EST Narrative Resulting Agency Comment Spec In Lab Fidel Barakat MD CHEMISTRY ORDERABLE S [facility] [place] [address] * EKG 12 Lead (06/10/2016 5:46 PM EST) Ventricular rate 56 BPM MUSE SYSTEM Atrial Rate 56 BPM MUSE SYSTEM P-R Interval 164 ms MUSE SYSTEM QRS Duration 86 ms MUSE SYSTEM Q-T Interval 454 ms MUSE SYSTEM QTC Calculated (Bezet) 438 ms MUSE SYSTEM Calculated P [place] 57 degrees MUSE SYSTEM Calculated R [place] 41 degrees MUSE SYSTEM Calculated T [place] 56 degrees MUSE SYSTEM INTERPRETATION Sinus bradycardia [...] Modality Other Narrative 06/10/2016 5:43 PM EST ?[facility] ? Cardiac Catheterization/Intervention Report ? Patient Name: Dale Hunterun E. ? Procedure Date: 06/10/2016 ? A #: [id number] ? Primary Physician: Ulisses Lin ? Case #: [id number] ? File Name: [id number] ? Catheterization Order Number: [id number] ? [facility] ? Final Report [place], [place] ? Patient Name: ? Denilson Hunter ?ID#: ?[id number] ? : ?1960 ? Procedure Date: ? [...] patient presented with: non-STEMI (w/i 7 days). Citizen Of [place] ?Cardiovascular Society angina class was III. This [...] or STEMI. Clopidogrel loaded prior to the manager cardiac cath. ?Recommend continued dual antiplatelet therapy (DAPT) with [...] Procedure Note Ulisses Lin MD - 06/10/2016 [facility] Cardiac Catheterization/Intervention Report Patient Name: Denilson Hunter Procedure Date: 06/10/2016 A #: [id number] Primary Physician: Ulisses Lin Case #: [id number] File Name: [id number] Catheterization Order Number: [id number] [facility] FinalReport [place], [place] Patient Name: Denilson Hunter ID#:[id number] :1960 Procedure Date: June 10, 2016 Case [...] patient presented with: non-STEMI (w/i 7 days). Citizen Of [place] Cardiovascular Society angina class was III. This [...] The lesion was predilated with a 2.00mm [id number] MM balloon with a maximum inflation pressure [...] or STEMI. Clopidogrel loaded prior to the manager cardiac cath. Recommend continued dual antiplatelet therapy (DAPT) with [...] (Bezet) 444 ms MUSE SYSTEM Calculated P [place] 57 degrees MUSE SYSTEM Calculated R [place] 36 degrees MUSE SYSTEM Calculated T [place] 40 degrees MUSE SYSTEM INTERPRETATION Normal sinus rhythm Normal ECG No previous ECGs available Confirmed by MD Carl, Connor ([id number]) on 06/11/2016 6:04:59 PM MUSE SYSTEM 06/10/2016 12:2 1 PM EST 06/11/2016 6:04 PM EST Arjun Espinosa MD ECG ORDERABLES MUSE SYSTEM * Cardiac Enzymes (06/10/2016 10:55 AM EST) Troponin-T <0.03 <=0.03 ng/mL [facility] Comment: 0.03 ng/mL: Represents the [...] consensus document of the Joint Society of Cardiology/[place] College of Cardiology Committee for the redefinition of myocardial infarction. ??Journal of the [place] College of Cardiology 2000; 36: 959-969] Creatine Kinase 40 0 - 200 unit/L [facility] Blood specimen (specimen) 06/10/2016 10:55 AM EST 06/10/2016 11:14 AM EST Narrative Resulting Agency Comment Spec In Lab Fidel Barakat MD CHEMISTRY ORDERABLE S Performing Organization Address [facility] de Phone Number [facility] [place] [address] * (ABNORMAL) APTT (06/10/2016 10:55 AM EST) Partial Thromboplastin Time 86(H) 25 - 35 sec [facility] Comment: The recommended therapeutic range for full dose, unfractionated heparin at [facility] is 80 ? 114 seconds. The use of the anti-Xa (heparin) level rather than the PTT is recommended for monitoring anticoagulation intensity in critically ill patients receiving unfractionated heparin by continuous IV infusion. Blood specimen (specimen) 06/10/2016 10:55 AM EST 06/10/2016 11:14 AM EST Narrative Resulting Agency Comment Spec In Lab Fidel Barakat MD HEMATOLOGY ORDERABL ES Performing Organization Address [facility] de Phone Number [facility] [place] [address] * ECHO COMPLETE W CONTRAST (06/10/2016 8:41 AM EST) EF 62 HEARTLAB SYSTEM Anatomical Region Laterality Modality Other 06/10/2016 Narrative 06/10/2016 9:02 AM EST Procedure: ?Transthoracic Echocardiogram Patient: ?DALE OREILLY E ?(Age): 1960(56y) Med Rec#: ? [id number] ?Sex: ?M ? Site Loc: ? [facility] ?Ht / Wt: ??175(cm)/150(kg) Pt. Loc: ?Adult Floor ? BSA: ?2.56 Study Date: ?? 06/10/2016 ?Pt. Type: Inpatient Tape: ? Referring: Jonathan Miranda Referring: Arjun Espinosa ([id number]) Reading: Jonathan Colón ([id number]) Mechanical Ordnance Assembler: Debra Thomas Diagnosis: *ICD-10-PCS Non-ST elevation (NSTEMI) myocardial infarction (I21.4) CPT Codes: *Echo Full (16984) *Spectral Doppler (54309) *Color Doppler (14462) *Optison (60262KQ) BP: ? 127/80 SUMMARY: 1. Technically difficult [...] E-wave Vmax ?0.8 ?m/sec ? MV deceleration psja338.6 ?msec ? MV A-wave Vmax ?0.5 ?m/sec [...] ? Mid-Inferior ?Normal ? Mid-Inferoseptal ?Normal ? Ashley-Septal ? Normal ? Ashley-Anterior ? Normal ? Ashley-Lateral ?Normal ? Ashley-Inferior ? Normal ? Ashley-Tip ?Normal ? This report has been electronically signed by: Jonathan Colón M.D. ? 06/10/2016 09:02:12 Images reviewed and interpretation verified [facility] Cardiac Ultrasound Laboratory Procedure Note Jonathan Colón MD - 06/10/2016 Procedure: Transthoracic Echocardiogram Patient: DALE Lagos DOB(Age): 1960(56y) Med Rec#: [id number] Sex: M Site Loc: [facility] Ht / Wt: 175(cm)/150(kg) Pt. Loc: Adult Floor BSA: 2.56 Study Date: 06/10/2016 Pt. Type: Inpatient Tape: Referring: Jonathan Miranda Referring: Arjun Espinosa ([id number]) Reading: Jonathan Colón ([id number]) Mechanical Ordnance Assembler: Debra Thomas Diagnosis: *ICD-10-PCS Non-ST elevation (NSTEMI) myocardial infarction (I21.4) CPT Codes: *Echo Full (40979) *Spectral Doppler (28299) *Color Doppler (11144) *Optison (37113SK) BP: 127/80 SUMMARY: 1. Technically difficult study. [...] MV E-wave Vmax 0.8 m/sec MV deceleration [id number] msec MV A-wave Vmax 0.5 m/sec MV [...] Normal Mid-Posterolateral Normal Mid-Inferior Normal Mid-Inferoseptal Normal Ashley-Septal Normal Ashley-Anterior Normal Ashley-Lateral Normal Ashley-Inferior Normal Ashley-Tip Normal This report has been electronically signed by: Jonathan Colón M.D. 06/10/2016 09:02:12 Images reviewed and interpretation verified [facility] Cardiac Ultrasound Laboratory Arjun Espinosa MD ECHO ORDERABLES * Cardiac Enzymes (06/10/2016 6:07 AM EST) Troponin-T <0.03 <=0.03 ng/mL [facility] Comment: 0.03 ng/mL: Represents the [...] consensus document of the Joint Society of Cardiology/[place] College of Cardiology Committee for the redefinition of myocardial infarction. ??Journal of the [place] College of Cardiology 2000; 36: 959-969] Creatine Kinase 43 0 - 200 unit/L [facility] Blood specimen (specimen) 06/10/2016 6:07 AM EST 06/10/2016 6:14 AM EST Narrative Resulting Agency Comment Spec In Lab Fidel Barakat MD CHEMISTRY ORDERABLE S Performing Organization Address City/State/[facility] Co de Phone Number [facility] [place] [address] * Differential, Automated (06/10/2016 3:00 AM EST) Neutrophil % 57.5 % [facility] Neutrophil Absolute 3.87 1.70 - 6.10 x10(3)/[facility] Lymph % 31.1 % [facility] Lymphocytes Abs 2.1 0.9 - 3.2 x10(3)/[facility] Monocyte % 8.3 % [facility] Monocyte Abs 0.6 0.3 - 0.9 x10(3)/[facility] Eos % 2.4 % [facility] Eosinophils Abs 0.2 0.0 - 0.4 x10(3)/[facility] Basophil % 0.4 % [facility] Baso Absolute 0.0 0.0 - 0.1 x10(3)/[facility] Immature Gran % 0.30 % [facility] Comment: Immature granulocytes(IG's)percentage and absolute count will include metamyelocytes, myelocytes, and promyelocytes. Blood smears from CBCs yielding IG's will be scanned manually for concordance. If this scan disagrees with the automated IG or if promyelocytes are noted, a manual differential will be performed. Immature Gran Absolute 0.02 0.00 - 0.04 x10(3)/[facility] Blood specimen (specimen) 06/10/2016 3:00 AM EST 06/10/2016 3:17 AM EST Narrative Resulting Agency Comment Spec In Lab Fidel Barakat MD HEMATOLOGY ORDERABL ES Performing Organization Address City/State/[facility] Co de Phone Number [facility] [place] [address] * Hemogram (06/10/2016 3:00 AM EST) White Blood Cell 6.7 4.0 - 9.5 x10(3)/[facility] LABORATORY Red Blood Cell 4.93 4.58 - 5.54 x10(6)/[facility] LABORATORY Hemoglobin 15.3 13.7 - 16.5 gm/dL [facility] Hematocrit 42.8 40.5 - 48.5 % [facility] Mean Cell Volume 86.8 82.9 - 93.1 fL [facility] Mean Cell Hemoglobin 31.0 27.5 - 32.1 pg [facility] Mean Cell Hemoglobin Concentration 35.7 32.0 - 35.7 gm/dL [facility] Platelet 151 145 - 357 x10(3)/[facility] LABORATORY RDW Standard Deviation 39.4 36.0 - 45.0 fL [facility] RDW coefficient of variation 12.5 11.4 - 13.8 % [facility] Mean Platelet Volume 10.9 7.6 - 12.9 fL [facility] NRBC% auto 0.0 % [facility] NRBC Absolute 0.000 0.000 - 0.000 x10(3)/mcL [facility] Blood specimen (specimen) 06/10/2016 3:00 AM EST 06/10/2016 3:17 AM EST Narrative Resulting Agency Comment Spec In Lab Fidel Barakat MD HEMATOLOGY ORDERABL ES [facility] [place] [address] * Basic Metabolic Panel (non-fasting) (06/10/2016 3:00 AM EST) Glucose 108 65 - 199 mg/dL [facility] Comment:Diabetes: >=200 mg/d L plus symptoms Blood Urea Nitrogen 14 10 - 20 mg/dL [facility] Creatinine 0.92 0.80 - 1.50 mg/dL [facility] Comment: Please note that the pediatric reference intervals supplied above were not validated [place] [facility] Results from pediatric patients should be interpreted in conjunction to the patient's age, height and muscle mass. Sodium 140 135 - 145 mmol/L [facility] Potassium 3.8 3.5 - 5.0 mmol/L [facility] Comment: Please note: ??Patients with WBC >100,000 may have falsely elevated Potassium levels. ??For accurate Potassium quantification in these patients send serum separator tube (gold top) for subsequent determinations. ??Contact the Clinical Chemistry Laboratory if there are any questions. Chloride 102 98 - 107 mmol/L [facility] Carbon Dioxide 23 22 - 31 mmol/L [facility] Anion Gap 15 5 - 15 mmol/L [facility] Calcium 8.8 8.5 - 10.5 mg/dL [facility] Est Glomerular Filtration Rate >60 >=60 [facility] Comment: This estimated GFR (eGFR) [...] the following links into your internet browser. [email or web address] Blood specimen (specimen) 06/10/2016 3:00 AM EST 06/10/2016 3:17 AM EST Narrative Resulting Agency Comment Spec In Lab Fidel Barakat MD CHEMISTRY ORDERABLE S Performing Organization Address [facility] Co de Phone Number [facility] [place] [address] * (ABNORMAL) APTT (06/10/2016 3:00 AM EST) [facility] Partial Thromboplastin Time 102(H) 25 - 35 sec [facility] Comment: The recommended therapeutic range for full dose, unfractionated heparin at [facility] is 80 ? 114 seconds. The use of the anti-Xa (heparin) level rather than the PTT is recommended for monitoring anticoagulation intensity in critically ill patients receiving unfractionated heparin by continuous IV infusion. Blood specimen (specimen) 06/10/2016 3:00 AM EST 06/10/2016 3:17 AM EST Narrative Resulting Agency Comment Spec In Lab Fidel Barakat MD HEMATOLOGY ORDERABL ES Performing Organization Address [facility] Co de Phone Number [facility] [place] [address] * T4, free (06/10/2016 3:00 AM EST) [facility] Signature Free T4 1.42 0.93 - 1.70 ng/dL [facility] Blood specimen (specimen) 06/10/2016 3:00 AM EST 06/10/2016 3:17 AM EST Narrative Resulting Agency Comment Spec In Lab Fidel Barakat MD CHEMISTRY ORDERABLE S Performing Organization Address City/[facility]/ZIP Co de Phone Number [facility] [place] [address] * TSH (06/10/2016 3:00 AM EST) Thyroid Stimulating Hormone 1.82 0.27 - 4.20 mcIU/mL [facility] Blood specimen (specimen) 06/10/2016 3:00 AM EST 06/10/2016 3:17 AM EST Narrative Resulting Agency Comment Spec In Lab Fidel Barakat MD CHEMISTRY ORDERABLE S Performing Organization Address [facility] Co de Phone Number [facility] [place] [address] * (ABNORMAL) Lipid panel (fasting) (06/10/2016 3:00 AM EST) Pathologist [facility] [place] Cholesterol, Total 181 <=199 mg/dL [facility] Comment: Recommendations of the NCEP Adult Treatment Panel for the following risk cutoff thresholds for the [place] population: Desirable: <200 mg/dL Borderline High: 200-239 mg/dL High: > or = 240 mg/dL Triglyceride 291(H) <=149 mg/dL [facility] Comment: Reference Range: Normal triglycerides: ??<150 mg/dL Borderline high: ??150-199 mg/dL High: ??200-499 mg/dL Very high: ??>ux=839 mg/dL AKASH 2001; 285(19):2257-4165 HDL Cholesterol 35(L) >=40 mg/dL [facility] LABORATORY Comment: Reference range: ??Low HDL: ?? < 40 mg/dL ??Normal: ?40-60 mg/dL ??Desirable: > 60 mg/dL AKASH 2001; 285(19):5853-3614 LDL Cholesterol 88 <=99 mg/dL [facility] Comment: Reference range: ?? Optimal: ?<100 mg/dL ?? Near Optimal/Above Optimal: ?? 100-129 mg/dL ?? Borderline high: ?130-159 mg/dL ?? High: ? 160-189 mg/dL ?? Very high: ?>nx=198 mg/dL AKASH 2001: 285(19):5248-3654 Cholesterol/HDL Ratio 5.2 ratio [facility] Comment: A Cholesterol to HDL ratio below 4:1 is desirable. ??Studies suggest that increased CAD risk occurs at ratios above 5 for females and above 6 for men. ? [place] [employer] Association ??(http://www.americanheart.org) ? Dominique Int Med, 1994; 121:641 ? AM J Med, 1998; 105(1A):48S Blood specimen (specimen) 06/10/2016 3:00 AM EST 06/10/2016 3:17 AM EST Narrative Resulting Agency Comment Spec In Lab Fidel Barakat MD CHEMISTRY ORDERABLE S [facility] [place] [address] * Cardiac Enzymes (06/09/2016 11:41 PM EST) Troponin-T <0.03 <=0.03 ng/mL [facility] Comment: 0.03 ng/mL: Represents the [...] consensus document of the Joint Society of Cardiology/[place] College [employer] Committee for the redefinition of myocardial infarction. ??Journal of the [place] College of Cardiology 2000; 36: 959-969] Creatine Kinase 49 0 - 200 unit/L [facility] Blood specimen (specimen) 06/09/2016 11:41 PM EST 06/09/2016 11:50 PM EST Narrative Resulting Agency Comment Spec In Lab Fidel Barakat MD CHEMISTRY ORDERABLE S Performing Organization Address [facility] de Phone Number [facility] [place] [address] * (ABNORMAL) APTT (06/09/2016 8:13 PM EST) Partial Thromboplastin Time 39(H) 25 - 35 sec [facility] Comment: The recommended therapeutic range for full dose, unfractionated heparin at [facility] is 80 ? 114 seconds. The use of the anti-Xa (heparin) level rather than the PTT is recommended for monitoring anticoagulation intensity in critically ill patients receiving unfractionated heparin by continuous IV infusion. Blood specimen (specimen) 06/09/2016 8:13 PM EST 06/09/2016 8:28 PM EST Narrative Resulting Agency Comment Spec In Lab Fidel Barakat MD HEMATOLOGY ORDERABL ES Performing Organization Address [facility] Co de Phone Number [facility] [place] [address] * (ABNORMAL) Hemoglobin A1c (06/09/2016 8:13 PM EST) Hemoglobin A1c 5.8(H) 4.3 - 5.6 % [facility] Comment: Reference Range: 4.3 - [...] Mellitus, Diabetes Care 2013; 36: Suppl. 1, K77-17 Estimated Average Glucose 120 mg/dL [facility] Comment: eAG equivalents for HbA1c percentages: HbA1c(%) ?eAG(mg/dL) 6.0 ?126 6.5 ?140 7.0 ?154 7.5 ?169 8.0 ?183 8.5 ?197 9.0 ?212 9.5 ?226 10.0 ? 240 Limitations: The eAG calculation has not been validated on women, individuals below 18 years old and above 70 years old, and individuals with hemoglobinopathies. Additional resources are available on the ADA website: http://[employer]smetech.com/DHMCadacalc Tutu MILLS, Melany J, Pravin R, et al. ??Translating the A1C assay into estimated average glucose values. ??Diabetes Care 2008:31(8):6678-0637. Blood specimen (specimen) 06/09/2016 8:13 PM EST 06/09/2016 8:28 PM EST Narrative Resulting Agency Comment Spec In Lab Fidel Barakat MD CHEMISTRY ORDERABLE S [facility] [place] [address] documented in this encounter Visit Diagnoses Not [...] 0906 (Given - Provider: Ree Jacob RN)1435 ([facility] Hold - Provider: Admin Adt - Reason: Transfer to a Procedural area)1813 ([facility] Unhold - Provider: Admin Adt) 1018 (Given - Provider: Iram Mendoza, MERY) atorvastatin (LIPITOR) tablet 40 mg 40 mg, Oral, EVERY EVENING, First dose on Thu06/09/16 at 1900, Until Discontinued, Routine 1850 (Given - Provider: Ree Jacob RN) 1435 ([facility] Hold - Provider: Admin Adt - Reason: Transfer to a Procedural area)1700 (Automatically Held - Provider: Admin Adt)181 ([facility] Unhold - Provider: Admin Adt) buPROPion (WELLBUTRIN XL) XL tablet 300 mg 300 mg, Oral, DAILY, First dose on Thu06/09/16 at 2030, Until Discontinued, DO NOT CRUSH OR OPEN, Routine 2030 (Not Given - Provider: Landon Gonzalez RN - Reason: See comment - Comment: Pt states he got that this morning at other hospital) 1120 (Given - Provider: Ree Jacob RN)1435 ([facility] Hold - Provider: Admin Adt - Reason: Transfer to a Procedural area)181 ([facility] Unhold - Provider: Admin Adt) 1019 (Given - Provider: Iram Mendoza RN) clopidogrel (PLAVIX) tablet 75 mg 75 mg, Oral, DAILY, First dose on Thu06/10/16 at 0900, Until Discontinued, Routine 0909 (Given - Provider: Ree Jacob RN)1435 ([facility] Hold - Provider: Admin Adt - Reason: Transfer to a Procedural area)1813 ([facility] Unhold - Provider: Admin Adt) 1046 (Given [...] 2100, Routine 212 (Given - Provider: Oscar Tejada, MERY) furosemide (LASIX) injection 40 mg (COMPLETED) 40 mg, Intravenous, ONCE, 1 dose, On Thu06/11/16 at 0800, Routine 1018 (Given - Provider: Iram Mendoza, MERY) losartan (COZAAR) tablet 50 mg 50 mg, [...] 0911 (Given - Provider: Ree Jacob RN)1435 ([facility] Hold - Provider: Admin Adt - Reason: Transfer to a Procedural area)181 ([facility] Unhold - Provider: Admin Adt)2121 (Given - Provider: Oscar Tejada, MERY) 1032 (Given - Provider: Iram Mendoza, MERY) nicotine (NICODERM CQ) 14 mg/24 hr patch 14 mg(Linked Group 1) 14 mg, Transdermal, Administer over 24 Hours, DAILY, First dose on Thu06/10/16 at 1300, Until Discontinued, Routine 1414 (Given - Provider: Ree Jacob RN)1435 ([facility] Hold - Provider: Admin Adt - Reason: Transfer to a Procedural area)181 ([facility] Unhold - Provider: Admin Adt) 102 (Given - Provider: Iram Mendoza RN) nicotine (NICODERM CQ) 14 mg/24 hr patch Patch Removal(Linked Group 1) Transdermal, DAILY, First dose on Thu06/11/16 at 0900, Until Discontinued, Remove nicotine 14 mg/24 hr patch 143 ([facility] Hold - Provider: Admin Adt - Reason: Transfer to a Procedural area)1812 ([facility] Unhold - Provider: Admin Adt) 0900 (Patch Removed - Provider: Iram Mendoza, RN) nicotine (NICODERM CQ) 14 mg/24 hr patch Patch Verification(Linked Group 1) Transdermal, 2 TIMES DAILY, First dose on Thu06/11/16 at 0000, Until Discontinued, Verify nicotine 14 mg/24 hr patch. 143 ([facility] Hold - Provider: Admin Adt - Reason: Transfer to a Procedural area)1812 ([facility] Unhold - Provider: Admin Adt) 0000 (Patch (dose and location) verified - Provider: Oscar Tejada, RN)0900 (Patch (dose and location) verified - Provider: Iram Mendoza RN) pantoprazole (PROTONIX) tablet 40 mg 40 mg, Oral, DAILY, First dose on Thu06/09/16 at 2015, Until Discontinued, DO NOT CRUSH OR OPEN 2039 (Given - Provider: Landon Gonzalez RN) 0914 (Given - Provider: Ree Jacob RN)143 ([facility] Hold - Provider: Admin Adt - Reason: Transfer to a Procedural area)1812 ([facility] Unhold - Provider: Admin Adt) 1018 (Given - Provider: Iram Mendoza RN) potassium chloride (K-DUR/KLOR-CON) extended release tablet 40 mEq (COMPLETED) 40 mEq, Oral, ONCE, 1 dose, On Thu06/11/16 at 1100, 20 mEq tablet may be dissolved in water for administration, Routine 1045 (Given - Provider: Iram Mendoza RN) sodium chloride 0.9 % flush 5 mL 5 mL, Intravenous, 2 TIMES DAILY, First dose on Thu06/09/16 at 2100, Until Discontinued, Routine 2041 (Given - Provider: Landon Gonzalez RN) 0915 (Given - Provider: Ree Jacob, MERY)143 ([facility] Hold - Provider: Admin Adt - Reason: Transfer to a Procedural area)1812 ([facility] Unhold - Provider: Admin Adt)2126 (Given - Provider: Oscar Tejada, MERY) 1019 (Given - Provider: Iram Mendoza RN) [...] area)181 ([facility] Unhold - Provider: Admin Adt) sodium chloride [...] Loan Bhandari RN)1514 (Given - Provider: Loan Bhandari, MERY)1558 (Given - Provider: Loan Bhandari RN)1701 (Given [...] Until Thu06/10/16 at 1711, Cath (Intra-Procedure), Routine 162 (Given - Provider: Loan Bhandari RN) heparin (porcine) injection (CANCELED) ONCE PRN, Starting on Thu06/10/16 at 1602, Until Thu06/10/16 at 1713, Cath (Intra-Procedure), Routine 1602 (Given - Provider: Loan Bhandari RN) iohexol (OMNIPAQUE) 350 mg/mL solution (CANCELED) ONCE PRN, Starting on Thu06/10/16 at 1704, Until Thu06/10/16 at 1711, Cath (Intra-Procedure), Routine 170 (Given - Provider: Ulisses Lin MD) lidocaine (XYLOCAINE) 10 mg/mL (1 %) injection 3 mg 3 mg (0.3 mL), Subcutaneous, ONCE PRN, 1 dose, Starting on Thu06/09/16 at 1658, Until Thu06/11/16 at 1814, for discomfort with PIV insertion, Routine 1435 ([facility] Hold - Provider: Admin Adt - Reason: Transfer to a Procedural area)181 ([facility] Unhold - Provider: Admin Adt) midazolam (PF) [...] 0913 (Given - Provider: Ree Jacob RN)1435 ([facility] Hold - Provider: Admin Adt - Reason: Transfer to a Procedural area)181 ([facility] Unhold - Provider: Admin Adt) [...] last 24 to 72 hours., Routine 1435 ([facility] Hold - Provider: Admin Adt - Reason: Transfer to a Procedural area)1812 ([facility] Unhold - Provider: Admin Adt) [...] UA) documented in this encounter Care Teams Piano Professor Relationship Specialty Start Date End Date Tracey Mueller MD [address] [facility] [address] [place] [address] PCP - General 06/04/10 documented as of this encounter
--- OUTSIDE RECORDS SUMMARY | 2024-06-30 08:11 | XMS_ITS | Encounter Summary ---
Author Organization [facility] [place] [address] Care Team Providers Care Resin Filterer Name Role Phone Tracey Mueller MD Primary Care Provider [phone] Encounter Details Date Type Department Care Team (Latest Contact Info) Description 06/07/2016 - 06/07/2016 11:59 PM EST Hospital Encounter Radiology Library at [facility] [place] [address] Arjun Espinosa MD Pain Discharge Disposition: Home Social History Tobacco [...] DX Chest (06/07/2016 12:00 AM EST) Narrative [facility] [place] 2] - 06/09/2016 3:18 PM EST This exam is for storage only and is auto-finalizing. Arjun Espinosa MD IMG FILM LIBRARY ORDERABLES Performing Organization Address City/State/[facility] Co de Phone Number [place], [place] documented in this encounter Visit Diagnoses Diagnosis Pain Generalized pain documented in this encounter Care Teams Resin Filterer Relationship Specialty Start Date End Date Tracey Mueller MD [address] [place] [address] PCP - General 06/04/10 documented as of this encounter
--- OUTSIDE RECORDS SUMMARY | 2024-06-30 08:11 | XMS_ITS | Encounter Summary ---
Author Organization [facility] [place] [address] Care Team Providers Care Core Shaper Name Role Phone Tracey Mueller MD Primary Care Provider [phone] Encounter Details Date Type Department Care Team (Late st Contact Info) Description 06/08/2016 [place]phone [place] [id number] Matty López MD Social History Tobacco Use Types Packs/Day Years [...] will accept in AM. Matty López MD [employer] Pager # [phone] documented in this encounter Plan of Treatment Not on file documented as of this encounter Visit Diagnoses Not on filedocumented in this encounter Care Teams Core Shaper Relationship Specialty Start Date End Date Tracey Mueller MD [address] [place] [address] PCP - General 06/04/10 documented as of this encounter
[2024-06-30 08:18] VITALS: BP 137/70; PULSE 64; RESP 16; TEMP 36.4; O2SAT 96
[2024-06-30 08:19] VITALS: RESP 16
[2024-06-30 08:52] LABS: Bilirubin Negative (Negative); Blood Negative (Negative); Clarity Clear (Clear); Glucose >=1000 mg/dL (Negative); Ketones Negative (Negative); Leukocyte Esterase Negative (Negative); Nitrite Negative (Negative); Urobilinogen 0.2 mg/dL (Up to 0.2); pH 5.5 (5-8)
[2024-06-30 09:01] LABS: Bacteria Negative HPF (Negative); C & S Indicated? No; Casts Negative LPF (Negative); Crystals Negative HPF (Negative); Epithelial Cells Rare HPF (Negative); Mucus Negative (Negative); RBC Negative HPF (0-2); WBC Negative HPF (0-5)
[2024-06-30 09:08] LABS: Abs Immature Grans 0.03 10^3/uL (0.0-0.06); Absolute Basophil Count 0.04 10^3/uL (0.0-0.2); Absolute Eosinophil Count 0.12 10^3/uL (0.0-0.7); Absolute Lymphocyte Count 2.43 10^3/uL (1.2-3.4); Absolute Monocyte Count 0.54 10^3/uL (0.1-0.8); Absolute Neutrophil Count 4.59 10^3/uL (1.2-6.7); Basophils % 0.5 %; Eosinophils % 1.5 %; HCT 49.8 % (40.0-50.0); HGB 17.2 g/dL (13.5-17.5); Immature Grans % 0.4 %; Lymphocytes % 31.4 %; MCHC 34.5 % (32.0-36.0); MCV 87 fL (80-95); MPV 9.4 fL (8.0-11.0); Neutrophils % 59.2 %; Platelet Count 199 10^3/uL (130-400); RBC 5.74 10^6/uL (4.36-5.78); RDW 12.9 % (11.8-14.1); RDW-SD 39.8 fL; WBC 7.75 10^3/uL (4.4-10.8)
[2024-06-30 09:19] LABS: Magnesium 2.1 mg/dL (1.8-2.4)
[2024-06-30 09:25] LABS: ALT 43 U/L (16-63); AST 22 U/L (15-37); Albumin 3.7 g/dL (3.4-5.0); Alkaline Phosphatase 66 U/L (46-116); Anion Gap 10.5 mmol/L (3-11); BUN 14 mg/dL (7-18); Bilirubin, Total 0.58 mg/dL (0.2-1.0); CO2 25.5 mmol/L (21.0-32.0); Chloride 105 mmol/L (98-107); Creatine Kinase 47 U/L (39-308); Estimated GFR 84.05 (mL/min/1.73m2); Glucose 126 mg/dL (74-106); Potassium 4.5 mmol/L (3.5-5.1); Sodium 141 mmol/L (136-145); Total Protein 7.6 g/dL (6.4-8.2)
--- NOTE | 2024-06-30 09:38 | ED.GENADUL_ITS ---
Discharge Plan Disposition Patient Disposition: Home Condition: Stable Discharge Details Clinical Impression: Muscle pain Primary Care Provider: Tracey Mueller ED Provider: Marva Pierson Home Meds and New Rx's Prescriptions: New gabapentin [Neurontin] 100 mg capsule 100 mg PO TID Qty: 39 0RF Rx Instructions: Take 1 tablet 3 times daily for 3 days followed by 2 tabs 3 times daily for 5 days Continued sertraline 25 mg tablet 25 mg PO DAILY cholecalciferol (vitamin D3) 25 mcg (1,000 unit) capsule 25 mcg PO DAILY losartan 25 MG tablet 50 mg PO DAILY pantoprazole 40 MG tablet,delayed release (DR/EC) 40 mg PO DAILY acetaminophen [Mapap Extra Strength] 500 MG tablet 650 mg PO PRN PRN aspirin [Aspirin Low-Strength] 81 MG tablet,chewable 1 tab PO .QOD ondansetron 4 mg tablet,disintegrating 4 mg PO Q8H PRN PRN Patient Comments: DISSOLVE 1 TABLET ON THE TONGUE EVERY 8 HOURS NEEDED Ozempic 1 mg/dose (4 mg/3 mL) pen injector 1 mg SUBCUT .weekly Patient Comments: INJECT 1 MG UNDER THE SKIN ONE DAY A WEEK (DME) pen needle, diabetic [BD Ultra-Fine Micro Pen Needle] 32 gauge x 1/4 needle MISCELLANEOUS Patient Comments: USE 1 NEEDLE ONCE DAILY dapagliflozin propanediol [Farxiga] 5 mg tablet 5 mg PO QAM Patient Comments: TAKE 1 TABLET BY MOUTH EVERY DAY FOR DIABETES atorvastatin 40 mg Tablet 40 mg PO QHS triamcinolone acetonide 0.1 % Cream 1 applic TOPICAL BID nitroglycerin [Nitrostat] 0.4 mg Tablet, Sublingual 0.4 mg SUBLINGUAL Q5-15M PRN furosemide 20 mg Tablet 20 mg PO DAILY albuterol sulfate [ProAir HFA] 90 mcg/actuation Hfa Aerosol Inhaler 2 puff INHALATION Q6H PRN metoprolol succinate 25 mg Capsule,Sprinkle,Er 24hr 25 mg PO DAILY diclofenac sodium [Voltaren Arthritis Pain] 1 % Gel 2 g TOPICAL QID PRN Discharge Instructions Additional Instructions: Take Tylenol as needed for pain You may take the Neurontin as prescribed on the bottle, do not combine with alcohol or any other pain medications as this can make you very drowsy. I do not recommend driving after taking this medication please follow-up with your doctor at your scheduled appointment You may talk to your doctor about whether or not the Lipitor might be causing some of your pain although your labs are reassuring. Please return should you have new or worsening complaints Referrals: Tracey Mueller MD [Primary Care Provider] - 2 days HPI General Date/Time Provider Initiated Documentation: 06/30/24 08:05 . HPI Narrative: This 64-year-old male presents with report of acute exacerbation of chronic muscle pain. Patient states he has been diagnosed with fibromyalgia in the [facility] t. He is here for a Toradol injection. He denies any change in his symptoms actually has an appointment scheduled in the outpatient setting with Dr. Mueller on July 08 per patient. He denies any fever or chills. He has had these pain complaints before but is having trouble sleeping per patient secondary to the pain. He denies any fever or chills. Denies any chest discomfort or shortness of breath. When asked why he chose today for presentation he states because the pain has been keeping him up at night per patient. Related Data Home Medications ?Medication ?Instructions ?Recorded ?Confirmed losartan 25 mg tablet 50 mg PO DAILY 10/14/12 06/30/24 pantoprazole 40 mg tablet,delayed 40 mg PO DAILY 12/08/12 06/30/24 release acetaminophen 500 mg tablet (Mapap 650 mg PO PRN PRN 02/11/13 06/30/24 Extra Strength) aspirin 81 mg chewable tablet 1 tab PO .QOD 06/07/16 06/30/24 (Aspirin Low-Strength) albuterol sulfate 90 mcg/actuation 2 puff inhalation Q6H PRN 05/10/19 06/30/24 aerosol inhaler (ProAir HFA) atorvastatin 40 mg tablet 40 mg PO QHS 05/10/19 06/30/24 furosemide 20 mg tablet 20 mg PO DAILY 05/10/19 06/30/24 metoprolol succinate 25 mg capsule 25 mg PO DAILY 05/10/19 06/30/24 sprinkle, ext. release 24 hr nitroglycerin 0.4 mg sublingual 0.4 mg sublingual Q5-15M PRN 05/10/19 06/30/24 tablet (Nitrostat) triamcinolone acetonide 0.1 % 1 applic topical BID 05/10/19 06/30/24 topical cream diclofenac sodium 1 % topical gel 2 g topical QID PRN 11/29/21 06/30/24 (Voltaren Arthritis Pain) cholecalciferol (vitamin D3) 25 25 mcg PO DAILY 09/01/23 06/30/24 mcg (1,000 unit) capsule sertraline 25 mg tablet 25 mg PO DAILY 09/01/23 06/30/24 dapagliflozin propanediol 5 mg 5 mg PO QAM 06/16/24 06/30/24 tablet (Farxiga) ondansetron 4 mg disintegrating 4 mg PO Q8H PRN PRN 06/16/24 06/30/24 tablet pen needle, diabetic 32 gauge x 06/16/24 06/30/2407/16 (BD Ultra-Fine Micro Pen Needle) semaglutide 1 mg/dose (4 mg/3 mL) 1 mg subcut .weekly 06/16/24 06/30/24 subcutaneous pen injector (Ozempic) gabapentin 100 mg capsule 100 mg PO TID #39 caps 06/30/24 (Neurontin) Previous Rx's ?Medication ?Instructions ?Recorded gabapentin 100 mg capsule 100 mg PO TID #39 caps 06/30/24 (Neurontin) Allergies Allergy/AdvReac Type Severity Reaction Status Date / Time Penicillins Allergy Unknown Hives Unverified 06/30/24 08:13 codeine AdvReac Mild Nausea Unverified 06/30/24 08:13 hydrocodone bitartrate (From AdvReac Mild Nausea Unverified 06/30/24 08:13 Vicodin) General Stated Complaint: GenMedical LISANDRA: 3 Exam Narrative Exam Narrative: Alert, oriented, 64-year-old male in no acute distress, diffuse mild muscle pain, nonfocal neurological exam, ambulatory with steady gait, alert and oriented x 4, no rashes or lesions, no abdominal tenderness, lungs clear to auscultation, cardiac rate rhythm regular Course Vital Signs Vital signs: Vital Signs Temperature 36.4 C L 06/30/24 08:04 Pulse 64 06/30/24 08:04 Respiratory Rate 16 06/30/24 08:04 Blood Pressure 137/70 06/30/24 08:04 Pulse Oximetry 96 06/30/24 08:04 Temperature 36.4 C L 06/30/24 08:18 Pulse 64 06/30/24 08:18 Respiratory Rate 16 06/30/24 08:19 Respiratory Effort Normal 06/30/24 08:19 Respiratory Depth Normal 06/30/24 08:19 Respiratory Pattern Normal 06/30/24 08:19 Blood Pressure 137/70 06/30/24 08:18 Blood Pressure Position Sitting 06/30/24 08:18 Pulse Oximetry 96 06/30/24 08:18 Oxygen Delivery Method Room Air 06/30/24 08:18 Oxygen Flow Rate 0 06/30/24 08:18 Pain Level 10 06/30/24 08:18 Lab/Test Results Lab/Test Results: Laboratory Tests Range/Units 06/30/24 06/30/24 08:43 09:01 WBC (4.4-10.8) 10^3/uL 7.75 RBC (4.36-5.78) 10^6/uL 5.74 Hgb (13.5-17.5) g/dL 17.2 Hct (40.0-50.0) % 49.8 MCV (80-95) fL 87 MCH (27.0-33.0) pg 30.0 MCHC (32.0-36.0) % 34.5 RDW (11.8-14.1) % 12.9 Plt Count (130-400) 10^3/uL 199 MPV (8.0-11.0) fL 9.4 Immature Gran % % 0.4 Neutrophils % % 59.2 Lymphocytes % % 31.4 Monocytes % % 7.0 Eosinophils % % 1.5 Basophils % % 0.5 Nucleated RBC % (0.0-0.3) % 0.0 Absolute Neutrophils (1.2-6.7) 10^3/uL 4.59 Absolute Lymphocytes (1.2-3.4) 10^3/uL 2.43 Absolute Monocytes (0.1-0.8) 10^3/uL 0.54 Absolute Eosinophils (0.0-0.7) 10^3/uL 0.12 Absolute Basophils (0.0-0.2) 10^3/uL 0.04 Sodium (136-145) mmol/L 141 Potassium (3.5-5.1) mmol/L 4.5 Chloride (98-107) mmol/L 105 Carbon Dioxide (21.0-32.0) mmol/L 25.5 Anion Gap (3-11) mmol/L 10.5 BUN (7-18) mg/dL 14 Creatinine (0.70-1.30) mg/dL 1.0 Est GFR (CKD-EPI 2020) (mL/min/1.73m2) 84.05 Glucose (74-106) mg/dL 126 H Calcium (8.5-10.1) mg/dL 9.0 Magnesium (1.8-2.4) mg/dL 2.1 Total Bilirubin (0.2-1.0) mg/dL 0.58 AST (15-37) U/L 22 ALT (16-63) U/L 43 Alkaline Phosphatase (46-116) U/L 66 Creatine Kinase (39-308) U/L 47 Total Protein (6.4-8.2) g/dL 7.6 Albumin (3.4-5.0) g/dL 3.7 Urine Color (Yellow) Yellow Urine Clarity (Clear) Clear Urine pH (5-8) 5.5 Ur Specific [place] (1.005-1.025) 1.010 Urine Protein (Neg-Trace) mg/dL Negative Urine Ketones (Negative) mg/dL Negative Urine Blood (Negative) Negative Urine Nitrite (Negative) Negative Urine Bilirubin (Negative) Negative Urine Urobilinogen (Up to 0.2) mg/dL 0.2 Ur Leukocyte Esterase (Negative) Negative Urine RBC (0-2) HPF Negative Urine WBC (0-5) HPF Negative Ur Epithelial Cells (Negative) HPF Rare Urine Crystals (Negative) HPF Negative Urine Bacteria (Negative) HPF Negative Urine Casts (Negative) LPF Negative Urine Mucus (Negative) Negative Ur Culture Indicated? No Urine Glucose (Negative) mg/dL >=1000 H Medical Decision Making 64-year-old male, alert, oriented, no acute distress. I did give a single dose of Toradol after reviewing patient's medication list. He is on an antiplatelet medication but I think a single dose should be reasonable of a nonsteroidal. He does not endorse any bleeding. I did order CPK and basic labs as patient has not not had any labs since April. These do not show evidence of acute abnormality. Patient is on atorvastatin and it may be causing some muscle pain, I will let patient discuss his statin with his primary care physician. Patient has requested a trial of Neurontin, and will give him several days of Neurontin he has an appointment on the so he has been supplied with 7-day supply at home. Patient has normal-appearing electrolytes and I see no acute cause of patient's complaints. Given low threshold to return should he have new or worsening complaints and discharged home in stable condition with stable vitals I did review his prior diagnostic labs and imaging studies. Quality:SDOH Health Related Social Needs: No Data to Display PFSH All Active Problems (Updated 06/30/24 @ 09:42 by MERCED Monaco) Muscle pain (Acute) Insomnia (Acute) Fibromyalgia (Acute) Bilateral shoulder bursitis (Acute) Sensorineural hearing loss of both ears (Acute) Morbid obesity (Acute) History of non-ST elevation myocardial infarction (NSTEMI) (Acute) Family history of colon cancer in mother (Acute) Adenomatous colon polyp (Acute) Family history of colon cancer (Acute) brother and sister Diabetes mellitus (Chronic) Diarrhea (Acute) Medical History (Updated 06/30/24 @ 09:42 by MERCED Monaco) Cough, persistent Quit using tobacco in remote past Metabolic syndrome Fibromyalgia Insomnia Sarcoidosis H/O lichenification and lichen simplex chronicus Situational anxiety Edema Hypertension Hyperlipidemia Nausea Abdominal pain GERD (gastroesophageal reflux disease) Tinnitus, bilateral Neoplasm of unspecified behavior of bone, soft tissue, and skin Cellulitis Social History Smoking/Tobacco Use Status: Former Tobacco Use Smoking risk assessment performed?: Yes Alcohol Intake: former Drug use: Never Substance use type: does not use Housing: house Do you feel safe at home: Yes Do you feel safe in your relationship?: Yes
[2024-06-30] MEDS: Ketorolac 15 MG/ML VIAL 7.5 MG IVP (09:40)
[2024-06-30 09:43] VITALS: BP 141/76; PULSE 61; RESP 18; O2SAT 98
== END 2024-06-30 10:00 | disposition home or self-care (01) ==
PROVIDERS: Emergency Provider Physician Assistant; PCP Family Medicine
DX: M79.10 Myalgia, unspecified site (principal); I10 Essential (primary) hypertension; E78.5 Hyperlipidemia, unspecified; I25.2 Old myocardial infarction; Z79.82 Long term (current) use of aspirin; Z79.899 Other long term (current) drug therapy; Z87.891 Personal history of nicotine dependence
CPT/HCPCS: 36415; 80053; 82550; 94640; 96374; 99284; 81003; 81015; 83735; 85025; 99283; J1885

== ENCOUNTER 2024-07-25 02:27 | Outpatient (CLI) | payer MEDICARE, MEDICAID, SELFPAY ==
--- NOTE | 2024-07-25 | DI.CTLCSR_ITS ---
Exam(s) CT CHEST LUNG CANCER SCREEN EXAM: CT CHEST LUNG CANCER SCREEN CLINICAL HISTORY: SCREENING FOR LUNG CA,FORMER SMOKER, Z87.891 TECHNIQUE: Imaging Protocol: Axial computed tomography images with coronal and sagittal reformatted images were created and reviewed. Lung Computer Aided Detection (CAD) was utilized. COMPARISON: CT CT CHEST/ABD/PEL WO from 11/29/2021 FINDINGS: Tracheobronchial tree: Patent where visualized. No bronchiectasis. Pulmonary parenchyma: No consolidation or dominant measurable mass. No architectural distortion. Ther e are calcified granuloma present. Lung Nodules: None. Mediastinum and Bobbi: No dominant adenopathy or fluid collection. The esophagus is unremarkable. Thyroid gland: Unremarkable. Lymph nodes: Unremarkable. Pleura: No effusion or pneumothorax. Heart: The heart is not dilated. Three vessel coronary artery calcification is present. No pericardi al effusion. Aorta: Thoracic aorta non-dilated.Atherosclerotic calcification is present. Upper abdomen: Unremarkable. Soft Tissues: Unremarkable. Bones: Within normal limits. IMPRESSION: No suspicious pulmonary nodules. Lung RADS Cat 1 - Negative: No nodules and definitely benign nodules Lung-RADS 1.0 CATEGORIES: Category 0 - Prior chest CT exam(s) being located for comparison. Category 1 - Annual screening in 12 months. No nodules or definitely benign nodules. Category 2 - Annual screening in 12 months. Benign appearance. Nodules with low likelihood of becomin g active cancer. Category 3 - 6-month follow-up. Probably benign. Short-term follow-up suggested. Nodules with low lik elihood of becoming active cancer. Category 4A - 3-month follow-up and CT/PET if >8 mm in size. Suspicious finding. Findings which requi re additional testing. Category 4B - Findings which require additional testing and tissue sampling. Suspicious finding. Category 4X - Category 3 or 4 nodules with additional features or imaging findings that increases the suspicion of malignancy. Modifier S- Potentially clinically significant finding. (Non lung cancer) RADIATION DOSE DELIVERED: 121.67mGy.cm Total DLP 121.67mGy.cmTotal DLP DATA REPOSITORY: All CT scans at this facility are submitted to the National Radiology Data Registry (NRDR) Dose Index Registry (DIR) with the [employer] (A[employer]). RADIATION OPTIMIZATION: All CT scans at this facility use at least one of these dose optimization te chniques: automated exposure control; mA and/or kV adjustment per patient size (includes targeted exa ms where dose is matched to clinical indication); or iterative reconstruction.
== END 2024-07-25 02:47 ==
LOC: DI 02:27
PROVIDERS: PCP Family Medicine; Visit Provider Family Medicine
DX: Z87.891 Personal history of nicotine dependence (principal); Z12.2 Encounter for screening for malignant neoplasm of respiratory organs
CPT/HCPCS: 71271

== ENCOUNTER → 2024-08-04 11:37 | Outpatient (BNVA) | payer MEDICARE, MEDICAID, SELFPAY | PROVIDERS: PCP Family Medicine; Referring Provider Family Medicine; Visit Provider Physical Therapy Assistant | DX: K21.9 Gastro-esophageal reflux disease without esophagitis (principal); Z12.11 Encounter for screening for malignant neoplasm of colon; Z80.0 Family history of malignant neoplasm of digestive organs | CPT/HCPCS: 99213 ==

== ENCOUNTER 2024-10-25 14:26 | Emergency (ER) | payer MEDICARE, MEDICAID, SELFPAY ==
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
[2024-10-25 14:45] VITALS: BP 132/76; PULSE 64; RESP 15; TEMP 36.8; O2SAT 93
--- NOTE | 2024-10-25 14:45 | DI.RAD_ITS ---
Exam(s) XR FEMUR RT EXAM: XR FEMUR RT CLINICAL HISTORY: hip pain. TECHNIQUE: 2D digital imaging was performed. AP and lateral views. COMPARISON: No exams were available for comparison FINDINGS: BONES: No acute fracture is present. No bony destructive lesion is seen. JOINTS: Visualized portion of knee and hip joints are unremarkable. SOFT TISSUE: Normal. IMPRESSION: Unremarkable radiographs of the right femur. DATA REPOSITORY: RADIATION DOSE DELIVERED:
--- NOTE | 2024-10-25 15:15 | DI.CT_ITS ---
Exam(s) CT PELVIC WO EXAM: CT PELVIC WO CLINICAL HISTORY: right hip pain. TECHNIQUE: Imaging Protocol: Axial computed tomography images with coronal and sagittal reformatted images were created and reviewed CONTRAST MATERIAL: Intravenous: none Oral: None COMPARISON: CR XR FEMUR RT from 10/25/2024 FINDING: PELVIS: OSSEOUS: No obvious pelvic nor hip fractures. There is, however, a small calcific density off the med ial aspect of the lesser trochanter of the right hip at the insertional aspect of the iliopsoas tendo n.No left hip findings. Minimal degenerative changes in the hips. No obvious hip joint effusion.No sa cral fractures. Facet arthropathy noted in the lower lumbar spine. ANTERIOR ABDOMINAL WALL/GI:No evidence of significant anterior abdominal wall nor inguinal hernia in the pelvis evident.No obvious bowel obstruction. No evidence of appendicitis.No evidence of acute si gmoid diverticulitis.No free fluid in the pelvis. LYMPH NODES: There is no intrapelvic nor inguinal adenopathy. URINARY BLADDER: Moderately distended. Pelvic ureters are not dilated. REPRODUCTIVE: Prostate size upper normal. Seminal vesicles unremarkable.. IMPRESSION: 1. Small calcific density off the medial aspect of the lesser trochanter of the right hip, this being the insertion site of the ileo psoas tendon. Cannot exclude small avulsion injury at this level. RADIATION DOSE DELIVERED: 690.97mGy.cm Total DLP DATA REPOSITORY: All CT scans at this facility are submitted to the National Radiology Data Registry (NRDR) Dose Index Registry (DIR) with the [employer] ([employer]). RADIATION OPTIMIZATION: All CT scans at this facility use at least one of these dose optimization te chniques: automated exposure control; mA and/or kV adjustment per patient size (includes targeted exa ms where dose is matched to clinical indication); or iterative reconstruction.
[2024-10-25] MEDS: Acetaminophen 500 MG TAB 1000 MG PO (15:46)
[2024-10-25 15:48] VITALS: PULSE 61; RESP 16; O2SAT 94
[2024-10-25 16:31] VITALS: BP 135/87; PULSE 68; RESP 16; O2SAT 95
== END 2024-10-25 16:31 | disposition left against medical advice (07) ==
LOC: ER 16:49
PROVIDERS: Emergency Provider Emergency Medicine; PCP Family Medicine
DX: M25.551 Pain in right hip (principal); I10 Essential (primary) hypertension; E78.5 Hyperlipidemia, unspecified; E11.9 Type 2 diabetes mellitus without complications; I25.2 Old myocardial infarction; Z79.85 Long-term (current) use of injectable non-insulin antidiabetic drugs; Z79.82 Long term (current) use of aspirin; Z87.891 Personal history of nicotine dependence; Z53.29 Procedure and treatment not carried out because of patient's decision for other reasons
CPT/HCPCS: 73552; 99283; 72192

== ENCOUNTER 2024-11-04 12:19 | Outpatient (CLI) | payer MEDICARE, MEDICAID, SELFPAY ==
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
== END 2024-11-04 12:39 ==
LOC: DI 12:19
PROVIDERS: PCP Family Medicine; Visit Provider Family Medicine
DX: W34.00XA Accidental discharge from unspecified firearms or gun, initial encounter (principal); Z01.818 Encounter for other preprocedural examination
CPT/HCPCS: 72072

== ENCOUNTER 2024-12-08 12:48 | Outpatient (REF) | payer MEDICARE, MEDICAID, SELFPAY ==
[2024-12-08 19:34] LABS: HCT 46.7 % (40.0-50.0); MCH 29.8 pg (27.0-33.0); MCHC 34.3 % (32.0-36.0); MCV 87 fL (80-95); MPV 11.1 fL (8.0-11.0); Platelet Count 152 10^3/uL (130-400); RBC 5.37 10^6/uL (4.36-5.78); RDW 12.7 % (11.8-14.1); RDW-SD 39.8 fL; WBC 6.81 10^3/uL (4.4-10.8)
[2024-12-08 19:51] LABS: Hemoglobin A1C 6.5 % (<5.7)
[2024-12-08 19:59] LABS: ALT 33 U/L (16-63); AST 19 U/L (15-37); Albumin 3.4 g/dL (3.4-5.0); Alkaline Phosphatase 63 U/L (46-116); Anion Gap 7.3 mmol/L (3-11); BUN 17 mg/dL (7-18); Bilirubin, Total 0.5 mg/dL (0.2-1.0); CO2 29.7 mmol/L (21.0-32.0); CREATININE 0.9 mg/dL (0.70-1.30); Calcium 8.6 mg/dL (8.5-10.1); Chloride 104 mmol/L (98-107); Estimated GFR 95.37 (mL/min/1.73m2); Glucose 147 mg/dL (74-106); Potassium 4.2 mmol/L (3.5-5.1); Sodium 141 mmol/L (136-145); TSH (W/Ref FT4) 1.69 uIU/mL (0.36-3.74); Total Protein 6.3 g/dL (6.4-8.2)
== END 2024-12-08 12:49 | disposition home or self-care (01) ==
LOC: NCHCN 12:48
PROVIDERS: PCP Family Medicine; Visit Provider Family Medicine
DX: E11.9 Type 2 diabetes mellitus without complications (principal); I10 Essential (primary) hypertension
CPT/HCPCS: 80053; 85027; 83036; 84443

== ENCOUNTER 2024-12-19 18:55 | Outpatient (REF) | payer MEDICARE, MEDICAID, SELFPAY ==
[2024-12-19 22:33] LABS: COMMENT (LAB VIEW ONLY) 39.91 mg/dL; Microalb ug/mg Crea 24.8 ug/mg Cr
== END 2024-12-19 18:56 | disposition home or self-care (01) ==
LOC: NCHCN 18:55
PROVIDERS: PCP Family Medicine; Visit Provider Family Medicine
DX: E11.9 Type 2 diabetes mellitus without complications (principal)
CPT/HCPCS: 82043; 82570

== ENCOUNTER → 2024-12-23 08:15 | Outpatient (BNVA) | payer MEDICARE, MEDICAID, SELFPAY | PROVIDERS: PCP Family Medicine; Referring Provider Family Medicine; Visit Provider Physician Assistant | DX: M70.61 Trochanteric bursitis, right hip (principal) | CPT/HCPCS: 99213 ==

== ENCOUNTER 2025-01-06 00:10 | Outpatient (CLI) | payer MEDICARE, MEDICAID, SELFPAY ==
--- NOTE | 2025-01-06 08:30 | DI.US_ITS ---
APPROVED REPORT EXAM: Comprehensive 2D, Doppler, and color-flow Echocardiogram Patient Location: Out-Patient Care Support Representative: Gabriele Haas RDCS (AE) Indications: Fatigue, dyspnea Other Information Technically limited study due to body habitus. Conclusion Technically difficult and poor study Left ventricle is not well-visualized but appears grossly normal in size. Estimated EF is 50%. Study is not accurate to assess segmental wall motion Right ventricle is not well-visualized Both atria are grossly normal in size Within the limits of the study no significant valvular disease is identified Wall motion Left Ventricle Left ventricle is not well visualized. Unable to assess LV wall thickness. There is mild global hypokinesis of the left ventricle. There is no ventricular septal defect visualized. LVEF is 50%. Right Ventricle Not well-visualized Cannot be assessed Atria The left atrium size is normal. The right atrium size is normal. The interatrial septum is intact with no evidence for an atrial septal defect. Aortic Valve The aortic valve is normal in structure. There is no aortic valvular stenosis. No aortic regurgitation is present. Mitral Valve The mitral valve is normal in structure. No evidence of mitral valve stenosis. Trace mitral regurgitation. Tricuspid Valve The tricuspid valve is normal in structure. There is no tricuspid valve stenosis. Trace tricuspid regurgitation. Pulmonic Valve The pulmonary valve is normal in structure. There is no pulmonic valvular stenosis. There is no pulmonic valvular regurgitation. Great Vessels The aortic root is normal in size. The ascending aorta is normal in size. Aortic arch is not well visualized. The IVC could not be assessed. Pericardium There is no pericardial effusion. 2D Dimensions Ao Root d 2.59 cm M: 3.1 - 3.7 Ao Asc Diam d 3.48 cm M: 2.6 - 3.4 M-Mode TAPSE 2.11 cm (M/F) >1.7 Auto EF LV EDV A4C 184.7 mL LV EDV A2C 126.5 mL LV EDV BP LV ESV A4C 98.2 mL LV ESV A2C 61.7 mL LV ESV BP LVEF(%) A4C 46.9 % LVEF(%) A2C 51.2 % LVEF(%) BP LV SV A4C 86.5 ml LV SV A2C 64.7 ml LV SV BP LV CO A4C 5.1 L/min LV CO A2C 3.7 L/min LV CO BP HR A4C 59.39 BPM HR A2C 57.51 BPM LV EDV Index (BP) LA Volume LA Length A4C 5.6 cm LA Length A2C 5.8 cm LA Area A4C s 16.22 cm2 LA Area A2C s 12.86 cm2 LA Vol A4C A-L 40.19 mL LA Vol A2C A-L 24.41 mL LA Vol Biplane A-L 31.9 mL LA Vol/BSA A4C A-L LA Vol/BSA A2C A-L LA Vol/BSA BP A-L 13.0 mL/m2 LA Vol A4C MOD 38.7 mL LA Vol A2C MOD 23.4 mL LA Vol BP MOD 30.6 mL RA Volume RA Area A4C 11.5 cm2 RA ESV A4C (A-L) 23.9mL RA Vol/BSA A4C A-L RA Length A4C 4.7 cm RA ESV A4C (MOD) 21.6mL LV Diastology MV E' medial 0.113 (>0.07 m/s) MV E Vmax 0.85 (0.4-1.3 m/s) MV E/E' MED 7.49 (<14) MV A Vmax 0.50 (0.4-1.3 m/s) MV E' lateral 0.111 (>0.1 m/s) E/A Ratio 1.7 MV E/E' LAT 7.67 (<14) MV E' Average 0.112 m/s MV E/E'(average) 7.58 Aortic Valve AoV Vmax 1.34 m/s LVOT Vmax 1.11 m/s AoV Peak Grad 7.2 mmHg LVOT Peak Grad 5.0 mmHg AoV Area (Vmax) 2.18 cm2 LVOT VTI 0.229 m AoV VTI 0.305 m LVOT Mean Grad 2.6 mmHg AoV Mean Jose. 0.93 m/s LVOT SV 59.92 mL AoV Mean Grad 4.0 mmHg LVOT Diam s 1.80 cm AoV Area (VTI) 1.96 cm2 AV Regurg Peak Gr. 7.19 mmHg Velocity Ratio 0.83 Mitral Valve MV DT 200 (160-240 msec) Pulmonary Valve PV Vmax 0.70 (0.5-1.5 m/s) RVOT Vmax 0.56 m/s PV Peak Grad 2.0 mmHg RVOT Peak Gr. 1.3 mmHg PV Mean Jose 0.47 m/s RVOT VTI 0.122 m PV Mean Grad 1.0 mmHg RVOT Mean Gr. 0.8 mmHg
== END 2025-01-06 00:30 ==
LOC: DI 00:10
PROVIDERS: PCP Family Medicine; Visit Provider Family Medicine
DX: R06.09 Other forms of dyspnea (principal); R53.83 Other fatigue
CPT/HCPCS: 93306

== ENCOUNTER 2025-02-28 10:02 | Emergency (ER) | payer MEDICARE, MEDICAID, SELFPAY ==
[2025-02-28 10:07] VITALS: BP 179/61; PULSE 70; RESP 12; TEMP 36.8; O2SAT 94
--- NOTE | 2025-02-28 10:19 | W.ED.GENAD ---
Discharge Plan Discharge Details Chief Complaint: EyeProblem Primary Care Provider: Tracey Mueller ED Provider: Levi Montague Home Meds and New Rx's Prescriptions: No Action sertraline 25 mg tablet 25 mg PO DAILY ascorbic acid (vitamin C) 1,000 mg capsule 1 g PO Q6H magnesium 250 mg tablet 250 mg PO DAILY vitamin B complex Capsule 1 cap PO DAILY alprazolam 0.5 mg tablet 0.5 mg PO ONCE PRN (Reason: claustrophobia) Qty: 2 0RF Rx Instructions: Take 1 60 minutes prior to MRI. May take an additional 1 if still anxious 30 minutes prior to MRI. losartan 25 MG tablet 50 mg PO DAILY pantoprazole 40 MG tablet,delayed release (DR/EC) 40 mg PO DAILY acetaminophen [Mapap Extra Strength] 500 MG tablet 650 mg PO PRN PRN aspirin [Aspirin Low-Strength] 81 MG tablet,chewable 1 tab PO .QOD ondansetron 4 mg tablet,disintegrating 4 mg PO Q8H PRN PRN Patient Comments: DISSOLVE 1 TABLET ON THE TONGUE EVERY 8 HOURS NEEDED Ozempic 1 mg/dose (4 mg/3 mL) pen injector 1 mg SUBCUT .weekly Patient Comments: INJECT 1 MG UNDER THE SKIN ONE DAY A WEEK (DME) pen needle, diabetic [BD Ultra-Fine Micro Pen Needle] 32 gauge x 1/4 needle MISCELLANEOUS Patient Comments: USE 1 NEEDLE ONCE DAILY dapagliflozin propanediol [Farxiga] 5 mg tablet 5 mg PO QAM Patient Comments: TAKE 1 TABLET BY MOUTH EVERY DAY FOR DIABETES atorvastatin 40 mg Tablet 40 mg PO QHS triamcinolone acetonide 0.1 % Cream 1 applic TOPICAL BID nitroglycerin [Nitrostat] 0.4 mg Tablet, Sublingual 0.4 mg SUBLINGUAL Q5-15M PRN furosemide 20 mg Tablet 20 mg PO DAILY albuterol sulfate [ProAir HFA] 90 mcg/actuation Hfa Aerosol Inhaler 2 puff INHALATION Q6H PRN metoprolol succinate 25 mg Capsule,Sprinkle,Er 24hr 25 mg PO DAILY diclofenac sodium [Voltaren Arthritis Pain] 1 % Gel 2 g TOPICAL QID PRN gabapentin [Neurontin] 100 mg capsule 100 mg PO TID Qty: 39 0RF Rx Instructions: Take 1 tablet 3 times daily for 3 days followed by 2 tabs 3 times daily for 5 days HPI General Date/Time Provider Initiated Documentation: 02/28/25 10:10. HPI Narrative: [ ] year-old [ ] presents to ED today by [ ] with a chief complaint of [ ] with onset [ ]. Quality described as [ ], [ ] radiation to [ ]. Severity is described as [ ]/10. Palliating factors include [ ]. Provoking factors include [ ]. Events leading up to the incident/Associated Symptoms: [ ]. Patient [ ] anticoagulated. Related Data Home Medications ?Medication ?Instructions ?Recorded ?Confirmed losartan 25 mg tablet 50 mg PO DAILY 10/14/12 02/28/25 pantoprazole 40 mg tablet,delayed 40 mg PO DAILY 12/08/12 02/28/25 release acetaminophen 500 mg tablet (Mapap 650 mg PO PRN PRN 02/11/13 02/28/25 Extra Strength) aspirin 81 mg chewable tablet 1 tab PO .QOD 06/07/16 02/28/25 (Aspirin Low-Strength) albuterol sulfate 90 mcg/actuation 2 puff inhalation Q6H PRN 05/10/19 02/28/25 aerosol inhaler (ProAir HFA) atorvastatin 40 mg tablet 40 mg PO QHS 05/10/19 02/28/25 furosemide 20 mg tablet 20 mg PO DAILY 05/10/19 02/28/25 metoprolol succinate 25 mg capsule 25 mg PO DAILY 05/10/19 02/28/25 sprinkle, ext. release 24 hr nitroglycerin 0.4 mg sublingual 0.4 mg sublingual Q5-15M PRN 05/10/19 02/28/25 tablet (Nitrostat) triamcinolone acetonide 0.1 % 1 applic topical BID 05/10/19 02/28/25 topical cream diclofenac sodium 1 % topical gel 2 g topical QID PRN 11/29/21 02/28/25 (Voltaren Arthritis Pain) sertraline 25 mg tablet 25 mg PO DAILY 09/01/23 02/28/25 dapagliflozin propanediol 5 mg 5 mg PO QAM 06/16/24 02/28/25 tablet (Farxiga) ondansetron 4 mg disintegrating 4 mg PO Q8H PRN PRN 06/16/24 02/28/25 tablet pen needle, diabetic 32 gauge x 06/16/24 12/23/24 1/ (BD Ultra-Fine Micro Pen Needle) semaglutide 1 mg/dose (4 mg/3 mL) 1 mg subcut .weekly 06/16/24 02/28/25 subcutaneous pen injector (Ozempic) gabapentin 100 mg capsule 100 mg PO TID #39 caps 06/30/24 02/28/25 (Neurontin) vitamin B complex 1 cap PO DAILY 07/21/24 02/28/25 ascorbic acid (vitamin C) 1,000 mg 1 g PO Q6H 08/04/24 02/28/25 capsule magnesium 250 mg tablet 250 mg PO DAILY 12/23/24 02/28/25 alprazolam 0.5 mg tablet 0.5 mg PO ONCE PRN claustrophobia 01/11/25 02/28/25 #2 tabs Previous Rx's ?Medication ?Instructions ?Recorded gabapentin 100 mg capsule 100 mg PO TID #39 caps 06/30/24 (Neurontin) alprazolam 0.5 mg tablet 0.5 mg PO ONCE PRN claustrophobia 01/11/25 #2 tabs Allergies Allergy/AdvReac Type Severity Reaction Status Date / Time Penicillins Allergy Unknown Hives Verified 02/28/25 10:09 codeine AdvReac Mild Nausea Verified 02/28/25 10:09 hydrocodone bitartrate (From AdvReac Mild Nausea Verified 02/28/25 10:09 Vicodin) General Stated Complaint: EyeProblem LISANDRA: 4 Review of Systems All systems reviewed & are unremarkable except as noted in HPI and below Exam Narrative Exam Narrative: GENERAL APPEARANCE: Well-nourished, non-toxic, awake and alert, atraumatic, no acute distress. SKIN: Warm, pink, dry, intact, without rashes/lesions/ulcerations. HEAD: Normocephalic, atraumatic, normal hair distribution for gender/age. EYES: Normal conjunctiva, no exudates on lids/lashes. ENT: Nares patent, no circumoral cyanosis, no facial swelling NECK: Supple, trachea midline, painless cervical ROM. LUNGS/CHEST: Lungs CTA bilaterally, non-labored respirations, normal A/P diameter, symmetrical expansion, no chest wall deformity HEART (CV/PV): Regular rate and rhythm without murmur, no peripheral edema, no JVD. ABDOMEN: Soft, non-distended, no guarding. MSK: Normal ROM, no swelling/deformity to bilateral UEs or LEs, moving all extremities without weakness, no cyanosis, spine midline without tenderness, normal curvature. NEURO: Mental Status AAOx4 - alert to person, place, time, events No facial droop, no forehead involvement. Motor: No focal weakness - strength 5/5 in bilateral UEs and LEs, proximal and distal, symmetric. Sensory: sensation intact to light touch globally. Gait normal: patient ambulated without ataxia into ED room. PSYCH: euthymic, cooperative, pleasant, appropriate speech Course Vital Signs Vital signs: Vital Signs Temperature 36.8 C 02/28/25 10:07 Pulse 70 02/28/25 10:07 Respiratory Rate 12 02/28/25 10:07 Blood Pressure 179/61 H 02/28/25 10:07 Pulse Oximetry 94 02/28/25 10:07 Temperature 36.8 C 02/28/25 10:07 Temperature Source Oral 02/28/25 10:07 Pulse 70 02/28/25 10:07 Respiratory Rate 12 02/28/25 10:07 Blood Pressure 179/61 H 02/28/25 10:07 Blood Pressure Position Sitting 02/28/25 10:07 Pulse Oximetry 94 02/28/25 10:07 Oxygen Delivery Method Room Air 02/28/25 10:07 Oxygen Flow Rate 0 02/28/25 10:07 Medical Decision Making This dictation utilizes [id number] dictation software and may contain unedited grammatical errors. [ ]. Patients' medical history: [ ]. Family and social history: [ ]. Pertinent exam findings / vital signs include [ ]. Differential / pathologies of concern include [ ]. Diagnostic studies of: -[ ]. Interventions of: -[ ]. ED Course/Assessment/Plan: [ ]. Findings not consistent with [ ]. Disposition of [ ]. Patient verbalized understanding of the plan and return to ED criteria and engaged in shared decision making. Medical Records Medical records reviewed: Yes I reviewed the patient's medical records. PFSH All Active Problems (Updated 12/23/24 @ 08:45 by MERCED Davis) Trochanteric bursitis, right hip (Acute) Bilateral shoulder bursitis (Acute) Sensorineural hearing loss of both ears (Acute) Morbid obesity (Acute) History of non-ST elevation myocardial infarction (NSTEMI) (Acute) Family history of colon cancer in mother (Acute) Adenomatous colon polyp (Acute) Family history of colon cancer (Acute) brother and sister Diabetes mellitus (Chronic) Diarrhea (Acute) Medical History (Updated 12/23/24 @ 08:45 by MERCED Davis) Psychophysiologic insomnia Coronary atherosclerosis Cough, persistent Quit using tobacco in remote past Metabolic syndrome Fibromyalgia Insomnia Sarcoidosis H/O lichenification and lichen simplex chronicus Situational anxiety Edema Hypertension Hyperlipidemia Nausea Abdominal pain GERD (gastroesophageal reflux disease) Tinnitus, bilateral Neoplasm of unspecified behavior of bone, soft tissue, and skin Cellulitis Family History (Updated 08/05/24 @ 13:02 by MERCED Umanzor) Brother Colon cancer Sister Colon cancer Social History Smoking/Tobacco Use Status: Former Tobacco Use Smoking risk assessment performed?: Yes Alcohol Intake: former Drug use: Never Substance use type: does not use Housing: house Do you feel safe at home: Yes Do you feel safe in your relationship?: Yes
== END 2025-02-28 10:38 | disposition left against medical advice (07) ==
PROVIDERS: PCP Family Medicine
DX: Z53.21 Procedure and treatment not carried out due to patient leaving prior to being seen by health care provider (principal)
CPT/HCPCS: 99024

== ENCOUNTER 2025-04-16 17:04 | Emergency (ER) | payer MEDICARE, MEDICAID, SELFPAY ==
[2025-04-16 17:09] VITALS: BP 119/72; PULSE 70; RESP 18; TEMP 36.8; O2SAT 95
--- NOTE | 2025-04-16 17:28 | W.ED.GENAD ---
Discharge Plan Disposition Patient Disposition: Home Condition: Good Discharge Details Clinical Impression: Cellulitis, Wasp sting Primary Care Provider: Tracey Mueller ED Provider: Rina Gonzalez Home Meds and New Rx's Prescriptions: New cephalexin 500 mg capsule 500 mg PO QID Qty: 18 0RF No Action sertraline 25 mg tablet 25 mg PO DAILY ascorbic acid (vitamin C) 1,000 mg capsule 1 g PO Q6H magnesium 250 mg tablet 250 mg PO DAILY vitamin B complex Capsule 1 cap PO DAILY alprazolam 0.5 mg tablet 0.5 mg PO ONCE PRN (Reason: claustrophobia) Qty: 2 0RF Rx Instructions: Take 1 60 minutes prior to MRI. May take an additional 1 if still anxious 30 minutes prior to MRI. losartan 25 MG tablet 50 mg PO DAILY pantoprazole 40 MG tablet,delayed release (DR/EC) 40 mg PO DAILY acetaminophen [Mapap Extra Strength] 500 MG tablet 650 mg PO PRN PRN aspirin [Aspirin Low-Strength] 81 MG tablet,chewable 1 tab PO .QOD ondansetron 4 mg tablet,disintegrating 4 mg PO Q8H PRN PRN Patient Comments: DISSOLVE 1 TABLET ON THE TONGUE EVERY 8 HOURS NEEDED Ozempic 1 mg/dose (4 mg/3 mL) pen injector 1 mg SUBCUT .weekly Patient Comments: INJECT 1 MG UNDER THE SKIN ONE DAY A WEEK (DME) pen needle, diabetic [BD Ultra-Fine Micro Pen Needle] 32 gauge x 1/4 needle MISCELLANEOUS Patient Comments: USE 1 NEEDLE ONCE DAILY dapagliflozin propanediol [Farxiga] 5 mg tablet 5 mg PO QAM Patient Comments: TAKE 1 TABLET BY MOUTH EVERY DAY FOR DIABETES atorvastatin 40 mg Tablet 40 mg PO QHS triamcinolone acetonide 0.1 % Cream 1 applic TOPICAL BID nitroglycerin [Nitrostat] 0.4 mg Tablet, Sublingual 0.4 mg SUBLINGUAL Q5-15M PRN furosemide 20 mg Tablet 20 mg PO DAILY albuterol sulfate [ProAir HFA] 90 mcg/actuation Hfa Aerosol Inhaler 2 puff INHALATION Q6H PRN metoprolol succinate 25 mg Capsule,Sprinkle,Er 24hr 25 mg PO DAILY diclofenac sodium [Voltaren Arthritis Pain] 1 % Gel 2 g TOPICAL QID PRN gabapentin [Neurontin] 100 mg capsule 100 mg PO TID Qty: 39 0RF Rx Instructions: Take 1 tablet 3 times daily for 3 days followed by 2 tabs 3 times daily for 5 days Discharge Instructions Instructions: Cellulitis (Skin Infection), Adult ED Additional Instructions: Please call your primary care provider first thing in the morning to schedule follow-up appointment in the next 3 to 4 days for reassessment. You are being treated for a localized skin infection called cellulitis. Please take the Keflex for the full course as prescribed. I recommend that you wash your skin with antibacterial soap and water and cover the wasp sting with a bandage. Do not squeeze at any blisters that may form. Return to emergency care if you develop new fever/chills, worsening redness/swelling/pain, general malaise/feeling of unwellness, signs of allergic reaction, or if you are very worried and need to be rechecked again immediately Referrals: Tracey Mueller MD [Primary Care Provider, Medicine] HPI General Date/Time Provider Initiated Documentation: 04/16/25 17:17. HPI Narrative: Reese is a 65-year-old male who presents to the emergency department today for evaluation of redness and swelling after wasp sting 2 days ago. Two days ago, stung by a wasp. Applied alcohol and removed stinger. Despite Neosporin, area became red and inflamed, tender to palpation. There is no skin opening. No significant drainage, covered with bandage. Denies associated fever, chills, general malaise/change in energy, nausea/vomiting, systemic symptoms, change in bowel or bladder function. History of similar reactions treated with antibiotics, last sting proximately 1 year ago. No antibiotics use within the last 6 months. [place] history of MRSA infection. PMH significant for Prediabetes, discontinued Ozempic due to adverse effects. Recent blood sugar level 126. Related Data Home Medications ?Medication ?Instructions ?Recorded ?Confirmed losartan 25 mg tablet 50 mg PO DAILY 10/14/12 04/16/25 pantoprazole 40 mg tablet,delayed 40 mg PO DAILY 12/08/12 04/16/25 release acetaminophen 500 mg tablet (Mapap 650 mg PO PRN PRN 02/11/13 04/16/25 Extra Strength) aspirin 81 mg chewable tablet 1 tab PO .QOD 06/07/16 04/16/25 (Aspirin Low-Strength) albuterol sulfate 90 mcg/actuation 2 puff inhalation Q6H PRN 05/10/19 04/16/25 aerosol inhaler (ProAir HFA) atorvastatin 40 mg tablet 40 mg PO QHS 05/10/19 04/16/25 furosemide 20 mg tablet 20 mg PO DAILY 05/10/19 04/16/25 metoprolol succinate 25 mg capsule 25 mg PO DAILY 05/10/19 04/16/25 sprinkle, ext. release 24 hr nitroglycerin 0.4 mg sublingual 0.4 mg sublingual Q5-15M PRN 05/10/19 04/16/25 tablet (Nitrostat) triamcinolone acetonide 0.1 % 1 applic topical BID 05/10/19 04/16/25 topical cream diclofenac sodium 1 % topical gel 2 g topical QID PRN 11/29/21 04/16/25 (Voltaren Arthritis Pain) sertraline 25 mg tablet 25 mg PO DAILY 09/01/23 04/16/25 dapagliflozin propanediol 5 mg 5 mg PO QAM 06/16/24 04/16/25 tablet (Farxiga) ondansetron 4 mg disintegrating 4 mg PO Q8H PRN PRN 06/16/24 04/16/25 tablet pen needle, diabetic 32 gauge x 06/16/24 04/16/2507/16 (BD Ultra-Fine Micro Pen Needle) semaglutide 1 mg/dose (4 mg/3 mL) 1 mg subcut .weekly 06/16/24 04/16/25 subcutaneous pen injector (Ozempic) gabapentin 100 mg capsule 100 mg PO TID #39 caps 06/30/24 04/16/25 (Neurontin) vitamin B complex 1 cap PO DAILY 07/21/24 04/16/25 ascorbic acid (vitamin C) 1,000 mg 1 g PO Q6H 08/04/24 04/16/25 capsule magnesium 250 mg tablet 250 mg PO DAILY 12/23/24 04/16/25 alprazolam 0.5 mg tablet 0.5 mg PO ONCE PRN claustrophobia 01/11/25 04/16/25 #2 tabs cephalexin 500 mg capsule 500 mg PO QID #18 caps 04/16/25 Previous Rx's ?Medication ?Instructions ?Recorded gabapentin 100 mg capsule 100 mg PO TID #39 caps 06/30/24 (Neurontin) alprazolam 0.5 mg tablet 0.5 mg PO ONCE PRN claustrophobia 01/11/25 #2 tabs cephalexin 500 mg capsule 500 mg PO QID #18 caps 04/16/25 Allergies Allergy/AdvReac Type Severity Reaction Status Date / Time Penicillins Allergy Unknown Hives Verified 04/16/25 17:12 codeine AdvReac Mild Nausea Verified 04/16/25 17:12 hydrocodone bitartrate (From AdvReac Mild Nausea Verified 04/16/25 17:12 Vicodin) General Stated Complaint: InsectBite LISANDRA: 3 Exam Narrative Exam Narrative: General Appearance: Normal. Patient alert and oriented, no acute distress Vital signs: Within normal limits. HEENT: No facial swelling, clear voice Respiratory: Easy work of breathing, able to speak in full sentences Skin: Erythematous and inflamed at wasp sting site. No significant drainage. Psychiatric: Normal. Skin Other: Course Vital Signs Vital signs: Vital Signs Temperature 36.8 C 04/16/25 17:09 Pulse 70 04/16/25 17:09 Respiratory Rate 18 04/16/25 17:09 Blood Pressure 119/72 04/16/25 17:09 Pulse Oximetry 95 04/16/25 17:09 Temperature 36.8 C 04/16/25 17:09 Pulse 70 04/16/25 17:09 Respiratory Rate 18 04/16/25 17:09 Blood Pressure 119/72 04/16/25 17:09 Blood Pressure Position Sitting 04/16/25 17:09 Pulse Oximetry 95 04/16/25 17:09 Oxygen Delivery Method Room Air 04/16/25 17:09 Oxygen Flow Rate 0 04/16/25 17:09 Pain Level 6 04/16/25 17:09 Medical Decision Making 65-year-old male with wasp sting and localized skin infection. No systemic symptoms. History of prediabetes. Differential Diagnosis: - Complicated cellulitis: Likely due to wasp sting, exacerbated by prediabetes. Start antibiotics, monitor, follow up with PCP. - Allergic reaction: Less likely, no signs of anaphylaxis. Timeline does not fit with allergic reaction. - All signs reassuring, patient does not meet sepsis criteria. No red flags concerning for serious systemic illness or abdominal compartment syndrome/other serious complications requiring diagnostic imaging or labs at this time. ED Course: - Photograph taken for chart - Antibiotics initiated (Keflex to cover MSSA) Final Assessment: Localized skin infection from wasp sting. Antibiotics started, photograph taken. Follow up with PCP, return if symptoms worsen. Clinical Impression: - Cellulitis associated with wasp sting Reviewed discharge instructions with patient, including symptomatic management, use of antibiotics, and red flags indicating need for return to emergency care. He voices agreement with plan of care. Disposition: - Discharge: Follow up with PCP, Dr. Mueller, in a few days - Follow-Up: Call PCP to ensure improvement. Patient Education: Return if fever, malaise, increased swelling, abdominal pain, or difficulty eating/drinking. Patient consented to the use of MAXIM PFSH All Active Problems (Updated 04/16/25 @ 17:29 by Rina Vitale) Wasp sting (Acute) Cellulitis (Acute) Trochanteric bursitis, right hip (Acute) Bilateral shoulder bursitis (Acute) Sensorineural hearing loss of both ears (Acute) Morbid obesity (Acute) History of non-ST elevation myocardial infarction (NSTEMI) (Acute) Family history of colon cancer in mother (Acute) Adenomatous colon polyp (Acute) Family history of colon cancer (Acute) brother and sister Diabetes mellitus (Chronic) Diarrhea (Acute) Medical History (Updated 04/16/25 @ 17:29 by Rina Vitale) Psychophysiologic insomnia Coronary atherosclerosis Cough, persistent Quit using tobacco in remote past Metabolic syndrome Fibromyalgia Insomnia Sarcoidosis H/O lichenification and lichen simplex chronicus Situational anxiety Edema Hypertension Hyperlipidemia Nausea Abdominal pain GERD (gastroesophageal reflux disease) Tinnitus, bilateral Neoplasm of unspecified behavior of bone, soft tissue, and skin Cellulitis Family History (Updated 08/05/24 @ 13:02 by MERCED Umanzor) Brother Colon cancer Sister Colon cancer Social History Smoking/Tobacco Use Status: Former Tobacco Use Smoking risk assessment performed?: Yes Alcohol Intake: former Drug use: Never Substance use type: does not use Housing: house Do you feel safe at home: Yes Do you feel safe in your relationship?: Yes
[2025-04-16] MEDS: Cephalexin 500 MG CAP, 4 CAPS/BTL PO (17:33)
== END 2025-04-16 17:39 | disposition home or self-care (01) ==
PROVIDERS: Emergency Provider Nurse Practitioner Family; PCP Family Medicine
DX: T63.461A Toxic effect of venom of wasps, accidental (unintentional), initial encounter (principal); L03.311 Cellulitis of abdominal wall
CPT/HCPCS: 99283

== ENCOUNTER 2025-05-22 12:11 | Emergency (ER) | payer MEDICARE, MEDICAID, SELFPAY ==
[2025-05-22 13:22] VITALS: BP 118/64; PULSE 62; RESP 18; TEMP 36.4; O2SAT 95
--- NOTE | 2025-05-22 13:49 | W.ED.GENAD ---
Discharge Plan Disposition Patient Disposition: Home Condition: Stable Discharge Details Clinical Impression: External otitis of left ear Primary Care Provider: Tracey Mueller ED Provider: Rd Galindo Home Meds and New Rx's Prescriptions: New ofloxacin 0.3 % drops 10 drp otic (ear) DAILY 7 Days Qty: 5 0RF Continued sertraline 25 mg tablet 25 mg PO DAILY ascorbic acid (vitamin C) 1,000 mg capsule 1 g PO Q6H vitamin B complex Capsule 1 cap PO DAILY alprazolam 0.5 mg tablet 0.5 mg PO ONCE PRN (Reason: claustrophobia) Qty: 2 0RF Rx Instructions: Take 1 60 minutes prior to MRI. May take an additional 1 if still anxious 30 minutes prior to MRI. losartan 25 MG tablet 50 mg PO DAILY pantoprazole 40 MG tablet,delayed release (DR/EC) 40 mg PO DAILY acetaminophen [Mapap Extra Strength] 500 MG tablet 650 mg PO PRN PRN aspirin [Aspirin Low-Strength] 81 MG tablet,chewable 1 tab PO .QOD ondansetron 4 mg tablet,disintegrating 4 mg PO Q8H PRN PRN Patient Comments: DISSOLVE 1 TABLET ON THE TONGUE EVERY 8 HOURS NEEDED Ozempic 1 mg/dose (4 mg/3 mL) pen injector 1 mg SUBCUT .weekly Patient Comments: INJECT 1 MG UNDER THE SKIN ONE DAY A WEEK (DME) pen needle, diabetic [BD Ultra-Fine Micro Pen Needle] 32 gauge x 1/4 needle MISCELLANEOUS Patient Comments: USE 1 NEEDLE ONCE DAILY atorvastatin 40 mg Tablet 40 mg PO QHS triamcinolone acetonide 0.1 % Cream 1 applic TOPICAL BID nitroglycerin [Nitrostat] 0.4 mg Tablet, Sublingual 0.4 mg SUBLINGUAL Q5-15M PRN furosemide 20 mg Tablet 20 mg PO DAILY albuterol sulfate [ProAir HFA] 90 mcg/actuation Hfa Aerosol Inhaler 2 puff INHALATION Q6H PRN metoprolol succinate 25 mg Capsule,Sprinkle,Er 24hr 25 mg PO DAILY diclofenac sodium [Voltaren Arthritis Pain] 1 % Gel 2 g TOPICAL QID PRN gabapentin [Neurontin] 100 mg capsule 100 mg PO TID Qty: 39 0RF Rx Instructions: Take 1 tablet 3 times daily for 3 days followed by 2 tabs 3 times daily for 5 days Discontinued magnesium 250 mg tablet 250 mg PO DAILY cephalexin 500 mg capsule 500 mg PO QID Qty: 18 0RF No Action dapagliflozin propanediol [Farxiga] 5 mg tablet 5 mg PO QAM Patient Comments: TAKE 1 TABLET BY MOUTH EVERY DAY FOR DIABETES Discharge Instructions Instructions: Outer Ear Infection ED Additional Instructions: There is concern that there is no infection of your left external ear. An ear wick was placed today. He has been started on ofloxacin otic solution 0.3%. Apply 10 drops to left ear daily for the next 6 days. 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 Please follow-up with your primary care physician. Return to the emergency department immediately for any worsening or new concerning symptoms. Stand Alone Forms: Portal Information Referrals: Tracey Mueller MD [Primary Care Provider, Medicine] Duran Cordova MD [[facility] STAFF PHYSICIAN, ENT Surgical] HPI General Mode of arrival: ambulatory. Date/Time Provider Initiated Documentation: 05/22/25 12:30. Limitations to Documentation: no limitations. Information obtained by: patient. HPI Narrative: HISTORY OF PRESENT ILLNESS This is a 65-year-old male with a history of borderline diabetes presenting with left ear discomfort. The patient reports experiencing an earache for the past 2 to 3 days, which has been significant enough to prevent him from lying on his left side. The pain intensifies upon touch, and he is unable to insert his finger into the ear due to the discomfort. He mentions that he has experienced similar symptoms in the past, but the current episode is more intense. He has not engaged in any recent swimming activities or travel to elevated areas. The patient reports no fever or ear discharge. He frequently visits wooded areas and initially suspected a tick infestation as the cause of his symptoms. He has attempted self-treatment by applying witch chaya around the ear canal opening. He has previously consulted an ENT specialist for a nasal issue. The patient has been diagnosed with borderline diabetes by Dr. Mejía and is currently on Ozempic and Farxiga. His blood sugar levels have been fluctuating in the 160s. He also mentions a history of nasal congestion, which is not a new symptom. Related Data Home Medications Medication Instructions Recorded Confirmed losartan 25 mg tablet 50 mg PO DAILY 10/14/12 05/22/25 pantoprazole 40 mg tablet,delayed 40 mg PO DAILY 12/08/12 05/22/25 release acetaminophen 500 mg tablet (Mapap 650 mg PO PRN PRN 02/11/13 05/22/25 Extra Strength) aspirin 81 mg chewable tablet 1 tab PO .QOD 06/07/16 05/22/25 (Aspirin Low-Strength) albuterol sulfate 90 mcg/actuation 2 puff inhalation Q6H PRN 05/10/19 05/22/25 aerosol inhaler (ProAir HFA) atorvastatin 40 mg tablet 40 mg PO QHS 05/10/19 05/22/25 furosemide 20 mg tablet 20 mg PO DAILY 05/10/19 05/22/25 metoprolol succinate 25 mg capsule 25 mg PO DAILY 05/10/19 05/22/25 sprinkle, ext. release 24 hr nitroglycerin 0.4 mg sublingual 0.4 mg sublingual Q5-15M PRN 05/10/19 05/22/25 tablet (Nitrostat) triamcinolone acetonide 0.1 % 1 applic topical BID 05/10/19 05/22/25 topical cream diclofenac sodium 1 % topical gel 2 g topical QID PRN 11/29/21 05/22/25 (Voltaren Arthritis Pain) sertraline 25 mg tablet 25 mg PO DAILY 09/01/23 05/22/25 dapagliflozin propanediol 5 mg 5 mg PO QAM 06/16/24 05/22/25 tablet (Farxiga) ondansetron 4 mg disintegrating 4 mg PO Q8H PRN PRN 06/16/24 05/22/25 tablet pen needle, diabetic 32 gauge x 06/16/24 05/22/25/ (BD Ultra-Fine Micro Pen Needle) semaglutide 1 mg/dose (4 mg/3 mL) 1 mg subcut .weekly 06/16/24 05/22/25 subcutaneous pen injector (Ozempic) gabapentin 100 mg capsule 100 mg PO TID #39 caps 06/30/24 05/22/25 (Neurontin) vitamin B complex 1 cap PO DAILY 07/21/24 05/22/25 ascorbic acid (vitamin C) 1,000 mg 1 g PO Q6H 08/04/24 05/22/25 capsule alprazolam 0.5 mg tablet 0.5 mg PO ONCE PRN claustrophobia 01/11/25 05/22/25 #2 tabs ofloxacin 0.3 % ear drops 10 drp otic (ear) DAILY 7 days #5 05/22/25 mL Previous Rx's Medication Instructions Recorded gabapentin 100 mg capsule 100 mg PO TID #39 caps 06/30/24 (Neurontin) alprazolam 0.5 mg tablet 0.5 mg PO ONCE PRN claustrophobia 01/11/25 #2 tabs ofloxacin 0.3 % ear drops 10 drp otic (ear) DAILY 7 days #5 05/22/25 mL Allergies Allergy/AdvReac Type Severity Reaction Status Date / Time Penicillins Allergy Unknown Hives Verified 05/22/25 12:22 codeine AdvReac Mild Nausea Verified 05/22/25 12:22 hydrocodone bitartrate (From AdvReac Mild Nausea Verified 05/22/25 12:22 Vicodin) General Stated Complaint: EarProblem LISANDRA: 4 Review of Systems Constitutional Constitutional: Denies fever(s) ENT Ears, Nose, Mouth, and Throat: Reports as per HPI Exam Const General: cooperative and no acute distress HENMT Ears: mastoids normal, no periauricular adenopathy and EAC abnormal edema, EAC tenderness and otic discharge (dried); no foreign body General nose exam: external nose normal Mouth: moist mucous membranes Throat: posterior oropharynx normal Eyes Conjunctivae: normal conjunctivae Sclera: normal sclerae EOM: EOM intact bilaterally Neck Neck: no lymphadenopathy, trachea midline and supple Course Vital Signs Vital signs: Vital Signs Temperature 36.4 C L 05/22/25 13:22 Pulse 62 05/22/25 13:22 Respiratory Rate 18 05/22/25 13:22 Blood Pressure 118/64 05/22/25 13:22 Pulse Oximetry 95 05/22/25 13:22 Temperature 36.4 C L 05/22/25 13:22 Temperature Source Tympanic 05/22/25 13:22 Pulse 62 05/22/25 13:22 Respiratory Rate 18 05/22/25 13:22 Blood Pressure 118/64 05/22/25 13:22 Pulse Oximetry 95 05/22/25 13:22 Oxygen Delivery Method Room Air 05/22/25 13:22 Oxygen Flow Rate 0 05/22/25 12:20 Pain Level 7 05/22/25 13:20 Medical Decision Making ASSESSMENT AND PLAN Initial Assessment: 65-year-old male with left ear discomfort for 2-3 days, worsened by touch, no discharge, no fever. Differential Diagnosis: - External ear infection: Swollen outer ear, dry skin, no discharge. Plan: Insert ear wick, administer antibiotic eardrops, referral to ENT. ED Course: - Blood glucose: Within normal limits - Ear wick inserted - ofloxacin eardrops administered Final Assessment: Ear wick inserted and ofloxacin eardrops administered for suspected external ear infection. Clinical Impression: - External ear infection Disposition: - Follow-Up: Referral to ENT for wick removal and further assessment This document was written with the assistance of MAXIM Bonilla. The patient consented to its use. Blood sugar within normal limits. Ear wick placed. Ofloxacin drops applied. Plan for outpatient follow-up with ENT. [facility] All Active Problems External otitis of left ear (Acute) Trochanteric bursitis, right hip (Acute) Bilateral shoulder bursitis (Acute) Sensorineural hearing loss of both ears (Acute) Morbid obesity (Acute) History of non-ST elevation myocardial infarction (NSTEMI) (Acute) Family history of colon cancer in mother (Acute) Adenomatous colon polyp (Acute) Family history of colon cancer (Acute) brother and sister Diabetes mellitus (Chronic) Diarrhea (Acute) Medical History Psychophysiologic insomnia Coronary atherosclerosis Cough, persistent Quit using tobacco in remote past Metabolic syndrome Fibromyalgia Insomnia Sarcoidosis H/O lichenification and lichen simplex chronicus Situational anxiety Edema Hypertension Hyperlipidemia Nausea Abdominal pain GERD (gastroesophageal reflux disease) Tinnitus, bilateral Neoplasm of unspecified behavior of bone, soft tissue, and skin Cellulitis Family History Brother Colon cancer Sister Colon cancer Social History Smoking/Tobacco Use Status: Former Tobacco Use Smoking risk assessment performed?: Yes Alcohol Intake: former Drug use: Never Substance use type: does not use Housing: house Do you feel safe at home: Yes Do you feel safe in your relationship?: Yes
[2025-05-22] MEDS: Ofloxacin 0.3% OTIC 5 ML BTL AS (14:12)
== END 2025-05-22 14:33 | disposition home or self-care (01) ==
PROVIDERS: Emergency Provider Student in an Organized Health Care Education/Training Program; PCP Family Medicine
DX: H60.8X2 Other otitis externa, left ear (principal)
CPT/HCPCS: 99283 ×2; 36416; 82962

== ENCOUNTER 2025-05-29 09:27 | Emergency (ER) | payer MEDICARE, MEDICAID, SELFPAY ==
[2025-05-29 09:37] VITALS: BP 132/71; PULSE 58; RESP 16; TEMP 36.4; O2SAT 92
--- NOTE | 2025-05-29 10:26 | W.ED.GENAD ---
Discharge Plan Disposition Patient Disposition: Home Condition: Good Discharge Details Clinical Impression: Acute anal fissure Primary Care Provider: Tracey Mueller ED Provider: Nelda Zelaya Home Meds and New Rx's Prescriptions: New nitroglycerin [Rectiv] 0.4 % (w/w) ointment 1 inch MS BID Qty: 30 0RF Continued sertraline 25 mg tablet 25 mg PO DAILY ascorbic acid (vitamin C) 1,000 mg capsule 1 g PO Q6H vitamin B complex Capsule 1 cap PO DAILY alprazolam 0.5 mg tablet 0.5 mg PO ONCE PRN (Reason: claustrophobia) Qty: 2 0RF Rx Instructions: Take 1 60 minutes prior to MRI. May take an additional 1 if still anxious 30 minutes prior to MRI. losartan 25 MG tablet 50 mg PO DAILY pantoprazole 40 MG tablet,delayed release (DR/EC) 40 mg PO DAILY acetaminophen [Mapap Extra Strength] 500 MG tablet 650 mg PO PRN PRN aspirin [Aspirin Low-Strength] 81 MG tablet,chewable 1 tab PO .QOD ondansetron 4 mg tablet,disintegrating 4 mg PO Q8H PRN PRN Patient Comments: DISSOLVE 1 TABLET ON THE TONGUE EVERY 8 HOURS NEEDED Ozempic 1 mg/dose (4 mg/3 mL) pen injector 1 mg SUBCUT .weekly Patient Comments: INJECT 1 MG UNDER THE SKIN ONE DAY A WEEK (DME) pen needle, diabetic [BD Ultra-Fine Micro Pen Needle] 32 gauge x 1/4 needle MISCELLANEOUS Patient Comments: USE 1 NEEDLE ONCE DAILY dapagliflozin propanediol [Farxiga] 5 mg tablet 5 mg PO QAM Patient Comments: TAKE 1 TABLET BY MOUTH EVERY DAY FOR DIABETES atorvastatin 40 mg Tablet 40 mg PO QHS triamcinolone acetonide 0.1 % Cream 1 applic TOPICAL BID nitroglycerin [Nitrostat] 0.4 mg Tablet, Sublingual 0.4 mg SUBLINGUAL Q5-15M PRN furosemide 20 mg Tablet 20 mg PO DAILY albuterol sulfate [ProAir HFA] 90 mcg/actuation Hfa Aerosol Inhaler 2 puff INHALATION Q6H PRN metoprolol succinate 25 mg Capsule,Sprinkle,Er 24hr 25 mg PO DAILY diclofenac sodium [Voltaren Arthritis Pain] 1 % Gel 2 g TOPICAL QID PRN gabapentin [Neurontin] 100 mg capsule 100 mg PO TID Qty: 39 0RF Rx Instructions: Take 1 tablet 3 times daily for 3 days followed by 2 tabs 3 times daily for 5 days Discharge Instructions Instructions: Anal Fissure, Adult ED Additional Instructions: As we discussed, your exam shows about a 1 cm anal fissure which appears to have been bleeding recently, likely the source of your current symptoms. Please continue with the witlana chaya. Please add in sitz bath's few times a day to promote healing. Please continue to encourage hydration and fiber rich foods. You may also use stool softener such as MiraLAX as straining can make these worse. I have let your surgical team know about your fissure given your upcoming colonoscopy. I have also prescribed you a topical agent which may help with healing and some of her discomfort. Please use as prescribed. If you develop any new or worsening symptoms please to care urgently once again. Stand Alone Forms: Portal Information Referrals: Alicia Roy PA [[facility], [facility]] [facility] General Date/Time Provider Initiated Documentation: 05/29/25 09:42. Limitations to Documentation: no limitations. Information obtained by: patient, RN notes reviewed and old records reviewed. History of Present Illness 65 year old M presents to the emergency department with the chief complaint of Bright red blood per rectum, described as moderate and similar to prior episodes, Patient started experiencing this day(s) and it has been intermittent. Other factors that worsen symptoms (firm stools) . Patient notes denies chest pain, fever/chills, nausea/vomiting and shortness of breath. Patient did receive the following treatments prior to arrival, none Related Data Home Medications Medication Instructions Recorded Confirmed losartan 25 mg tablet 50 mg PO DAILY 10/14/12 05/22/25 pantoprazole 40 mg tablet,delayed 40 mg PO DAILY 12/08/12 05/22/25 release acetaminophen 500 mg tablet (Mapap 650 mg PO PRN PRN 02/11/13 05/22/25 Extra Strength) aspirin 81 mg chewable tablet 1 tab PO .QOD 06/07/16 05/22/25 (Aspirin Low-Strength) albuterol sulfate 90 mcg/actuation 2 puff inhalation Q6H PRN 05/10/19 05/22/25 aerosol inhaler (ProAir HFA) atorvastatin 40 mg tablet 40 mg PO QHS 05/10/19 05/22/25 furosemide 20 mg tablet 20 mg PO DAILY 05/10/19 05/22/25 metoprolol succinate 25 mg capsule 25 mg PO DAILY 05/10/19 05/22/25 sprinkle, ext. release 24 hr nitroglycerin 0.4 mg sublingual 0.4 mg sublingual Q5-15M PRN 05/10/19 05/22/25 tablet (Nitrostat) triamcinolone acetonide 0.1 % 1 applic topical BID 05/10/19 05/22/25 topical cream diclofenac sodium 1 % topical gel 2 g topical QID PRN 11/29/21 05/22/25 (Voltaren Arthritis Pain) sertraline 25 mg tablet 25 mg PO DAILY 09/01/23 05/22/25 dapagliflozin propanediol 5 mg 5 mg PO QAM 06/16/24 05/22/25 tablet (Farxiga) ondansetron 4 mg disintegrating 4 mg PO Q8H PRN PRN 06/16/24 05/22/25 tablet pen needle, diabetic 32 gauge x 06/16/24 05/22/2507/16 (BD Ultra-Fine Micro Pen Needle) semaglutide 1 mg/dose (4 mg/3 mL) 1 mg subcut .weekly 06/16/24 05/22/25 subcutaneous pen injector (Ozempic) gabapentin 100 mg capsule 100 mg PO TID #39 caps 06/30/24 05/22/25 (Neurontin) vitamin B complex 1 cap PO DAILY 07/21/24 05/22/25 ascorbic acid (vitamin C) 1,000 mg 1 g PO Q6H 08/04/24 05/22/25 capsule alprazolam 0.5 mg tablet 0.5 mg PO ONCE PRN claustrophobia 01/11/25 05/22/25 #2 tabs nitroglycerin 0.4 % (w/w) rectal 1 inch MS BID #30 grams 05/29/25 ointment (Rectiv) Previous Rx's Medication Instructions Recorded gabapentin 100 mg capsule 100 mg PO TID #39 caps 06/30/24 (Neurontin) alprazolam 0.5 mg tablet 0.5 mg PO ONCE PRN claustrophobia 01/11/25 #2 tabs nitroglycerin 0.4 % (w/w) rectal 1 inch MS BID #30 grams 05/29/25 ointment (Rectiv) Allergies Allergy/AdvReac Type Severity Reaction Status Date / Time Penicillins Allergy Unknown Hives Verified 05/29/25 09:40 codeine AdvReac Mild Nausea Verified 05/29/25 09:40 hydrocodone bitartrate (From AdvReac Mild Nausea Verified 05/29/25 09:40 Vicodin) General Stated Complaint: Abd Prob LISANDRA: 3 Review of Systems Constitutional Constitutional: Reports as per HPI and Denies fever(s) Cardiovascular Cardiovascular: Reports as per HPI, Denies chest pain and Denies dyspnea Respiratory Respiratory: Reports as per HPI, Denies cough and Denies dyspnea Gastrointestinal Gastrointestinal: Reports as per HPI Genitourinary Genitourinary: Denies system reviewed and no additional complaints, except as documented (patient denies any change in urinary habits) Musculoskeletal Musculoskeletal: Reports as per HPI and Denies back pain Integumentary/Breasts Skin/Breast: Reports as per HPI and Denies rash Neurologic Neurologic: Reports as per HPI Exam Const General: cooperative, healthy appearing, comfortable, no acute distress and well developed Nutritional Appearance: well nourished and overweight Orientation: alert and awake [facility] Head: normal to inspection Mouth: moist mucous membranes Resp Effort & Inspection: normal respiratory effort, able to speak in complete sentences and no respiratory distress Cardio Rate: regular rate Rhythm: regular rhythm GI Inspection: normal to inspection Palpation: soft, no hepatosplenomegaly, no guarding, no pulsatile masses and nontender Rectal Exam: normal sphincter tone, prostate normal, No abnormal stool, fissure (not actively bleeding, 1cm in length 7 o*clock) and No mass Skin General skin exam: no rashes or lesions noted Trauma: no lacerations or abrasions Neuro General: patient alert and patient awake Cognition: normal cognition Speech: speech normal Gait: normal gait Course Vital Signs Vital signs: Vital Signs Temperature 36.4 C L 05/29/25 09:37 Pulse 58 L 05/29/25 09:37 Respiratory Rate 16 05/29/25 09:37 Blood Pressure 132/71 05/29/25 09:37 Pulse Oximetry 92 05/29/25 09:37 Temperature 36.4 C L 05/29/25 09:37 Temperature Source Tympanic 05/29/25 09:37 Pulse 58 L 05/29/25 09:37 Respiratory Rate 16 05/29/25 09:37 Blood Pressure 132/71 05/29/25 09:37 Blood Pressure Position Sitting 05/29/25 09:37 Pulse Oximetry 92 05/29/25 09:37 Oxygen Delivery Method Room Air 05/29/25 09:37 Oxygen Flow Rate 0 05/29/25 09:37 Pain Level 0 05/29/25 09:37 Medical Decision Making Patient is a pleasant 65-year-old gentleman presenting today with chief complaint of rectal bleeding. He reports this began few days ago, he also states that he has had this historically but that there is periods where it resolves in between. He does report that his brother has a history of anal fissures. He denies any rectal trauma. Has had some rectal pain. He denies any fevers or chills. He reports that he has chronic abdominal pain for which he is undergoing an EGD and a colonoscopy next month. He has another follow-up with general surgery later this week. He states that his appetite has overall been down for the past few years. No change in his weight. He states that he chronically has been using some stool softeners, no change in bowel habits recently but he has noted in the past that this bleeding can be accompanied with straining to have a bowel movement. He denies any blood elsewhere but does note that he is on meloxicam as well as aspirin. On exam, patient appears nontoxic. Resting comfortably no acute distress. Abdomen is soft and benign. Normoactive bowel sounds. 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 He does not have any external hemorrhoids. No internal hemorrhoids, no bright red blood on the glove after removal from the rectum. Patient does report that he has also gone through his stool and has not seen any bright red blood in the stool itself at home. Bleeding at this time seems to be coming from anal fissure. Patient reports that he has used witch chaya with good relief in the past. I did encourage that he continue with this. I also asked that he begin using sitz bath's and also prescribed him topical nitroglycerin to help the healing of the fissure. I also let his surgical group know as he is scheduled to see them soon seen about the findings on today's exam. Return precautions were discussed. No evidence at this time for infection, internal bleeding, hemodynamic instability. Blood sounds to be minimal so no indication at this time for anemia associated with blood loss. Patient is abdominal discomfort as well as change in the appetite has been ongoing for several years and has not changed with the addition of the bright red blood per rectum a few days ago. No indication to suggest acute surgical abdomen or need for emergent evaluation of this chronic issue. Patient feels safe to go home, has follow-up with primary care tomorrow. Return precautions were discussed. All of his questions and concerns were addressed and he is in agreement this plan. Dictation completed using [employer] dictation software. Please excuse any errors or photographic restorer anomalies that may remain. PFSH All Active Problems (Updated 05/29/25 @ 10:29 by MERCED Moya) Acute anal fissure (Acute) External otitis of left ear (Acute) Trochanteric bursitis, right hip (Acute) Bilateral shoulder bursitis (Acute) Sensorineural hearing loss of both ears (Acute) Morbid obesity (Acute) History of non-ST elevation myocardial infarction (NSTEMI) (Acute) Family history of colon cancer in mother (Acute) Adenomatous colon polyp (Acute) Family history of colon cancer (Acute) brother and sister Diabetes mellitus (Chronic) Diarrhea (Acute) Medical History Psychophysiologic insomnia Coronary atherosclerosis Cough, persistent Quit using tobacco in remote past Metabolic syndrome Fibromyalgia Insomnia Sarcoidosis H/O lichenification and lichen simplex chronicus Situational anxiety Edema Hypertension Hyperlipidemia Nausea Abdominal pain GERD (gastroesophageal reflux disease) Tinnitus, bilateral Neoplasm of unspecified behavior of bone, soft tissue, and skin Cellulitis Family History Brother Colon cancer Sister Colon cancer Social History Smoking/Tobacco Use Status: Former Tobacco Use Smoking risk assessment performed?: Yes Alcohol Intake: former Drug use: Never Substance use type: does not use Housing: house Do you feel safe at home: Yes Do you feel safe in your relationship?: Yes
== END 2025-05-29 10:48 | disposition home or self-care (01) ==
PROVIDERS: Emergency Provider Physician Assistant; PCP Family Medicine
DX: K60.0 Acute anal fissure (principal); Z80.0 Family history of malignant neoplasm of digestive organs
CPT/HCPCS: 99283 ×2

== ENCOUNTER → 2025-06-01 13:15 | Outpatient (BNVA) | payer MEDICARE, MEDICAID, SELFPAY | PROVIDERS: PCP Family Medicine; Referring Provider Family Medicine; Visit Provider Physical Therapy Assistant | DX: Z12.11 Encounter for screening for malignant neoplasm of colon (principal) ==